=== PATIENT | male | born 1945 | race Caucasian/White ===

== ENCOUNTER 2016-04-23 05:44 | Inpatient (IN) | payer OTHER ==
[2016-04-23] VITALS (25 sets, daily range): BP systolic 104–144; BP diastolic 41–65
[~2016-04-23] VITALS: Ht 180.3 cm; Wt 95.9 kg
--- NOTE | 2016-04-23 06:18 | DIAGNOSTIC IMAGING REPORT ---
PROCEDURE: XR CHEST 1 VIEW INDICATION: Pain. Chronic abdominal distention and ascites. TECHNIQUE: Portable AP view (0605 hours). COMPARISON: Compared to chest x-ray 03/12/2016. FINDINGS: Allowing for suboptimal inspiration, lungs are clear. Status post coronary artery bypass graft. Mild cardiomegaly. Mediastinum is normal. Heart and mediastinum are normal. Thorax is normal. IMPRESSION: 1. Status post coronary artery bypass graft. 2. Mild cardiomegaly. 3. Otherwise negative chest.
--- NOTE | 2016-04-23 06:42 | ED NURSING NOTES ---
Clinical Report - Nurses [facility] [address] [place] [address] 04/23/2016 5:44 Patient: HOLLY NAM TRIAGE Triage time 05:49. Acuity: LEVEL 4. Chief Complaint: CHEST PAIN. Alert. --05:54 Ivon Segura R.N. 05:49 04/23/16. BP: 125/46. HR: 82. RR: 20 (regular and unlabored). O2 saturation: 93% on room air. Temp: 97.9 F (oral). --05:54 Ivon Segura R.N. Weight: 96 kg measured. Height/Length: 69 inches Per Patient. BMI: 31.3. --05:51 Ivon Segura R.N. Medications Aspirin Oral (Tablet 81 mg) 1 tablet, daily. Atorvastatin Calcium Oral 40 mg, at bedtime. Glargine Insulin 12 units, at bedtime. HumaLOG Subcutaneous 4 units, before meals, add 1 unit if BS >150. --05:51 Ivon Segura R.N. Iron Oral 50 mg, daily. L-Thyroxine 112 mcgs, daily. MetFORMIN HCl Oral 850 mg, 2x a day. Midodrine HCl Oral 15 mg, TID (5mg tablets, take 3). Omeprazole Oral 20 mg, daily. Vitamins Oral, daily. Rifaximin Oral (Tablet 550 mg) 1 tablet, daily. Spironolactone Oral 25mg tablets, 3 tablets, 2x a day. Sucralfate-Malate Mouth/Throat 1 gm, daily. Torsemide Oral 20 mg, take 4 tablets, daily. --05:51 Ivon Segura R.N. Allergies No Known Drug Allergy. --05:51 Ivon Segura R.N. History Arrived by private vehicle. Historian: patient. Accompanied by family. Primary physician (Devang). ( pt was seen by PCP 2 days ago). This started today. Onset. (at 0200). 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 (tums last dose today at 0330). SOCIAL HX: Never smoker. No alcohol use. NUTRITIONAL RISK ASSESSMENT: The nutritional risk assessment revealed no deficiencies. FUNCTIONAL ASSESSMENT: Functional assessment: no impairments noted. --05:54 Ivon Segura R.N. PROBLEMS: Dizziness. Renal Failure. Coronary Artery Disease. Ascites. Hypovolemia. Heart Disease. Anemia. Hypoglycemia. Herpes Zoster. Liver disease. Thyroid Disease. Diabetes Mellitus. --05:51 Ivon Segura R.N. ADDITIONAL SURGERIES: Coronary Angioplasty. Coronary Artery Bypass Graft. Paracentesis. --05:51 Ivon Segura R.N. Interventions ID band on patient. To treatment room. --05:54 Ivon Segura R.N. PHYSICAL ASSESSMENT To room via wheelchair. Patient gowned. GENERAL / NEURO / PSYCH: Alert. Oriented X 4. Appears in no acute distress. RESPIRATORY: Respirations not labored. CVS: Capillary refill less than 2 seconds. GI / : Abdominal distention. SKIN: Skin is warm and dry. --05:54 Ivon Segura R.N. NURSING PROGRESS NOTES Head of bed elevated. Two patient identifiers checked. Call light placed in reach. Side rails up x 1. Bed placed in lowest position. Brakes of bed on. --05:54 Ivon Segura R.N. Patient ready for evaluation- chart flagged. --05:54 Ivon Segura R.N. 05:56 04/23/2016 Site #1 started via IV in the right forearm with an 18g angiocath, with aseptic technique and good blood return; one attempt. Blood drawn: rainbow set. Labeled in the presence of the patient and sent to the lab. Saline lock flushed with 10 mL saline (started by YOUSIF Langston). --05:56 Ivon Segura R.N. 06:20 04/23/2016 NITROGLYCERIN PASTE Topical Paste 1 inch. Applied to the right upper back. Allergies verified and confirmed 5 rights. --06:25 Melissa Cline 06:20 04/23/2016 Zofran (Ondansetron HCl) IVP 4 mg given over 1 minute(s) via site #1. Allergies verified and confirmed 5 rights. IV patency established. IV site checked: no pain, redness, or swelling. IV flushed thoroughly pre- and post-medication administration. IVP given by RN. --06:25 Melissa Cline 06:21 04/23/2016 PROTONIX (Pantoprazole Sodium) IVP 40 mg given over 2 minute(s) via site #1. Allergies verified and confirmed 5 rights. IV patency established. IV site checked: no pain, redness, or swelling. IV flushed thoroughly pre- and post-medication administration. IVP given by RN. --06:26 Melissa Cline 06:25 04/23/2016 Aspirin PO Tablets 325 mg given. Allergies verified and confirmed 5 rights. --06:25 Melissa Cline 06:04/23/2016 GI COCKTAIL WHITE (Simethicone) PO Oral Suspension 30 mL given. Allergies verified and confirmed 5 rights. --06:25 Melissa Cline Hgb: 6.1. Hct: 18.8. ED physician notifed of critical value. --06:26 Ivon Segura R.N. 06:28 04/23/16. BP: 125/53. HR: 75. RR: 14. O2 saturation: 100% on nasal cannula at 2 liters/minute. Pain level now: 07/27. --06:29 Melissa Cline ( Patient states he had an iron infusion yesterday and he is wondering about his blood counts). --06:29 Melissa Cline 06:32 04/23/16. BP: 129/98. HR: 69. RR: 13. O2 saturation: 100% on nasal cannula at 2 liters/minute. Pain level now: 07/27. --06:32 Melissa Cline 06:43 04/23/16. BP: 123/47. HR: 74. RR: 15. O2 saturation: 100% on nasal cannula at 2 liters/minute. Pain level now: 06/26. --06:44 Melissa Cline ( Consent for blood transfusion signed by patient, witnessed by writing RN.). --06:47 Melissa Cline The initial plan of care for this patient has been created This plan of care was discussed with the patient and family. --06:47 SonMelissa 06:48 04/23/16. BP: 123/50. HR: 68. RR: 16. O2 saturation: 99% on nasal cannula at 2 liters/minute. Pain level now: 06/26. --06:49 Son Melissa 05:54 04/23/16. monitoring engineer, pulse oximeter and NIBP monitor placed on patient; monitor alarms on. --06:52 Melissa Cline 06:52 04/23/16. BP: 124/55. HR: 67. RR: 20. O2 saturation: 99% on nasal cannula at 2 liters/minute. Pain level now: 06/26. --06:53 Son Melissa ( Patient resting, patient states his pain has subsided some. He has no complaints at this time. at bedside.). --06:55 Melissa Cline Care transferred and report given (Rosanne Duron RN). --07:05 Melissa Cline The plan of care for this patient includes an assessment with efforts to address patient positioning; impairment of the integumentary system; mobility impairments. This plan of care was discussed with the family and grandmother. Oxygen administered by nasal cannula at 2 liters. Monitoring of patient in place. Patient gowned. Head of bed elevated. Reassurance given. Patient identifiers checked. Call light placed in reach. Side rails up x 2. Bed placed in lowest position. Patient waiting for admit bed. ( Assumed care, report from YOUSIF Torres. Pt. resting quietly with at bedside. Awaiting CCU bed. Chaperoned rectal exam by ,. guaiac positive). --07:33 Alyson Ty R.N. 07:30 04/23/16. BP: 123/55. HR: 74. RR: 14. O2 saturation: 100% at 2 liters/minute. Temp: 97.9 F. Pain level now: 05/29. --07:33 Alyson Ty R.N. Cardiac rhythm: normal sinus rhythm. Oxygen administered. Monitoring of patient in place. Head of bed elevated 15 degrees. Reassurance given. Reassessment after oxygen administered. He is resting quietly. Overall patient status is improved- he states feels better. GENERAL / NEURO / PSYCH: Denies anxiety. HEENT: Denies headache. RESPIRATORY: No respiratory distress present. Respiratory distress present. Breath sounds normal. No crackles. CVS: The patient reports central chest pain is still present but improving and currently mild in severity and described as dull. Denies radiation of chest pain or associated symptoms. GI / : Denies nausea. SKIN: Skin is warm and dry. Skin color within normal limits. Two patient identifiers checked. Call light placed in reach. Side rails up x 2. Bed placed in lowest position. Brakes of bed on. Brakes of chair on. ( Report received from YOUSIF Torres). --07:49 Rosanne Duron R.N. Patient hygiene performed. Changed patient gown and linens. Patient ID band checked for patient name, birthdate and medical record number: patient confirmed. Instructions provided to collect clean catch urine and patient verbalized understanding. Clean catch urine collected with return of yellow-colored clear urine; sample sent to lab for urinalysis. Specimen labeled in the presence of the patient. The patient is calm. ( Transfusion ordered, lab still needs to run Deepti MD aware, pt awaiting for bed being cleaned in CCU). --08:35 Rosanne Duron R.N. DISPOSITION / DISCHARGE 08:46 04/23/2016 Site #1 reassessed; patent. Line flushed with saline. Good blood return present. Converted to saline lock. --09:08 Rosanne Duron R.N. Cardiac rhythm: normal sinus rhythm. Condition at departure: improved and stable. The goals identified in the patient's plan of care were met. Fall risk assessment completed. Risk factors identified include postural hypotension and patient medications, age greater than 65 years and impairment of mobility. Report was given to a nurse via a phone call. Report included patient's care, treatment, medications, reviewed medication reconcilliation, and condition (including any recent changes or anticipated changes). All questions were answered. Report was acknowledged and care was transferred. Bed obtained (0830 AM). ( Pt transported via stretcher safely, monitor in place, IV in place, family updated). Patient's personal items include: shirt, pants, skirt, undergarments, coat, socks and shoes; items were placed in belongings bag, given to the patient and transported with the patient. MARTITA COMA SCORE: Martita Coma Scale: 15- eyes open spontaneously (4); best verbal response- oriented x 4 (5); best motor response- obeys commands (6). --09:14 Rosanne Duron R.N. 08:46 04/23/16. BP: 118/53 (regular adult cuff) taken on the left arm, via an automated monitor, while lying. HR: 69. RR: 15. O2 saturation: 100%. Temp: 97.9 F (oral). Pain level now: 05/29. --09:14 Rosanne Duron R.N. Locked/Released at 05/19/2016 9:33 by Chen Brownlee R.N.
--- NOTE | 2016-04-23 06:42 | ED CLINICAL REPORT ---
Clinical Report - Physicians/Mid Levels [facility] [address] [place] [address] 04/23/2016 5:44 Patient: HOLLY NAM Time Seen: 05:51. Arrived- By private vehicle. Historian- patient and family. HISTORY OF PRESENT ILLNESS Chief Complaint: CHEST DISCOMFORT. It is described as dull and "pain" and it is described as located in other area (lower sternal area) and the epigastric area. No radiation. This started today about 0200 - about 4 hours ago and is still present. It was gradual in onset and has been waxing/waning. Onset during light activity. At its maximum, severity described as moderate. When seen in the E.D., it was gone. Modifying factors- worsened by walking. Relieved by rest. No nausea, vomiting, difficulty breathing or diaphoresis. Similar symptoms previously: None. Recent medical care: The patient was seen recently at this facility in the emergency department. REVIEW OF SYSTEMS No fever, chills, cough, pedal edema or calf pain. No fainting episodes, headache, sore throat, black stools or difficulty with urination. No skin rash or bloody stools. He has had abdominal pain (fullness with his ascites). The pain is described as generalized and located in the upper abdomen. This abdominal pain is similar to previous symptoms. All systems otherwise negative, except as recorded above. PAST HISTORY Coronary artery disease. PCP: Dr Siddiqi Dead Mail Checker: at [facility] (strongly being considered for liver transplant) Anemia. 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 DM II on oral meds and insulin. Esophageal varices. Hypothyroid HTN Reflux Sleep apnea Kidney stone Herpes Zoster SURGERIES: EGD Coronary angiogram with angioplasty CABG times 7 grafts Colonoscopy Bone marrow bx. No history of pulmonary embolism. Medications: Iron Oral 50 mg, daily. L-Thyroxine 112 mcgs, daily. MetFORMIN HCl Oral 850 mg, 2x a day. Midodrine HCl Oral 15 mg, TID (5mg tablets, take 3). Omeprazole Oral 20 mg, daily. Vitamins Oral, daily. Rifaximin Oral (Tablet 550 mg) 1 tablet, daily. Spironolactone Oral 25mg tablets, 3 tablets, 2x a day. Sucralfate-Malate Mouth/Throat 1 gm, daily. Torsemide Oral 20 mg, take 4 tablets, daily. Aspirin Oral (Tablet 81 mg) 1 tablet, daily. Atorvastatin Calcium Oral 40 mg, at bedtime. Glargine Insulin 12 units, at bedtime. HumaLOG Subcutaneous 4 units, before meals, add 1 unit if BS >150. Allergies: No Known Drug Allergy. SOCIAL HISTORY Never smoker. No alcohol use or drug use. Is a local resident. ADDITIONAL NOTES The nursing notes have been reviewed. PHYSICAL EXAM Vital Signs: 04/23/2016 05:49 BP: 125/46. HR: 82. RR: 20. O2 saturation: 93%. Temp: 97.9 F. Appearance: Alert. Oriented X3. Patient in mild distress. Eyes: Eyes normal inspection. No scleral icterus or pale conjunctivae. ENT: Pharynx normal. No pharyngeal erythema or tonsillar exudate. The mucous membranes are not dry. Neck: Normal inspection. Neck supple. CVS: Heart sounds normal. Pulses normal. Respiratory: No respiratory distress. Breath sounds normal. Chest nontender. No rales, rhonchi or wheezes. Abdomen: Soft. Distention (with large ascites). Back: Normal external inspection. Rectal: Trace heme-positive stool; blood present in the stool; stools are dark colored; hemoccult construction quality control manager check passed. (POC test reference range: negative). Skin: Skin warm and dry. Extremities: Bilateral moderate edema of the lower extremities. Neuro: Oriented X 3. No motor deficit. LABS, X-RAYS, AND EKG EKG: EKG time: (05:56). Rate: 80. Normal P waves. Normal NARCISO. Nondiagnostic Q waves in lead I and aVL. Poor R wave progression. Non-specific ST segment / T wave abnormalities. Non-specific ST depression in lead V5 and V6 (approx 1 mm). Non-specific T wave inversion in lead aVL and V1. Prolonged QTc. Changes present when compared to prior EKG. (vs [id number] - subtle ST dep V5, V6 today - not on prior; T-wave inversions aVL unchanged). The study has been interpreted contemporaneously by me. The EKG appears to be a good tracing. Rhythm Strip #1: Normal sinus rhythm. Regular rhythm. Narrow QRS complexes. No ectopy. Chest X-ray: (IMPRESSION: 1. Status post coronary artery bypass graft. 2. Mild cardiomegaly. 3. Otherwise negative chest.). Views: AP (portable). Technique: good. The X-rays were interpreted contemporaneously by me. The X-rays were discussed with the radiologist (via PACS report). Laboratory Tests: CBC w Diff: (MAYA: 04/23/2016 05:58) ( [place] [facility] [place] 04/23/[place] 06:27) Final results Test Result Flag Units (Reference) WHITE BLOOD COUNT 1.9 L K/uL (4.5-11.5) RED BLOOD COUNT 1.99 L M/uL (4.50-5.90) HEMOGLOBIN 6.1 *L gm/dL (13.5-17.5) CRITICAL RESULTS CALLEDCalled to [email or web address] 04/23/16 0626Were 2 patient identifiers used? YWas the result read back? Y HEMATOCRIT 18.8 *L % (41.0-53.0) CRITICAL RESULTS CALLEDCalled to [employer] 04/23/16 0626Were 2 patient identifiers used? YWas the result read back? Y MEAN CELL VOLUME 95 fL (80-100) MEAN CORPUSCULAR HGB 31 pg (26-34) MEAN CORPUSCULAR HGB CONC 32 g/dL (31-37) RED CELL DISTRIBUTION WIDTH 21.0 H % (11.6-14.8) PLATELET COUNT 50 L K/uL (150-400) NEUTROPHIL % 78.0 H % (50-75) LYMPH % 11.2 L % (25-40) MONO % 10.3 % (3-14) EOSINOPHIL % 0 % (0-4) BASOPHIL % 0.5 % (0-2) PT with INR: (MAYA: 04/23/2016 05:58) ( [place] [facility] [place] 04/23/2016 06:25) Final results Test Result Flag Units (Reference) INR 1.4 H (0.8-1.2) Low Intensity Therapy: INR 1.5-2.0 PT range 18.5-23.1Mod.Intensity Therapy: INR 2.0-3.0 PT range 23.1-31.5High Intensity Therapy: INR 2.5-3.5 PT range 27.4-35.5High Intensity Therapy 2: INR 3.0-4.0 PT range 31.5-39.3 D-DIMER QUANTITATIVE 1.79 H ug/mLFEU (0.27-0.52) The primary value of this quantitative assay relates toits negative predictive value (i.e. exclusion) of pulmonaryembolism/deep vein thrombosis/DIC.Elevated levels of d-dimer may also occur with:, age, cancer, inflammation, liver disease,post-op, infection, hematoma, coronary disease, peripheralarteriopathy, bleeding disorders and thrombolytic treatment.Results should be correlated with other clinical andradiological data.Testing Methodology: Latex Immunoassay [id number]: (MAYA: 04/23/2016 05:58) ( MsgRcvd 04/23/2016 07:40) Final results Test Result Flag Units (Reference) PROCALCITONIN <0.5 ng/mL (0-0.5) PCT Concentration: Interpretation : Risk/option for action PCT <=0.5 ng/mL : Systemic : Low risk forinfection(sepsis): progression to severeis not likely. : systemic infection.Local bacterial : CAUTION-PCT levelsinfection is : below 0.5 ng/mL do notpossible. : exclude an infection,because localizedinfections (withoutsystemic signs) may beassociated with suchlow levels. If PCT ismeasured very earlyafter a bacterialchallenge (usually <6hours), these valuesmay still be low. Inthis case PCT shouldbe re-assessed 6-24hours later. PCT >0.5 and : Systemic infection: Moderate risk for<= 2 ng/mL : (sepsis) is : progression to severepossible, but : systemic infection.other conditions : The patient should beare known to : closely monitoredelevate PCT. : both clinically andby re-assessing PCTwithin 6-24 hours. PCT > 2 ng/mL : Systemic infection: High risk for(sepsis) is likely: progression to severeunless other : systemic infection.causes are known. : PCT >= 10 ng/mL : Important systemic: High likelihood ofinflammatory : severe sepsis orresponse, almost : septic shock.exclusively due to:severe bacterial :sepsis or septic :shock. : Ammonia Level: (MAYA: 04/23/2016 06:28) ( [facility] 04/23/2016 07:34) Final results Test Result Flag Units (Reference) AMMONIA 114 H umol/L (11-32) BNP: (MAYA: 04/23/2016 05:58) ( [place] [facility] [place] 04/23/2016 06:41) Final results Test Result Flag Units (Reference) B-TYPE NATRIURETIC PEPTIDE 142 H pg/ml (5-100) Lipase: (MAYA: 04/23/2016 05:58) ( [facility] 04/23/2016 07:31) Final results Test Result Flag Units (Reference) AMYLASE 92 U/L (25-115) THYROID STIMULATING HORMONE 5.921 H uIU/mL (0.30-3.74) LIPASE 513 H U/L (73-393) CHEM 13 PANEL: (MAYA: 04/23/2016 05:58) ( MsgRcvd 04/23/2016 07:31) Final results Test Result Flag Units (Reference) GLUCOSE 194 H mg/dL (70-110) BUN 51 H mg/dL (7-18) CREATININE 2.5 H mg/dL (0.6-1.3) Estimated GFR 27.19 mL/min Estimated GFR- 32.96 mL/min Note: Persistent reduction over 3 months in eGFR<60 mL/min/1.73 m2 defines CKD. Patients with eGFR values>=60 mL/min/1.73 m2 may also have CKD if evidence ofpersistent proteinuria. Additional information may be foundat www.kidney.org. SODIUM 141 mmol/L (136-145) POTASSIUM 3.5 mmol/L (3.5-5.1) CHLORIDE 103 mmol/L (98-107) CARBON DIOXIDE 28 mmol/L (21-32) CALCIUM 8.5 mg/dL (8.5-10.1) TOTAL PROTEIN 6.6 g/dL (6.4-8.2) ALBUMIN 3.3 g/dL (3.3-5.0) BILIRUBIN, TOTAL 1.3 H mg/dL (0.0-1.0) ALKALINE PHOSPHATASE 110 U/L (46-116) AST (SGOT) 29 U/L (15-37) ALT (SGPT) 22 U/L (12-78) TROPONIN I 0.29 ng/mL (0.00-1.5) TROPONIN REFERENCE RANGE:<0.1 NEGATIVE0.1-1.5 INDETERMINANT>1.5 POSITIVE MAGNESIUM 1.8 mg/dL (1.8-2.4) CPK 62 U/L (24-260) . Pulse Oximetry: 04/23/2016 05:49 O2 saturation: 93%. (FIO2 - room air). Interpretation: hypoxemia. PROGRESS AND PROCEDURES Course of Care: GI Cocktail 30 mL "white" PO given. Nitroglycerin 1 inch paste given. ASA 325 mg PO given. Zofran 4 mg IVP given. Protonix 40 mg IVP given. Heparins held due to severe anemia and blood in stool 10% HCT drop in past 1 1/2 months 08:53 04/23/16. Still awaiting T&C and 2 units - may not be available for over 1 hour. Will transfer to ICU and begin transfusion as soon as blood arrives 07:38 04/23/16. Dr Siddiqi in ED now. Critical care performed (70 minutes). Time is exclusive of separately billable procedures. Time includes: direct patient care, patient reassessment, coordination of patient care, interpretation of data (laboratory data, chest xrays and prior electrocardiograms), review of patient's medical records, medical consultation, family consultation regarding treatment decisions and documentation of patient care. Procedures excluded from critical care time: electrocardiography. Discussed case with hospitalist, (Jose Alfredo call placed 07:12 call returned 07:20). Refers case to other health care provider. Discussed case with patient's primary care provider, (Devang call placed 07:22 call returned 07:23). Reviewed test results. Agreed upon treatment plan. Health care provider will see patient in ED. Patient/family counseled. Old ED records reviewed. Patient has had multiple ED visits (Records from [facility] also reviewed). Transition orders written. Disposition: Admitted to the Critical Care Unit. Condition: stable, serious and guarded. CLINICAL IMPRESSION Precordial chest pain characterized as "discomfort" .12 lead EKG performed. Abnormal EKG: nonspecific ST-T wave changes, depressed ST segments and inverted T waves. 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 No alcoholic cirrhosis. Moderate chronic renal failure. Severe acute anemia. Ascites, secondary to cirrhosis. Pancytopenia with profound anemia Hypothyroid - likely under replaced Indeterminate troponin I Mild amylase elevation with normal lipase. (Electronically signed by Germain Fairbanks DO 04/23/2016 8:54)
--- NOTE | 2016-04-23 06:42 | ED ORDER SUMMARY ---
..... Patient: HOLLY NAM OrderSheet [facility] VisitID: [id number] [place] [address] 70y, M Registration Date/Time: 04/23/2016 ORDER SHEET Weight: 96 kg (measured) Allergies: No Known Drug Allergy GENERAL ORDERS: Chest 1V Urgent (05:53 04/23/2016 PHprchinson DO) (Ack 5:56 AMcQuoid ER Tech1) (6:13 GUnger) Carpet Installer (Continuous) (05:53 [facility] (Ack 5:56 AMcQuoid ER Tech1) (5:56 AMcQuoid ER Tech1) UA-Culture if indicated Urgent (:04/23/2016 [facility] DO) (Ack 5:56 AMcQuoid ER Tech1) (Cancelled: Unable to Collect9:33 LSchille R.N.) Cardiac Panel Stat (:04/23/2016 [facility] (Ack 5:56 AMcQuoid ER Tech1) (6:30 AMcQuoid ER Tech1) BNP Urgent (:04/23/2016 [facility] (Ack 5:56 AMcQuoid ER Tech1) (6:30 AMcQuoid ER Tech1) D-Dimer Urgent (:04/23/2016 PHprchinson DO) (Ack 5:56 AMcQuoid ER Tech1) (6:30 AMcQuoid ER Tech1) Amylase Urgent (:04/23/2016 PHutchinson DO) (Ack 5:56 AMcQuoid ER Tech1) (6:30 AMcQuoid ER Tech1) TSH Urgent (:04/23/2016 PHprchinson DO) (Ack 5:56 AMcQuoid ER Tech1) (6:30 AMcQuoid ER Tech1) Lipase Urgent (04/23/2016 PHprchinson DO) (Ack 5:56 AMcQuoid ER Tech1) (6:30 AMcQuoid ER Tech1) PT with INR Urgent (:04/23[facility]2016 [facility] (Ack 5:56 AMcQuoid ER Tech1) (6:30 AMcQuoid ER Tech1) Oxygen (2 L/min) (NC) (05:54 [facility]2016 [facility] (Ack 5:56 AMcQuoid ER Tech1) (5:56 AMcQuoid ER Tech1) Pulse oximeter (05:54 04/23/2016 [facility] DO) (Ack 5:56 AMcQuoid ER Tech1) (5:56 AMcQuoid ER Tech1) EKG - ER Stat (05:54 04/23/2016 [facility] DO) (Ack 5:56 AMcQuoid ER Tech1) (5:56 AMcQuoid ER Tech1) Vitals (05:54 [facility]23/2016 [facility] (Ack 5:56 AMcQuoid ER Tech1) (5:56 AMcQuoid ER Tech1) Ammonia Level Urgent (05:59 04/23/2016 [facility] DO) (Ack 6:17 AMcQuoid ER Tech1) (6:34 AMcQuoid ER Tech1) PCT (Procalcitonin) Urgent (05:59 04/23/2016 [facility] DO) (Ack 6:17 AMcQuoid ER Tech1) (6:30 AMcQuoid ER Tech1) Type & Cross (profound) (anemia) Urgent (06:32 04/23/2016 [facility] DO) (6:34 AMcQuoid ER Tech1) Call (Place call to): (Dr Veliz) (07:12 04/23/2016 [facility] DO) (Ack 7:17 Keiko) (8:08 EHassan R.N.) MEDICATION ORDERS: GI Cocktail WHITE PO 30 mL with Lidocaine Viscous Mouth/Throat 15 mL, Maalox Plus Oral 15 mL (06:09 04/23/2016 [facility] DO) (Ack 6:11 RCollier R.N.) (Ack 6:11 HSoule) (6:25 HSoule) Aspirin PO 325 mg (NOW) (06:09 04/23/2016 [facility] DO) (Ack 6:11 RCollier R.N.) (Ack 6:11 HSoule) (6:25 HSoule) NitroGLYCERIN Paste Topical 1 in. (NOW, to ) (06:10 04/23/2016 [facility]) (Ack 6:11 RCollier R.N.) (Ack 6:11 HSoule) (6:25 HSoule) - (Transfuse 2 units PRBC's when available) (08:16 04/23/2016 [facility]) IV FLUIDS: IV Saline Lock (05:54 04/23/2016 [facility]) (Ack 5:56 RCollier R.N.) (6:24 HSoule) Protonix IVP 40mg 40 mg (Mix in NS 10ml over 2min) (06:09 04/23/2016 [facility]) (Ack 6:11 RCollier R.N.) (Ack 6:11 HSoule) (6:26 HSoule) Zofran IV 4 mg (NOW) (06:10 04/23/2016 [facility]) (Ack 6:11 RCollier R.N.) (Ack 6:11 HSoule) (6:25 HSoule) ORDER SHEET NOTES: [Electronically signed by Germain Fairbanks DO (08:54 04/23/2016)] [Electronically signed by Germain Fairbanks DO (15:12 05/08/2016)] [Electronically signed by Chen Brownlee R.N. (09:33 05/19/2016)] [Electronically locked/signed by Chen Brownlee R.N. (09:33 05/19/2016)]
--- NOTE | 2016-04-23 06:42 | ED CLINICAL REPORT ---
Clinical Report - Physicians/Mid Levels [facility] [address] [place] [address] 04/23/2016 5:44 Patient: HOLLY NAM Time Seen: 05:51. Arrived- By private vehicle. Historian- patient and family. HISTORY OF PRESENT ILLNESS Chief Complaint: CHEST DISCOMFORT. It is described as dull and "pain" and it is described as located in other area (lower sternal area) and the epigastric area. No radiation. This started today about 0200 - about 4 hours ago and is still present. It was gradual in onset and has been waxing/waning. Onset during light activity. At its maximum, severity described as moderate. When seen in the E.D., it was gone. Modifying factors- worsened by walking. Relieved by rest. No nausea, vomiting, difficulty breathing or diaphoresis. Similar symptoms previously: None. Recent medical care: The patient was seen recently at this facility in the emergency department. REVIEW OF SYSTEMS No fever, chills, cough, pedal edema or calf pain. No fainting episodes, headache, sore throat, black stools or difficulty with urination. No skin rash or bloody stools. He has had abdominal pain (fullness with his ascites). The pain is described as generalized and located in the upper abdomen. This abdominal pain is similar to previous symptoms. All systems otherwise negative, except as recorded above. PAST HISTORY Coronary artery disease. PCP: Dr Siddiqi Soils Analyst: at [facility] (strongly being considered for liver transplant) Anemia. 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 DM II on oral meds and insulin. Esophageal varices. Hypothyroid HTN Reflux Sleep apnea Kidney stone Herpes Zoster SURGERIES: EGD Coronary angiogram with angioplasty CABG times 7 grafts Colonoscopy Bone marrow bx. No history of pulmonary embolism. Medications: Iron Oral 50 mg, daily. L-Thyroxine 112 mcgs, daily. MetFORMIN HCl Oral 850 mg, 2x a day. Midodrine HCl Oral 15 mg, TID (5mg tablets, take 3). Omeprazole Oral 20 mg, daily. Vitamins Oral, daily. Rifaximin Oral (Tablet 550 mg) 1 tablet, daily. Spironolactone Oral 25mg tablets, 3 tablets, 2x a day. Sucralfate-Malate Mouth/Throat 1 gm, daily. Torsemide Oral 20 mg, take 4 tablets, daily. Aspirin Oral (Tablet 81 mg) 1 tablet, daily. Atorvastatin Calcium Oral 40 mg, at bedtime. Glargine Insulin 12 units, at bedtime. HumaLOG Subcutaneous 4 units, before meals, add 1 unit if BS >150. Allergies: No Known Drug Allergy. SOCIAL HISTORY Never smoker. No alcohol use or drug use. Is a local resident. ADDITIONAL NOTES The nursing notes have been reviewed. PHYSICAL EXAM Vital Signs: 04/23/2016 05:49 BP: 125/46. HR: 82. RR: 20. O2 saturation: 93%. Temp: 97.9 F. Appearance: Alert. Oriented X3. Patient in mild distress. Eyes: Eyes normal inspection. No scleral icterus or pale conjunctivae. ENT: Pharynx normal. No pharyngeal erythema or tonsillar exudate. The mucous membranes are not dry. Neck: Normal inspection. Neck supple. CVS: Heart sounds normal. Pulses normal. Respiratory: No respiratory distress. Breath sounds normal. Chest nontender. No rales, rhonchi or wheezes. Abdomen: Soft. Distention (with large ascites). Back: Normal external inspection. Rectal: Trace heme-positive stool; blood present in the stool; stools are dark colored; hemoccult quality assistant check passed. (POC test reference range: negative). Skin: Skin warm and dry. Extremities: Bilateral moderate edema of the lower extremities. Neuro: Oriented X 3. No motor deficit. LABS, X-RAYS, AND EKG EKG: EKG time: (05:56). Rate: 80. Normal P waves. Normal NARCISO. Nondiagnostic Q waves in lead I and aVL. Poor R wave progression. Non-specific ST segment / T wave abnormalities. Non-specific ST depression in lead V5 and V6 (approx 1 mm). Non-specific T wave inversion in lead aVL and V1. Prolonged QTc. Changes present when compared to prior EKG. (vs [id number] - subtle ST dep V5, V6 today - not on prior; T-wave inversions aVL unchanged). The study has been interpreted contemporaneously by me. The EKG appears to be a good tracing. Rhythm Strip #1: Normal sinus rhythm. Regular rhythm. Narrow QRS complexes. No ectopy. Chest X-ray: (IMPRESSION: 1. Status post coronary artery bypass graft. 2. Mild cardiomegaly. 3. Otherwise negative chest.). Views: AP (portable). Technique: good. The X-rays were interpreted contemporaneously by me. The X-rays were discussed with the radiologist (via PACS report). Laboratory Tests: CBC w Diff: (MAYA: 04/23/2016 05:58) ( [facility] 04/23/2016 06:27) Final results Test Result Flag Units (Reference) WHITE BLOOD COUNT 1.9 L K/uL (4.5-11.5) RED BLOOD COUNT 1.99 L M/uL (4.50-5.90) HEMOGLOBIN 6.1 *L gm/dL (13.5-17.5) CRITICAL RESULTS CALLEDCalled to [email or web address] 04/23/16 0626Were 2 patient identifiers used? YWas the result read back? Y HEMATOCRIT 18.8 *L % (41.0-53.0) CRITICAL RESULTS CALLEDCalled to Mobil[employer] 04/23/16 0626Were 2 patient identifiers used? YWas the result read back? Y MEAN CELL VOLUME 95 fL (80-100) MEAN CORPUSCULAR HGB 31 pg (26-34) MEAN CORPUSCULAR HGB CONC 32 g/dL (31-37) RED CELL DISTRIBUTION WIDTH 21.0 H % (11.6-14.8) PLATELET COUNT 50 L K/uL (150-400) NEUTROPHIL % 78.0 H % (50-75) LYMPH % 11.2 L % (25-40) MONO % 10.3 % (3-14) EOSINOPHIL % 0 % (0-4) BASOPHIL % 0.5 % (0-2) PT with INR: (MAYA: 04/23/2016 05:58) ( [facility] 04/23/2016 06:25) Final results Test Result Flag Units (Reference) INR 1.4 H (0.8-1.2) Low Intensity Therapy: INR 1.5-2.0 PT range 18.5-23.1Mod.Intensity Therapy: INR 2.0-3.0 PT range 23.1-31.5High Intensity Therapy: INR 2.5-3.5 PT range 27.4-35.5High Intensity Therapy 2: INR 3.0-4.0 PT range 31.5-39.3 D-DIMER QUANTITATIVE 1.79 H ug/mLFEU (0.27-0.52) The primary value of this quantitative assay relates toits negative predictive value (i.e. exclusion) of pulmonaryembolism/deep vein thrombosis/DIC.Elevated levels of d-dimer may also occur with:, age, cancer, inflammation, liver disease,post-op, infection, hematoma, coronary disease, peripheralarteriopathy, bleeding disorders and thrombolytic treatment.Results should be correlated with other clinical andradiological data.Testing Methodology: Latex Immunoassay [id number]: (MAYA: 04/23/2016 05:58) ( Msg[facility]cvd 04/23/2016 07:40) Final results Test Result Flag Units (Reference) PROCALCITONIN <0.5 ng/mL (0-0.5) PCT Concentration: Interpretation : Risk/option for action PCT <=0.5 ng/mL : Systemic : Low risk forinfection(sepsis): progression to severeis not likely. : systemic infection.Local bacterial : CAUTION-PCT levelsinfection is : below 0.5 ng/mL do notpossible. : exclude an infection,because localizedinfections (withoutsystemic signs) may beassociated with suchlow levels. If PCT ismeasured very earlyafter a bacterialchallenge (usually <6hours), these valuesmay still be low. Inthis case PCT shouldbe re-assessed 6-24hours later. PCT >0.5 and : Systemic infection: Moderate risk for<= 2 ng/mL : (sepsis) is : progression to severepossible, but : systemic infection.other conditions : The patient should beare known to : closely monitoredelevate PCT. : both clinically andby re-assessing PCTwithin 6-24 hours. PCT > 2 ng/mL : Systemic infection: High risk for(sepsis) is likely: progression to severeunless other : systemic infection.causes are known. : PCT >= 10 ng/mL : Important systemic: High likelihood ofinflammatory : severe sepsis orresponse, almost : septic shock.exclusively due to:severe bacterial :sepsis or septic :shock. : Ammonia Level: (MAYA: 04/23/2016 06:28) ( [facility] 04/23/2016 07:34) Final results Test Result Flag Units (Reference) AMMONIA 114 H umol/L (11-32) BNP: (MAYA: 04/23/2016 05:58) ( [facility] 04/23/2016 06:41) Final results Test Result Flag Units (Reference) B-TYPE NATRIURETIC PEPTIDE 142 H pg/ml (5-100) Lipase: (MAYA: 04/23/2016 05:58) ( [facility] [place] [place] 04/23/[place] 07:31) Final results Test Result Flag Units (Reference) AMYLASE 92 U/L (25-115) THYROID STIMULATING HORMONE 5.921 H uIU/mL (0.30-3.74) LIPASE 513 H U/L (73-393) CHEM 13 PANEL: (MAYA: 04/23/2016 05:58) ( MsgRcvd 04/23/2016 07:31) Final results Test Result Flag Units (Reference) GLUCOSE 194 H mg/dL (70-110) BUN 51 H mg/dL (7-18) CREATININE 2.5 H mg/dL (0.6-1.3) Estimated GFR 27.19 mL/min Estimated GFR- 32.96 mL/min Note: Persistent reduction over 3 months in eGFR<60 mL/min/1.73 m2 defines CKD. Patients with eGFR values>=60 mL/min/1.73 m2 may also have CKD if evidence ofpersistent proteinuria. Additional information may be foundat www.kidney.org. SODIUM 141 mmol/L (136-145) POTASSIUM 3.5 mmol/L (3.5-5.1) CHLORIDE 103 mmol/L (98-107) CARBON DIOXIDE 28 mmol/L (21-32) CALCIUM 8.5 mg/dL (8.5-10.1) TOTAL PROTEIN 6.6 g/dL (6.4-8.2) ALBUMIN 3.3 g/dL (3.3-5.0) BILIRUBIN, TOTAL 1.3 H mg/dL (0.0-1.0) ALKALINE PHOSPHATASE 110 U/L (46-116) AST (SGOT) 29 U/L (15-37) ALT (SGPT) 22 U/L (12-78) TROPONIN I 0.29 ng/mL (0.00-1.5) TROPONIN REFERENCE RANGE:<0.1 NEGATIVE0.1-1.5 INDETERMINANT>1.5 POSITIVE MAGNESIUM 1.8 mg/dL (1.8-2.4) CPK 62 U/L (24-260) . Pulse Oximetry: 04/23/2016 05:49 O2 saturation: 93%. (FIO2 - room air). Interpretation: hypoxemia. PROGRESS AND PROCEDURES Course of Care: GI Cocktail 30 mL "white" PO given. Nitroglycerin 1 inch paste given. ASA 325 mg PO given. Zofran 4 mg IVP given. Protonix 40 mg IVP given. Heparins held due to severe anemia and blood in stool 10% HCT drop in past 1 1/2 months 08:53 04/23/16. Still awaiting T&C and 2 units - may not be available for over 1 hour. Will transfer to ICU and begin transfusion as soon as blood arrives 07:38 04/23/16. Dr Siddiqi in ED now. Critical care performed (70 minutes). Time is exclusive of separately billable procedures. Time includes: direct patient care, patient reassessment, coordination of patient care, interpretation of data (laboratory data, chest xrays and prior electrocardiograms), review of patient's medical records, medical consultation, family consultation regarding treatment decisions and documentation of patient care. Procedures excluded from critical care time: electrocardiography. Discussed case with hospitalist, (Jose Alfredo call placed 07:12 call returned 07:20). Refers case to other health care provider. Discussed case with patient's primary care provider, (Devang call placed 07:22 call returned 07:23). Reviewed test results. Agreed upon treatment plan. Health care provider will see patient in ED. Patient/family counseled. Old ED records reviewed. Patient has had multiple ED visits (Records from [facility] also reviewed). Transition orders written. Disposition: Admitted to the Critical Care Unit. Condition: stable, serious and guarded. CLINICAL IMPRESSION Precordial chest pain characterized as "discomfort" .12 lead EKG performed. Abnormal EKG: nonspecific ST-T wave changes, depressed ST segments and inverted T waves. 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 No alcoholic cirrhosis. Moderate chronic renal failure. Severe acute anemia. Ascites, secondary to cirrhosis. Pancytopenia with profound anemia Hypothyroid - likely under replaced Indeterminate troponin I Mild amylase elevation with normal lipase. (Electronically signed by Germain Fairbanks DO 04/23/2016 8:54)
--- NOTE | 2016-04-23 06:42 | ED ORDER SUMMARY ---
..... Patient: HOLLY NAM OrderSheet [facility] VisitID: [id number] [place] [address] 70y, M Registration Date/Time: 04/23/2016 ORDER SHEET Weight: 96 kg (measured) Allergies: No Known Drug Allergy GENERAL ORDERS: Chest 1V Urgent (05:53 04/23/2016 PHncchinson DO) (Ack 5:56 AMcQuoid ER Tech1) (6:13 GUnger) Arts Therapist (Continuous) (05:53 [facility]2016 [facility] (Ack 5:56 AMcQuoid ER Tech1) (5:56 AMcQuoid ER Tech1) UA-Culture if indicated Urgent (:04/23/2016 [facility] DO) (Ack 5:56 AMcQuoid ER Tech1) (Cancelled: Unable to Collect9:33 LSchille R.N.) Cardiac Panel Stat (:04/23/2016 [facility] (Ack 5:56 AMcQuoid ER Tech1) (6:30 AMcQuoid ER Tech1) BNP Urgent (:04/23/2016 [facility] (Ack 5:56 AMcQuoid ER Tech1) (6:30 AMcQuoid ER Tech1) D-Dimer Urgent (:04/23/2016 PHncchinson DO) (Ack 5:56 AMcQuoid ER Tech1) (6:30 AMcQuoid ER Tech1) Amylase Urgent (:04/23/2016 PHutchinson DO) (Ack 5:56 AMcQuoid ER Tech1) (6:30 AMcQuoid ER Tech1) TSH Urgent (:04/23/2016 PHncchinson DO) (Ack 5:56 AMcQuoid ER Tech1) (6:30 AMcQuoid ER Tech1) Lipase Urgent (04/23/2016 PHncchinson DO) (Ack 5:56 AMcQuoid ER Tech1) (6:30 AMcQuoid ER Tech1) PT with INR Urgent (:04/23/2016 [facility] (Ack 5:56 AMcQuoid ER Tech1) (6:30 AMcQuoid ER Tech1) Oxygen (2 L/min) (NC) (05:54 [facility]/23/2016 [facility] (Ack 5:56 AMcQuoid ER Tech1) (5:56 AMcQuoid ER Tech1) Pulse oximeter (05:54 04/23/2016 [facility] DO) (Ack 5:56 AMcQuoid ER Tech1) (5:56 AMcQuoid ER Tech1) EKG - ER Stat (05:54 04/23/2016 [facility] DO) (Ack 5:56 AMcQuoid ER Tech1) (5:56 AMcQuoid ER Tech1) Vitals (05:54 04/23/2016 [facility] (Ack 5:56 AMcQuoid ER Tech1) (5:56 AMcQuoid ER Tech1) Ammonia Level Urgent (05:59 04/23/2016 [facility] DO) (Ack 6:17 AMcQuoid ER Tech1) (6:34 AMcQuoid ER Tech1) PCT (Procalcitonin) Urgent (05:59 04/23/2016 [facility] DO) (Ack 6:17 AMcQuoid ER Tech1) (6:30 AMcQuoid ER Tech1) Type & Cross (profound) (anemia) Urgent (06:32 04/23/2016 [facility] DO) (6:34 AMcQuoid ER Tech1) Call (Place call to): (Dr Veliz) (07:12 04/23/2016 [facility] DO) (Ack 7:17 Keiko) (8:08 EHassan R.N.) MEDICATION ORDERS: GI Cocktail WHITE PO 30 mL with Lidocaine Viscous Mouth/Throat 15 mL, Maalox Plus Oral 15 mL (06:09 04/23/2016 [facility] DO) (Ack 6:11 RCollier R.N.) (Ack 6:11 HSoule) (6:25 HSoule) Aspirin PO 325 mg (NOW) (06:09 04/23/2016 [facility] DO) (Ack 6:11 RCollier R.N.) (Ack 6:11 HSoule) (6:25 HSoule) NitroGLYCERIN Paste Topical 1 in. (NOW, to ) (06:10 04/23/2016 [facility]) (Ack 6:11 RCollier R.N.) (Ack 6:11 HSoule) (6:25 HSoule) - (Transfuse 2 units PRBC's when available) (08:16 04/23/2016 [facility]) IV FLUIDS: IV Saline Lock (05:54 04/23/2016 [facility]) (Ack 5:56 RCollier R.N.) (6:24 HSoule) Protonix IVP 40mg 40 mg (Mix in NS 10ml over 2min) (06:09 04/23/2016 [facility]) (Ack 6:11 RCollier R.N.) (Ack 6:11 HSoule) (6:26 HSoule) Zofran IV 4 mg (NOW) (06:10 04/23/2016 [facility]) (Ack 6:11 RCollier R.N.) (Ack 6:11 HSoule) (6:25 HSoule) ORDER SHEET NOTES: [Electronically signed by Germain Fairbanks DO (08:54 04/23/2016)] [Electronically signed by Germain Fairbanks DO (15:12 05/08/2016)] [Electronically signed by Chen Brownlee R.N. (09:33 05/19/2016)] [Electronically locked/signed by Chen Brownlee R.N. (09:33 05/19/2016)]
--- NOTE | 2016-04-23 09:03 | HISTORY AND PHYSICAL ---
ADMITTED: 04/23/2016 CHIEF COMPLAINT: 1. Chest pain HISTORY OF PRESENT ILLNESS: A 70-year-old male who presents to [facility] with chest pain times several hours prior to admission. He describes it as being in the lower end of his sternum. it is a pressure-like pain, described as holding a fist to his chest. He denies radiation. Denies associated shortness of breath, nausea, vomiting, dizziness, palpitations, or sweats. He does note, however, he is chronically short of breath due to ascites, distention of his abdomen. He has had prior heart disease with bypass surgery in the past. MEDICAL/SURGICAL HISTORY: Past medical history is remarkable for chronic liver failure with non-alcoholic steatohepatitis, chronic renal failure fairly stable with creatinine in the mid 2 range. History of coronary artery disease. History of ascites with weekly paracentesis performed for 4 liters each week, anemia of chronic recurrent with history of varices and gastrointestinal bleed. Diabetes mellitus, herpes zoster, hypothyroidism. Surgeries: CABG, coronary angioplasty, recurrent paracentesis. MEDICATIONS: 1. Aspirin 81 mg p.o. daily. 2. Atorvastatin 40 mg p.o. at bedtime. 3. Glargine insulin 12 units at bedtime. 4. Humalog insulin sliding scale with 4 units before meals plus additional 1 unit for each 50 -points of the sugar greater than 150. 5. Iron 50 mg daily. 6. Levothyroxine 112 mcg daily. 7. Metformin 850 mg b.i.d. 8. Midodrine 15 mg t.i.d. 9. Omeprazole 20 mg daily. 10. vitamins daily. 11. Rifaximin 550 mg daily. 12. Spironolactone 25 mg 3 tablets b.i.d. 13. Sucralfate 1 gram daily. 14. Torsemide 20 mg 4 tablets daily. ALLERGIES: 1. NONE KNOWN. SOCIAL HISTORY: , male, retired. Smoking: None. Alcohol: None. Drug use: None. FAMILY HISTORY: The patient denies liver failure. There was some history of heart disease in grandparents. REVIEW OF SYSTEMS: The patient denies neurologic symptoms of dizziness or seizures or headaches. HEENT: Denies visual deficit, hearing problems, sore throat, or runny nose. Respiratory: Denies cough, hemoptysis, but admits to shortness of breath. Cardiovascular: As noted above. Gastrointestinal: Denies nausea, vomiting, diarrhea, constipation, or melena. Neurologic: The patient complains of numbness in the feet, but denies numbness elsewhere. He has generalized weakness. Denies coordination or balance problems. Dermatologic: Denies rash, skin lesions or diaphoresis. Genitourinary: Denies hematuria or frequency. He does admit to slow stream. PHYSICAL EXAMINATION: GENERAL: Well-developed, well-nourished male with descended distended abdomen. VITAL SIGNS: Blood pressure 125/46, heart rate 82, respirations 20, SaO2 93% on room air. HEENT: Clear. NECK: Supple without adenopathy or thyromegaly. CHEST: Clear to auscultation and percussion. ABDOMEN: Distended with positive fluid wave, consistent with ascites. No masses palpable. No tenderness. No rebound or guarding. BACK: Straight without CVA tenderness. EXTREMITY: Reveals 2+ edema below the mid calf bilaterally. NEUROLOGIC: Moving all extremities. Alert and oriented x3. Cranial nerves II through XII are grossly intact and symmetric. Motor and sensory grossly normal. SKIN: Unremarkable. GENITAL: Normal male external genitalia. Rectal exam performed in the emergency revealing trace guaiac-positive stool. LAB/IMAGING: Glucose 194, BUN 51, creatinine 2.5, sodium 141, potassium 3.5, chloride 103, bicarbonate 28, magnesium 1.8, calcium 8.5, total protein 6.6, albumin 3.3, total bilirubin 1.3, alkaline phosphatase 110, AST 29, ALT 22. CPK 62. Troponin 0.29 (indeterminate). Amylase 92. TSH 5.921 (slightly elevated), lipase 513. Ammonia 114. Chest x-ray reveals no infiltrate, moderate cardiomegaly is noted. Poor inspiration is noted due to full abdomen. EKG reveals no acute changes, except for possible slight lateral ST depression. IMPRESSION: 1. Chest pain, rule out myocardial infarction versus angina versus other, (the patient does have some sternal tenderness which does mimic the pain). 2. Anemia, severe, probably secondary to chronic renal failure plus guaiac- positive stool in a patient with liver failure and history of varices. 3. Chronic renal failure. 4. Diabetes mellitus type 2. 5. Ascites, severe. PLAN: Admit for IV transfusion of blood, 3 units packed red cells, serial cardiac enzymes and EKGs to be obtained for rule out myocardial infarction protocol. The patient will be admitted to intensive care unit due to the severity of his problems and multiplicity of potentially life-threatening problems.
[2016-04-23] MEDS ORDERED: IRON325 MG PO (09:39)
[2016-04-23] MEDS ORDERED: L-THYROXINE SODIUM PO (09:40)
[2016-04-23] MEDS ORDERED: METFORMIN HCL850 MG PO (09:41)
[2016-04-23] MEDS ORDERED: MIDODRINE HCL10 MG PO (09:42)
[2016-04-23] MEDS ORDERED: OMEPRAZOLE20 MG PO (09:43)
[2016-04-23] MEDS ORDERED: PRENATAL1 TAB PO (09:44)
[2016-04-23] MEDS ORDERED: XIFAXAN550 MG PO (09:45)
[2016-04-23] MEDS ORDERED: SPIRONOLACTONE25 MG PO (09:47)
[2016-04-23] MEDS ORDERED: CARAFATE EQUIVAL1 GM PO (09:48)
[2016-04-23] MEDS ORDERED: DEMADEX10 MG PO (09:50)
[2016-04-23] MEDS ORDERED: ASPIRIN81 M1 PO (09:50)
[2016-04-23] MEDS ORDERED: ATORVASTATIN CA40 MG PO (09:51)
[2016-04-23] MEDS ORDERED: HUMALOG100 MG/ML SC (09:54)
[2016-04-23] MEDS ORDERED: LANTUS SOL100 UNITS/ SC (10:01)
[2016-04-24] VITALS (15 sets, daily range): BP systolic 122–154; BP diastolic 52–96
--- NOTE | 2016-04-24 13:58 | Provider's Discharge Care Plan ---
Problem, Goal, Plan Problem List 1. Anemia Goals: Improve disease control Instructions: Take meds as directed, Iron infusions as planned 2. GI bleeding Goals: Improved health/wellness Instructions: See Dr. Fox about bleeding. 3. Liver failure Goals: Improve disease control Instructions: Take meds as directed, Continue weekly paracentesis 4. Chronic renal failure Goals: Improved health/wellness Instructions: Take meds as directed 5. Chest pain Goals: Improved health/wellness Instructions: Resolved angina with control of anemia.
--- NOTE | 2016-04-24 16:20 | Progress Note ---
Subjective General 70-year-old male presented with chest pain in sternum without radiation or associated shortness of breath, nausea, vomiting, dizziness, palpitations, or sweats. Hx DM, ISAAC, liver failure and chronic renal failure. Hx transfusion dependent anemia, ongoing iron infusions and preiodic paracentesis for recurrent ascites. Under consideration for liver transplant. Chest pain resolved in hospital. Serial enzymes, tele and EKGs negative for SC. Feeling better post transfusion but generally weak and tired. Physical Exam Vital Signs / I&Os Vital Signs Date Time Temp Pulse Resp B/P Pulse O2 O2 Flow FiO2 Ox Delivery Rate 04/24 1405 97.7 77 13 138/61 98 Room Air 04/24 1333 62 10 145/64 100 Room Air 04/24 1211 71 17 154/62 99 Room Air 04/24 1054 98.4 71 10 138/57 100 Room Air 04/24 0924 63 11 138/64 99 Nasal 3.0 Cannula 04/24 0923 3.0 04/24 0844 67 11 151/62 99 Nasal 3.0 Cannula 04/24 0745 Nasal 3.0 Cannula 04/24 0733 98.4 04/24 0732 69 11 136/72 98 Nasal 3.0 Cannula 04/24 0600 71 11 152/74 100 Nasal 3.0 Cannula 04/24 0515 64 11 129/55 96 Nasal 3.0 Cannula 04/24 0400 77 14 149/66 98 /06 0300 98.4 56 10 137/57 99 Nasal 3.0 Cannula 04/24 0200 56 146/60 / 0114 84 16 128/64 98 Nasal 3.0 Cannula 04/24 0048 80 17 123/52 99 Nasal 3.0 Cannula 04/23 2357 Nasal 3.0 Cannula 04/23 2317 71 14 134/52 95 /05 2210 98.4 81 14 113/41 98 Nasal 3.0 Cannula 04/23 2110 98.4 87 20 141/54 99 Nasal 3.0 Cannula 04/23 2008 98.4 79 14 137/53 99 Nasal 3.0 Cannula 04/23 1908 80 15 132/56 99 / 1844 98.4 72 13 137/57 98 / 1823 98.6 71 14 144/54 100 Nasal 3.0 Cannula 04/23 1812 69 13 144/54 99 04/23 1641 98.4 70 13 130/58 100 I&O 04/23 0800 04/23 1600 04/24 0000 Intake Total 550 620 Output Total 0 825 Balance 550 -205 General Appearance Alert, Oriented X3, Cooperative, No acute distress Lungs Clear to auscultation Cardiovascular Regular rate and rhythm Abdomen Normal bowel sounds, distended with positive fluid waves. No mass palpable. Extremities No edema LAB Results Laboratory Tests 04/23 04/24 04/24 04/24 2155 0425 0425 0555 Chemistry Plasma Sodium (136 - 145 mmol/L) 143 Plasma Potassium (3.5 - 5.1 mmol/L) 3.7 Plasma Chloride (98 - 107 mmol/L) 106 CO2 (Enzymatic) (21 - 32 mmol/L) 26 BUN (7 - 18 mg/dL) 59 Creatinine (0.6 - 1.3 mg/dL) 2.4 Est GFR ( Amer) (mL/min) 34.55 Est GFR (Non-Af Amer) (mL/min) 28.51 Glucose (70 - 110 mg/dL) 168 Plasma Calcium (8.5 - 10.1 mg/dL) 8.3 Plasma Magnesium (1.8 - 2.4 mg/dL) 1.7 Total Bilirubin (0.0 - 1.0 mg/dL) 4.4 AST (15 - 37 U/L) 27 ALT (12 - 78 U/L) 23 Alkaline Phosphatase (46 - 116 U/L) 95 Creatine Kinase (24 - 260 U/L) 56 51 B-Natriuretic Peptide (5 - 100 pg/ml) 130 Total Protein (6.4 - 8.2 g/dL) 6.0 Albumin (3.3 - 5.0 g/dL) 3.1 Amylase (25 - 115 U/L) 71 Lipase (73 - 393 U/L) 318 Coagulation INR (0.8 - 1.2) 1.4 Hematology WBC (4.5 - 11.5 K/uL) 2.7 RBC (4.50 - 5.90 M/uL) 2.77 Hgb (13.5 - 17.5 gm/dL) 8.5 Hct (41.0 - 53.0 %) 25.4 MCV (80 - 100 fL) 92 MCH (26 - 34 pg) 31 RDW (11.6 - 14.8 %) 18.9 Neut % (Auto) (50 - 75 %) 74.4 Lymph % (Auto) (25 - 40 %) 11.3 [place] % (Auto) (3 - 14 %) 13.9 Eos % (Auto) (0 - 4 %) 0 Baso % (Auto) (0 - 2 %) 0.4 Plt Count, EDTA (150 - 400 K/uL) 52 PUBS MCHC (31 - 37 g/dL) 34 Assessment and Plan Problem List 1. Chest pain Plan SC ruled out. Suspect pain was due to angina associated with anemia and exertion. Now better post transfusion. Anticipate discharge if stable with ambulation.
--- NOTE | 2016-05-19 09:34 | ED MAR SUMMARY ---
..... Medication Administration Record [facility] [address] [place] [address] Patient: HOLLY NAM Visit ID: [id number] 70y, M Weight: 96.0 kg Height/Length: 69 in BMI: 31.3 ALLERGIES: No Known Drug Allergy Given 06:04/23/2016 Melissa Cline, Medication Administered: ZOFRAN [IVP] (ONDANSETRON HCL), Dose: 4 mg IVP over 1 minute(s), Site: #1 right forearm. Medication Ordered: Zofran IV 4 mg (NOW). Given 06:04/23/2016 Melissa Cline, Medication Administered: NITROGLYCERIN PASTE [TOPICAL], Dose: 1 in. Paste Topical. Medication Ordered: NitroGLYCERIN Paste Topical 1 in. (NOW, to CW). Given 06:04/23/2016 Melissa Cline, Medication Administered: PROTONIX [IVP] (PANTOPRAZOLE SODIUM), Dose: 40 mg IVP over 2 minute(s), Site: #1 right forearm. Medication Ordered: Protonix IVP 40mg 40 mg (Mix in NS 10ml over 2min). Given 06:04/23/2016 Melissa Cline, Medication Administered: GI COCKTAIL WHITE [PO] (SIMETHICONE), Dose: 30 mL Oral Suspension PO. Medication Ordered: GI Cocktail WHITE PO 30 mL with Lidocaine Viscous Mouth/Throat 15 mL, Maalox Plus Oral 15 mL. Given 06:04/23/2016 Melissa Cline, Medication Administered: ASPIRIN [PO], Dose: 325 mg Tablets PO. Medication Ordered: Aspirin PO 325 mg (NOW).
--- NOTE | 2016-05-19 09:34 | ED MED RECONCILIATION SUMMARY ---
Patient: HOLLY NAM Medication Reconciliation Report [facility] VisitID: [id number] [address] [place] [address] 70y, M Registration Date/Time: 04/23/2016 Weight: 96 kg Height/Length: 69 in. BMI: 31.3 ALLERGIES: No Known Drug Allergy The patient's Home Medications are listed below: THE FOLLOWING MEDICATIONS NEED TO BE RECONCILED: Aspirin Oral (81 mg) 1 tablet, daily Atorvastatin Calcium Oral 40 mg, at bedtime Glargine Insulin 12 units, at bedtime HumaLOG Subcutaneous 4 units, before meals, add 1 unit if BS >150 Iron Oral 50 mg, daily L-Thyroxine 112 mcgs, daily MetFORMIN HCl Oral 850 mg, 2x a day Midodrine HCl Oral 15 mg, TID, 5mg tablets, take 3 Omeprazole Oral 20 mg, daily Vitamins Oral, daily Rifaximin Oral (550 mg) 1 tablet, daily Spironolactone Oral 25mg tablets, 3 tablets, 2x a day Sucralfate-Malate Mouth/Throat 1 gm, daily Torsemide Oral 20 mg, take 4 tablets, daily The source(s) of the original Home Medication information: Not obtained. The following Medications were given to the patient in the Emergency Department: NITROGLYCERIN PASTE [TOPICAL] Topical 1 in., administered: 04/23/2016 6:20:00 AM Zofran [IVP] IVP 4 mg, administered: 04/23/2016 6:20:00 AM Aspirin [PO] PO 325 mg, administered: 04/23/2016 6:25:00 AM GI COCKTAIL WHITE [PO] PO 30 mL, administered: 04/23/2016 6:25:00 AM PROTONIX [IVP] IVP 40 mg, administered: 04/23/2016 6:21:00 AM The following Medications were prescribed to the patient: None.
--- NOTE | 2016-05-19 09:34 | ED MED RECONCILIATION SUMMARY ---
Patient: HOLLY NAM Medication Reconciliation Report [facility] VisitID: [id number] [address] [place] [address] 70y, M Registration Date/Time: 04/23/2016 Weight: 96 kg Height/Length: 69 in. BMI: 31.3 ALLERGIES: No Known Drug Allergy The patient's Home Medications are listed below: THE FOLLOWING MEDICATIONS NEED TO BE RECONCILED: Aspirin Oral (81 mg) 1 tablet, daily Atorvastatin Calcium Oral 40 mg, at bedtime Glargine Insulin 12 units, at bedtime HumaLOG Subcutaneous 4 units, before meals, add 1 unit if BS >150 Iron Oral 50 mg, daily L-Thyroxine 112 mcgs, daily MetFORMIN HCl Oral 850 mg, 2x a day Midodrine HCl Oral 15 mg, TID, 5mg tablets, take 3 Omeprazole Oral 20 mg, daily Vitamins Oral, daily Rifaximin Oral (550 mg) 1 tablet, daily Spironolactone Oral 25mg tablets, 3 tablets, 2x a day Sucralfate-Malate Mouth/Throat 1 gm, daily Torsemide Oral 20 mg, take 4 tablets, daily The source(s) of the original Home Medication information: Not obtained. The following Medications were given to the patient in the Emergency Department: NITROGLYCERIN PASTE [TOPICAL] Topical 1 in., administered: 04/23/2016 6:20:00 AM Zofran [IVP] IVP 4 mg, administered: 04/23/2016 6:20:00 AM Aspirin [PO] PO 325 mg, administered: 04/23/2016 6:25:00 AM GI COCKTAIL WHITE [PO] PO 30 mL, administered: 04/23/2016 6:25:00 AM PROTONIX [IVP] IVP 40 mg, administered: 04/23/2016 6:21:00 AM The following Medications were prescribed to the patient: None.
--- NOTE | 2016-05-19 09:34 | ED DISCHARGE INSTRUCTIONS ---
Patient: HOLLY NAM General Instructions [facility] VisitID: [id number] [address] [place] [address] 70y, M Registration Date/Time: 04/23/2016 Precordial chest pain characterized as "discomfort" .12 lead EKG performed. Abnormal EKG: nonspecific ST-T wave changes, depressed ST segments and inverted T waves. 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 No alcoholic cirrhosis. Moderate chronic renal failure. Severe acute anemia. Ascites, secondary to cirrhosis. Pancytopenia with profound anemia Hypothyroid - likely under replaced Indeterminate troponin I Mild amylase elevation with normal lipase. (Electronically signed by Germain Fairbanks DO 04/23/2016 8:54)
--- NOTE | 2016-05-19 09:34 | ED DISCHARGE INSTRUCTIONS ---
Patient: HOLLY NAM General Instructions [facility] VisitID: [id number] [address] [place] [address] 70y, M Registration Date/Time: 04/23/2016 Precordial chest pain characterized as "discomfort" .12 lead EKG performed. Abnormal EKG: nonspecific ST-T wave changes, depressed ST segments and inverted T waves. 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 No alcoholic cirrhosis. Moderate chronic renal failure. Severe acute anemia. Ascites, secondary to cirrhosis. Pancytopenia with profound anemia Hypothyroid - likely under replaced Indeterminate troponin I Mild amylase elevation with normal lipase. (Electronically signed by Germain Fairbanks DO 04/23/2016 8:54)
--- NOTE | 2016-05-19 09:34 | ED MAR SUMMARY ---
..... Medication Administration Record [facility] [address] [place] [address] Patient: HOLLY NAM Visit ID: [id number] 70y, M Weight: 96.0 kg Height/Length: 69 in BMI: 31.3 ALLERGIES: No Known Drug Allergy Given 06:04/23/2016 Melissa Cline, Medication Administered: ZOFRAN [IVP] (ONDANSETRON HCL), Dose: 4 mg IVP over 1 minute(s), Site: #1 right forearm. Medication Ordered: Zofran IV 4 mg (NOW). Given 06:04/23/2016 Melissa Cline, Medication Administered: NITROGLYCERIN PASTE [TOPICAL], Dose: 1 in. Paste Topical. Medication Ordered: NitroGLYCERIN Paste Topical 1 in. (NOW, to CW). Given 06:04/23/2016 Melissa Cline, Medication Administered: PROTONIX [IVP] (PANTOPRAZOLE SODIUM), Dose: 40 mg IVP over 2 minute(s), Site: #1 right forearm. Medication Ordered: Protonix IVP 40mg 40 mg (Mix in NS 10ml over 2min). Given 06:04/23/2016 Melissa Cline, Medication Administered: GI COCKTAIL WHITE [PO] (SIMETHICONE), Dose: 30 mL Oral Suspension PO. Medication Ordered: GI Cocktail WHITE PO 30 mL with Lidocaine Viscous Mouth/Throat 15 mL, Maalox Plus Oral 15 mL. Given 06:04/23/2016 Melissa Cline, Medication Administered: ASPIRIN [PO], Dose: 325 mg Tablets PO. Medication Ordered: Aspirin PO 325 mg (NOW).
== END 2016-04-24 17:35 | disposition home or self-care (01) | DRG 699 ==
LOC: ED SRH 05:44 → TRANS SRH 06:44 → CC SRH 08:48
PROVIDERS: ADMIT Internal Medicine
PROC: 30233N1 Transfusion of Nonautologous Red Blood Cells into Peripheral Vein, Percutaneous Approach (ICD-10-PCS; principal; 2016-04-23)
DX: E11.22 Type 2 diabetes mellitus with diabetic chronic kidney disease (principal); N18.9 Chronic kidney disease, unspecified; D63.1 Anemia in chronic kidney disease; I25.118 Atherosclerotic heart disease of native coronary artery with other forms of angina pectoris; K74.69 Other cirrhosis of liver; R18.8 Other ascites; D61.818 Other pancytopenia; K75.81 Nonalcoholic steatohepatitis (NASH)

== ENCOUNTER 2016-04-29 04:22 | Inpatient (IN) | payer OTHER ==
[~2016-04-29] VITALS: Ht 180.3 cm; Wt 90.5 kg
[~2016-04-29 04:22] MED LIST: ASPIRIN81 M1 PO; ATORVASTATIN CA40 MG PO; CARAFATE EQUIVAL1 GM PO; DEMADEX10 MG PO; HUMALOG100 MG/ML SC; IRON325 MG PO; L-THYROXINE SODIUM PO; LANTUS SOL100 UNITS/ SC; METFORMIN HCL850 MG PO; MIDODRINE HCL10 MG PO; OMEPRAZOLE20 MG PO; PRENATAL1 TAB PO; SPIRONOLACTONE25 MG PO; XIFAXAN550 MG PO
--- NOTE | 2016-04-29 07:35 | DIAGNOSTIC IMAGING REPORT ---
PROCEDURE: XR CHEST 1 VIEW INDICATION: WEAKNESS, initial encounter TECHNIQUE: Portable AP view 04:49 a.m. COMPARISON: Chest x-ray 04/23/2016 FINDINGS: Lungs are clear. Status post median sternotomy and CABG. Stable mild cardiomegaly. Mediastinum and pulmonary vessels are normal. Thorax is unremarkable. No significant interval change . IMPRESSION: 1. Stable chest 2. CABG and mild cardiomegaly
--- NOTE | 2016-04-29 09:28 | ED CLINICAL REPORT ---
Clinical Report - Physicians/Mid Levels [facility] [address] [place] [address] 04/29/2016 4:23 Patient: HOLLY NAM Time Seen: 04:42. Arrived- By ambulance. Historian- patient and EMS personnel. HISTORY OF PRESENT ILLNESS Chief Complaint: WEAKNESS. The patient has had generalized weakness. No numbness. This started several days ago and is still present. It was gradual in onset and has been constant. Recent medical care: The patient was seen recently at this facility. ( he saw his litigation coordinator yesterday and he underwent paracentesis as an outpatient 3 days ago. He was admitted here recently before that and had a blood transfusion.). REVIEW OF SYSTEMS No chills, fever, sweats, calf pain or chest pain. No cough, pedal edema, palpitations, abdominal pain or black stools. No bloody stools, constipation or urinary problems. He has had mild difficulty breathing (chronically). It has been similar to previous symptoms. He has had diarrhea (he attributes this to his lactulose). He has had generalized weakness. All systems otherwise negative, except as recorded above. PAST HISTORY ( PCP - Devang). Problems: Cirrhosis. Chest Pain. Near Syncope. Dizziness. Renal Failure. Coronary Artery Disease. Ascites. Hypovolemia. Heart Disease. Anemia. Hypoglycemia. Herpes Zoster. Liver disease. Thyroid Disease. Diabetes Mellitus. Additional Surgeries: Coronary Angioplasty. Coronary Artery Bypass Graft. Paracentesis. Medications: Lactulose Oral. Spironolactone Oral 25mg tablets, 3 tablets, 2x a day. Sucralfate-Malate Mouth/Throat 1 gm, daily. Torsemide Oral 20 mg, take 4 tablets, daily. Aspirin Oral (Tablet 81 mg) 1 tablet, daily. Atorvastatin Calcium Oral 40 mg, at bedtime. Glargine Insulin 12 units, at bedtime. HumaLOG Subcutaneous 4 units, before meals, add 1 unit if BS >150. Iron Oral 50 mg, daily. L-Thyroxine 112 mcgs, daily. MetFORMIN HCl Oral 850 mg, 2x a day. Midodrine HCl Oral 15 mg, TID (5mg tablets, take 3). Omeprazole Oral 20 mg, daily. Vitamins Oral, daily. Rifaximin Oral (Tablet 550 mg) 1 tablet, daily. Allergies: No Known Drug Allergy. SOCIAL HISTORY Never smoker. No alcohol use or drug use. Is a local resident. He lives with spouse. FAMILY HISTORY Diabetes in first-degree relative (mother). ADDITIONAL NOTES The nursing notes have been reviewed. PHYSICAL EXAM Vital Signs: 04/29/2016 04:30 BP: 143/55. HR: 85. RR: 20. O2 saturation: 97%. Temp: 98 F. Pain level now: 0/10. Have been reviewed. Appearance: Alert. He is somnolent. Head: Head atraumatic. Eyes: Pupils equal, round and reactive to light. ENT: Pharynx normal. Neck: Normal inspection. Neck supple. CVS: 2/6 systolic murmur. Respiratory: No respiratory distress. Breath sounds normal. Abdomen: Soft and nontender. No organomegaly. Distention (with a positive fluid wave). Back: Normal inspection. Rectal: Strongly heme-positive stool. (POC test reference range: negative). Skin: Skin warm and dry. Pallor. Extremities: Extremities exhibit normal ROM. No calf tenderness. No lower extremity edema. Neuro: Alert. Reflex exam: (bilateral hands - asterixis). LABS, X-RAYS, AND EKG EKG: Rate: 76. Non-specific ST segment / T wave abnormalities. Prolonged QT (450 ms). EKG unchanged when compared with prior EKG. (23 Apr 2016). Chest X-ray: Cardiomegaly. (status post coronary artery bypass graft). The X-rays were independently viewed by me. Laboratory Tests: UA-Culture if indicated: (MAYA: 04/29/2016 05:44) ( MsgRcvd 04/29/2016 05:59) Final results Test Result Flag Units (Reference) URINE COLOR YELLOW URINE APPEARANCE CLEAR URINE GLUCOSE NEGATIVE (NEGATIVE) URINE BILIRUBIN NEGATIVE (NEGATIVE) URINE KETONE NEGATIVE (NEGATIVE) URINE SPECIFIC GRAVITY 1.015 (1.010-1.030) URINE PH 5.5 (5.0-8.0) URINE PROTEIN NEGATIVE (NEGATIVE) URINE UROBILINOGEN 0.2 EU/dL (0.2-1.0) URINE NITRITE NEGATIVE (NEGATIVE) URINE BLOOD NEGATIVE (NEGATIVE) URINE LEUK ESTERASE POSITIVE (NEGATIVE) URINE RBC 0-1 rbc/hpf (0-1) URINE WBC 5-10 wbc/hpf (0-1) URINE EPITHELIAL CELLS 0-1 EPI/hpf (0-5) URINE BACTERIA FEW (1+) (NONE SEEN) URINE COMMENT CULTURE INDICATED URINE CULTURES ARE SET-UP BASED ON THE FOLLOWING CRITERIA:POSITIVE NITRITEPOSITIVE LEUKOCYTE ESTERASEGREATER THAN 10 WHITE BLOOD CELLSMODERATE (2+) OR GREATER BACTERIA CBC w Diff: (MAYA: 04/29/2016 04:30) ( MsgRcvd 04/29/2016 04:55) Final results Test Result Flag Units (Reference) WHITE BLOOD COUNT 2.0 L K/uL (4.5-11.5) RED BLOOD COUNT 2.76 L M/uL (4.50-5.90) HEMOGLOBIN 8.5 L gm/dL (13.5-17.5) HEMATOCRIT 25.7 L % (41.0-53.0) MEAN CELL VOLUME 93 fL (80-100) MEAN CORPUSCULAR HGB 31 pg (26-34) MEAN CORPUSCULAR HGB CONC 33 g/dL (31-37) RED CELL DISTRIBUTION WIDTH 19.0 H % (11.6-14.8) PLATELET COUNT 54 L K/uL (150-400) NEUTROPHIL % 69.8 % (50-75) LYMPH % 18.2 L % (25-40) MONO % 11.0 % (3-14) EOSINOPHIL % 0.7 % (0-4) BASOPHIL % 0.3 % (0-2) PT with INR: (MAYA: 04/29/2016 04:30) ( MsgRcvd 04/29/2016 05:12) Final results Test Result Flag Units (Reference) INR 1.3 H (0.8-1.2) Low Intensity Therapy: INR 1.5-2.0 PT range 18.5-23.1Mod.Intensity Therapy: INR 2.0-3.0 PT range 23.1-31.5High Intensity Therapy: INR 2.5-3.5 PT range 27.4-35.5High Intensity Therapy 2: INR 3.0-4.0 PT range 31.5-39.3 APTT 28 SECONDS (24-34) TSH: (MAYA: 04/29/2016 04:30) ( [facility] 04/29/2016 05:48) Final results Test Result Flag Units (Reference) THYROID STIMULATING HORMONE 6.623 H uIU/mL (0.30-3.74) Ammonia Level: (MAYA: 04/29/2016 05:35) ( [facility] [place] 04/29/2016 05:57) Final results Test Result Flag Units (Reference) AMMONIA 149 H umol/L (11-32) BNP: (MAYA: 04/29/2016 04:30) ( [facility] 04/29/2016 05:12) Final results Test Result Flag Units (Reference) B-TYPE NATRIURETIC PEPTIDE 68.2 pg/ml (5-100) CMP: (MAYA: 04/29/2016 04:30) ( [facility] 04/29/2016 05:12) Final results Test Result Flag Units (Reference) GLUCOSE 151 H mg/dL (70-110) BUN 51 H mg/dL (7-18) CREATININE 2.4 H mg/dL (0.6-1.3) Estimated GFR 28.51 mL/min Estimated GFR- 34.55 mL/min Note: Persistent reduction over 3 months in eGFR<60 mL/min/1.73 m2 defines CKD. Patients with eGFR values>=60 mL/min/1.73 m2 may also have CKD if evidence ofpersistent proteinuria. Additional information may be foundat www.kidney.org. SODIUM 143 mmol/L (136-145) POTASSIUM 3.7 mmol/L (3.5-5.1) CHLORIDE 104 mmol/L (98-107) CARBON DIOXIDE 29 mmol/L (21-32) CALCIUM 8.6 mg/dL (8.5-10.1) TOTAL PROTEIN 6.9 g/dL (6.4-8.2) ALBUMIN 3.6 g/dL (3.3-5.0) BILIRUBIN, TOTAL 1.8 H mg/dL (0.0-1.0) ALKALINE PHOSPHATASE 104 U/L (46-116) AST (SGOT) 28 U/L (15-37) ALT (SGPT) 26 U/L (12-78) LIPASE 462 H U/L (73-393) AMYLASE 93 U/L (25-115) CPK 72 U/L (24-260) TROPONIN I 0.28 ng/mL (0.00-1.5) TROPONIN REFERENCE RANGE:<0.1 NEGATIVE0.1-1.5 INDETERMINANT>1.5 POSITIVE . PROGRESS AND PROCEDURES Course of Care: Patient is stable. Discussed case with on-call health care provider, (Adria). Reviewed test results and need for additional work-up. Agreed upon treatment plan, need for patient follow-up and decision to admit. Health care provider will see patient in hospital. Patient and spouse counseled in person regarding the patient's serious condition, test results, diagnosis and need for admission and DNR (Do Not Resuscitate) considerations for the patient. I had an extended discussion with the patient and his about CODE STATUS. He very clearly expresses that he does not want to be intubated and does not want CPR or cardiac resuscitation. Old medical records reviewed. Disposition: Admitted. CLINICAL IMPRESSION Occult GI bleed. Renal insufficiency. Abnormal tests: (indeterminate troponin). Anemia. asymptomatic bacteriuria. (Electronically signed by Jonh Kolb MD 04/29/2016 10:19)
--- NOTE | 2016-04-29 09:28 | ED ORDER SUMMARY ---
..... Patient: HOLLY NAM OrderSheet [facility] VisitID: [id number] [place] [address] 70y, M Registration Date/Time: 04/29/2016 ORDER SHEET Weight: 87.0 kg (stated) Allergies: No Known Drug Allergy GENERAL ORDERS: Chest 1V Urgent (04:39 04/29/2016 Pb MOMIN) (Ack 4:42 CHagollie ER Environment Coordinator) (4:56 Juan) Provider Contracting Consultant (Continuous) (04:04/29/2016 Pb MOMIN) (4:45 JQuivey R.N.) CBC w Diff Urgent (04:04/29/2016 Pb MOMIN) (Ack 4:42 Neville ER Environment Coordinator) (4:45 JQuivey R.N.) CMP Urgent (04:04/29/2016 Pb MOMIN) (Ack 4:42 Neville ER Environment Coordinator) (4:45 JQuivey R.N.) UA-Culture if indicated Urgent (04:04/29/2016 Pb MOMIN) (Ack 4:42 Neville ER Environment Coordinator) (6:03 Fran) PT with INR Urgent (04:04/29/2016 Pb MOMIN) (Ack 4:42 Neville ER Environment Coordinator) (4:45 JQuivey R.N.) PTT Urgent (04:04/29/2016 Pb MOMIN) (Ack 4:42 Neville ER Environment Coordinator) (4:45 JQuivey R.N.) Amylase Urgent (04:04/29/2016 Pb MOMIN) (Ack 4:42 Neville ER Environment Coordinator) (4:45 JQuivey R.N.) Lipase Urgent (04:04/29/2016 Pb MOMIN) (Ack 4:42 CHagollie ER Environment Coordinator) (4:45 JQuivey R.N.) CPK Urgent (04:04/29/2016 Pb MOMIN) (Ack 4:42 CHagollie ER Environment Coordinator) (4:45 JQuivey R.N.) Troponin-I Urgent (04:04/29/2016 Pb MOMIN) (Ack 4:42 CHagerty ER Environment Coordinator) (4:45 JQuivey R.N.) BNP Urgent (04:39 04/29/2016 Pb MOMIN) (Ack 4:42 CHagerty ER Environment Coordinator) (4:45 JQuivey R.N.) EKG - ER Stat (04:39 04/29/2016 Pb MOMIN) (4:45 JQuivey R.N.) Pulse oximeter (04:39 04/29/2016 Pb MOMIN) (4:45 JQuivey R.N.) Ammonia Level Urgent (04:41 04/29/2016 Pb MOMIN) (Ack 4:42 CHagerty ER Environment Coordinator) (4:45 JQuivey R.N.) TSH Urgent (05:25 04/29/2016 Pb MOMIN) (5:29 CHagerty ER Environment Coordinator) MEDICATION ORDERS: IV FLUIDS: IV Saline Lock (04:39 04/29/2016 Pb MOMIN) (4:46 JQuivey R.N.) ORDER SHEET NOTES: [Electronically signed by Jonh Kolb MD (10:19 04/29/2016)] [Electronically signed by Ary Cantu (14:12 04/29/2016)] [Electronically locked/signed by Ary Cantu (14:12 04/29/2016)]
--- NOTE | 2016-04-29 09:28 | ED ORDER SUMMARY ---
..... Patient: HOLLY NAM OrderSheet [facility] VisitID: [id number] [place] [address] 70y, M Registration Date/Time: 04/29/2016 ORDER SHEET Weight: 87.0 kg (stated) Allergies: No Known Drug Allergy GENERAL ORDERS: Chest 1V Urgent (04:39 04/29/2016 Pb MOMIN) (Ack 4:42 CHagollie ER Head Buyer Tobacco) (4:56 Juan) Washhouse Worker (Continuous) (04:04/29/2016 Pb MOMIN) (4:45 JQuivey R.N.) CBC w Diff Urgent (04:04/29/2016 Pb MOMIN) (Ack 4:42 Neville ER Head Buyer Tobacco) (4:45 JQuivey R.N.) CMP Urgent (04:04/29/2016 Pb MOMIN) (Ack 4:42 Neville ER Head Buyer Tobacco) (4:45 JQuivey R.N.) UA-Culture if indicated Urgent (04:04/29/2016 Pb MOMIN) (Ack 4:42 Neville ER Head Buyer Tobacco) (6:03 Fran) PT with INR Urgent (04:04/29/2016 Pb MOMIN) (Ack 4:42 Neville ER Head Buyer Tobacco) (4:45 JQuivey R.N.) PTT Urgent (04:04/29/2016 Pb MOMIN) (Ack 4:42 Neville ER Head Buyer Tobacco) (4:45 JQuivey R.N.) Amylase Urgent (04:04/29/2016 Pb MOMIN) (Ack 4:42 Neville ER Head Buyer Tobacco) (4:45 JQuivey R.N.) Lipase Urgent (04:04/29/2016 Pb MOMIN) (Ack 4:42 CHagollie ER Head Buyer Tobacco) (4:45 JQuivey R.N.) CPK Urgent (04:04/29/2016 Pb MOMIN) (Ack 4:42 CHagollie ER Head Buyer Tobacco) (4:45 JQuivey R.N.) Troponin-I Urgent (04:04/29/2016 Pb MOMIN) (Ack 4:42 CHagerty ER Head Buyer Tobacco) (4:45 JQuivey R.N.) BNP Urgent (04:39 04/29/2016 Pb MOMIN) (Ack 4:42 CHagerty ER Head Buyer Tobacco) (4:45 JQuivey R.N.) EKG - ER Stat (04:39 04/29/2016 Pb MOMIN) (4:45 JQuivey R.N.) Pulse oximeter (04:39 04/29/2016 Pb MOMIN) (4:45 JQuivey R.N.) Ammonia Level Urgent (04:41 04/29/2016 Pb MOMIN) (Ack 4:42 CHagerty ER Head Buyer Tobacco) (4:45 JQuivey R.N.) TSH Urgent (05:25 04/29/2016 Pb MOMIN) (5:29 CHagerty ER Head Buyer Tobacco) MEDICATION ORDERS: IV FLUIDS: IV Saline Lock (04:39 04/29/2016 Pb MOMIN) (4:46 JQuivey R.N.) ORDER SHEET NOTES: [Electronically signed by Jonh Kolb MD (10:19 04/29/2016)] [Electronically signed by Ary Cantu (14:12 04/29/2016)] [Electronically locked/signed by Ary Cantu (14:12 04/29/2016)]
--- NOTE | 2016-04-29 09:28 | ED CLINICAL REPORT ---
Clinical Report - Physicians/Mid Levels [facility] [address] [place] [address] 04/29/2016 4:23 Patient: HOLLY NAM Time Seen: 04:42. Arrived- By ambulance. Historian- patient and EMS personnel. HISTORY OF PRESENT ILLNESS Chief Complaint: WEAKNESS. The patient has had generalized weakness. No numbness. This started several days ago and is still present. It was gradual in onset and has been constant. Recent medical care: The patient was seen recently at this facility. ( he saw his machine welt butter yesterday and he underwent paracentesis as an outpatient 3 days ago. He was admitted here recently before that and had a blood transfusion.). REVIEW OF SYSTEMS No chills, fever, sweats, calf pain or chest pain. No cough, pedal edema, palpitations, abdominal pain or black stools. No bloody stools, constipation or urinary problems. He has had mild difficulty breathing (chronically). It has been similar to previous symptoms. He has had diarrhea (he attributes this to his lactulose). He has had generalized weakness. All systems otherwise negative, except as recorded above. PAST HISTORY ( PCP - Devang). Problems: Cirrhosis. Chest Pain. Near Syncope. Dizziness. Renal Failure. Coronary Artery Disease. Ascites. Hypovolemia. Heart Disease. Anemia. Hypoglycemia. Herpes Zoster. Liver disease. Thyroid Disease. Diabetes Mellitus. Additional Surgeries: Coronary Angioplasty. Coronary Artery Bypass Graft. Paracentesis. Medications: Lactulose Oral. Spironolactone Oral 25mg tablets, 3 tablets, 2x a day. Sucralfate-Malate Mouth/Throat 1 gm, daily. Torsemide Oral 20 mg, take 4 tablets, daily. Aspirin Oral (Tablet 81 mg) 1 tablet, daily. Atorvastatin Calcium Oral 40 mg, at bedtime. Glargine Insulin 12 units, at bedtime. HumaLOG Subcutaneous 4 units, before meals, add 1 unit if BS >150. Iron Oral 50 mg, daily. L-Thyroxine 112 mcgs, daily. MetFORMIN HCl Oral 850 mg, 2x a day. Midodrine HCl Oral 15 mg, TID (5mg tablets, take 3). Omeprazole Oral 20 mg, daily. Vitamins Oral, daily. Rifaximin Oral (Tablet 550 mg) 1 tablet, daily. Allergies: No Known Drug Allergy. SOCIAL HISTORY Never smoker. No alcohol use or drug use. Is a local resident. He lives with spouse. FAMILY HISTORY Diabetes in first-degree relative (mother). ADDITIONAL NOTES The nursing notes have been reviewed. PHYSICAL EXAM Vital Signs: 04/29/2016 04:30 BP: 143/55. HR: 85. RR: 20. O2 saturation: 97%. Temp: 98 F. Pain level now: 0/10. Have been reviewed. Appearance: Alert. He is somnolent. Head: Head atraumatic. Eyes: Pupils equal, round and reactive to light. ENT: Pharynx normal. Neck: Normal inspection. Neck supple. CVS: 2/6 systolic murmur. Respiratory: No respiratory distress. Breath sounds normal. Abdomen: Soft and nontender. No organomegaly. Distention (with a positive fluid wave). Back: Normal inspection. Rectal: Strongly heme-positive stool. (POC test reference range: negative). Skin: Skin warm and dry. Pallor. Extremities: Extremities exhibit normal ROM. No calf tenderness. No lower extremity edema. Neuro: Alert. Reflex exam: (bilateral hands - asterixis). LABS, X-RAYS, AND EKG EKG: Rate: 76. Non-specific ST segment / T wave abnormalities. Prolonged QT (450 ms). EKG unchanged when compared with prior EKG. (23 Apr 2016). Chest X-ray: Cardiomegaly. (status post coronary artery bypass graft). The X-rays were independently viewed by me. Laboratory Tests: UA-Culture if indicated: (MAYA: 04/29/2016 05:44) ( MsgRcvd 04/29/2016 05:59) Final results Test Result Flag Units (Reference) URINE COLOR YELLOW URINE APPEARANCE CLEAR URINE GLUCOSE NEGATIVE (NEGATIVE) URINE BILIRUBIN NEGATIVE (NEGATIVE) URINE KETONE NEGATIVE (NEGATIVE) URINE SPECIFIC GRAVITY 1.015 (1.010-1.030) URINE PH 5.5 (5.0-8.0) URINE PROTEIN NEGATIVE (NEGATIVE) URINE UROBILINOGEN 0.2 EU/dL (0.2-1.0) URINE NITRITE NEGATIVE (NEGATIVE) URINE BLOOD NEGATIVE (NEGATIVE) URINE LEUK ESTERASE POSITIVE (NEGATIVE) URINE RBC 0-1 rbc/hpf (0-1) URINE WBC 5-10 wbc/hpf (0-1) URINE EPITHELIAL CELLS 0-1 EPI/hpf (0-5) URINE BACTERIA FEW (1+) (NONE SEEN) URINE COMMENT CULTURE INDICATED URINE CULTURES ARE SET-UP BASED ON THE FOLLOWING CRITERIA:POSITIVE NITRITEPOSITIVE LEUKOCYTE ESTERASEGREATER THAN 10 WHITE BLOOD CELLSMODERATE (2+) OR GREATER BACTERIA CBC w Diff: (MAYA: 04/29/2016 04:30) ( MsgRcvd 04/29/2016 04:55) Final results Test Result Flag Units (Reference) WHITE BLOOD COUNT 2.0 L K/uL (4.5-11.5) RED BLOOD COUNT 2.76 L M/uL (4.50-5.90) HEMOGLOBIN 8.5 L gm/dL (13.5-17.5) HEMATOCRIT 25.7 L % (41.0-53.0) MEAN CELL VOLUME 93 fL (80-100) MEAN CORPUSCULAR HGB 31 pg (26-34) MEAN CORPUSCULAR HGB CONC 33 g/dL (31-37) RED CELL DISTRIBUTION WIDTH 19.0 H % (11.6-14.8) PLATELET COUNT 54 L K/uL (150-400) NEUTROPHIL % 69.8 % (50-75) LYMPH % 18.2 L % (25-40) MONO % 11.0 % (3-14) EOSINOPHIL % 0.7 % (0-4) BASOPHIL % 0.3 % (0-2) PT with INR: (MAYA: 04/29/2016 04:30) ( MsgRcvd 04/29/2016 05:12) Final results Test Result Flag Units (Reference) INR 1.3 H (0.8-1.2) Low Intensity Therapy: INR 1.5-2.0 PT range 18.5-23.1Mod.Intensity Therapy: INR 2.0-3.0 PT range 23.1-31.5High Intensity Therapy: INR 2.5-3.5 PT range 27.4-35.5High Intensity Therapy 2: INR 3.0-4.0 PT range 31.5-39.3 APTT 28 SECONDS (24-34) TSH: (MAYA: 04/29/2016 04:30) ( [facility] 04/29/2016 05:48) Final results Test Result Flag Units (Reference) THYROID STIMULATING HORMONE 6.623 H uIU/mL (0.30-3.74) Ammonia Level: (MAYA: 04/29/2016 05:35) ( [facility] [place] 04/29/2016 05:57) Final results Test Result Flag Units (Reference) AMMONIA 149 H umol/L (11-32) BNP: (MAYA: 04/29/2016 04:30) ( [facility] 04/29/2016 05:12) Final results Test Result Flag Units (Reference) B-TYPE NATRIURETIC PEPTIDE 68.2 pg/ml (5-100) CMP: (MAYA: 04/29/2016 04:30) ( [facility] 04/29/2016 05:12) Final results Test Result Flag Units (Reference) GLUCOSE 151 H mg/dL (70-110) BUN 51 H mg/dL (7-18) CREATININE 2.4 H mg/dL (0.6-1.3) Estimated GFR 28.51 mL/min Estimated GFR- 34.55 mL/min Note: Persistent reduction over 3 months in eGFR<60 mL/min/1.73 m2 defines CKD. Patients with eGFR values>=60 mL/min/1.73 m2 may also have CKD if evidence ofpersistent proteinuria. Additional information may be foundat www.kidney.org. SODIUM 143 mmol/L (136-145) POTASSIUM 3.7 mmol/L (3.5-5.1) CHLORIDE 104 mmol/L (98-107) CARBON DIOXIDE 29 mmol/L (21-32) CALCIUM 8.6 mg/dL (8.5-10.1) TOTAL PROTEIN 6.9 g/dL (6.4-8.2) ALBUMIN 3.6 g/dL (3.3-5.0) BILIRUBIN, TOTAL 1.8 H mg/dL (0.0-1.0) ALKALINE PHOSPHATASE 104 U/L (46-116) AST (SGOT) 28 U/L (15-37) ALT (SGPT) 26 U/L (12-78) LIPASE 462 H U/L (73-393) AMYLASE 93 U/L (25-115) CPK 72 U/L (24-260) TROPONIN I 0.28 ng/mL (0.00-1.5) TROPONIN REFERENCE RANGE:<0.1 NEGATIVE0.1-1.5 INDETERMINANT>1.5 POSITIVE . PROGRESS AND PROCEDURES Course of Care: Patient is stable. Discussed case with on-call health care provider, (Adria). Reviewed test results and need for additional work-up. Agreed upon treatment plan, need for patient follow-up and decision to admit. Health care provider will see patient in hospital. Patient and spouse counseled in person regarding the patient's serious condition, test results, diagnosis and need for admission and DNR (Do Not Resuscitate) considerations for the patient. I had an extended discussion with the patient and his about CODE STATUS. He very clearly expresses that he does not want to be intubated and does not want CPR or cardiac resuscitation. Old medical records reviewed. Disposition: Admitted. CLINICAL IMPRESSION Occult GI bleed. Renal insufficiency. Abnormal tests: (indeterminate troponin). Anemia. asymptomatic bacteriuria. (Electronically signed by Jonh Kolb MD 04/29/2016 10:19)
--- NOTE | 2016-04-29 09:28 | ED NURSING NOTES ---
Clinical Report - Nurses [facility] [address] [place] [address] 04/29/2016 4:23 [id number] TRI[facility] Triage time 0430. Acuity: LEVEL 3. Chief Complaint: (generalized weakness). HARITHA COMA SCORE: Troy Coma Scale: 15- eyes open spontaneously (4); best verbal response- oriented x 4 (5); best motor response- obeys commands (6). --04:36 Latasha Calderón R.N. 04:30 04/29/16. BP: 143/55. HR: 85. RR: 20 (unlabored). O2 saturation: 97% on room air. Temp: 98 F (oral). Pain level now: 0/10. --04:36 Latasha Calderón R.N. Weight: 87 kg stated. Height/Length: 70 inches Per Patient. BMI: 27.5. --04:30 Latasha Calderón R.N. Medications Aspirin Oral (Tablet 81 mg) 1 tablet, daily. Atorvastatin Calcium Oral 40 mg, at bedtime. Glargine Insulin 12 units, at bedtime. HumaLOG Subcutaneous 4 units, before meals, add 1 unit if BS >150. Iron Oral 50 mg, daily. L-Thyroxine 112 mcgs, daily. MetFORMIN HCl Oral 850 mg, 2x a day. Midodrine HCl Oral 15 mg, TID (5mg tablets, take 3). Omeprazole Oral 20 mg, daily. Vitamins Oral, daily. Rifaximin Oral (Tablet 550 mg) 1 tablet, daily. --04:35 Latasha Calderón R.N. Spironolactone Oral 25mg tablets, 3 tablets, 2x a day. Sucralfate-Malate Mouth/Throat 1 gm, daily. Torsemide Oral 20 mg, take 4 tablets, daily. --04:35 Latasha Calderón R.N. Allergies No Known Drug Allergy. --04:35 Latasha Calderón R.N. Medication/allergy information source: the patient and patient's family. --04:36 Latasha Calderón R.N. History Arrived by private vehicle. Historian: family. Accompanied by family. Primary physician (Devang). ( pt c/o weakness x 3 days and just not feeling good this morning. Pt had a paracentesis yesterday here at the hospital. Per pt he had 5 liters drained. Pt being treated for liver failure and kidney problems.). Onset. (3 days ago). Treatment IMPRESS ASSOCIATE: None. SOCIAL HX: Never smoker. No alcohol use or drug use. ABUSE ASSESSMENT: No report of abuse. NUTRITIONAL RISK ASSESSMENT: The nutritional risk assessment revealed no deficiencies. FUNCTIONAL ASSESSMENT: Functional assessment: no impairments noted. LEARNING NEEDS ASSESSMENT: The learning needs assessment revealed no barriers. FALL RISK ASSESSMENT: Fall risk assessment completed. Fall interventions initiated. Patient placed on stretcher. Side rails up x2. Brakes on Bed in low position. Patient visible from nurses' station; c/o weakness. SKIN INTEGRITY ASSESSMENT: Skin integrity risk assessment completed. No skin integrity risk identified. --04:36 Latasha Calderón R.N. PROBLEMS: Cirrhosis. Renal Failure. Coronary Artery Disease. Ascites. Hypovolemia. Heart Disease. Anemia. Hypoglycemia. Herpes Zoster. Liver disease. Thyroid Disease. Diabetes Mellitus. --04:35 Latasha Calderón R.N. ADDITIONAL SURGERIES: Coronary Angioplasty. Coronary Artery Bypass Graft. Paracentesis. --04:35 Latasha Calderón R.N. Interventions ID band on patient. To treatment room. --04:36 Latasha Calderón R.N. PHYSICAL ASSESSMENT 04:40 pt's abdomen firm and distended, per pt's family normal with pt's liver failure. To room via wheelchair. GENERAL / NEURO / PSYCH: Alert. Oriented X 4. Appears in no acute distress. He has had generalized weakness. RESPIRATORY: Respirations not labored. SKIN: Skin intact. Skin is warm and dry. --06:01 Latasha Calderón R.N. NURSING PROGRESS NOTES technical specialist, pulse oximeter and NIBP monitor placed on patient. Patient gowned. Head of bed elevated. Two patient identifiers checked. Call light placed in reach. Side rails up x 2. Bed placed in lowest position. Brakes of bed on. Patient ready for evaluation. --04:37 Latasha Calderón R.N. 04:35 04/29/2016 Site #1 started via IV in the right antecubital space with an 20g angiocath, with aseptic technique and good blood return; one attempt. Blood drawn: rainbow set. Labeled in the presence of the patient and sent to the lab. Saline lock flushed with 10 mL saline (by Clifford Neal RN). --04:38 Latasha Calderón R.N. Cardiac rhythm: normal sinus rhythm; (occasional PVC). EKG time: (0438). EKG was performed by a tech and shown to the ED physician. --04:39 Latasha Calderón R.N. Finger stick glucose: 150; performed by nurse. --04:39 Latasha Calderón R.N. 04:51. Portable chest x-ray performed. --04:55 Clifford Arrieta R.N. assisted pt with urinal, removed jeans. urine specimen collected, labeled and sent to lab. --05:47 Latasha Calderón R.N. 05:46 04/29/16. BP: 122/61. HR: 82. RR: 20 (unlabored). O2 saturation: 98% on room air. --05:47 Latasha Calderón R.N. 06:25 assisted pt to use urinal, pt unable to urinate. --06:30 Latasha Calderón R.N. pt waiting for lab results, family at bedside. --06:41 Latasha Calderón R.N. 06:30 04/29/16. BP: 129/58. HR: 85. RR: 14. O2 saturation: 98% on room air. Pain level now: 0/10. --06:41 Latasha Calderón R.N. ( H/p forms on chart.). --09:43 Georgie Kingsley ER Tech1 The patient is resting quietly. --10:05 Ary Cantu 10:03 04/29/16. BP: 130/58. HR: 100. RR: 18. O2 saturation: 100%. --10:05 Ary Cantu ( Pt's progress notes have failed to capture, Pt was given meal trays and ate 75% of meals, pt was up independently to the bathroom for BM and urine, put self back to bed, has been at bedside off and on throughout ER stay, pt has had no complaints or issues, pt marva been waiting patiently in ER for ICU bed to open.). --13:55 Ary Cantu 13:49 04/29/16. BP: 128/62. HR: 70. RR: 16. O2 saturation: 97%. Pain level now 0/10. --13:55 Ary Cantu 11:00 04/29/16. BP: 130/58. HR: 72. RR: 16. O2 saturation: 97%. Pain level now: 0/10. --13:56 Ary Cantu. DISPOSITION / DISCHARGE Departure time: 1400. Report was given to a nurse via a phone call. Report included patient's care, treatment, medications, reviewed medication reconcilliation, and condition (including any recent changes or anticipated changes). All questions were answered. Report was acknowledged and care was transferred. --13:52 Ary Cantu. Locked/Released at 04/29/2016 14:12 by Ary Cantu,
--- NOTE | 2016-04-29 13:52 | Progress Note ---
Subjective General Full note dictated 70 y.o. male with liver dz and chronic anemia, hx of GIB and multiple transufsions who presents to the ER with chief complaint of not feeling well. Has low hct, very elevated ammonia level and will admit patient for treatment of ammonia, gib and monitoring.
--- NOTE | 2016-04-29 14:13 | ED MAR SUMMARY ---
..... Medication Administration Record [facility] [address] [place], [place] [id number] Patient: HOLLY NAM Visit ID: [id number] 70y, M Weight: 87.0 kg Height/Length: 70 in BMI: 27.5 ALLERGIES: No Known Drug Allergy
--- NOTE | 2016-04-29 14:13 | ED MAR SUMMARY ---
..... Medication Administration Record [facility] [address] [place], [place] [id number] Patient: HOLLY NAM Visit ID: [id number] 70y, M Weight: 87.0 kg Height/Length: 70 in BMI: 27.5 ALLERGIES: No Known Drug Allergy
--- NOTE | 2016-04-29 14:13 | ED DISCHARGE INSTRUCTIONS ---
Patient: HOLLY NAM General Instructions [facility] VisitID: [id number] [address] [place] [address] 70y, M Registration Date/Time: 04/29/2016 Occult GI bleed. Renal insufficiency. Abnormal tests: (indeterminate troponin). Anemia. asymptomatic bacteriuria. (Electronically signed by Jonh Kolb MD 04/29/2016 10:19)
--- NOTE | 2016-04-29 14:13 | ED MED RECONCILIATION SUMMARY ---
Patient: HOLLY NAM Medication Reconciliation Report [facility] VisitID: [id number] [address] [place] [address] 70y, M Registration Date/Time: 04/29/2016 Weight: 87.0 kg Height/Length: 70 in. BMI: 27.5 ALLERGIES: No Known Drug Allergy The patient's Home Medications are listed below: THE FOLLOWING MEDICATIONS NEED TO BE RECONCILED: Aspirin Oral (81 mg) 1 tablet, daily Atorvastatin Calcium Oral 40 mg, at bedtime Glargine Insulin 12 units, at bedtime HumaLOG Subcutaneous 4 units, before meals, add 1 unit if BS >150 Iron Oral 50 mg, daily L-Thyroxine 112 mcgs, daily Lactulose Oral MetFORMIN HCl Oral 850 mg, 2x a day Midodrine HCl Oral 15 mg, TID, 5mg tablets, take 3 Omeprazole Oral 20 mg, daily Vitamins Oral, daily Rifaximin Oral (550 mg) 1 tablet, daily Spironolactone Oral 25mg tablets, 3 tablets, 2x a day Sucralfate-Malate Mouth/Throat 1 gm, daily Torsemide Oral 20 mg, take 4 tablets, daily The source(s) of the original Home Medication information: patient's family member patient The following Medications were given to the patient in the Emergency Department: None. The following Medications were prescribed to the patient: None.
--- NOTE | 2016-04-29 14:13 | ED DISCHARGE INSTRUCTIONS ---
Patient: HOLLY NAM General Instructions [facility] VisitID: [id number] [address] [place] [address] 70y, M Registration Date/Time: 04/29/2016 Occult GI bleed. Renal insufficiency. Abnormal tests: (indeterminate troponin). Anemia. asymptomatic bacteriuria. (Electronically signed by Jonh Kolb MD 04/29/2016 10:19)
--- NOTE | 2016-04-29 14:13 | ED MED RECONCILIATION SUMMARY ---
Patient: HOLLY NAM Medication Reconciliation Report [facility] VisitID: [id number] [address] [place] [address] 70y, M Registration Date/Time: 04/29/2016 Weight: 87.0 kg Height/Length: 70 in. BMI: 27.5 ALLERGIES: No Known Drug Allergy The patient's Home Medications are listed below: THE FOLLOWING MEDICATIONS NEED TO BE RECONCILED: Aspirin Oral (81 mg) 1 tablet, daily Atorvastatin Calcium Oral 40 mg, at bedtime Glargine Insulin 12 units, at bedtime HumaLOG Subcutaneous 4 units, before meals, add 1 unit if BS >150 Iron Oral 50 mg, daily L-Thyroxine 112 mcgs, daily Lactulose Oral MetFORMIN HCl Oral 850 mg, 2x a day Midodrine HCl Oral 15 mg, TID, 5mg tablets, take 3 Omeprazole Oral 20 mg, daily Vitamins Oral, daily Rifaximin Oral (550 mg) 1 tablet, daily Spironolactone Oral 25mg tablets, 3 tablets, 2x a day Sucralfate-Malate Mouth/Throat 1 gm, daily Torsemide Oral 20 mg, take 4 tablets, daily The source(s) of the original Home Medication information: patient's family member patient The following Medications were given to the patient in the Emergency Department: None. The following Medications were prescribed to the patient: None.
[2016-04-29 14:20] VITALS: BP 123/50
--- NOTE | 2016-04-29 16:03 | HISTORY AND PHYSICAL ---
ADMITTED: 04/29/2016 CHIEF COMPLAINT: 1. "I do not feel well" HISTORY OF PRESENT ILLNESS: The patient states that he recently was admitted to the hospital last week with chest pain, rule out RI. He has a long history of liver failure, nonalcoholic hepatic steatosis, and gets weekly aspirations or paracentesis. He came in today with feeling weak and not right in his head and is here for further evaluation in the emergency department. MEDICAL/SURGICAL HISTORY: Medical history: He has a chronic liver failure with nonalcoholic hepatic steatosis, chronic renal failure, stable creatinine in the mid 2 range, heart disease, ascites with weekly paracentesis of 4 liters each week, per [facility]. Anemia of chronic disease with also gastrointestinal bleeding, diabetes, herpes zoster, hypothyroidism. Surgeries: CABG, coronary angioplasty and recurrent paracenteses. MEDICATIONS: 1. Aspirin 81 mg p.o. daily. 2. Atorvastatin 40 mg p.o. at bedtime. 3. Insulin 15 units at bedtime. 4. Humalog sliding scale 4 units before meals plus 1 additional unit per 50 points of sugar greater than 150. 5. Iron 50 mg p.o. daily. 6. Levothyroxine 112 mcg daily. 7. Midodrine 15 mg t.i.d. 8. Omeprazole 20 mg p.o. daily. 9. vitamins 1 p.o. daily. 10. Rifaximin 550 mg daily. 11. Spironolactone 25 mg p.o. 3 tablets b.i.d. 12. Lactulose 30 mg p.o. t.i.d. 13. Sucralfate 1 gram daily. 14. Torsemide 20 mg 4 tablets daily. ALLERGIES: 1. NONE KNOWN. SOCIAL HISTORY: , retired. Does not smoke, drink, or use any drugs. FAMILY HISTORY: No significant liver failure. There is heart disease in his grandparents. REVIEW OF SYSTEMS: Weakness, confusion, swelling on his abdomen, bruising. Has blood in stool. No fevers. No abdominal pain. No chest pain currently. He has diabetes, and blood sugars have been okay. PHYSICAL EXAMINATION: GENERAL: He is an alert male. He is oriented to himself and also Marcelina, though easy mental calculations, he stated his next paracentesis in a week was going to be due in June. HEENT: Extraocular movements intact. Pupils equal, round, and reactive to light. There is mild icterus. His oropharynx is with moist mucous membranes. NECK: Supple, without lymphadenopathy. LUNGS: Clear to auscultation bilaterally. HEART: Regular rate and rhythm. ABDOMEN: Distended markedly, nontender. GENITOURINARY/RECTAL: Rectal, per ED doctor, was positive guaiac. NEUROLOGIC: Cranial nerves II through XII intact. He is alert and oriented x2. He is minimally confused at this point and seems to have nonfocal strength and sensation. LAB/IMAGING: White count of 2.0, hematocrit 25.7, platelets of 54. INR 1.3. Comprehensive metabolic panel: Glucose 151, BUN of 51, creatinine 2.4. Sodium 143, potassium 3.7, HCO3 of 29, chloride of 104, calcium 8.6, total protein 6.9, albumin 3.6, total bilirubin 1.8, alkaline phosphatase 104, AST of 28, ALT of 26, lipase 462, which is chronically elevated, amylase 93, CPK 72, troponin I at 0.28, which also has been chronically, minimally elevated. BNP is 68. TSH is 6.623. Ammonia level of 149. A chest x-ray shows a stable chest with CABG and mild cardiomegaly. A urinalysis shows a normal UA. EKG shows sinus rhythm with occasional PVC and nonspecific ST-T wave changes and some poor R-wave prolongation, as well as prolonged QT. IMPRESSION: 1. This is a 70-year-old male who presented to the emergency department mostly just not feeling right. He has multiple medical problems related to his chronic liver disease, likely also chronic medical problems including pancytopenia, and he has elevated ammonia that is likely contributing to his mental status changes. PLAN: Admit him to the hospital. We will continue with his home medications, increase on his lactulose, and have physical therapy and discharge planning involved as well. He will likely continue to have issues of weakness, and may need more blood transfusions. CODE STATUS: HIS CODE STATUS WAS LISTED DNR, DNI.
[2016-04-29 18:54] VITALS: BP 120/44
[2016-04-29 22:29] VITALS: BP 148/71
[2016-04-30 04:12] VITALS: BP 137/64
[2016-04-30 05:54] VITALS: BP 123/63
--- NOTE | 2016-04-30 07:45 | Progress Note ---
Subjective General Patient states that he is feeling much better. Is now able to get up walk well. More clear. Has stooled 5x yesterday. Has no dizziness light headdedness or other acute issues. Physical Exam Vital Signs / I&Os Vital Signs Date Time Temp Pulse Resp B/P Pulse O2 O2 Flow FiO2 Ox Delivery Rate 04/30 0554 98.1 82 18 123/63 100 Room Air 04/30 0412 98.1 84 18 137/64 100 Room Air 04/29 2229 97.9 84 16 148/71 100 Room Air 0.0 04/29 1945 Room Air 04/29 1854 98.2 79 16 120/44 100 Room Air 0.0 04/29 1500 Room Air 04/29 1420 98.4 63 16 123/50 99 I&O 04/30 0000 04/29 1600 04/29 0800 Intake Total 600 Output Total 250 Balance 350 General Appearance Alert, Cooperative HEENT Normal exam Lungs Clear to auscultation, Normal air movement Cardiovascular Regular rate and rhythm Abdomen hugely distended, non tender Extremities tr edema LAB Results Laboratory Tests 04/30 04/30 0415 0415 Chemistry Plasma Sodium (136 - 145 mmol/L) 142 Plasma Potassium (3.5 - 5.1 mmol/L) 3.2 Plasma Chloride (98 - 107 mmol/L) 106 CO2 (Enzymatic) (21 - 32 mmol/L) 29 BUN (7 - 18 mg/dL) 54 Creatinine (0.6 - 1.3 mg/dL) 2.3 Est GFR ( Amer) (mL/min) 36.29 Est GFR (Non-Af Amer) (mL/min) 29.94 Glucose (70 - 110 mg/dL) 151 Plasma Calcium (8.5 - 10.1 mg/dL) 8.5 Plasma Magnesium (1.8 - 2.4 mg/dL) 2.0 Total Bilirubin (0.0 - 1.0 mg/dL) 2.0 AST (15 - 37 U/L) 26 ALT (12 - 78 U/L) 30 Alkaline Phosphatase (46 - 116 U/L) 95 Ammonia (11 - 32 umol/L) 42 Total Protein (6.4 - 8.2 g/dL) 6.4 Albumin (3.3 - 5.0 g/dL) 3.3 Hematology WBC (4.5 - 11.5 K/uL) 2.3 RBC (4.50 - 5.90 M/uL) 2.44 Hgb (13.5 - 17.5 gm/dL) 7.7 Hct (41.0 - 53.0 %) 23.1 MCV (80 - 100 fL) 94 MCH (26 - 34 pg) 31 RDW (11.6 - 14.8 %) 19.0 Neut % (Auto) (50 - 75 %) 77.0 Lymph % (Auto) (25 - 40 %) 8.4 Haskell % (Auto) (3 - 14 %) 13.9 Eos % (Auto) (0 - 4 %) 0.1 Baso % (Auto) (0 - 2 %) 0.6 Plt Count, EDTA (150 - 400 K/uL) 58 PUBS MCHC (31 - 37 g/dL) 33 Assessment and Plan Problem List 1. Anemia Plan hold on asa and consider further eval as indicated ? colonoscopy with Dr. Fox. No symptoms but likely will drop to ponit of transfusion soon. 2. GI bleeding Plan f/u per Ruddy 3. Chronic renal failure Plan Stable at this time. 4. Liver failure Plan Has liver faillure and multiple organs effected. Improved today and I suspect that this is related to the ammonia being better now.
--- NOTE | 2016-04-30 07:58 | Provider's Discharge Care Plan ---
Problem, Goal, Plan Problem List 1. Anemia Instructions: Take meds as directed, f/u with GI, watch of s/sx needed for transfusion 2. GI bleeding Instructions: Follow up as directed, Take meds as directed 3. Liver failure Instructions: Take meds as directed, has paracentesis next week 4. Chronic renal failure Instructions: Take meds as directed, labs in follow up
== END 2016-04-30 10:10 | disposition home or self-care (01) | DRG 442 ==
LOC: ED SRH 04:22 → TRANS SRH 09:52 → CC SRH 14:15
PROVIDERS: ADMIT Family Medicine
DX: K72.10 Chronic hepatic failure without coma (principal); D61.818 Other pancytopenia; K75.81 Nonalcoholic steatohepatitis (NASH); E11.22 Type 2 diabetes mellitus with diabetic chronic kidney disease; N18.9 Chronic kidney disease, unspecified; D63.1 Anemia in chronic kidney disease; R74.8 Abnormal levels of other serum enzymes; Z79.4 Long term (current) use of insulin
CPT/HCPCS: 90004; 90074; 90098; 90100; 90469; 90616; 91320; 91588; 92235; 92530; 92610; 92720; 93140; 94001; 94060; 95059

== ENCOUNTER 2016-05-06 09:13 | Inpatient (IN) | payer OTHER ==
[~2016-05-06] VITALS: Ht 180.3 cm; Wt 88.4 kg
[2016-05-06] VITALS (10 sets, daily range): BP systolic 121–138; BP diastolic 54–64
--- NOTE | 2016-05-06 10:24 | DIAGNOSTIC IMAGING REPORT ---
PROCEDURE: XR CHEST 1 VIEW INDICATION: PALPITATIONS TECHNIQUE: Portable AP view 09:28 a.m. COMPARISON: Chest 04/29/2016 FINDINGS: Lungs are clear. Status post median sternotomy and CABG. Stable mild cardiomegaly. Mediastinum and pulmonary vessels are normal. Thorax is unremarkable. No significant interval change . IMPRESSION: 1. Stable chest 2. CABG and mild cardiomegaly
--- NOTE | 2016-05-06 11:51 | ED NURSING NOTES ---
Clinical Report - Nurses [facility] [address] [place] [address] 05/06/2016 9:15 Patient: HOLLY NAM TRIAGE Triage time 09:21. Acuity: LEVEL 3. Chief Complaint: (racing heart x 2.5 hours, now resolved). --09:28 Alyson Ty R.N. 09:21 05/06/16. BP: 118/51. HR: 79. RR: 16. O2 saturation: 99%. Temp: 98.4 F. Pain level now: 0. --09:28 Alyson Ty R.N. Weight: 90.7 kg stated. Height/Length: 71 inches Per Patient. BMI: 27.9. --09:27 Alyson Ty R.N. Medications Atorvastatin 40 mg daily . --09:25 Alyson Ty R.N. Isulin humalog 4 units ac. --09:25 Alyson Ty R.N. insulin lantus 14 units h.s.. --09:25 Alyson Ty R.N. Lactulose 45 grams tid. --09:25 Alyson Ty R.N. Levothyroxine 112 mcg q.a.m.. --09:25 Alyson Ty R.N. Midodrine 5 mg tid. --09:26 Alyson Ty R.N. Nitrostat 0.4 mg prn. --09:26 Alyson Ty R.N. Omeprazole 20 mg q.h.s.. --09:26 Alyson Ty R.N. Penatal vitamin daily. --09:26 Alyson Ty R.N. Sucralfate 1 gm daily. --09:26 Alyson Ty R.N. Torsemide 40 mg bid. --09:26 Alyson Ty R.N. Xfaxan 550 mg bid. --09:26 Alyson Ty R.N. Allergies No Known Drug Allergy. --09:24 Alyson Ty R.N. History Arrived by EMS, and (A47). Historian: patient and family. Accompanied by family. Primary physician (dianna). Onset. (2 1/2 hours ago, now resolved). 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 SOCIAL HX: Smoker- current status unknown (quit in 1990). No alcohol use. No infectious disease exposure. FALL RISK ASSESSMENT: Fall risk assessment completed. No fall risk identified. NUTRITIONAL RISK ASSESSMENT: The nutritional risk assessment revealed no deficiencies. FUNCTIONAL ASSESSMENT: Functional assessment: no impairments noted. LEARNING NEEDS ASSESSMENT: The learning needs assessment revealed no barriers. SKIN INTEGRITY ASSESSMENT: Skin integrity risk assessment completed. No skin integrity risk identified. --09:28 Alyson Ty R.N. PROBLEMS: Abnormal Test. GI Bleeding. Renal Insufficiency. Cirrhosis. Abnormal EKG. Dizziness. Coronary Artery Disease. Ascites. Thyroid Disease. Diabetes Mellitus. --09:29 Alyson Ty R.N. Interventions ID band on patient. To treatment room. --09:28 Alyson Ty R.N. PHYSICAL ASSESSMENT To room via stretcher. GENERAL / NEURO / PSYCH: Alert. Oriented X 4. Appears in no acute distress. HEENT: No facial asymmetry noted. RESPIRATORY: Respirations not labored. Chest nontender. Breath sounds within normal limits. CVS: ( pt. reports "bounding heart beat" resolved before arrival.). Pulses within normal limits. GI / : Abdominal distention. Normal bowel sounds. SKIN: Skin intact. Skin is warm and dry. --09:31 Alyson Ty R.N. NURSING PROGRESS NOTES Patient identifiers checked. Call light placed in reach. Side rails up x 2. Bed placed in lowest position. Brakes of bed on. Patient ready for evaluation- chart flagged. Patient waiting for evaluation. --09:32 Alyson Ty R.N. 09:50 05/06/2016 Site #1 started via IV in the right forearm with an 20g angiocath; one attempt. Blood drawn: rainbow set. Labeled in the presence of the patient and sent to the lab. Saline lock flushed with 10 mL saline. --09:50 Alyson Ty R.N. 09:55 05/06/16. BP: 119/53. HR: 74. RR: 10. O2 saturation: 95%. --10:44 Alyson Ty R.N. 10:30 05/06/16. BP: 113/51. HR: 79. RR: 13. O2 saturation: 98%. --10:44 Alyson Ty R.N. ( lab drawing zheng, at bedside. no needs at this time. call light within reach.). --10:44 Alyson Ty R.N. Critical value relayed to ED by lab. Critical value received by YOUSIF Shields. Hgb: 6.4. Hct: 18.8. Critical value read back. Provider notifed of critical value (deborah). ( hgb 6.4, HCT 18.8). --10:51 Alyson Ty R.N. 11:32 05/06/16. ( pt. blood banded, given sandwich and juice, ok'd per Dr. Kolb). --11:33 Alyson Ty R.N. 11:32 05/06/16. BP: 119/56. HR: 82. RR: 15. O2 saturation: 97%. --11:33 Alyson Ty R.N. ( chaperoned as performs rectal exam.). --11:56 Georgie Kingsley, [facility] ( blood administration onset). --13:01 Alyson Ty R.N. 12:45 05/06/16. BP: 121/54. HR: 75. RR: 16. O2 saturation: 99%. Temp: 98.4 F. --13:01 Alyson Ty R.N. ( Pt. reports no blood administration reaction complaints.). --13:02 Alyson Ty R.N. 13:00 05/06/16. BP: 115/51. HR: 73. RR: 14. O2 saturation: 99%. Temp: 98.3 F. --13:02 Alyson Ty R.N. ( hand off to YOUSIF Winkler). --13:05 Alyson Ty R.N. 13:30. The patient is resting quietly. Overall patient status is the same. RESPIRATORY: No respiratory distress. SKIN: Skin is warm and dry. --13:50 Cathi Read R.N. Reassessment after fluids administered. He is calm and resting quietly. Overall patient status is the same- he states feels the same (first unit of blood infused). RESPIRATORY: No respiratory distress. SKIN: Skin is warm and dry. --15:22 Cathi Read R.N. DISPOSITION / DISCHARGE Departure time: 1440. Admitted to the Critical Care Unit. Transported via stretcher by nurse with monitor and IV. Report was given to a nurse. ( transferred to floor with IV intact and infusing NS). Patient's personal items; items were transported with the patient. --15:24 Cathi Read R.N. 14:40 05/06/16. BP: 113/52. HR: 68. RR: 13. O2 saturation: 98% on room air. Temp: 98.3 F (oral). Pain level now: 0/10. --15:24 Cathi Read R.N. Locked/Released at 05/06/2016 17:44 by Cathi Read R.N.
--- NOTE | 2016-05-06 11:51 | ED ORDER SUMMARY ---
..... Patient: HOLLY NAM OrderSheet [facility] VisitID: [id number] [place] [address] 70y, M Registration Date/Time: 05/06/2016 ORDER SHEET Weight: 90.7 kg (stated) Allergies: No Known Drug Allergy GENERAL ORDERS: Chest 1V Urgent (09:05/06/2016 Pb MOMIN) (Ack 9:24 LNations ER Tech1) (11:14 NHouse ER Tech1) Sales Research Analyst (Continuous) (:05/06/2016 Pb MOMIN) (Ack 9:25 LNations ER Tech1) (9:50 SStone R.N.) CBC w Diff Urgent (:05/06/2016 Pb MOMIN) (Ack 9:25 LNations ER Tech1) (10:28 NHouse ER Tech1) CMP Urgent (09:05/06/2016 Pb MOMIN) (Ack 9:25 LNations ER Tech1) (10:28 NHouse ER Tech1) PT with INR Urgent (09:05/06/2016 Pb MOMIN) (Ack 9:25 LNations ER Tech1) (10:28 NHouse ER Tech1) PTT Urgent (:05/06/2016 Pb MOMIN) (Ack 9:25 LNations ER Tech1) (10:28 NHouse ER Tech1) Amylase Urgent (09:05/06/2016 Pb MOMIN) (Ack 9:25 LNations ER Tech1) (10:28 NHouse ER Tech1) Lipase Urgent (09:05/06/2016 Pb MOMIN) (Ack 9:25 LNations ER Tech1) (10:28 NHouse ER Tech1) CPK Urgent (09:05/06/2016 Pb MOMIN) (Ack 9:23 LNations ER Tech1) (10:28 NHouse ER Tech1) Troponin-I Urgent (:05/06/2016 Pb MOMIN) (Ack 9:24 LNations ER Tech1) (10:28 NHouse ER Tech1) BNP Urgent (:05/06/2016 Pb MOMIN) (Ack 9:24 LNations ER Tech1) (10:28 NHouse ER Tech1) TSH Urgent (09:21 05/06/2016 Pb MOMIN) (Ack 9:24 LNations ER Tech1) (10:28 NHouse ER Tech1) Oxygen (2 L/min) (NC) (09:05/06/2016 Pb MOMIN) (Ack 9:25 LNations ER Tech1) (9:50 SStone R.N.) Pulse oximeter (:05/06/2016 Pb MOMIN) (Ack 9:25 LNations ER Tech1) (9:50 SStone R.N.) EKG - ER Stat (09:05/06/2016 Pb MOMIN) (Ack 9:25 LNations ER Tech1) (9:26 LNations ER Tech1) Ammonia Level Urgent (09:05/06/2016 Pb MOMIN) (Ack 9:26 LNations ER Tech1) (11:14 NHouse ER Tech1) Old Records (Old EKG) (10:07 05/06/2016 IAouse ER Tech1 verbal order read back to Pb MOMIN) (10:08 IAouse ER Tech1) Type & Cross (anemia) (anemia) Urgent (11:15 05/06/2016 Pb MOMIN) (11:16 NHouse ER Tech1) MEDICATION ORDERS: IV FLUIDS: IV Saline Lock (:05/06/2016 Pb MOMIN) (Ack 9:34 SStone R.N.) (9:50 SStone R.N.) ORDER SHEET NOTES: [Electronically signed by Jonh Kolb MD (16:40 05/06/2016)] [Electronically signed by Cathi Read R.N. (17:44 05/06/2016)] [Electronically locked/signed by Cathi Read R.N. (17:44 05/06/2016)]
--- NOTE | 2016-05-06 11:51 | ED CLINICAL REPORT ---
Clinical Report - Physicians/Mid Levels [facility] [address] [address] 05/06/2016 9:15 Patient: HOLLY NAM Time Seen: 09:20. Arrived- By ambulance. Historian- patient and EMS personnel. HISTORY OF PRESENT ILLNESS Chief Complaint: PALPITATIONS. This started today at about 6 AM and is now gone. Onset during sleep. No history of decongestants use prior to onset, cocaine use prior to onset or amphetamine use prior to onset. It was abrupt in onset and has been intermittent. It is described as a pounding heart beat. He did not lose consciousness. He did not feel like might "pass out". Not described as dizziness or weakness. No chest pain or discomfort, sweating episodes, fainting episodes or dizziness. He has had mild difficulty breathing (chronically). Similar symptoms previously: None. REVIEW OF SYSTEMS No chills, fever, sweats, calf pain or cough. No difficulty breathing, abdominal pain, black stools, bloody stools or constipation. No nausea, vomiting or urinary problems. He has had moderate pedal edema involving the right and left leg (chronically). He has had palpitations. He has had diarrhea (he attributes this to his lactulose). All systems otherwise negative, except as recorded above. PAST HISTORY PCP - Devang. Problems: Abnormal Test. GI Bleeding. Renal Insufficiency. Cirrhosis. Abnormal EKG. Chest Pain. Near Syncope. Dizziness. Renal Failure. Coronary Artery Disease. Ascites. Hypovolemia. Heart Disease. Anemia. Hypoglycemia. Herpes Zoster. Liver disease. Thyroid Disease. Diabetes Mellitus. Additional Surgeries: Coronary Angioplasty. Coronary Artery Bypass Graft. Paracentesis. Medications: Xfaxan 550 mg bid. Torsemide 40 mg bid. Sucralfate 1 gm daily. Penatal vitamin daily. Omeprazole 20 mg q.h.s.. Nitrostat 0.4 mg prn. Midodrine 5 mg tid. Levothyroxine 112 mcg q.a.m.. Lactulose 45 grams tid. insulin lantus 14 units h.s.. Isulin humalog 4 units ac. Atorvastatin 40 mg daily . Allergies: No Known Drug Allergy. SOCIAL HISTORY Smoker- current status unknown. Is a local resident. He lives with spouse. Has good social support. FAMILY HISTORY Diabetes in first-degree relative (mother). ADDITIONAL NOTES The nursing notes have been reviewed. PHYSICAL EXAM Vital Signs: 05/06/2016 09:21 BP: 118/51. HR: 79. RR: 16. O2 saturation: 99%. Temp: 98.4 F. Pain level now: 0/10. Have been reviewed. Appearance: Alert. Eyes: Pupils equal, round and reactive to light. ENT: Pharynx normal. Neck: Normal inspection. Neck supple. CVS: Normal heart rate and rhythm. 3/6 systolic murmur. Respiratory: No respiratory distress. Abdomen: Soft. No organomegaly. No mass. Distention (with a positive fluid wave). Back: Normal external inspection. Rectal: Strongly heme-positive stool. (POC test reference range: negative). Skin: Skin warm and dry. Normal skin color. No rash. Normal skin turgor. Extremities: Bilateral mild 1+ pitting edema of the lower extremities involving both feet, both ankles and both lower legs. Extremities exhibit normal ROM. LABS, X-RAYS, AND EKG EKG: Rate: 72. Non-specific ST segment / T wave abnormalities. EKG unchanged when compared with prior EKG. (29 Apr 2016). Chest X-ray: Cardiomegaly. Sternotomy wires present. The X-rays were independently viewed by me. A comparison with prior films reveals that the findings are unchanged (04/29/16). Laboratory Tests: CBC w Diff: (MAYA: 05/06/2016 09:45) ( MsgRcvd 05/06/2016 11:30) Final results Test Result Flag Units (Reference) WHITE BLOOD COUNT 1.9 L K/uL (4.5-11.5) RED BLOOD COUNT 2.01 L M/uL (4.50-5.90) HEMOGLOBIN 6.4 *L gm/dL (13.5-17.5) CRITICAL RESULTS CALLEDCalled to SIOBHAN GHOSH RN 05/06/16 1050Were 2 patient identifiers used? YESWas the result read back? YES HEMATOCRIT 18.8 *L % (41.0-53.0) CRITICAL RESULTS CALLEDCalled to SIOBHAN GHOSH RN 05/06/16 1051Were 2 patient identifiers used? YES MEAN CELL VOLUME 94 fL (80-100) MEAN CORPUSCULAR HGB 32 pg (26-34) MEAN CORPUSCULAR HGB CONC 34 g/dL (31-37) RED CELL DISTRIBUTION WIDTH 19.3 H % (11.6-14.8) PLATELET COUNT 44 L K/uL (150-400) POLY % 80 H % (50-75) BAND % 5 % (0-8) LYMPH 10 L % (25-40) MONO 5 % (3-14) EOSINOPHIL % 0 % (0-4) BASOPHIL % 0 % (0-2) METAMYELOCYTE % 0 % (0-1) MYELOCYTE 0 % (0-1) OTHER CELL TYPE 0 RBC MORPHOLOGY 1+ OVALOCYTES POLYCHROMASIA 1+ PT with INR: (MAYA: 05/06/2016 09:45) ( [facility] 05/06/2016 10:22) Final results Test Result Flag Units (Reference) INR 1.3 H (0.8-1.2) Low Intensity Therapy: INR 1.5-2.0 PT range 18.5-23.1Mod.Intensity Therapy: INR 2.0-3.0 PT range 23.1-31.5High Intensity Therapy: INR 2.5-3.5 PT range 27.4-35.5High Intensity Therapy 2: INR 3.0-4.0 PT range 31.5-39.3 APTT 29 SECONDS (24-34) Ammonia Level: (MAYA: 05/06/2016 10:40) ( [facility] 05/06/2016 11:13) Final results Test Result Flag Units (Reference) AMMONIA 61 H umol/L (11-32) BNP: (MAYA: 05/06/2016 09:45) ( [facility] 05/06/2016 10:40) Final results Test Result Flag Units (Reference) B-TYPE NATRIURETIC PEPTIDE 68.5 pg/ml (5-100) CMP: (MAYA: 05/06/2016 09:45) ( MsgRcvd 05/06/2016 10:36) Final results Test Result Flag Units (Reference) GLUCOSE 182 H mg/dL (70-110) BUN 46 H mg/dL (7-18) CREATININE 2.2 H mg/dL (0.6-1.3) Estimated GFR 31.52 mL/min Estimated GFR- 38.20 mL/min Note: Persistent reduction over 3 months in eGFR<60 mL/min/1.73 m2 defines CKD. Patients with eGFR values>=60 mL/min/1.73 m2 may also have CKD if evidence ofpersistent proteinuria. Additional information may be foundat www.kidney.org. SODIUM 138 mmol/L (136-145) POTASSIUM 3.6 mmol/L (3.5-5.1) CHLORIDE 104 mmol/L (98-107) CARBON DIOXIDE 27 mmol/L (21-32) CALCIUM 8.2 L mg/dL (8.5-10.1) TOTAL PROTEIN 6.3 L g/dL (6.4-8.2) ALBUMIN 3.3 g/dL (3.3-5.0) BILIRUBIN, TOTAL 1.1 H mg/dL (0.0-1.0) ALKALINE PHOSPHATASE 110 U/L (46-116) AST (SGOT) 27 U/L (15-37) ALT (SGPT) 29 U/L (12-78) LIPASE 430 H U/L (73-393) AMYLASE 102 U/L (25-115) CPK 69 U/L (24-260) TROPONIN I 0.29 ng/mL (0.00-1.5) TROPONIN REFERENCE RANGE:<0.1 NEGATIVE0.1-1.5 INDETERMINANT>1.5 POSITIVE THYROID STIMULATING HORMONE 5.888 H uIU/mL (0.30-3.74) . PROGRESS AND PROCEDURES Course of Care: Patient is stable. Discussed case with on-call health care provider, (Devang). Reviewed test results and need for additional work-up. Agreed upon treatment plan, need for patient follow-up and decision to place in observation. Health care provider will see patient in hospital. Consult obtained from surgery. Sebastian. Case discussed. Phone consult only. Will see patient in the hospital. Patient/family counseled. Old medical records reviewed. Disposition orders written (in [facility]). Disposition: Admitted. CLINICAL IMPRESSION GI bleed. Anemia. pancytopenia. (Electronically signed by Jonh Kolb MD 05/06/2016 16:40)
--- NOTE | 2016-05-06 11:51 | ED ORDER SUMMARY ---
..... Patient: HOLLY NAM OrderSheet [facility] VisitID: [id number] [place] [address] 70y, M Registration Date/Time: 05/06/2016 ORDER SHEET Weight: 90.7 kg (stated) Allergies: No Known Drug Allergy GENERAL ORDERS: Chest 1V Urgent (09:05/06/2016 Pb MOMIN) (Ack 9:24 LNations ER Tech1) (11:14 NHouse ER Tech1) Child Nutrition Director (Continuous) (:05/06/2016 Pb MOMIN) (Ack 9:25 LNations ER Tech1) (9:50 SStone R.N.) CBC w Diff Urgent (:05/06/2016 Pb MOMIN) (Ack 9:25 LNations ER Tech1) (10:28 NHouse ER Tech1) CMP Urgent (09:05/06/2016 Pb MOMIN) (Ack 9:25 LNations ER Tech1) (10:28 NHouse ER Tech1) PT with INR Urgent (09:05/06/2016 Pb MOMIN) (Ack 9:25 LNations ER Tech1) (10:28 NHouse ER Tech1) PTT Urgent (:05/06/2016 Pb MOMIN) (Ack 9:25 LNations ER Tech1) (10:28 NHouse ER Tech1) Amylase Urgent (09:05/06/2016 Pb MOMIN) (Ack 9:25 LNations ER Tech1) (10:28 NHouse ER Tech1) Lipase Urgent (09:05/06/2016 Pb MOMIN) (Ack 9:25 LNations ER Tech1) (10:28 NHouse ER Tech1) CPK Urgent (09:05/06/2016 Pb MOMIN) (Ack 9:23 LNations ER Tech1) (10:28 NHouse ER Tech1) Troponin-I Urgent (:05/06/2016 Pb MOMIN) (Ack 9:24 LNations ER Tech1) (10:28 NHouse ER Tech1) BNP Urgent (:05/06/2016 Pb MOMIN) (Ack 9:24 LNations ER Tech1) (10:28 NHouse ER Tech1) TSH Urgent (09:21 05/06/2016 Pb MOMIN) (Ack 9:24 LNations ER Tech1) (10:28 NHouse ER Tech1) Oxygen (2 L/min) (NC) (09:05/06/2016 Pb MOMIN) (Ack 9:25 LNations ER Tech1) (9:50 SStone R.N.) Pulse oximeter (:05/06/2016 bP MOMIN) (Ack 9:25 LNations ER Tech1) (9:50 SStone R.N.) EKG - ER Stat (09:05/06/2016 Pb MOMIN) (Ack 9:25 LNations ER Tech1) (9:26 LNations ER Tech1) Ammonia Level Urgent (09:05/06/2016 Pb MOMIN) (Ack 9:26 LNations ER Tech1) (11:14 NHouse ER Tech1) Old Records (Old EKG) (10:07 05/06/2016 OHouse ER Tech1 verbal order read back to Pb MOMIN) (10:08 OHouse ER Tech1) Type & Cross (anemia) (anemia) Urgent (11:15 05/06/2016 Pb MOMIN) (11:16 NHouse ER Tech1) MEDICATION ORDERS: IV FLUIDS: IV Saline Lock (:05/06/2016 Pb MOMIN) (Ack 9:34 SStone R.N.) (9:50 SStone R.N.) ORDER SHEET NOTES: [Electronically signed by Jonh Kolb MD (16:40 05/06/2016)] [Electronically signed by Cathi Read R.N. (17:44 05/06/2016)] [Electronically locked/signed by Cathi Read R.N. (17:44 05/06/2016)]
--- NOTE | 2016-05-06 15:30 | HISTORY AND PHYSICAL ---
ADMITTED: 05/06/2016 CHIEF COMPLAINT: 1. Palpitations HISTORY OF PRESENT ILLNESS: A 70-year-old male with a history of liver failure, nonalcoholic steatohepatitis, and renal failure presents to [facility] with palpitations starting 6 a.m. on the day of admission. They lasted until approximately the time of arrival in the emergency department by ambulance, when they resolved. He states he felt like the heart was racing and pounding. He did not feel dizzy or syncopal, and there was no loss of consciousness. There were no falls. He states he felt a bit short of breath. He denies chest pain, sweating or nausea associated with it. MEDICAL/SURGICAL HISTORY: Chronic recurrent anemia, transfusion dependent in spite of iron infusions. Renal insufficiency. Hepatic failure. Nonalcoholic steatohepatitis. History of gastrointestinal bleed. History of cirrhosis. History of chest pain. History of coronary artery disease. Diabetes mellitus. Herpes zoster. Thyroid disease. Surgeries: Coronary artery bypass graft, coronary angioplasty, recurrent paracentesis. MEDICATIONS: 1. Rifaximin 550 mg p.o. b.i.d. 2. Torsemide 40 mg p.o. b.i.d. 3. Sucralfate 1 gram daily. 4. vitamins 1 p.o. daily. 5. Omeprazole 20 mg p.o. at bedtime. 6. Nitrostat 0.4 mg sublingual p.r.n. chest pain (used this morning without relief). 7. Midodrine 5 mg p.o. t.i.d. 8. Levothyroxine 112 mcg daily. 9. Lactulose 45 grams t.i.d. 10. Lantus insulin 14 units at bedtime. 11. Humalog 4 units before meals. 12. Atorvastatin 40 mg p.o. daily. ALLERGIES: 1. NONE. SOCIAL HISTORY: male, retired. Smoking: None. Alcohol: None. Drug use: None. FAMILY HISTORY: Multiple relatives have diabetes. Negative for heart disease or cancer. REVIEW OF SYSTEMS: General: The patient denies fevers, chills, sweats, or weight change. Neurological: Denies dizziness, seizures, headaches. HEENT: Denies hearing loss, vision change, sore throat, or congestion. Respiratory: Denies current shortness of breath, cough, or wheezing. Cardiac: Positive for palpitations as noted above. Denies chest pain or paroxysmal nocturnal dyspnea. Gastrointestinal: Denies nausea, vomiting, diarrhea, constipation. Genitourinary: Denies dysuria or hematuria or frequency. PHYSICAL EXAMINATION: VITAL SIGNS: Blood pressure 118/51, heart rate 79, respirations 16, SaO2 of 99%, temperature 98.4. GENERAL: Well-developed, well-nourished male with a protuberant abdomen, in no acute distress at the time of my evaluation. HEENT: Clear. NECK: Supple, without adenopathy or thyromegaly. CHEST: Clear to auscultation and percussion. HEART: Regular rate and rhythm with 3/6 systolic murmur. ABDOMEN: Protuberant and tense with fluid. Positive fluid wave noted. Unable to palpate masses. No tenderness. BACK: Straight, without CVA tenderness. EXTREMITIES: Without cyanosis, clubbing. Trace edema noted. GENITAL: Exam deferred. RECTAL: Exam performed in the ED showing guaiac-positive stool. LAB/IMAGING: EKG shows nonspecific ST-T wave changes. No change from last hospitalization in April of this year. Chest x-ray shows cardiomegaly and sternotomy wires. Labs: WBC 1.9, hemoglobin 6.4, hematocrit 18.8, platelets 44. INR 1.3. BNP 68.5, glucose 182, BUN 46, creatinine 2.2, sodium 138, potassium 3.6, chloride 104, bicarbonate 27, total bilirubin 1.1, alkaline phosphatase 110, AST 27, ALT 29, lipase 430, amylase 102. CPK 69, troponin 0.29. IMPRESSION: 1. Palpitations, probably secondary to anemia 2. Anemia with guaiac-positive stool, recurrent and transfusion-dependent. We will recommend evaluation by Surgery with endoscopy 3. Hepatic failure with nonalcoholic steatohepatitis/cirrhosis 4. Pancytopenia 5. Chronic renal failure 6. Diabetes mellitus PLAN: Admit to [facility]. Surgical consultation to evaluate gastrointestinal bleed, transfusion x2 units initiated, packed red blood cells. We will consider further transfusion depending on results. We will discuss management with patient's coil machine supervisor and capacitor pack press operator as well, because of recurrent symptomatology. Serial cardiac enzymes and EKGs were obtained to rule out [place] in light of borderline troponin.
[2016-05-06] MEDS ORDERED: LACTULOSE PO (16:50)
--- NOTE | 2016-05-06 17:44 | ED DISCHARGE INSTRUCTIONS ---
Patient: HOLLY NAM General Instructions [facility] VisitID: [id number] [address] [place] [address] 70y, M Registration Date/Time: 05/06/2016 GI bleed. Anemia. pancytopenia. (Electronically signed by Jonh Kolb MD 05/06/2016 16:40)
--- NOTE | 2016-05-06 17:44 | ED MED RECONCILIATION SUMMARY ---
Patient: HOLLY NAM Medication Reconciliation Report [facility] VisitID: [id number] [address] [place] [address] 70y, M Registration Date/Time: 05/06/2016 Weight: 90.7 kg Height/Length: 71 in. BMI: 27.9 ALLERGIES: No Known Drug Allergy The patient's Home Medications are listed below: THE FOLLOWING MEDICATIONS NEED TO BE RECONCILED: Atorvastatin 40 mg daily insulin lantus 14 units h.s. Isulin humalog 4 units ac Lactulose 45 grams tid Levothyroxine 112 mcg q.a.m. Midodrine 5 mg tid Nitrostat 0.4 mg prn Omeprazole 20 mg q.h.s. Penatal vitamin daily Sucralfate 1 gm daily Torsemide 40 mg bid Xfaxan 550 mg bid The source(s) of the original Home Medication information: Not obtained. The following Medications were given to the patient in the Emergency Department: None. The following Medications were prescribed to the patient: None.
--- NOTE | 2016-05-06 17:44 | ED DISCHARGE INSTRUCTIONS ---
Patient: HOLLY NAM General Instructions [facility] VisitID: [id number] [address] [place] [address] 70y, M Registration Date/Time: 05/06/2016 GI bleed. Anemia. pancytopenia. (Electronically signed by Jonh Kolb MD 05/06/2016 16:40)
--- NOTE | 2016-05-06 17:44 | ED MAR SUMMARY ---
..... Medication Administration Record [facility] [address] [place], [place] [id number] Patient: HOLLY NAM Visit ID: [id number] 70y, M Weight: 90.7 kg Height/Length: 71 in BMI: 27.9 ALLERGIES: No Known Drug Allergy
--- NOTE | 2016-05-06 17:44 | ED MED RECONCILIATION SUMMARY ---
Patient: HOLLY NAM Medication Reconciliation Report [facility] VisitID: [id number] [address] [place] [address] 70y, M Registration Date/Time: 05/06/2016 Weight: 90.7 kg Height/Length: 71 in. BMI: 27.9 ALLERGIES: No Known Drug Allergy The patient's Home Medications are listed below: THE FOLLOWING MEDICATIONS NEED TO BE RECONCILED: Atorvastatin 40 mg daily insulin lantus 14 units h.s. Isulin humalog 4 units ac Lactulose 45 grams tid Levothyroxine 112 mcg q.a.m. Midodrine 5 mg tid Nitrostat 0.4 mg prn Omeprazole 20 mg q.h.s. Penatal vitamin daily Sucralfate 1 gm daily Torsemide 40 mg bid Xfaxan 550 mg bid The source(s) of the original Home Medication information: Not obtained. The following Medications were given to the patient in the Emergency Department: None. The following Medications were prescribed to the patient: None.
--- NOTE | 2016-05-06 17:44 | ED MAR SUMMARY ---
..... Medication Administration Record [facility] [address] [place], [place] [id number] Patient: HOLLY NAM Visit ID: [id number] 70y, M Weight: 90.7 kg Height/Length: 71 in BMI: 27.9 ALLERGIES: No Known Drug Allergy
--- NOTE | 2016-05-06 18:58 | CONSULTATION REPORT ---
DATE OF CONSULTATION: 05/06/2016 REFERRING PHYSICIAN: Dr. Siddiqi CONSULTING PHYSICIAN: Dr. Cortes CHIEF COMPLAINT: 1. GI blood loss HISTORY OF PRESENT ILLNESS: The patient is a 70-year-old man who was admitted after being seen for palpitations. This is a known patient who has a long history of liver failure from nonalcoholic steatohepatitis associated with chronic renal failure. He has undergone numerous endoscopic procedures in the past, dating back at least 10 or more years, which have included both scleral and banding of esophageal varices as well as colonoscopies with polypectomies. On one occasion, he had peptic ulcer disease noted as the GI blood loss source. He has thrombocytopenia and leukopenia and was admitted today due to markedly decreased and symptomatic blood count. He did not recall bright red blood per rectum, but stools were heme-positive. MEDICAL/SURGICAL HISTORY: Medical history: Chronic anemia, chronic GI blood loss. Renal insufficiency, hepatic failure, ISAAC and cirrhosis, coronary artery disease, diabetes mellitus, herpes zoster, thyroid disease. Past surgery: CABG, PTCA, multiple therapeutic endoscopies. MEDICATIONS: 1. Rifaximin 550 b.i.d. 2. Torsemide 40 mg b.i.d. 3. Sucralfate 1 gram p.o. daily. 4. Omeprazole 20 mg at bedtime. 5. Nitrostat 0.4 mg p.r.n. chest pain. 6. Midodrine 5 mg t.i.d. with 7. Synthroid 0.112 mg every day. 8. Lactulose 45 mg t.i.d. for encephalopathy. 9. Lantus insulin 40 units at bedtime. 10. Humalog 40 units before meals. 11. Atorvastatin 40 mg every day. 12. Vitamin supplements. ALLERGIES: 1. NONE TO MEDICATIONS. SOCIAL HISTORY: The patient is retired. He is . He does not drink alcohol or smoke cigarettes. 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 He retired after a career in the [employer]. He quit smoking in 1990. FAMILY HISTORY: His mother had diabetes. REVIEW OF SYSTEMS: A multipoint review of systems was obtained on 05/06/[address] Siddiqi and is reviewed at this time. PHYSICAL EXAMINATION: GENERAL: The patient is alert and cooperative and conversant. He recognized me, and I recognized him previous medical encounters. HEENT: His ears and nose demonstrated no gross external lesions. Eyes are equal. He is anicteric. NECK: Without palpable masses or thyromegaly. CHEST: Clear, without wheeze or rales. HEART: Regular, with a systolic murmur. ABDOMEN: Protuberant with fluid and with a bulging umbilical hernia which is easily reducible. There are prominent veins but no obvious caput medusae. I was unable to palpate his liver. EXTREMITIES: Symmetric. He appears to move without restriction. LAB/IMAGING: Lab tests were reviewed. His hematocrit was 18.8 with a hemoglobin of 6.4, white count 1.9. INR slightly elevated at 1.3. Platelet count of 44,000. Bilirubin 1.1. IMPRESSION: 1. Gastrointestinal blood loss. 2. History of esophageal varices. 3. History of peptic ulcer disease. 4. History of colon polyps PLAN: I recommended the patient undergo an upper GI endoscopy to determine the source of bleeding and thought to possibly provide therapy if varices appear to be at this time a likely source. The patient also requested a colonoscopy, since he was told to have one about now, and he would like to get both at the same time if possible. I have agreed to perform both procedures by his request and will do both an upper and lower GI endoscopy and give him a bowel prep tonight in preparation for this. The patient is familiar with both procedures and is aware of risks, including perforation and bleeding. Additionally, this patient reported that is still being considered for liver transplant, but needs additional clearance from the renal standpoint. He also has known coronary disease, and there are some issues about the use of contrast if he needs additional angiography.
[2016-05-07] VITALS (16 sets, daily range): BP systolic 105–137; BP diastolic 37–64
--- NOTE | 2016-05-07 07:51 | Progress Note ---
Subjective General 70-year-old male with a history of liver failure, nonalcoholic steatohepatitis, and renal failure presented with palpitations which resolved in the ER. Now feeling well. Guaiac positive stool in ER. Transfused x 2 units PRBC but also noted to have low platet count and WBC. Pt has been pancytopenic for years, worked up by oncology in the past. Now denies cp/palp/sob/dizziness and wants to proceed with upper and lower endoscopy to evaluate bleeding and recurrent transfusion dependent anemia. Physical Exam Vital Signs / I&Os Vital Signs Date Time Temp Pulse Resp B/P Pulse O2 O2 Flow FiO2 Ox Delivery Rate 05/07 0644 98.1 63 19 129/61 98 Room Air 05/07 0500 82 14 108/44 98 Room Air 05/07 0400 115/52 05/07 0300 63 14 115/54 92 05/07 0200 98.2 73 16 105/37 96 Room Air 05/07 0100 121/60 05/07 0000 119/55 05/06 2300 65 14 127/54 96 Room Air 05/06 2208 59 16 121/54 98 05/06 2104 59 16 131/61 97 05/06 2005 69 16 132/58 100 05/06 1953 Room Air 05/06 1911 70 16 132/58 99 05/06 1806 98.1 71 16 128/58 100 05/06 1710 71 16 138/57 100 05/06 1610 98.1 67 12 122/58 100 05/06 1553 98.2 67 12 121/57 99 05/06 1455 98.2 79 14 132/64 100 I&O 05/06 0800 05/06 1600 05/07 0000 Intake Total 310 2240 Output Total 200 225 Balance 110 2015 General Appearance Alert, Oriented X3, Cooperative, No acute distress Lungs Clear to auscultation Cardiovascular Regular rate and rhythm, 3/6 systolic murmur. Abdomen Normal bowel sounds, No tenderness, Distended with ascites. Extremities No edema Skin No Rashes LAB Results Laboratory Tests 05/06 05/06 05/06 05/06 0945 0945 1040 1812 Chemistry Plasma Sodium (136 - 145 mmol/L) 138 Plasma Potassium (3.5 - 5.1 mmol/L) 3.6 Plasma Chloride (98 - 107 mmol/L) 104 CO2 (Enzymatic) (21 - 32 mmol/L) 27 BUN (7 - 18 mg/dL) 46 Creatinine (0.6 - 1.3 mg/dL) 2.2 Est GFR ( Amer) (mL/min) 38.20 Est GFR (Non-Af Amer) (mL/min) 31.52 Glucose (70 - 110 mg/dL) 182 Plasma Calcium (8.5 - 10.1 mg/dL) 8.2 Total Bilirubin (0.0 - 1.0 mg/dL) 1.1 AST (15 - 37 U/L) 27 ALT (12 - 78 U/L) 29 Alkaline Phosphatase (46 - 116 U/L) 110 Ammonia (11 - 32 umol/L) 61 Creatine Kinase (24 - 260 U/L) 69 66 Troponin (0.00 - 1.5 ng/mL) 0.29 0.29 B-Natriuretic Peptide (5 - 100 pg/ml) 68.5 Total Protein (6.4 - 8.2 g/dL) 6.3 Albumin (3.3 - 5.0 g/dL) 3.3 Amylase (25 - 115 U/L) 102 Lipase (73 - 393 U/L) 430 TSH 3rd Generation (0.30 - 3.74 uIU/mL) 5.888 Coagulation INR (0.8 - 1.2) 1.3 APTT (24 - 34 SECONDS) 29 Hematology WBC (4.5 - 11.5 K/uL) 1.9 RBC (4.50 - 5.90 M/uL) 2.01 Hgb (13.5 - 17.5 gm/dL) 6.4 Hct (41.0 - 53.0 %) 18.8 MCV (80 - 100 fL) 94 MCH (26 - 34 pg) 32 RDW (11.6 - 14.8 %) 19.3 Neut % (Auto) (50 - 75 %) 80 Lymph % (Auto) (25 - 40 %) 10 [place] % (Auto) (3 - 14 %) 5 Eos % (Auto) (0 - 4 %) 0 Baso % (Auto) (0 - 2 %) 0 Band Neutrophils % (0 - 8 %) 5 Metamyelocytes % (0 - 1 %) 0 Myelocytes (0 - 1 %) 0 Other Cell Type 0 Plt Count, EDTA (150 - 400 K/uL) 44 RBC Morphology 1+ OVALOCYTES Polychromasia 1+ PUBS MCHC (31 - 37 g/dL) 34 05/06 05/07 05/07 2228 0205 0420 Chemistry Plasma Sodium (136 - 145 mmol/L) 143 Plasma Potassium (3.5 - 5.1 mmol/L) 3.1 Plasma Chloride (98 - 107 mmol/L) 106 CO2 (Enzymatic) (21 - 32 mmol/L) 28 BUN (7 - 18 mg/dL) 41 Creatinine (0.6 - 1.3 mg/dL) 1.9 Est GFR ( Amer) (mL/min) 45.24 Est GFR (Non-Af Amer) (mL/min) 37.33 Glucose (70 - 110 mg/dL) 159 Plasma Calcium (8.5 - 10.1 mg/dL) 8.0 Plasma Magnesium (1.8 - 2.4 mg/dL) 1.8 Total Bilirubin (0.0 - 1.0 mg/dL) 1.3 AST (15 - 37 U/L) 26 ALT (12 - 78 U/L) 27 Alkaline Phosphatase (46 - 116 U/L) 97 Creatine Kinase (24 - 260 U/L) Cancelled 54 Troponin (0.00 - 1.5 ng/mL) Cancelled 0.27 Total Protein (6.4 - 8.2 g/dL) 5.8 Albumin (3.3 - 5.0 g/dL) 3.1 Amylase (25 - 115 U/L) 97 Lipase (73 - 393 U/L) 609 Hematology WBC (4.5 - 11.5 K/uL) 1.5 RBC (4.50 - 5.90 M/uL) 2.52 Hgb (13.5 - 17.5 gm/dL) 7.9 Hct (41.0 - 53.0 %) 23.5 MCV (80 - 100 fL) 93 MCH (26 - 34 pg) 31 RDW (11.6 - 14.8 %) 19.6 Neut % (Auto) (50 - 75 %) 59 Lymph % (Auto) (25 - 40 %) 28 [place] % (Auto) (3 - 14 %) 10 Eos % (Auto) (0 - 4 %) 3 Baso % (Auto) (0 - 2 %) 0 Band Neutrophils % (0 - 8 %) 0 Metamyelocytes % (0 - 1 %) 0 Myelocytes (0 - 1 %) 0 Other Cell Type 0 Plt Count, EDTA (150 - 400 K/uL) 52 PUBS MCHC (31 - 37 g/dL) 34 Imaging EKG unchanged. Assessment and Plan Problem List 1. Anemia Plan Improved with PRBC x 2 but still with low hgb. Will transfuse x 1 more unit. 2. GI bleeding Plan Upper and lower endoscopy per Dr. Cortes. Pt is aware of risk with low platelet count and WBC but wants to proceed to try to stop recurrent transfusions. 3. Liver failure Plan Persistent ascites with weekly paracentesis x 4 liters as ordered by Dr. Fox. 4. Palpitations Plan Resolved with transfusion. SC ruled out.
--- NOTE | 2016-05-07 15:44 | OPERATIVE REPORT ---
DATE OF SURGERY: 05/07/2016 SURGEON: Germain Cortes MD PREOPERATIVE DIAGNOSIS: 1. Gastrointestinal blood loss POSTOPERATIVE DIAGNOSES: 1. Gastritis and duodenitis. 2. Portal hypertension 3. Enlarged hemorrhoids PROCEDURE PERFORMED: 1. colonoscopy 2. egd INDICATIONS: The patient is a 70-year-old man with longstanding portal hypertension, thrombocytopenia and leukopenia, who was admitted due to syncope and severe anemia. He has since received 3 units of blood transfusion. He has had previous gastric ulcers as well as multiple ablative procedures for esophageal varices and has ongoing tense ascites. He has also had colon polyps in the past. SURGICAL TECHNIQUE: The patient was taken to the endoscopy suite, where total IV general was administered and the patient was placed in the left lateral decubitus position. A well-lubricated colonoscope was then advanced the length of the colon under direct vision. There were very prominent internal hemorrhoids consistent with the patient's history of portal hypertension. There was no active ongoing bleeding. The cecum was reached and on withdrawal, the whole colon was inspected. There were no active bleeding sources and no polyps or tumors seen. The upper gastrointestinal endoscope was introduced down the esophagus. There was evidence of scar tissue in the lower esophagus consistent with previous ablative procedures. The lower stomach demonstrated erythema and friability consistent with gastritis and there was also stippled erythema in the duodenum consistent with duodenitis. There were; however, at this time, no active bleeding sources at this location. A retroflexed view demonstrated a normal upper stomach with no evidence of intragastric varices. On withdrawal, the gastroesophageal junction was visualized and the lower esophagus visualized. There were no thin walled or dark blue varices. There were no clots. There was no sign of acute variceal bleeding. No interventional procedures were carried out. The rest of the esophagus was normal. The patient left in good condition. No intraoperative complications were encountered.
[2016-05-08] MEDS ORDERED: SYNTHROID75 MCG PO (07:20)
[2016-05-08] MEDS ORDERED: PRILOSEC40 MG PO (07:22)
[2016-05-08] MEDS ORDERED: CARAFATE EQUIVAL1 GM PO (07:24)
--- NOTE | 2016-05-08 07:27 | Provider's Discharge Care Plan ---
Problem, Goal, Plan Problem List 1. Gastritis and duodenitis Goals: Improve disease control Instructions: Take meds as directed 2. Hypothyroid Goals: Improve disease control Instructions: Take meds as directed 3. Palpitations Goals: Improved health/wellness Instructions: Take meds as directed 4. Cirrhosis Goals: Improve disease control Instructions: Take meds as directed 5. GI bleeding Goals: Improve disease control Instructions: Take meds as directed 6. Pancytopenia Goals: Improved health/wellness Instructions: Take meds as directed 7. INDETERMINATE TROPONIN Goals: Improved health/wellness Instructions: Follow up as needed 8. Renal insufficiency Goals: Improved health/wellness Instructions: Follow up as directed
[2016-05-08 08:07] VITALS: BP 129/71
--- NOTE | 2016-05-08 08:17 | DISCHARGE SUMMARY ---
ADMIT DATE: 05/06/2016 DISCHARGE DATE: 05/08/2016 ADMITTING DIAGNOSES: 1. Palpitations secondary to anemia. 2. Anemia with guaiac-positive stool, recurrent and transfusion dependent. 3. Hepatic failure with nonalcoholic steatohepatitis/sclerosis. 4. Pancytopenia. 5. Chronic renal failure. 6. Diabetes mellitus. DISCHARGE DIAGNOSES: 1. Palpitations secondary to anemia. 2. Gastrointestinal bleed secondary to gastritis and duodenitis with a history of transfusion-dependent bleed. 3. Hepatic failure with nonalcoholic steatohepatitis/cirrhosis. 4. Pancytopenia. 5. Chronic renal failure, improved. 6. Diabetes mellitus. 7. Hypokalemia, partially treated in hospital with the patient declining further inpatient treatment and plans for dietary treatment. BRIEF HISTORY: The patient presented with palpitations urgently to the emergency department, was transported by ambulance, and admitted. Palpitations resolved in the emergency department. The patient was admitted for rule out myocardial infarction protocol and treatment of severe anemia. HOSPITAL COURSE: The patient was admitted and treated with transfusion x2 units packed red blood cells with serial cardiac enzymes and EKGs showed no sign of acute myocardial infarction. Stool was guaiac-positive in the emergency department. At third unit of packed red blood cells was given, surgical consultation obtained and the patient prepped for upper and lower GI endoscopy. The patient tolerated this well. Gastritis and duodenitis were identified, but no active bleeding. The patient was also hypokalemic during the hospitalization. This was treated with 40 mEq IV potassium, which improved, but did not resolve the hypokalemia. The patient chose to decline further IV potassium and stated that he has been on low potassium diet at home and will liberalize that for the week prior to seeing his Gastroenterology consultation. The patient had no further palpitations, chest pain, or cardiac symptomatology during his hospital stay and felt he had returned to normal baseline by the time of discharge. PHYSICAL EXAMINATION: VITAL SIGNS: Discharge examination showed stable vital signs. CHEST: Clear. HEART: Regular rate and rhythm with a 3/6 murmur. ABDOMEN: Distended with positive fluid wave, as per baseline ascites. BACK: Straight without CVA tenderness. EXTREMITIES: Without cyanosis, clubbing, or edema. DISPOSITION: Home. DISCHARGE MEDICATIONS/INSTRUCTIONS: New medications were recommended including levothyroxine 125 mcg p.o. daily (decreased from 150 mcg), omeprazole 40 mg p.o. daily (increased from 20 mg p.o. daily, sucralfate 1 gram p.o. a.c. and at bedtime ( increased from 1 p.o. daily). The patient was also instructed to continue his other home medications including midodrine 5 mg p.o. t.i.d., vitamins 1 p.o. daily , rifaximin 550 mg p.o. b.i.d., torsemide 10 mg 4 tablets p.o. daily, atorvastatin 40 mg p.o. daily. Lispro, Humalog insulin 4 units before meals. Lantus insulin 14 units at bedtime, lactulose 45 grams p.o. t.i.d. Special instructions: Normal activity at home. Continue diet prior to admission, but with the addition of potassium in the form of bananas. Follow up with Dr. Fox in 1-2 weeks as previously scheduled. Followup in my office in 2 weeks.
== END 2016-05-08 09:20 | disposition home or self-care (01) | DRG 811 ==
LOC: ED SRH 09:13 → TRANS SRH 11:59 → CC SRH 14:45 → TRANS SRH 14:45 → CC SRH 14:45 → ACUTE3 SRH 05-08 03:29
PROVIDERS: Surgery; ADMIT Emergency Medicine
PROC: 0DJ08ZZ Inspection of Upper Intestinal Tract, Via Natural or Artificial Opening Endoscopic (ICD-10-PCS; principal; 2016-05-07 15:30)
PROC: 0DJD8ZZ Inspection of Lower Intestinal Tract, Via Natural or Artificial Opening Endoscopic (ICD-10-PCS; principal; 2016-05-07 15:30)
PROC: 30233N1 Transfusion of Nonautologous Red Blood Cells into Peripheral Vein, Percutaneous Approach (ICD-10-PCS; 2016-05-07 15:30)
DX: D50.0 Iron deficiency anemia secondary to blood loss (chronic) (principal); K29.71 Gastritis, unspecified, with bleeding; K29.81 Duodenitis with bleeding; D61.818 Other pancytopenia; K76.6 Portal hypertension; E11.22 Type 2 diabetes mellitus with diabetic chronic kidney disease; N18.9 Chronic kidney disease, unspecified; K75.81 Nonalcoholic steatohepatitis (NASH); K72.10 Chronic hepatic failure without coma; E87.6 Hypokalemia; Z79.4 Long term (current) use of insulin
CPT/HCPCS: 50004; 60001; 83526; 90001; 90074; 90098; 90100; 90155; 90616; 91004; 91320; 91544; 91588; 91643; 91672; 92132; 92235; 92530; 92610; 92720; 93140; 94001; 94060; 95059

== ENCOUNTER 2016-05-18 08:36 | Emergency (ER) | payer OTHER ==
[~2016-05-18 08:36] MED LIST changes: +LACTULOSE PO; +PRILOSEC40 MG PO; +SYNTHROID75 MCG PO
--- NOTE | 2016-05-18 10:07 | DIAGNOSTIC IMAGING REPORT ---
PROCEDURE: XR CHEST 1 VIEW INDICATION: SHORTNESS OF BREATH TECHNIQUE: Portable AP view 09:36 a.m. COMPARISON: None. FINDINGS: Lungs are clear. Status post median sternotomy and CABG. Stable cardiomegaly. Mediastinum and pulmonary vessels are normal. Thorax is unremarkable. No significant interval change . IMPRESSION: 1. Stable chest 2. CABG and cardiomegaly
--- NOTE | 2016-05-18 14:29 | DIAGNOSTIC IMAGING REPORT ---
PROCEDURE: NM PULMONARY PERFUSION W/VENT INDICATION: SOB AND ELEVATED D-DIMER TECHNIQUE: 45 mCi of technetium-99m DTPA was aerosolized and inhaled. 6 mCi technetium-99m MAA was injected intravenously. Ventilation and perfusion images were obtained in the AP, PA, right lateral, left lateral, ALBERTO, [place], RPO and LPO positions. COMPARISON: Chest x-ray 05/18/2016 FINDINGS: There are a few ventilation defects. There are no perfusion defects. IMPRESSION: 1. Negative VQ scan. No evidence of pulmonary embolus 2. Results discussed with Dr. Perez
--- NOTE | 2016-05-18 14:29 | DIAGNOSTIC IMAGING REPORT ---
PROCEDURE: NM PULMONARY PERFUSION W/VENT INDICATION: SOB AND ELEVATED D-DIMER TECHNIQUE: 45 mCi of technetium-99m DTPA was aerosolized and inhaled. 6 mCi technetium-99m MAA was injected intravenously. Ventilation and perfusion images were obtained in the AP, PA, right lateral, left lateral, ALBERTO, [place], RPO and LPO positions. COMPARISON: Chest x-ray 05/18/2016 FINDINGS: There are a few ventilation defects. There are no perfusion defects. IMPRESSION: 1. Negative VQ scan. No evidence of pulmonary embolus 2. Results discussed with Dr. Perez
--- NOTE | 2016-05-18 16:05 | ED ORDER SUMMARY ---
..... Patient: HOLLY NAM OrderSheet [facility] VisitID: [id number] [place] [address] 70y, M Registration Date/Time: 05/18/2016 ORDER SHEET Weight: 92.9 kg (stated) Allergies: No Known Drug Allergy GENERAL ORDERS: EKG - ER Stat (09:05/18/2016 Niraj Sparks) (Ack 9:18 LMuller) (9:29 MWinterer R.N.) Chest 1V Urgent (:05/18/2016 Niraj Sparks) (Ack 9:18 LMuller) (12:26 KWilliams R.N.) Computer Lab Para Professional (Continuous) (sob) (:05/18/2016 Niraj Sparks) (9:29 MWinterer R.N.) CBC w Diff Urgent (:05/18/2016 Niraj Sparks) (Ack 9:18 LMuller) (9:30 KWilliams R.N.) CMP Urgent (:05/18/2016 Niraj Sparks) (Ack 9:18 LMuller) (9:30 KWilliams R.N.) PT with INR Urgent (:05/18/2016 Niraj Sparks) (Ack 9:18 LMuller) (9:30 KWilliams R.N.) Troponin-I Urgent (:05/18/2016 Niraj Sparks) (Ack 9:18 LMuller) (9:30 KWilliams R.N.) D-Dimer Urgent (:05/18/2016 Niraj Sparks) (Ack 9:18 LMuller) (9:30 KWilliams R.N.) Pulse oximeter (:05/18/2016 Niraj Sparks) (9:29 MWinterer R.N.) Oxygen (2 L/min) (NC) (:05/18/2016 Niraj Sparks) (9:29 MWinterer R.N.) CTA Thorax w Cont (No) (N/A) Urgent (09:56 05/18/2016 Niraj Sparks) (Cancelled: Duplicate Order10:04 Niraj Sparks) VQ Scan Urgent (10:04 05/18/2016 Niraj Sparks) (Ack 10:22 LMuller) (14:33 ASchmuck) Troponin-I Urgent (14:48 05/18/2016 Niraj Sparks) (14:59 LTapper) MEDICATION ORDERS: IV FLUIDS: IV Saline Lock (09:13 05/18/2016 Niraj Sparks) (9:30 [facility] R.N.) ORDER SHEET NOTES: [Electronically signed by Joellen Frye (16:44 05/18/2016)] [Electronically signed by Kranthi Perez Dr. (11:35 05/20/2016)] [Electronically locked/signed by Joellen Frye (16:44 05/18/2016)]
--- NOTE | 2016-05-18 16:05 | ED NURSING NOTES ---
Clinical Report - Nurses [facility] [address] [place] [address] 05/18/2016 8:35 Patient: HOLLY NAM TRIAGE Acuity: LEVEL 3. Chief Complaint: SHORTNESS OF BREATH. Alert. No acute distress. SEPSIS SCREEN: Sepsis Screen. Negative (no infection suspected/documented). --09: Patricia Car R.N. 08:56 05/18/16. BP: 126/63. HR: 88. RR: 18. O2 saturation: 100% on room air. Temp: 98 F (oral). Pain level now: 0/10. --09: Patricia Car R.N. Weight: 92.9 kg stated. Height/Length: 71 inches Per Patient. BMI: 28.6. --09:00 Patricia Car R.N. Medications Atorvastatin 40 mg daily . insulin lantus 14 units h.s.. Isulin humalog 4 units ac. Lactulose 45 grams tid. Levothyroxine 112 mcg q.a.m.. --08:57 Patricia Car R.N. Nitrostat 0.4 mg prn. Omeprazole 20 mg q.h.s.. Penatal vitamin daily. Sucralfate 1 gm daily. Torsemide 40 mg bid. Xfaxan 550 mg bid. --08:57 Patricia Car R.N. Medication/allergy information source: the patient. --09:01 Patricia Car R.N. Allergies No Known Drug Allergy. --08:57 Patricia Car R.N. History Arrived by private vehicle, and accompanied by spouse. This started just prior to arrival. No fever, cough or wheezing. 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 FALL RISK ASSESSMENT: Fall risk assessment completed. No fall risk identified. NUTRITIONAL RISK ASSESSMENT: The nutritional risk assessment revealed no deficiencies. FUNCTIONAL ASSESSMENT: Functional assessment: no impairments noted. LEARNING NEEDS ASSESSMENT: The learning needs assessment revealed no barriers. SKIN INTEGRITY ASSESSMENT: Skin integrity risk assessment completed. No skin integrity risk identified. --09: Patricia Car R.N. PROBLEMS: Dizziness. Renal Failure. Ascites. Hypovolemia. Heart Disease. Anemia. Hypoglycemia. Herpes Zoster. Diabetes Mellitus. Thyroid Disease. Liver disease. Abnormal Test. GI Bleeding. Renal Insufficiency. Cirrhosis. Abnormal EKG. Chest Pain. Near Syncope. --08:57 Patricia Car R.N. ADDITIONAL SURGERIES: Coronary Angioplasty. Coronary Artery Bypass Graft. Paracentesis. Paracentesis. --08:57 Patricia Car R.N. Assessment GENERAL / NEURO / PSYCH: Alert. Oriented X 4. Appears in no acute distress. Patient appears calm and cooperative. RESPIRATORY: Respirations not labored. CVS: Capillary refill less than 2 seconds. GI / : Abdominal distention. SKIN: Mucous membranes are pink. Skin is warm and dry. --09: Patricia Car R.N. Interventions ID band on patient. To treatment room. --09: Patricia Car R.N. PHYSICAL ASSESSMENT 09:05/18/16. To room via wheelchair. GENERAL / NEURO / PSYCH: Alert. Oriented X 4. Appears in no acute distress. HEENT: Mucous membranes are pink. RESPIRATORY: No respiratory distress. Respirations not labored. CVS: Capillary refill less than 2 seconds. GI / : Abdominal distention noted as firm. SKIN: Skin is warm and dry. Normal skin turgor. --09: Patricia Car R.N. NURSING PROGRESS NOTES 09:02 05/18/16. Patient gowned. Two patient identifiers checked. Call light placed in reach. Side rails up x 1. Bed placed in lowest position. Brakes of bed on. Patient ready for evaluation- chart flagged and ED physician notified. --09:02 Patricia Car R.N. 09:25 05/18/2016 Site #1 started via IV in the left antecubital space with an 20g angiocath, with aseptic technique and good blood return; one attempt. Blood drawn: rainbow set. Labeled in the presence of the patient and sent to the lab. Saline lock flushed with 10 mL saline. --09:30 Seferino Sifuentes R.N. 09:25 05/18/16. BP: 115/63. HR: 83. RR: 12. O2 saturation: 100%. Pain level now 0/10. --09:34 Seferino Sifuentes R.NPerri 09:25 05/18/16. Cardiac rhythm: sinus rhythm; bundle branch block; frequent PVCs. Oxygen increased to 2 liters by nasal cannula. --09:34 Seferino Sifuentes R.N. 12:26 05/18/16. BP: 108/67. HR: 85. RR: 17. O2 saturation: 100%. Pain level now 0/10. --12:26 Seferino iSfuentes R.N. 13:13 05/18/16. BP: 127/61. HR: 76. RR: 12. O2 saturation: 100% on room air. Pain level now: 0/10. --13:14 Joellen Frye Care transferred and report received. --13:14 Joellen Frye Patient transported to radiology by stretcher with tech. (13:20 May 18 2016). --13:30 Joellen Frye Patient returned from radiology by stretcher with tech. (14:May 18 2016). --14:19 Joellen Frye 15:31 05/18/16. BP: 124/60. HR: 69. RR: 16. O2 saturation: 100%. --15:31 Joellen Frye 15:39 05/18/16. Finger stick glucose: Done per patient request- 222 mg/dL. --15:39 Joellen Frye 16:19 05/18/2016 Site #1 removed upon discharge. Catheter intact. Pressure dressing applied. --16:44 Joellen Frye 16:19 05/18/2016 IV Saline Lock Drip IV Discontinued: bag #1 upon discharge. Total amount infused: 0 mL. --16:44 Joellen Frye. DISPOSITION / DISCHARGE 16:05/18/16. Departure time: 16:May 18 2016. Condition at departure: improved. The goals identified in the patient's plan of care were met. No learning barriers present. Discharge instructions provided and reviewed with the patient. Reviewed warnings (Patient verbalized importance of keeping follow up appointments. Patient verbalized understanding of warning s/sx listed in dc paperwork.). Treatments reviewed. Reviewed referral to a primary care physician for followup. Patient verbalized understanding. Written instructions provided in Green[place]ic. The patient was discharged by the physician. He was discharged home and accompanied by spouse. He left the Emergency Department ambulatory and via private vehicle. Spouse driving. FALL RISK ASSESSMENT: Fall risk assessment completed. No fall risk identified. --16:19 Joellen Frye 16:16 05/18/16. BP: 113/44. HR: 65. RR: 18. O2 saturation: 100% on room air. Pain level now: 08/26. --16:19 Joellen Frye. Locked/Released at 05/18/2016 16:44 by Joellen Frye,
--- NOTE | 2016-05-18 16:05 | ED CLINICAL REPORT ---
Clinical Report - Physicians/Mid Levels [facility] [address] [place] [address] 05/18/2016 8:35 Patient: HOLLY NAM Arrived- By private vehicle. Historian- patient. HISTORY OF PRESENT ILLNESS Chief Complaint: DYSPNEA. This started yesterday and is still present (staying the same). It was gradual in onset and has been constant but is not gone now. The dyspnea is described as moderate and is worsened by walking and exertion, is improved by rest and is improved with sitting upright. No cough, sputum production, fever, sweating episodes or wheezing. No chills, chest pain or discomfort, calf pain or anxiety. He has had foot swelling (has baseline edema). (reports no fever, cough, congestion, or rash. reports no pain anywhere on exam.). Similar symptoms previously: Once (when he was diagnosed with anemia). ( no bleeding or blood loss. reports no vomiting blood, melena, or hematemesis.). Recent medical care: The patient was seen recently by a health care provider. REVIEW OF SYSTEMS All systems otherwise negative, except as recorded above. PAST HISTORY See nurses notes. Denies the following risk factors for DVT/PE - history of DVT and pulmonary embolism, recent surgery, recent [place] and congestive heart failure. Denies the following risk factors for DVT/PE - cancer, clotting disorder, estrogens, obesity and immobility. Denies the following risk factors for DVT/PE - advanced in age and vena cava filter. SOCIAL HISTORY Never smoker. No alcohol use or drug use. Is a local resident. FAMILY HISTORY Negative. ADDITIONAL NOTES The nursing notes have been reviewed. PHYSICAL EXAM Vital Signs: 05/18/2016 08:56 BP: 126/63. HR: 88. RR: 18. O2 saturation: 100%. Temp: 98 F. Pain level now: 0/10. Blood pressure normal. Oxygen saturation normal. Appearance: Alert. No acute distress. Eyes: Pupils equal, round and reactive to light. Eyes normal inspection. No pale conjunctivae or scleral icterus. ENT: Ears normal. Nose normal. Pharynx normal. Uvula midline. Neck: Normal inspection. No jugular venous distention. Neck supple. CVS: Normal heart rate and rhythm. Heart sounds normal. Pulses normal. Respiratory: No respiratory distress. Breath sounds normal. No wheezes, stridor, rales or rhonchi. Abdomen: Soft and nontender. (abdomen is distended. not tympanitic. non-tender. no overlying skin changes. no masses. appears to be consistent with ascites.). Skin: Skin warm and dry. Normal skin color. No rash. Normal skin turgor. Extremities: Bilateral moderate 2+ pitting edema of the lower extremities involving both feet, both ankles and both lower legs. symmetrical. Extremities exhibit normal ROM. No lower extremity edema. LABS, X-RAYS, AND EKG EKG: Rate: 87. Normal P waves. Normal NARCISO. Normal QRS complex. Normal axis. Normal ST and T waves and QT. Prolonged QTc (517). No ST elevation or depression. Partial RBBB pattern possible however does not read on machine. Occasional PVCs. The study has been interpreted contemporaneously by me. The study has been independently viewed by me. The EKG appears to be a good tracing. Chest X-ray: (PROCEDURE: XR CHEST 1 VIEW INDICATION: SHORTNESS OF BREATH TECHNIQUE: Portable AP view 09:36 a.m. COMPARISON: None. FINDINGS: Lungs are clear. Status post median sternotomy and CABG. Stable cardiomegaly. Mediastinum and pulmonary vessels are normal. Thorax is unremarkable. No significant interval change . IMPRESSION: 1. Stable chest 2. CABG and cardiomegaly). The X-rays were independently viewed by me and interpreted by the radiologist. The X-rays were discussed with the radiologist (via pacs). V/Q Scan: (PROCEDURE: NM PULMONARY PERFUSION W/VENT INDICATION: SOB AND ELEVATED D-DIMER TECHNIQUE: 45 mCi of technetium-99m DTPA was aerosolized and inhaled. 6 mCi technetium-99m MAA was injected intravenously. Ventilation and perfusion images were obtained in the AP, PA, right lateral, left lateral, ALBERTO, FAROESE, RPO and LPO positions. COMPARISON: Chest x-ray 05/18/2016 FINDINGS: There are a few ventilation defects. There are no perfusion defects. IMPRESSION: 1. Negative VQ scan. No evidence of pulmonary embolus). The study was interpreted by the radiologist and discussed with the radiologist. Laboratory Tests: CBC w Diff: (MAYA: 05/18/2016 09:25) ( MsgRcvd 05/18/2016 09:36) Final results Test Result Flag Units (Reference) WHITE BLOOD COUNT 2.2 L K/uL (4.5-11.5) RED BLOOD COUNT 2.66 L M/uL (4.50-5.90) HEMOGLOBIN 8.3 L gm/dL (13.5-17.5) HEMATOCRIT 24.3 L % (41.0-53.0) MEAN CELL VOLUME 91 fL (80-100) MEAN CORPUSCULAR HGB 31 pg (26-34) MEAN CORPUSCULAR HGB CONC 34 g/dL (31-37) RED CELL DISTRIBUTION WIDTH 17.6 H % (11.6-14.8) PLATELET COUNT 57 L K/uL (150-400) NEUTROPHIL % 77.7 H % (50-75) LYMPH % 10.5 L % (25-40) MONO % 11.1 % (3-14) EOSINOPHIL % 0 % (0-4) BASOPHIL % 0.7 % (0-2) PT with INR: (MAYA: 05/18/2016 09:25) ( MsgRcvd 05/18/2016 09:43) Final results Test Result Flag Units (Reference) INR 1.3 H (0.8-1.2) Low Intensity Therapy: INR 1.5-2.0 PT range 18.5-23.1Mod.Intensity Therapy: INR 2.0-3.0 PT range 23.1-31.5High Intensity Therapy: INR 2.5-3.5 PT range 27.4-35.5High Intensity Therapy 2: INR 3.0-4.0 PT range 31.5-39.3 D-DIMER QUANTITATIVE 1.54 H ug/mLFEU (0.27-0.52) The primary value of this quantitative assay relates toits negative predictive value (i.e. exclusion) of pulmonaryembolism/deep vein thrombosis/DIC.Elevated levels of d-dimer may also occur with:, age, cancer, inflammation, liver disease,post-op, infection, hematoma, coronary disease, peripheralarteriopathy, bleeding disorders and thrombolytic treatment.Results should be correlated with other clinical andradiological data.Testing Methodology: Latex Immunoassay Troponin-I: (MAYA: 05/18/2016 14:58) ( [facility] 05/18/2016 15:27) Final results Test Result Flag Units (Reference) TROPONIN I 0.20 ng/mL (0.00-1.5) TROPONIN REFERENCE RANGE:<0.1 NEGATIVE0.1-1.5 INDETERMINANT>1.5 POSITIVE CMP: (MAYA: 05/18/2016 09:25) ( MngRcvd 05/18/2016 09:57) Final results Test Result Flag Units (Reference) GLUCOSE 194 H mg/dL (70-110) BUN 49 H mg/dL (7-18) CREATININE 2.3 H mg/dL (0.6-1.3) Estimated GFR 29.94 mL/min Estimated GFR- 36.29 mL/min Note: Persistent reduction over 3 months in eGFR<60 mL/min/1.73 m2 defines CKD. Patients with eGFR values>=60 mL/min/1.73 m2 may also have CKD if evidence ofpersistent proteinuria. Additional information may be foundat www.[email or web address].org. SODIUM 142 mmol/L (136-145) POTASSIUM 3.6 mmol/L (3.5-5.1) CHLORIDE 107 mmol/L (98-107) CARBON DIOXIDE 27 mmol/L (21-32) CALCIUM 8.4 L mg/dL (8.5-10.1) TOTAL PROTEIN 6.3 L g/dL (6.4-8.2) ALBUMIN 3.0 L g/dL (3.3-5.0) BILIRUBIN, TOTAL 1.4 H mg/dL (0.0-1.0) ALKALINE PHOSPHATASE 127 H U/L (46-116) AST (SGOT) 28 U/L (15-37) ALT (SGPT) 32 U/L (12-78) TROPONIN I 0.26 ng/mL (0.00-1.5) TROPONIN REFERENCE RANGE:<0.1 NEGATIVE0.1-1.5 INDETERMINANT>1.5 POSITIVE . PROGRESS AND PROCEDURES Course of Care: the patient is a pleasant 70-year-old male who is well-known to our facilityand has a history ofidiopathic cirrhosis and ascites. The patient is reporting chest pain. At this time differential diagnosis includesacute myocardial infarction and pulmonary embolism as well as pneumonia. Patient could also have symptom medical ascites. Patient is scheduled for paracentesis tomorrow. No evidence of abdominal pain on examination. Patient is also not reporting abdominal pain. Do not feel that there is need for workup for his spontaneous bacterial peritonitis. Patient is agreeable to the treatment and plan. Workup has been ordered including d-dimer, laboratory studies, EKG, chest x-ray. Initial laboratory studies does not show any acute abnormalities. Laboratory studies appear to be at patient's baseline. She is resting in bed in no acute distress. Patient was noted to be snoring very loudly and awokeappropriately. patient continues to be nontoxic. Patient's d-dimer is elevated. Currently waiting patient's creatinine. CT scan has been ordered in The meantime unfortunately unable to perform CT scan secondary to patient's elevated levels of creatinine. A VQ scan was ordered for the patient's shortness of breath As well as elevated d-dimer. Patient will be here in the emergency department to the scan is been performed. Unfortunately we will need the medication from [place] and will need to be transported up here. This will take several hours to perform. Patient is agreeable to the treatment and plan. Patient was updated about the course of histreatment and reason for needing to stay longer here in the emergency department. Patient is resting in bed and in no acute distress. Rest of the patient's workup was otherwise unremarkable. No signs of pulmonary embolism. Do not feel patient needs to be admitted to the hospital require further emergency department evaluation/workup. Repeat tropoNIN noted to be normal. DO NOT FEEL PATIENT HAS ACUTE MYOCARDIAL INFARCTION. Patient will be encouraged to follow up with his paracentesis appointment tomorrow. Disposition: Discharged. Condition: good. CLINICAL IMPRESSION Acute dyspnea chronic kidney disease chronic ascites cirrhosis of the liver, chronic. INSTRUCTIONS Warnings: GENERAL WARNINGS: Return or contact your physician immediately if your condition worsens or changes unexpectedly, if not improving as expected, or if other problems arise. SPECIFICALLY, return if you develop chest pain, neck pain, jaw pain, shoulder pain, arm pain, fever, productive cough, difficulty breathing, excessive fatigue, a fluttering sensation in the chest, fainting or leg swelling. Your Current Medications: CONTINUE TAKING THE FOLLOWING MEDICATIONS: Atorvastatin 40 mg daily *. insulin lantus 14 units h.s.*. Isulin humalog 4 units ac*. Lactulose 45 grams tid*. Levothyroxine 112 mcg q.a.m.*. Nitrostat 0.4 mg prn*. Omeprazole 20 mg q.h.s.*. Penatal vitamin daily*. Sucralfate 1 gm daily*. Torsemide 40 mg bid*. Xfaxan 550 mg bid*. Follow-up: Return to the emergency department as needed. Follow up with your doctor as scheduled. Reason for referral: recheck today's concerns. Summary of care provided to patient via paper. Screening today revealed the patient's blood pressure to be in the normal range. The patient should follow up with a primary care provider for blood pressure management. Understanding of the discharge instructions verbalized by patient. (Electronically signed by Kranthi Perez Dr. 05/20/2016 11:35)
--- NOTE | 2016-05-18 16:05 | ED NURSING NOTES ---
Clinical Report - Nurses [facility] [address] [place] [address] 05/18/2016 8:35 Patient: HOLLY NAM TRIAGE Acuity: LEVEL 3. Chief Complaint: SHORTNESS OF BREATH. Alert. No acute distress. SEPSIS SCREEN: Sepsis Screen. Negative (no infection suspected/documented). --09: Patricia Car R.N. 08:56 05/18/16. BP: 126/63. HR: 88. RR: 18. O2 saturation: 100% on room air. Temp: 98 F (oral). Pain level now: 0/10. --09: Patricia Car R.N. Weight: 92.9 kg stated. Height/Length: 71 inches Per Patient. BMI: 28.6. --09:00 Patricia Car R.N. Medications Atorvastatin 40 mg daily . insulin lantus 14 units h.s.. Isulin humalog 4 units ac. Lactulose 45 grams tid. Levothyroxine 112 mcg q.a.m.. --08:57 Patricia Car R.N. Nitrostat 0.4 mg prn. Omeprazole 20 mg q.h.s.. Penatal vitamin daily. Sucralfate 1 gm daily. Torsemide 40 mg bid. Xfaxan 550 mg bid. --08:57 Patricia Car R.N. Medication/allergy information source: the patient. --09:01 Patricia Car R.N. Allergies No Known Drug Allergy. --08:57 Patricia Car R.N. History Arrived by private vehicle, and accompanied by spouse. This started just prior to arrival. No fever, cough or wheezing. 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 FALL RISK ASSESSMENT: Fall risk assessment completed. No fall risk identified. NUTRITIONAL RISK ASSESSMENT: The nutritional risk assessment revealed no deficiencies. FUNCTIONAL ASSESSMENT: Functional assessment: no impairments noted. LEARNING NEEDS ASSESSMENT: The learning needs assessment revealed no barriers. SKIN INTEGRITY ASSESSMENT: Skin integrity risk assessment completed. No skin integrity risk identified. --09: Patricia Car R.N. PROBLEMS: Dizziness. Renal Failure. Ascites. Hypovolemia. Heart Disease. Anemia. Hypoglycemia. Herpes Zoster. Diabetes Mellitus. Thyroid Disease. Liver disease. Abnormal Test. GI Bleeding. Renal Insufficiency. Cirrhosis. Abnormal EKG. Chest Pain. Near Syncope. --08:57 Patricia Car R.N. ADDITIONAL SURGERIES: Coronary Angioplasty. Coronary Artery Bypass Graft. Paracentesis. Paracentesis. --08:57 Patricia Car R.N. Assessment GENERAL / NEURO / PSYCH: Alert. Oriented X 4. Appears in no acute distress. Patient appears calm and cooperative. RESPIRATORY: Respirations not labored. CVS: Capillary refill less than 2 seconds. GI / : Abdominal distention. SKIN: Mucous membranes are pink. Skin is warm and dry. --09: Patricia Car R.N. Interventions ID band on patient. To treatment room. --09: Patricia Car R.N. PHYSICAL ASSESSMENT 09:05/18/16. To room via wheelchair. GENERAL / NEURO / PSYCH: Alert. Oriented X 4. Appears in no acute distress. HEENT: Mucous membranes are pink. RESPIRATORY: No respiratory distress. Respirations not labored. CVS: Capillary refill less than 2 seconds. GI / : Abdominal distention noted as firm. SKIN: Skin is warm and dry. Normal skin turgor. --09: Patricia Car R.N. NURSING PROGRESS NOTES 09:02 05/18/16. Patient gowned. Two patient identifiers checked. Call light placed in reach. Side rails up x 1. Bed placed in lowest position. Brakes of bed on. Patient ready for evaluation- chart flagged and ED physician notified. --09:02 Patricia Car R.N. 09:25 05/18/2016 Site #1 started via IV in the left antecubital space with an 20g angiocath, with aseptic technique and good blood return; one attempt. Blood drawn: rainbow set. Labeled in the presence of the patient and sent to the lab. Saline lock flushed with 10 mL saline. --09:30 Seferino Sifuentes R.N. 09:25 05/18/16. BP: 115/63. HR: 83. RR: 12. O2 saturation: 100%. Pain level now 0/10. --09:34 Seferino Sifuentes R.NPerri 09:25 05/18/16. Cardiac rhythm: sinus rhythm; bundle branch block; frequent PVCs. Oxygen increased to 2 liters by nasal cannula. --09:34 Seferino Sifuentes R.N. 12:26 05/18/16. BP: 108/67. HR: 85. RR: 17. O2 saturation: 100%. Pain level now 0/10. --12:26 Seferino Sifuentes R.N. 13:13 05/18/16. BP: 127/61. HR: 76. RR: 12. O2 saturation: 100% on room air. Pain level now: 0/10. --13:14 Joellen Frye Care transferred and report received. --13:14 Joellen Frye Patient transported to radiology by stretcher with tech. (13:20 May 18 2016). --13:30 Joellen Frye Patient returned from radiology by stretcher with tech. (14:May 18 2016). --14:19 Joellen Frye 15:31 05/18/16. BP: 124/60. HR: 69. RR: 16. O2 saturation: 100%. --15:31 Joellen Frye 15:39 05/18/16. Finger stick glucose: Done per patient request- 222 mg/dL. --15:39 Joellen Frye 16:19 05/18/2016 Site #1 removed upon discharge. Catheter intact. Pressure dressing applied. --16:44 Joellen Frye 16:19 05/18/2016 IV Saline Lock Drip IV Discontinued: bag #1 upon discharge. Total amount infused: 0 mL. --16:44 Joellen Frye. DISPOSITION / DISCHARGE 16:05/18/16. Departure time: 16:May 18 2016. Condition at departure: improved. The goals identified in the patient's plan of care were met. No learning barriers present. Discharge instructions provided and reviewed with the patient. Reviewed warnings (Patient verbalized importance of keeping follow up appointments. Patient verbalized understanding of warning s/sx listed in dc paperwork.). Treatments reviewed. Reviewed referral to a primary care physician for followup. Patient verbalized understanding. Written instructions provided in Gibralt[place]. The patient was discharged by the physician. He was discharged home and accompanied by spouse. He left the Emergency Department ambulatory and via private vehicle. Spouse driving. FALL RISK ASSESSMENT: Fall risk assessment completed. No fall risk identified. --16:19 Joellen Frye 16:16 05/18/16. BP: 113/44. HR: 65. RR: 18. O2 saturation: 100% on room air. Pain level now: 08/26. --16:19 Joellen Frye. Locked/Released at 05/18/2016 16:44 by Joellen Frye,
--- NOTE | 2016-05-18 16:05 | ED ORDER SUMMARY ---
..... Patient: HOLLY NAM OrderSheet [facility] VisitID: [id number] [place] [address] 70y, M Registration Date/Time: 05/18/2016 ORDER SHEET Weight: 92.9 kg (stated) Allergies: No Known Drug Allergy GENERAL ORDERS: EKG - ER Stat (09:05/18/2016 Niraj Sparks) (Ack 9:18 LMuller) (9:29 MWinterer R.N.) Chest 1V Urgent (:05/18/2016 Niraj Sparks) (Ack 9:18 LMuller) (12:26 KWilliams R.N.) Dispute Resolution Specialist (Continuous) (sob) (:05/18/2016 Niraj Sparks) (9:29 MWinterer R.N.) CBC w Diff Urgent (:05/18/2016 Niraj Sparks) (Ack 9:18 LMuller) (9:30 KWilliams R.N.) CMP Urgent (:05/18/2016 Niraj Sparks) (Ack 9:18 LMuller) (9:30 KWilliams R.N.) PT with INR Urgent (:05/18/2016 Niraj Sparks) (Ack 9:18 LMuller) (9:30 KWilliams R.N.) Troponin-I Urgent (:05/18/2016 Niraj Sparks) (Ack 9:18 LMuller) (9:30 KWilliams R.N.) D-Dimer Urgent (:05/18/2016 Niraj Sparks) (Ack 9:18 LMuller) (9:30 KWilliams R.N.) Pulse oximeter (:05/18/2016 Niraj Sparks) (9:29 MWinterer R.N.) Oxygen (2 L/min) (NC) (:05/18/2016 Nriaj Sparks) (9:29 MWinterer R.N.) CTA Thorax w Cont (No) (N/A) Urgent (09:56 05/18/2016 Niraj Sparks) (Cancelled: Duplicate Order10:04 Niraj Sparks) VQ Scan Urgent (10:04 05/18/2016 Niraj Sparks) (Ack 10:22 LMuller) (14:33 ASchmuck) Troponin-I Urgent (14:48 05/18/2016 Niraj Sparks) (14:59 LTapper) MEDICATION ORDERS: IV FLUIDS: IV Saline Lock (09:13 05/18/2016 Niraj Sparks) (9:30 [facility] R.N.) ORDER SHEET NOTES: [Electronically signed by Joellen Frye (16:44 05/18/2016)] [Electronically signed by Kranthi Perez Dr. (11:35 05/20/2016)] [Electronically locked/signed by Joellen Frye (16:44 05/18/2016)]
--- NOTE | 2016-05-20 11:35 | ED MAR SUMMARY ---
..... Medication Administration Record [facility] [address] [place], [place] [id number] Patient: HOLLY NAM Visit ID: [id number] 70y, M Weight: 92.9 kg Height/Length: 71 in BMI: 28.6 ALLERGIES: No Known Drug Allergy
--- NOTE | 2016-05-20 11:35 | ED MED RECONCILIATION SUMMARY ---
Patient: HOLLY NAM Medication Reconciliation Report [facility] VisitID: [id number] [address] [place] [address] 70y, M Registration Date/Time: 05/18/2016 Weight: 92.9 kg Height/Length: 71 in. BMI: 28.6 ALLERGIES: No Known Drug Allergy The patient's Home Medications are listed below: CONTINUE TAKING THE FOLLOWING MEDICATIONS: Atorvastatin 40 mg daily insulin lantus 14 units h.s. Isulin humalog 4 units ac Lactulose 45 grams tid Levothyroxine 112 mcg q.a.m. Nitrostat 0.4 mg prn Omeprazole 20 mg q.h.s. Penatal vitamin daily Sucralfate 1 gm daily Torsemide 40 mg bid Xfaxan 550 mg bid The source(s) of the original Home Medication information: patient The following Medications were given to the patient in the Emergency Department: None. The following Medications were prescribed to the patient: None.
--- NOTE | 2016-05-20 11:35 | ED MED RECONCILIATION SUMMARY ---
Patient: HOLLY NAM Medication Reconciliation Report [facility] VisitID: [id number] [address] [place] [address] 70y, M Registration Date/Time: 05/18/2016 Weight: 92.9 kg Height/Length: 71 in. BMI: 28.6 ALLERGIES: No Known Drug Allergy The patient's Home Medications are listed below: CONTINUE TAKING THE FOLLOWING MEDICATIONS: Atorvastatin 40 mg daily insulin lantus 14 units h.s. Isulin humalog 4 units ac Lactulose 45 grams tid Levothyroxine 112 mcg q.a.m. Nitrostat 0.4 mg prn Omeprazole 20 mg q.h.s. Penatal vitamin daily Sucralfate 1 gm daily Torsemide 40 mg bid Xfaxan 550 mg bid The source(s) of the original Home Medication information: patient The following Medications were given to the patient in the Emergency Department: None. The following Medications were prescribed to the patient: None.
--- NOTE | 2016-05-20 11:35 | ED DISCHARGE INSTRUCTIONS ---
Patient: HOLLY NAM General Instructions [facility] VisitID: [id number] [place] [address] 70y, M Registration Date/Time: 05/18/2016 Acute dyspnea chronic kidney disease chronic ascites cirrhosis of the liver, chronic. INSTRUCTIONS Warnings: GENERAL WARNINGS: Return or contact your physician immediately if your condition worsens or changes unexpectedly, if not improving as expected, or if other problems arise. SPECIFICALLY, return if you develop chest pain, neck pain, jaw pain, shoulder pain, arm pain, fever, productive cough, difficulty breathing, excessive fatigue, a fluttering sensation in the chest, fainting or leg swelling. Your Current Medications: CONTINUE TAKING THE FOLLOWING MEDICATIONS: Atorvastatin 40 mg daily *. insulin lantus 14 units h.s.*. Isulin humalog 4 units ac*. Lactulose 45 grams tid*. Levothyroxine 112 mcg q.a.m.*. Nitrostat 0.4 mg prn*. Omeprazole 20 mg q.h.s.*. Penatal vitamin daily*. Sucralfate 1 gm daily*. Torsemide 40 mg bid*. Xfaxan 550 mg bid*. Follow-up: Return to the emergency department as needed. Follow up with your doctor as scheduled. Reason for referral: recheck today's concerns. Summary of care provided to patient via paper. Screening today revealed the patient's blood pressure to be in the normal range. The patient should follow up with a primary care provider for blood pressure management. Understanding of the discharge instructions verbalized by patient. ADDITIONAL INFORMATION Dyspnea (Shortness Of Breath) Shortness of Breath (also known as "Dyspnea") is the sense that you can't catch your breath or can't get enough air. Dyspnea can be caused by many different conditions such as: Acute asthma attack Worsening of emphysema (also called "COPD") -- a lung diseasethat is caused by smoking A mucus plug blocks a large air passage in the lung -- this can occur with emphysema or chronic bronchitis Congestive Heart Failure ("CHF") -- when a weak heart muscle allows excess fluid to collect inthe lungs Panic attacks, anxiety -- fear can cause rapid breathing ("hyperventilation") Pneumonia -- infection in the lung tissue Exposure to toxic fumes or smoke Pulmonary embolus (blood clot to the lung) Based on your visit today, the exact cause of your shortness of breath is not certain. Your tests do not show any of the serious causes of dyspnea. Sometimes, further testing is needed to find out if a serious problem exists. Therefore, it is important for you to watch for any new symptoms or worsening of your condition and follow up with your doctor as directed. Home Care: When your symptoms are better, resume your usual activities. If you smoke, you need to stop. Join a stop-smoking program or ask your doctor for help. Follow Up with your doctor or as advised by our staff. Get Prompt Medical Attention if any of the following occur: Increasing shortness of breath or wheezing Redness, pain or swelling in one leg Swelling in both legs or ankles Unexpected weight gain Chest, arm, shoulder, neck or upper back pain Dizziness, weakness or fainting Palpitations (the sense that your heart is fluttering, beating fast or hard) Fever of 100.4F (38C) or higher, or as directed by your healthcare provider Cough with dark colored or bloody sputum (mucus) You have been given the following additional information: Dyspnea (Electronically signed by Kranthi Perez Dr. 05/20/2016 11:35)
--- NOTE | 2016-05-20 11:35 | ED MAR SUMMARY ---
..... Medication Administration Record [facility] [address] [place], [place] [id number] Patient: HOLLY NAM Visit ID: [id number] 70y, M Weight: 92.9 kg Height/Length: 71 in BMI: 28.6 ALLERGIES: No Known Drug Allergy
== END 2016-05-18 16:19 | disposition home or self-care (01) ==
LOC: ED SRH 08:36
DX: R06.00 Dyspnea, unspecified (principal); N18.9 Chronic kidney disease, unspecified; R18.8 Other ascites; K74.60 Unspecified cirrhosis of liver; E11.9 Type 2 diabetes mellitus without complications; Z79.4 Long term (current) use of insulin; Z79.899 Other long term (current) drug therapy
CPT/HCPCS: 90074; 90100; 90616; 91556; 94060; 95059

== ENCOUNTER 2016-06-03 10:22 | Outpatient (CLI) | payer OTHER ==
--- NOTE | 2016-06-03 16:44 | DIAGNOSTIC IMAGING REPORT ---
PROCEDURE: 2-D M-mode echo Doppler CLINICAL INDICATION: CHF TECHNIQUE: Standard technique technically difficult COMPARISON: None available FINDINGS: The aortic valve exhibits sclerosis without stenosis no aortic insufficiency is detected. The mitral valve is normal configuration exhibits one to 2+ MR no stenosis seen. The tricuspid valve exhibits 1+ TR. Pulmonic valve is normal. Biatrial enlargement is present left and should Care enlargement is present measuring 5.7 cm ejection fraction is 40 5% with paradoxical septal motion right ventricular enlargement is present with with preserved function. The aortic root is increased in size of 3.7 cm of pleural effusion is present as well as ascites. IMPRESSION: Aortic sclerosis no stenosis One to 2+ MR 1+ TR Ejection fraction 45% with paradoxical septal motion Biatrial enlargement RVE LVED measuring 5.7 cm Aortic root mildly increased in size of 3.7 cm Incidental ascites present Pleural effusion present
== END 2016-06-03 23:00 ==
LOC: US SRH 10:22
DX: Z01.818 Encounter for other preprocedural examination (principal); R18.8 Other ascites; K74.69 Other cirrhosis of liver; E78.5 Hyperlipidemia, unspecified; R06.02 Shortness of breath; I25.10 Atherosclerotic heart disease of native coronary artery without angina pectoris; J90 Pleural effusion, not elsewhere classified; I70.0 Atherosclerosis of aorta

== ENCOUNTER 2016-06-15 11:03 | Outpatient (CLI) | payer OTHER ==
--- NOTE | 2016-06-16 17:04 | DIAGNOSTIC IMAGING REPORT ---
PROCEDURE: US ABDOMEN ULTRASOUND-COMPLETE INDICATION: Follow-up cirrhosis (etiology uncertain). TECHNIQUE: [place]banks scale and color Doppler sonographic images of the abdomen were obtained. COMPARISON: Comparison is made abdominal ultrasound 05/09/2015. FINDINGS: Large amount of ascites (chronic). Status post cholecystectomy. Common duct is somewhat difficult to visualize, but there is no evidence of ductal dilation. There is heterogeneous appearance of the liver with nodular surface changes consistent with cirrhosis. No evidence of focal abnormality. Normal hepatopetal flow of the portal vein. Hepatic veins and IVC were difficult to visualize (appear patent and normal on follow-up ultrasound 06/16/2016). Moderate splenomegaly (18 cm). Pancreas is obscured by bowel gas. Kidneys (right 11.4 cm, left 11.7 cm) appear normal. Aorta is normal. Inferior vena cava is not well visualized. IMPRESSION: 1. Large ascites (chronic). 2. Cirrhosis of the liver. 3. Status post cholecystectomy. 4. Chronic splenomegaly (18 cm).
== END 2016-06-15 23:00 ==
LOC: US SRH 11:03
DX: R18.8 Other ascites (principal); K74.60 Unspecified cirrhosis of liver; R16.1 Splenomegaly, not elsewhere classified; Z90.49 Acquired absence of other specified parts of digestive tract
CPT/HCPCS: 82445

== ENCOUNTER 2016-06-18 05:18 | Inpatient (IN) | payer OTHER ==
[~2016-06-18] VITALS: Ht 175.3 cm; Wt 92.6 kg
[2016-06-18] VITALS (24 sets, daily range): BP systolic 107–133; BP diastolic 49–73
--- NOTE | 2016-06-18 06:54 | ED ORDER SUMMARY ---
..... Patient: HOLLY NAM OrderSheet Located Within [facility] VisitID: [id number] [place] [address] 70y, M Registration Date/Time: 06/18/2016 ORDER SHEET Weight: 92.5 kg (stated) Allergies: No Known Drug Allergy GENERAL ORDERS: CBC w Diff Urgent (05:33 06/18/2016 AMcQuoid ER Tech1 verbal order read back to Pb MOMIN) (Ack 5:34 AMcQuoid ER Tech1) CMP Urgent (05:06/18/2016 AMcQuoid ER Tech1 verbal order read back to Pb MOMIN) (Ack 5:34 AMcQuoid ER Tech1) UA-Culture if indicated Urgent (05:06/18/2016 AMcQuoid ER Tech1 verbal order read back to Pb MOMIN) (Ack 5:34 AMcQuoid ER Tech1) Ammonia Level Urgent (05:06/18/2016 AMcQuoid ER Tech1 verbal order read back to Pb MOMIN) (Ack 5:34 AMcQuoid ER Tech1) Amylase Urgent (05:06/18/2016 AMcQuoid ER Tech1 verbal order read back to Pb MOMIN) (Ack 5:34 AMcQuoid ER Tech1) Lipase Urgent (05:06/18/2016 AMcQuoid ER Tech1 verbal order read back to Pb MOMIN) (Ack 5:34 AMcQuoid ER Tech1) PT with INR Urgent (05:33 06/18/2016 AMcQuoid ER Tech1 verbal order read back to Pb MOMIN) (Ack 5:34 AMcQuoid ER Tech1) PTT Urgent (05:06/18/2016 AMcQuoid ER Tech1 verbal order read back to Pb MOMIN) (Ack 5:34 AMcQuoid ER Tech1) EKG - ER Stat (05:46 06/18/2016 AMcQuoid ER Tech1 verbal order read back to Pb MOMIN) (5:46 AMcQuoid ER Tech1) CPK Urgent (06:06 06/18/2016 Pb MOMIN) (Ack 6:10 IJurca ER Tech1) Troponin-I Urgent (06:06 06/18/2016 Pb MOMIN) (Ack 6:10 IJurca ER Tech1) Type & Cross (anemia) (anemia) Urgent (06:13 06/18/2016 Pb MOMIN) (Ack 6:15 IJurca ER Tech1) Chest 1V Urgent (06:16 06/18/2016 Pb MOMIN) (Ack 6:22 IJurca ER Tech1) (6:32 GUnger) Transfuse PRBCs (2 units, over 3 hours per unit) (08:46 06/18/2016 Melany Reyna verbal order read back to Pb MOMIN) (8:53 Gabbie R.NPerri) MEDICATION ORDERS: IV FLUIDS: IV Saline Lock (06:11 06/18/2016 Pb MOMIN) (6:13 HSoule) ORDER SHEET NOTES: [Electronically signed by Jonh Kolb MD (09:27 06/18/2016)] [Electronically signed by Isauro Hutchinson R.N. (09:37 06/18/2016)] [Electronically locked/signed by Isauro Hutchinson R.N. (09:37 06/18/2016)]
--- NOTE | 2016-06-18 06:54 | ED CLINICAL REPORT ---
Clinical Report - Physicians/Mid Levels [facility] [address] [place] [address] 06/18/2016 5:17 Patient: HOLLY NAM Time Seen: 05:38. Arrived- By ambulance. Historian- patient, EMS personnel and spouse. HISTORY OF PRESENT ILLNESS Chief Complaint: CHANGED MENTAL STATUS. The patient is described as having decreased responsiveness. This started today and is still present. It was gradual in onset and has been constant. The patient has had weakness. He has had difficulty walking. Usually is alert and oriented X3 and usually has normal mobility. Similar symptoms previously: Several times. Recent medical care: The patient was seen recently at another facility. ( He was seen at Dr. Siddiqi's office recently for dark tarry stools. He was sent home with guaiac test kits but these have not been completed yet.). REVIEW OF SYSTEMS No chills, fever, sweats, calf pain or chest pain. No cough, difficulty breathing, pedal edema, palpitations or constipation. No diarrhea, nausea, vomiting or urinary problems. He has had black stools (recently). They have occurred several times and have been severe. All systems otherwise negative, except as recorded above. PAST HISTORY ( PCP - Devang). Problems: Dyspnea. Dizziness. Renal Failure. Coronary Artery Disease. Ascites. Hypovolemia. Heart Disease. Anemia. Hypoglycemia. Herpes Zoster. Diabetes Mellitus. Thyroid Disease. Liver disease. GI Bleeding. Renal Insufficiency. Cirrhosis. Abnormal EKG. Chest Pain. Near Syncope. Liver disease. Additional Surgeries: Coronary Angioplasty. Coronary Artery Bypass Graft. Paracentesis. Paracentesis. Medications: Isulin humalog 4 units ac. Lactulose 45 grams tid. Levothyroxine 112 mcg q.a.m.. Nitrostat 0.4 mg prn. Omeprazole 20 mg q.h.s.. Penatal vitamin daily. Sucralfate 1 gm daily. Torsemide 40 mg bid. Xfaxan 550 mg bid. Atorvastatin 40 mg daily . insulin lantus 14 units h.s.. Allergies: No Known Drug Allergy. SOCIAL HISTORY Former smoker, end date 1991. No alcohol use. He lives with spouse. Has good social support. FAMILY HISTORY Diabetes in first-degree relative (mother); heart disease in first-degree relative (mother). ADDITIONAL NOTES The nursing notes have been reviewed. PHYSICAL EXAM Vital Signs: 06/18/2016 05:30 BP: 127/50. HR: 69. RR: 23. O2 saturation: 100%. Pain level now: 0/10. Have been reviewed. Appearance: Alert. Eyes: Pupils equal, round and reactive to light. ENT: Airway intact. Pharynx normal. Neck: Neck supple. CVS: Normal heart rate and rhythm. Heart sounds normal. Respiratory: No respiratory distress. Breath sounds normal. Abdomen: Distention (With a prominent fluid wave). Back: Normal inspection. Skin: Skin warm and dry. Pallor. Extremities: Lower extremity edema. Extremities exhibit normal ROM. No calf tenderness. Neuro: Alertness is decreased(opens eyes to voice and drowsy). Speech normal. No cerebellar findings. No motor deficit. No sensory deficit. LABS, X-RAYS, AND EKG EKG: Rate: 96. Q waves in lead V1 and V2. Prolonged QT (QT = 408 ms). Changes present when compared to prior EKG. (18 May 2016) No new ischemic changes present. The study has been independently viewed by me. Laboratory Tests: CBC w Diff: (MAYA: 06/18/2016 05:40) ( MsgRcvd 06/18/2016 06:48) Final results Test Result Flag Units (Reference) WHITE BLOOD COUNT 3.0 L K/uL (4.5-11.5) RED BLOOD COUNT 2.04 L M/uL (4.50-5.90) HEMOGLOBIN 6.2 *L gm/dL (13.5-17.5) CRITICAL RESULTS CALLEDCalled to [facility] 06/18/16 0610Were 2 patient identifiers used? YWas the result read back? Y HEMATOCRIT 18.3 *L % (41.0-53.0) CRITICAL RESULTS CALLEDCalled to [facility] 06/18/16 0610Were 2 patient identifiers used? YWas the result read back? Y MEAN CELL VOLUME 90 fL (80-100) MEAN CORPUSCULAR HGB 30 pg (26-34) MEAN CORPUSCULAR HGB CONC 34 g/dL (31-37) RED CELL DISTRIBUTION WIDTH 20.9 H % (11.6-14.8) PLATELET COUNT 66 L K/uL (150-400) NEUTROPHIL % 82.3 H % (50-75) LYMPH % 6.6 L % (25-40) MONO % 10.9 % (3-14) EOSINOPHIL % 0.1 % (0-4) BASOPHIL % 0.1 % (0-2) RBC MORPHOLOGY 2+ HYPOCHROMIA~~1+ ANISOCYTOSIS PT with INR: (MAYA: 06/18/2016 05:40) ( [facility] 06/18/2016 06:14) Final results Test Result Flag Units (Reference) INR 1.3 H (0.8-1.2) Low Intensity Therapy: INR 1.5-2.0 PT range 18.5-23.1Mod.Intensity Therapy: INR 2.0-3.0 PT range 23.1-31.5High Intensity Therapy: INR 2.5-3.5 PT range 27.4-35.5High Intensity Therapy 2: INR 3.0-4.0 PT range 31.5-39.3 APTT 31 SECONDS (24-34) CPK: (MAYA: 06/18/2016 05:40) ( [facility] 06/18/2016 06:36) Final results Test Result Flag Units (Reference) CPK 62 U/L (24-260) TROPONIN I 0.15 ng/mL (0.00-1.5) TROPONIN REFERENCE RANGE:<0.1 NEGATIVE0.1-1.5 INDETERMINANT>1.5 POSITIVE Ammonia Level: (MAYA: 06/18/2016 06:00) ( [facility] 06/18/2016 06:36) Final results Test Result Flag Units (Reference) AMMONIA 112 H umol/L (11-32) CMP: (MAYA: 06/18/2016 05:40) ( [facility] 06/18/2016 06:37) Final results Test Result Flag Units (Reference) GLUCOSE 188 H mg/dL (70-110) BUN 76 *H mg/dL (7-18) CRITICAL RESULTS CALLEDCalled to [facility] 06/18/16 0636Were 2 patient identifiers used? YWas the result read back? Y CREATININE 2.5 H mg/dL (0.6-1.3) Estimated GFR 27.19 mL/min Estimated GFR- 32.96 mL/min Note: Persistent reduction over 3 months in eGFR<60 mL/min/1.73 m2 defines CKD. Patients with eGFR values>=60 mL/min/1.73 m2 may also have CKD if evidence ofpersistent proteinuria. Additional information may be foundat www.kidney.org. SODIUM 134 L mmol/L (136-145) POTASSIUM 3.8 mmol/L (3.5-5.1) CHLORIDE 100 mmol/L (98-107) CARBON DIOXIDE 22 mmol/L (21-32) CALCIUM 8.2 L mg/dL (8.5-10.1) TOTAL PROTEIN 6.1 L g/dL (6.4-8.2) ALBUMIN 3.0 L g/dL (3.3-5.0) BILIRUBIN, TOTAL 1.3 H mg/dL (0.0-1.0) ALKALINE PHOSPHATASE 107 U/L (46-116) AST (SGOT) 23 U/L (15-37) ALT (SGPT) 28 U/L (12-78) LIPASE 507 H U/L (73-393) AMYLASE 103 U/L (25-115) Type & Cross: (MAYA: 06/18/2016 05:40) ( MsgRcvd 06/18/2016 07:24) IP Test Result Flag Units (Reference) LEUKOREDUCED PACKED CELLS [id number] [facility] XM COMPATIBLE [id number] [facility] ISSUED 06/18/16 0721 PATIENT BLOOD TYPE A Positive Above is a corrected result. Previously reported on ( MsgRcvd 06/18/2016 06:52) as: PATIENT BLOOD TYPE A Positive . PROGRESS AND PROCEDURES Discussed case with patient's primary care provider, (Devang). Reviewed test results and need for additional work-up. Agreed upon treatment plan, need for patient follow-up and decision to admit. Health care provider will see patient in hospital. Consult obtained from surgery. Sebastian. Case discussed. Phone consult only. Will see patient in the hospital. Patient/family counseled. Old medical records reviewed. Disposition orders written (in [facility]). Disposition: Admitted to the Critical Care Unit. CLINICAL IMPRESSION Ascites. GI bleed. Renal insufficiency. Hepatic encephalopathy. Abnormal tests: (indeterminate troponin). Anemia. (Electronically signed by Jonh Kolb MD 06/18/2016 9:27)
--- NOTE | 2016-06-18 06:54 | ED NURSING NOTES ---
Clinical Report - Nurses [facility] [address] [place] [address] 06/18/2016 5:17 [id number] Triage time 05:Jun 18 2016. Chief Complaint: WEAKNESS and (altered mental status). --05:27 AliM SEPSIS SCREEN: Sepsis Screen: negative. Negative (no infection suspected/documented). HARITHA COMA SCORE: [place] Coma Scale: 14- eyes open spontaneously (4); best verbal response- disoriented (4); best motor response- obeys commands (6). --05:36 AliM 05:30 06/18/16. BP: 127/50. HR: 69. RR: 23 (regular and unlabored). O2 saturation: 100% on room air. Pain level now: 0/10. --05:36 AliM. Weight: 92.5 kg stated. Height/Length: 71 inches Per Patient. BMI: 28.5. --05:33 AliM. Medications Atorvastatin 40 mg daily . insulin lantus 14 units h.s.. --05:26 AliM Isulin humalog 4 units ac. Lactulose 45 grams tid. Levothyroxine 112 mcg q.a.m.. Nitrostat 0.4 mg prn. Omeprazole 20 mg q.h.s.. Penatal vitamin daily. Sucralfate 1 gm daily. Torsemide 40 mg bid. Xfaxan 550 mg bid. --05:26 AliM. Allergies No Known Drug Allergy. --05:26 AliM. History Arrived by EMS. Historian: patient. Unaccompanied. This started ems reports symptoms started several days ago. ( EMS reports called ambulance because pt has become confused and is unable to ambulate.). He has had difficulty with speech and trouble walking. PAST MEDICAL HX: Immunizations: status is unknown. SOCIAL HX: Unknown if ever smoked. --05:27 AliM The patient has had altered mental status reported by family: confused and disoriented to place. Responds to simple questions and commands. No headache or dizziness. SOCIAL HX: Smoker- current status unknown (quit 25 years ago). No alcohol use or drug use. No infectious disease exposure. SKIN INTEGRITY ASSESSMENT: Skin integrity risk assessment was performed. Risk factors identified include restricted mobility. ABUSE ASSESSMENT: No report of abuse. NUTRITIONAL RISK ASSESSMENT: The nutritional risk assessment revealed no deficiencies. FUNCTIONAL ASSESSMENT: Functional assessment: no impairments noted. FALL RISK ASSESSMENT: Fall risk assessment completed. Risk factors identified include patient age greater than 65 years and impairment of cognition. Fall interventions initiated. Side rails up x2. Brakes on Bed in low position. Patient visible from nurses' station. Chief School Finance Officer at bedside. Instructed not to get up without assistance. LEARNING NEEDS ASSESSMENT: A learning needs assessment was performed. Factors affecting the patient's ability to learn include cognitive limitations. The learning needs assessment was not completed due to the patient's condition. --05:36 AliM. PROBLEMS: Dyspnea. Dizziness. Renal Failure. Coronary Artery Disease. Ascites. Hypovolemia. Heart Disease. Anemia. Hypoglycemia. Herpes Zoster. Diabetes Mellitus. Thyroid Disease. Liver disease. Abnormal Test. GI Bleeding. Renal Insufficiency. Cirrhosis. Abnormal EKG. Chest Pain. Near Syncope. Liver disease. --05:26 AliM. ADDITIONAL SURGERIES: Coronary Angioplasty. Coronary Artery Bypass Graft. Paracentesis. --05:26 AliM. Interventions ID band on patient. To treatment room. --05:36 AliM. PHYSICAL ASSESSMENT ( Moderate to severe ascites noted.). GENERAL / NEURO / PSYCH: Awake. He is awake and in no distress, shows no apparent trauma, is disoriented and has poor eye contact. He exhibits normal consolability. He has no indications of abuse. The patient is disoriented to place, time and situation. Altered mental status: confused. Inaccurate responses to questions. Slurred speech (Pt mumbling incoherant responses to some questions.). He has had generalized weakness. HEENT: Mild scleral icterus. RESPIRATORY: Respirations not labored. CVS: Normal sinus rhythm noted. EXTREMITIES: Bilateral 3+ pitting edema of the lower extremities involving both feet, both ankles and both lower legs. SKIN: Skin is warm and dry. Petechiae located on the right arm and left arm. --05:54 AliM. NURSING PROGRESS NOTES 05:34 06/18/2016 Site #1 started via IV in the right forearm with an 20g angiocath; one attempt. Blood drawn: rainbow set. Labeled in the presence of the patient and sent to the lab. Saline lock flushed with 10 mL saline. --05:39 AliM The plan of care for this patient has been created. awake overnight monitor, pulse oximeter and NIBP monitor placed on patient. Patient ID band checked for patient name and birthdate: family confirmed. Blood samples drawn from the right forearm peripheral IV site with syringe by nurse per protocol ; labeled in presence of the patient and sent to lab: rainbow set: blood culture (1st set). Line flushed with 10 mL normal saline post blood draw. Head of bed elevated. Reassurance given. Side rails up x 2. Bed placed in lowest position. Brakes of bed on. Patient ready for evaluation- ED physician notified. --05:40 AliM ( Finger stick BG 193.). --05:42 AliM The initial plan of care for this patient has been created This plan of care was discussed with the spouse. EKG time: (543). EKG was performed by a tech and shown to the ED physician. ( Pt and son at bedside.). --05:56 AliM Care transferred and report given (Melissa Cline). --05:57 AliM Telemetry strip posted to chart. --06:05 Natali Jones, ER Tech1 Critical value relayed to ED by Tonya. Critical value received by Melissa. Hgb: 6.2. Hct: 18.3. Critical value read back. Verified lab result and patient ID. ED physician notifed of critical value. --06:12 Melissa Cline ( Patient blood banded. Radiology at bedside). --06:27 Melissa Cline 06:26 06/18/16. BP: 127/40. HR: 95. RR: 20. O2 saturation: 99% on room air. Pain level now: 0/10. --06:27 Melissa Cline Critical value relayed to ED by Tonya. Critical value received by Raudel. BUN: 76. Critical value read back. ED physician notifed of critical value. --06:37 Raudel Duque, ER Tech1 06:47 06/18/16. BP: 122/62. HR: 97. RR: 20. O2 saturation: 100% on room air. --06:48 Melissa Cline ( Patient adjusted up into bed and pillows positioned. Patient family updated on plan of care.). --06:48 Melissa Cline Care transferred and report given (Isauro). --07:11 Melissa Cline 07:36 06/18/16. BLOOD PRODUCT STARTED: consent signed, ID band checked and blood product verified to patient's blood band by 2 staff members and an automatic identifier. #1 whole blood via IV pump (125 mL/hr). See transfusion record. --08:05 Isauro Hutchinson R.N. 07:45 06/18/16. BP: 115/62. HR: 89. RR: 11. O2 saturation: 98% on room air. Temp: 98.2 F (axillary). 07:36 06/18/16. BP: 124/59. HR: 87. RR: 16. O2 saturation: 98% on room air. Temp: 97.8 F (oral). --08:05 Isauro Hutchinson R.N. 08:47 06/18/16. BP: 127/59. HR: 88. RR: 11. O2 saturation: 98% on room air. Temp: 98.2 F. 08:30 06/18/16. BP: 110/49. HR: 92. RR: 18. O2 saturation: 98%. Temp: 98.2 F. 08:15 06/18/16. BP: 117/44. HR: 94. RR: 16. O2 saturation: 98% on room air. Temp: 98.2 F. 08:00 06/18/16. BP: 125/76. HR: 90. RR: 16. O2 saturation: 98% on room air. Temp: 98.2 F. --08:48 Isauro Hutchinson R.N. 08:55 06/18/16. ( Report given to Betty DODD patient transported to ACU.). --09:35 Isauro Hutchinson R.N. 09:00 06/18/2016 IV Saline Lock Drip IV Continued: at the rate of 200 mL/hr. 350 mL remaining. IV patency established. IV site checked: no pain, redness, or swelling. IV flushed thoroughly. --09:37 Isauro Hutchinson R.N. DISPOSITION / DISCHARGE Departure time: 09:00 Jun 18 2016. Admitted to Acute Care (211). --09:36 Isauro Hutchinson R.N. 08:47 06/18/16. BP: 127/59. HR: 88. RR: 11. O2 saturation: 98% on room air. Temp: 98.2 F. --09:36 Isauro Hutchinson R.N. Locked/Released at 06/18/2016 9:37 by Isauro Hutchinson R.N.
--- NOTE | 2016-06-18 06:54 | ED CLINICAL REPORT ---
Clinical Report - Physicians/Mid Levels [facility] [address] [place] [address] 06/18/2016 5:17 Patient: HOLLY NAM Time Seen: 05:38. Arrived- By ambulance. Historian- patient, EMS personnel and spouse. HISTORY OF PRESENT ILLNESS Chief Complaint: CHANGED MENTAL STATUS. The patient is described as having decreased responsiveness. This started today and is still present. It was gradual in onset and has been constant. The patient has had weakness. He has had difficulty walking. Usually is alert and oriented X3 and usually has normal mobility. Similar symptoms previously: Several times. Recent medical care: The patient was seen recently at another facility. ( He was seen at Dr. Siddiqi's office recently for dark tarry stools. He was sent home with guaiac test kits but these have not been completed yet.). REVIEW OF SYSTEMS No chills, fever, sweats, calf pain or chest pain. No cough, difficulty breathing, pedal edema, palpitations or constipation. No diarrhea, nausea, vomiting or urinary problems. He has had black stools (recently). They have occurred several times and have been severe. All systems otherwise negative, except as recorded above. PAST HISTORY ( PCP - Devang). Problems: Dyspnea. Dizziness. Renal Failure. Coronary Artery Disease. Ascites. Hypovolemia. Heart Disease. Anemia. Hypoglycemia. Herpes Zoster. Diabetes Mellitus. Thyroid Disease. Liver disease. GI Bleeding. Renal Insufficiency. Cirrhosis. Abnormal EKG. Chest Pain. Near Syncope. Liver disease. Additional Surgeries: Coronary Angioplasty. Coronary Artery Bypass Graft. Paracentesis. Paracentesis. Medications: Isulin humalog 4 units ac. Lactulose 45 grams tid. Levothyroxine 112 mcg q.a.m.. Nitrostat 0.4 mg prn. Omeprazole 20 mg q.h.s.. Penatal vitamin daily. Sucralfate 1 gm daily. Torsemide 40 mg bid. Xfaxan 550 mg bid. Atorvastatin 40 mg daily . insulin lantus 14 units h.s.. Allergies: No Known Drug Allergy. SOCIAL HISTORY Former smoker, end date 1991. No alcohol use. He lives with spouse. Has good social support. FAMILY HISTORY Diabetes in first-degree relative (mother); heart disease in first-degree relative (mother). ADDITIONAL NOTES The nursing notes have been reviewed. PHYSICAL EXAM Vital Signs: 06/18/2016 05:30 BP: 127/50. HR: 69. RR: 23. O2 saturation: 100%. Pain level now: 0/10. Have been reviewed. Appearance: Alert. Eyes: Pupils equal, round and reactive to light. ENT: Airway intact. Pharynx normal. Neck: Neck supple. CVS: Normal heart rate and rhythm. Heart sounds normal. Respiratory: No respiratory distress. Breath sounds normal. Abdomen: Distention (With a prominent fluid wave). Back: Normal inspection. Skin: Skin warm and dry. Pallor. Extremities: Lower extremity edema. Extremities exhibit normal ROM. No calf tenderness. Neuro: Alertness is decreased(opens eyes to voice and drowsy). Speech normal. No cerebellar findings. No motor deficit. No sensory deficit. LABS, X-RAYS, AND EKG EKG: Rate: 96. Q waves in lead V1 and V2. Prolonged QT (QT = 408 ms). Changes present when compared to prior EKG. (18 May 2016) No new ischemic changes present. The study has been independently viewed by me. Laboratory Tests: CBC w Diff: (MAYA: 06/18/2016 05:40) ( MsgRcvd 06/18/2016 06:48) Final results Test Result Flag Units (Reference) WHITE BLOOD COUNT 3.0 L K/uL (4.5-11.5) RED BLOOD COUNT 2.04 L M/uL (4.50-5.90) HEMOGLOBIN 6.2 *L gm/dL (13.5-17.5) CRITICAL RESULTS CALLEDCalled to [facility] 06/18/16 0610Were 2 patient identifiers used? YWas the result read back? Y HEMATOCRIT 18.3 *L % (41.0-53.0) CRITICAL RESULTS CALLEDCalled to [facility] 06/18/16 0610Were 2 patient identifiers used? YWas the result read back? Y MEAN CELL VOLUME 90 fL (80-100) MEAN CORPUSCULAR HGB 30 pg (26-34) MEAN CORPUSCULAR HGB CONC 34 g/dL (31-37) RED CELL DISTRIBUTION WIDTH 20.9 H % (11.6-14.8) PLATELET COUNT 66 L K/uL (150-400) NEUTROPHIL % 82.3 H % (50-75) LYMPH % 6.6 L % (25-40) MONO % 10.9 % (3-14) EOSINOPHIL % 0.1 % (0-4) BASOPHIL % 0.1 % (0-2) RBC MORPHOLOGY 2+ HYPOCHROMIA~~1+ ANISOCYTOSIS PT with INR: (MAYA: 06/18/2016 05:40) ( [facility] 06/18/2016 06:14) Final results Test Result Flag Units (Reference) INR 1.3 H (0.8-1.2) Low Intensity Therapy: INR 1.5-2.0 PT range 18.5-23.1Mod.Intensity Therapy: INR 2.0-3.0 PT range 23.1-31.5High Intensity Therapy: INR 2.5-3.5 PT range 27.4-35.5High Intensity Therapy 2: INR 3.0-4.0 PT range 31.5-39.3 APTT 31 SECONDS (24-34) CPK: (MAYA: 06/18/2016 05:40) ( [facility] 06/18/2016 06:36) Final results Test Result Flag Units (Reference) CPK 62 U/L (24-260) TROPONIN I 0.15 ng/mL (0.00-1.5) TROPONIN REFERENCE RANGE:<0.1 NEGATIVE0.1-1.5 INDETERMINANT>1.5 POSITIVE Ammonia Level: (MAYA: 06/18/2016 06:00) ( [facility] 06/18/2016 06:36) Final results Test Result Flag Units (Reference) AMMONIA 112 H umol/L (11-32) CMP: (MAYA: 06/18/2016 05:40) ( [facility] 06/18/2016 06:37) Final results Test Result Flag Units (Reference) GLUCOSE 188 H mg/dL (70-110) BUN 76 *H mg/dL (7-18) CRITICAL RESULTS CALLEDCalled to [facility] 06/18/16 0636Were 2 patient identifiers used? YWas the result read back? Y CREATININE 2.5 H mg/dL (0.6-1.3) Estimated GFR 27.19 mL/min Estimated GFR- 32.96 mL/min Note: Persistent reduction over 3 months in eGFR<60 mL/min/1.73 m2 defines CKD. Patients with eGFR values>=60 mL/min/1.73 m2 may also have CKD if evidence ofpersistent proteinuria. Additional information may be foundat www.kidney.org. SODIUM 134 L mmol/L (136-145) POTASSIUM 3.8 mmol/L (3.5-5.1) CHLORIDE 100 mmol/L (98-107) CARBON DIOXIDE 22 mmol/L (21-32) CALCIUM 8.2 L mg/dL (8.5-10.1) TOTAL PROTEIN 6.1 L g/dL (6.4-8.2) ALBUMIN 3.0 L g/dL (3.3-5.0) BILIRUBIN, TOTAL 1.3 H mg/dL (0.0-1.0) ALKALINE PHOSPHATASE 107 U/L (46-116) AST (SGOT) 23 U/L (15-37) ALT (SGPT) 28 U/L (12-78) LIPASE 507 H U/L (73-393) AMYLASE 103 U/L (25-115) Type & Cross: (MAYA: 06/18/2016 05:40) ( MsgRcvd 06/18/2016 07:24) IP Test Result Flag Units (Reference) LEUKOREDUCED PACKED CELLS [id number] [facility] XM COMPATIBLE [id number] [facility] ISSUED 06/18/16 0721 PATIENT BLOOD TYPE A Positive Above is a corrected result. Previously reported on ( MsgRcvd 06/18/2016 06:52) as: PATIENT BLOOD TYPE A Positive . PROGRESS AND PROCEDURES Discussed case with patient's primary care provider, (Devang). Reviewed test results and need for additional work-up. Agreed upon treatment plan, need for patient follow-up and decision to admit. Health care provider will see patient in hospital. Consult obtained from surgery. Sebastian. Case discussed. Phone consult only. Will see patient in the hospital. Patient/family counseled. Old medical records reviewed. Disposition orders written (in [facility]). Disposition: Admitted to the Critical Care Unit. CLINICAL IMPRESSION Ascites. GI bleed. Renal insufficiency. Hepatic encephalopathy. Abnormal tests: (indeterminate troponin). Anemia. (Electronically signed by Jonh Kolb MD 06/18/2016 9:27)
--- NOTE | 2016-06-18 06:54 | ED ORDER SUMMARY ---
..... Patient: HOLLY NAM OrderSheet [facility] VisitID: [id number] [place] [address] 70y, M Registration Date/Time: 06/18/2016 ORDER SHEET Weight: 92.5 kg (stated) Allergies: No Known Drug Allergy GENERAL ORDERS: CBC w Diff Urgent (05:33 06/18/2016 AMcQuoid ER Tech1 verbal order read back to Pb MOMIN) (Ack 5:34 AMcQuoid ER Tech1) CMP Urgent (05:06/18/2016 AMcQuoid ER Tech1 verbal order read back to Pb MOMIN) (Ack 5:34 AMcQuoid ER Tech1) UA-Culture if indicated Urgent (05:06/18/2016 AMcQuoid ER Tech1 verbal order read back to Pb MOMIN) (Ack 5:34 AMcQuoid ER Tech1) Ammonia Level Urgent (05:06/18/2016 AMcQuoid ER Tech1 verbal order read back to Pb MOMIN) (Ack 5:34 AMcQuoid ER Tech1) Amylase Urgent (05:06/18/2016 AMcQuoid ER Tech1 verbal order read back to Pb MOMIN) (Ack 5:34 AMcQuoid ER Tech1) Lipase Urgent (05:06/18/2016 AMcQuoid ER Tech1 verbal order read back to Pb MOMIN) (Ack 5:34 AMcQuoid ER Tech1) PT with INR Urgent (05:33 06/18/2016 AMcQuoid ER Tech1 verbal order read back to Pb MOMIN) (Ack 5:34 AMcQuoid ER Tech1) PTT Urgent (05:06/18/2016 AMcQuoid ER Tech1 verbal order read back to Pb MOMIN) (Ack 5:34 AMcQuoid ER Tech1) EKG - ER Stat (05:46 06/18/2016 AMcQuoid ER Tech1 verbal order read back to Pb MOMIN) (5:46 AMcQuoid ER Tech1) CPK Urgent (06:06 06/18/2016 Pb MOMIN) (Ack 6:10 IJurca ER Tech1) Troponin-I Urgent (06:06 06/18/2016 Pb MOMIN) (Ack 6:10 IJurca ER Tech1) Type & Cross (anemia) (anemia) Urgent (06:13 06/18/2016 Pb MOMIN) (Ack 6:15 IJurca ER Tech1) Chest 1V Urgent (06:16 06/18/2016 Pb MOMIN) (Ack 6:22 IJurca ER Tech1) (6:32 GUnger) Transfuse PRBCs (2 units, over 3 hours per unit) (08:46 06/18/2016 Melany Reyna verbal order read back to Pb MOMIN) (8:53 Gabbie R.NPerri) MEDICATION ORDERS: IV FLUIDS: IV Saline Lock (06:11 06/18/2016 Pb MOMIN) (6:13 HSoule) ORDER SHEET NOTES: [Electronically signed by Jonh Kolb MD (09:27 06/18/2016)] [Electronically signed by Isauro Hutchinson R.N. (09:37 06/18/2016)] [Electronically locked/signed by Isauro Hutchinson R.N. (09:37 06/18/2016)]
--- NOTE | 2016-06-18 07:31 | DIAGNOSTIC IMAGING REPORT ---
PROCEDURE: XR CHEST 1 VIEW INDICATION: COUGH TECHNIQUE: Portable AP view 06:23 a.m. COMPARISON: Chest x-ray 05/18/2016 FINDINGS: Poor inspiration but lungs are clear. Median sternotomy and CABG. Borderline cardiomegaly. Mediastinum and pulmonary vessels are normal. Thorax is normal. No significant change. IMPRESSION: 1. No acute changes 2. CABG with borderline cardiomegaly
--- NOTE | 2016-06-18 09:11 | HISTORY AND PHYSICAL ---
ADMITTED: 06/18/2016 CHIEF COMPLAINT: 1. Weakness 2. Black stool HISTORY OF PRESENT ILLNESS: A 70-year-old male admitted to [facility] with black stools off and on for about 6 days. Additionally, he has been increasingly weak. He woke up this morning confused and too weak to get out of bed. His therefore called an ambulance for transfer to the emergency room for evaluation. The patient was seen in the office on the day prior to admission with weakness and intermittent black stools. Stool testing was ordered. However, the patient worsened in the meantime. 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 He is presently under evaluation to see if he qualifies for a transplant list. He has also had difficulty with intermittent transfusion-dependent anemia and guaiac-positive stools in the past and had a colonoscopy in the last few weeks which showed no active bleeding. That procedure was on 05/07/2016 and included a colonoscopy and EGD, which showed gastritis and duodenitis, portal hypertension and enlarged hemorrhoids. MEDICAL/SURGICAL HISTORY: Remarkable for nonalcoholic steatohepatitis, coronary artery disease, history of renal failure, ascites, anemia, transfusion dependent, gastrointestinal bleeding, cryptogenic cirrhosis, non-rheumatic tricuspid valve regurgitation. Non-rheumatic mitral valve regurgitation, elevated ammonia level, history of decubitus ulcer, hypertension, history of kidney stone, history of sciatica, history of hypothyroidism and history of colon polyps, splenomegaly, GERD, portal hypertension, diabetes mellitus type 2, and hyperlipidemia. Surgical history: Coronary angioplasty, coronary artery bypass graft surgery, paracentesis, repeated variceal banding with EGD. MEDICATIONS: 1. Atorvastatin 40 mg p.o. daily. 2. Lantus insulin 14 units at bedtime. 3. Humalog insulin 4 units before meals. 4. Lactulose 45 grams t.i.d. 5. Levothyroxine 112 mcg q.a.m. 6. Nitrostat 0.4 mg p.r.n. chest pain (not recently taken). 7. Omeprazole 20 mg p.o. at bedtime. 8. vitamin 1 p.o. daily. 9. Sucralfate 1 gram daily (recently increased to 1 gram a.c. and at bedtime). 10. Torsemide 40 mg p.o. b.i.d. 11. Xifaxan 550 mg p.o. b.i.d. ALLERGIES: 1. NONE KNOWN. SOCIAL HISTORY: male with 4 children. Smoking: None. Alcohol: None. Drug use: None. The patient is retired from working at the [employer]. Enjoys golfing and walking, though he has not been able to do these recently. FAMILY HISTORY: Mother had heart disease, bypass and stroke. Father had heart disease and at the age of 93. REVIEW OF SYSTEMS: The patient denies URI symptoms, specifically denies headaches, sore throat, or rhinitis. Respiratory: He does have some shortness of breath with exertion, but is not feeling shortness of breath at present, but has some occasional cough. Denies wheezing. Cardiac: Denies chest pain, palpitations, or paroxysmal nocturnal dyspnea. Gastrointestinal: Denies nausea, vomiting, diarrhea or constipation. He has had ascites and melenic stools, as noted above. Genitourinary: Denies dysuria, hematuria, or frequency. Dermatologic: Denies rash, skin lesions or itching. PHYSICAL EXAMINATION: VITAL SIGNS: Blood pressure 127/50, heart rate 69, respirations 23, SaO2 100% on room air. HEENT: Clear. NECK: Supple, without adenopathy or thyromegaly. CHEST: Clear to auscultation and percussion, with elevated diaphragms on percussion. HEART: Regular rate and rhythm with a 2/6 systolic murmur. ABDOMEN: Positive bowel sounds, obese and distended, with positive fluid wave due to apparent ascites, consistent with history. EXTREMITIES: Trace edema. No cyanosis or clubbing. NEUROLOGIC: Grossly intact and symmetric, though the patient is tired. He is oriented to being in the hospital and oriented to who I am and oriented to his condition. RECTAL EXAM: Performed in the emergency room was guaiac-positive. GENITAL EXAM: Normal male external genitalia. LAB/IMAGING: WBC 3.0, hemoglobin 6.2, hematocrit 18.3, platelets 66. Sodium 134, potassium 3.8, chloride 100, bicarbonate 22, BUN 76, creatinine 2.5, glucose 188 , calcium 8.2, total bilirubin 1.3, alkaline phosphatase 107, ammonia 112, total protein 6.1, albumin 3.0, lipase 507. INR 1.3. CK 62. Troponin 0.15 (borderline). EKG is obtained, showing normal sinus rhythm with poor R-wave progression anteriorly and prolonged QT. IMPRESSION: 1. Gastrointestinal bleed with anemia, requiring transfusion, recurrent 2. Nonalcoholic steatohepatitis with ascites and hepatic insufficiency 3. Acute on chronic renal failure 4. Diabetes mellitus type 2 5. Elevated troponin, rule out myocardial infarction in patient with prior coronary artery disease PLAN: Admit to [facility] for transfusion. We will initially give 2 units packed red blood cells. Surgical consultation obtained. The patient will be ruled out for OK prior to endoscopy to clarify the source of bleeding and try to control bleeding. The patient and are aware of plan for treatment. THEY ELECT FULL CODE STATUS. SCDs will be used for DVT prevention.
--- NOTE | 2016-06-18 09:38 | ED MAR SUMMARY ---
..... Medication Administration Record [facility] [address] [place], [place] [id number] Patient: HOLLY NAM Visit ID: [id number] 70y, M Weight: 92.5 kg Height/Length: 71 in BMI: 28.5 ALLERGIES: No Known Drug Allergy
--- NOTE | 2016-06-18 09:38 | ED MED RECONCILIATION SUMMARY ---
Patient: HOLLY NAM Medication Reconciliation Report [facility] VisitID: [id number] [address] [place] [address] 70y, M Registration Date/Time: 06/18/2016 Weight: 92.5 kg Height/Length: 71 in. BMI: 28.5 ALLERGIES: No Known Drug Allergy The patient's Home Medications are listed below: THE FOLLOWING MEDICATIONS NEED TO BE RECONCILED: Atorvastatin 40 mg daily insulin lantus 14 units h.s. Isulin humalog 4 units ac Lactulose 45 grams tid Levothyroxine 112 mcg q.a.m. Nitrostat 0.4 mg prn Omeprazole 20 mg q.h.s. Penatal vitamin daily Sucralfate 1 gm daily Torsemide 40 mg bid Xfaxan 550 mg bid The source(s) of the original Home Medication information: Not obtained. The following Medications were given to the patient in the Emergency Department: None. The following Medications were prescribed to the patient: None.
--- NOTE | 2016-06-18 09:38 | ED DISCHARGE INSTRUCTIONS ---
Patient: HOLLY NAM General Instructions [facility] VisitID: [id number] [address] [place] [address] 70y, M Registration Date/Time: 06/18/2016 Ascites. GI bleed. Renal insufficiency. Hepatic encephalopathy. Abnormal tests: (indeterminate troponin). Anemia. (Electronically signed by Jonh Kolb MD 06/18/2016 9:27)
--- NOTE | 2016-06-18 09:38 | ED MAR SUMMARY ---
..... Medication Administration Record [facility] [address] [place], [place] [id number] Patient: HOLLY NAM Visit ID: [id number] 70y, M Weight: 92.5 kg Height/Length: 71 in BMI: 28.5 ALLERGIES: No Known Drug Allergy
--- NOTE | 2016-06-18 09:38 | ED DISCHARGE INSTRUCTIONS ---
Patient: HOLLY NAM General Instructions [facility] VisitID: [id number] [address] [place] [address] 70y, M Registration Date/Time: 06/18/2016 Ascites. GI bleed. Renal insufficiency. Hepatic encephalopathy. Abnormal tests: (indeterminate troponin). Anemia. (Electronically signed by Jonh Kolb MD 06/18/2016 9:27)
--- NOTE | 2016-06-18 09:38 | ED MED RECONCILIATION SUMMARY ---
Patient: HOLLY NAM Medication Reconciliation Report [facility] VisitID: [id number] [address] [place] [address] 70y, M Registration Date/Time: 06/18/2016 Weight: 92.5 kg Height/Length: 71 in. BMI: 28.5 ALLERGIES: No Known Drug Allergy The patient's Home Medications are listed below: THE FOLLOWING MEDICATIONS NEED TO BE RECONCILED: Atorvastatin 40 mg daily insulin lantus 14 units h.s. Isulin humalog 4 units ac Lactulose 45 grams tid Levothyroxine 112 mcg q.a.m. Nitrostat 0.4 mg prn Omeprazole 20 mg q.h.s. Penatal vitamin daily Sucralfate 1 gm daily Torsemide 40 mg bid Xfaxan 550 mg bid The source(s) of the original Home Medication information: Not obtained. The following Medications were given to the patient in the Emergency Department: None. The following Medications were prescribed to the patient: None.
[2016-06-18] MEDS ORDERED: NITROSTAT0.4 MG SL (11:19)
--- NOTE | 2016-06-18 14:43 | CONSULTATION REPORT ---
DATE OF CONSULTATION: 06/18/2016 CHIEF COMPLAINT: Gastrointestinal bleeding HISTORY OF PRESENT ILLNESS: The patient is a 70-year-old man who I was asked to consult on by Dr. Siddiqi. He presented to the hospital for weakness and black stools intermittently for about 6 days. He became increasingly weak and came to the hospital with a very low hematocrit has since been undergoing transfusion. This patient is known to me from a previous history of gastrointestinal blood loss. He has known portal hypertension from nonalcoholic steatohepatitis and has had multiple procedures in the past for ablation of varicosities of the esophagus. On his last endoscopy, he had some residual thick-walled varices, but no sign of variceal bleeding. He has also had a colonoscopy within the year, showing some large hemorrhoids. He does not report bright red blood per rectum. Gastritis and duodenitis were noted on last visit. MEDICAL/SURGICAL HISTORY: Past medical history of ISAAC, coronary artery disease, chronic renal failure, recurrent GI bleeding, tricuspid valve disease, hepatic encephalopathy, pressure ulcers, hypertension, kidney stones, hypothyroidism, colon polyps, secondary splenomegaly, type 2 diabetes mellitus, and hyperlipidemia. Past surgery: PTCA as well as CABG, paracentesis, variceal banding. MEDICATIONS: 1. Atorvastatin. 2. Insulin. 3. Lactulose. 4. Synthroid. 5. Nitrostat. 6. Omeprazole. 7. Carafate. 8. Torsemide. 9. Xifaxan. 10. Vitamins. ALLERGIES: 1. NONE TO MEDICATIONS. SOCIAL HISTORY: The patient is . He does not smoke cigarettes. He does not drink. He retired after working for the [employer]. FAMILY HISTORY: Father of heart disease at age 93, mother had heart disease. REVIEW OF SYSTEMS: A multipoint review of systems was obtained by Dr. Siddiqi on 06/18/2016 and is reviewed. PHYSICAL EXAMINATION: GENERAL: The patient was alert and cooperative. His mental status is normal. He was alert. He was able to respond appropriately. HEENT: Her ears and nose demonstrated no gross external lesions. Eyes are equal. There is no obvious icterus. NECK: Without palpable mass or thyromegaly. CHEST: Clear. There is a systolic murmur present. ABDOMEN: Grossly distended with ascites and fluid. EXTREMITIES: Symmetric. He appeared to move symmetrically. LAB/IMAGING: Initial lab tests showed a hemoglobin and hematocrit of 6.2 and 18.3, with a platelet count of 66,000. He also had a BUN 76, creatinine 2.5, bilirubin 1.3. Ammonia level 112. IMPRESSION: 1. Gastrointestinal bleed. 2. Cirrhosis and portal hypertension. 3. Chronic renal failure. 4. Diabetes. 5. Coronary artery disease. PLAN: I recommended the patient undergo an upper gastrointestinal endoscopy since this patient clearly has had ongoing blood loss and has heme-positive stool. I explained to him that should we find any sign of acute variceal bleeding, we may choose to perform therapy on this. He is aware of the nature of these procedures and would like to proceed as described.
--- NOTE | 2016-06-18 14:45 | OPERATIVE REPORT ---
DATE OF SURGERY: 06/18/2016 SURGEON: Germain Cortes MD PREOPERATIVE DIAGNOSES: 1. Anemia 2. Gastrointestinal bleed 3. Cirrhosis POSTOPERATIVE DIAGNOSIS: 1. Portal hypertensive gastropathy 2. Varices 3. Duodenitis PROCEDURE PERFORMED: 1. Esophagogastroduodenoscopy ANESTHESIA: Total IV general. INDICATIONS: The patient is a 70-year-old man with portal hypertension who presents with ongoing melena and anemia requiring transfusion. SURGICAL TECHNIQUE: The patient was taken to the endoscopy suite, where total IV general was administered and the patient was placed in the left lateral decubitus position. A well-lubricated endoscope was inserted down the esophagus. The esophagus was carefully inspected and there were several large thick-walled varices noted, but all of these were white and opaque and did not show any signs recent or eminent bleeding. The gastroesophageal junction looked normal. The stomach was entered and there was no active bleeding or coffee-ground material. In the distal antrum, there were multiple erythematous areas arranged in the direction of the rugae. While these resembled gastric antral vascular ectasia (GAVE) in this scenario these lesions are better classified as portal hypertensive gastropathy (PHG). The duodenum was entered and there was some erythema consistent without duodenitis, but no ulcer or recently bleeding site. On withdrawal, the same sites were noted. In summary, this patient has PHG and should follow the treatment algorithm as deemed appropriate by his managing service. Initially beta blockers are effective. Additionally, I talked to his family and this patient is being considered for transjugular intrahepatic portosystemic shunt or a transplant. This also will be therapeutic. If he does not undergo tips or transplant and continues to lose blood, then I can perform a laser ablation of these focal lesions.
[2016-06-19] VITALS (7 sets, daily range): BP systolic 115–132; BP diastolic 67–74
--- NOTE | 2016-06-19 09:08 | Progress Note ---
Subjective General 70 yo male with ISAAC and recurrent transfusion dependent anemia and hx CAD admitted with marked anemia and 6 day history of melena. Endoscopy done by Dr. Cortes showing varices but no active bleeding yesterday. Patient reports persistent melena with stool today. Feeling better post transfusion with 4 units PRBC but hemoglobin has not increased as much as expected. He denies pain , nausea, vomiting. He is under evaluation as a transplant candidate but has been unable to have heart cath due to anemia. Discussed with Dr. Flowers (glass production machine operator for Dr. Flaherty his GI) who recommends propranolol to try to reduce bleeding. Physical Exam Vital Signs / I&Os Vital Signs Date Time Temp Pulse Resp B/P Pulse O2 O2 Flow FiO2 Ox Delivery Rate 03/ 0740 97.7 80 20 115/74 100 Room Air 03/03 0258 98.4 71 18 120/68 100 Room Air 03/03 0055 98.2 78 18 128/71 100 Room Air 03/02 2355 98.4 79 18 125/73 100 Room Air 03/02 2255 98.2 84 18 122/65 100 Room Air 03/02 2225 97.9 86 18 133/63 100 Room Air 03/02 2212 98.2 91 18 127/63 100 03/02 2130 Room Air 03/02 2130 98.4 78 16 124/71 100 03/02 2025 98.4 74 16 121/66 100 03/02 1956 97.9 78 16 119/49 100 03/02 1922 97.9 78 16 133/70 100 03/02 1909 97.9 75 16 129/61 100 03/02 1851 98.1 72 16 123/66 100 03/02 1825 97.2 78 18 131/71 100 Room Air 03/02 1715 98.1 80 18 125/71 100 Room Air 03/02 1615 97.9 75 18 125/67 100 Room Air 03/02 1545 98.1 78 16 114/64 100 Room Air 03/02 1517 97.5 76 16 118/61 100 Room Air 03/02 1500 97.3 80 16 120/61 100 Room Air 03/02 1446 97.7 75 16 123/61 100 Room Air 03/02 1424 97.3 77 15 132/58 100 Room Air 03/02 1403 98.2 71 13 114/60 100 03/02 1356 71 14 123/61 100 03/02 1350 74 20 110/57 100 03 1346 73 14 108/57 100 06/18 1341 98.1 73 15 112/59 100 03 1257 98.2 80 16 126/66 100 03/02 1204 97.9 85 18 126/68 100 /02 1121 97.9 85 18 123/67 100 Room Air 06/18 1104 97.0 77 18 107/61 100 06/18 1059 Room Air 03 1033 98.1 88 18 132/65 100 03/02 0939 97.5 88 17 123/64 100 Room Air I&O 06/18 0800 / 1600 06/19 0000 Intake Total 1516 950 Output Total 350 760 Balance 1166 190 General Appearance Alert, Oriented X3, Cooperative, No acute distress Lungs Normal air movement Cardiovascular Regular rate and rhythm Abdomen Normal bowel sounds, Markedly distended with positive fluid wave. Extremities No edema Skin No Rashes LAB Results Laboratory Tests 06/18 06/18 06/18 1230 1355 1425 Chemistry Creatine Kinase (24 - 260 U/L) 65 Cancelled Troponin (0.00 - 1.5 ng/mL) 0.12 Cancelled Urines Urine Color YELLOW Urine Appearance CLEAR Urine pH (5.0 - 8.0) 5.5 Ur Specific [place] (1.010 - 1.030) <= 1.005 Urine Protein (NEGATIVE) NEGATIVE Urine Ketones (NEGATIVE) NEGATIVE Urine Blood (NEGATIVE) NEGATIVE Urine Nitrite (NEGATIVE) NEGATIVE Urine Bilirubin (NEGATIVE) NEGATIVE Urine Urobilinogen (0.2 - 1.0 EU/dL) 0.2 Ur Leukocyte Esterase (NEGATIVE) TRACE Urine RBC (0 - 1 rbc/hpf) NONE SEEN Urine WBC (0 - 1 wbc/hpf) 1-3 Ur Epithelial Cells (0 - 5 EPI/hpf) NONE SEEN Urine Bacteria (NONE SEEN) NONE SEEN Urine Glucose (NEGATIVE) NEGATIVE Urine Comment CULT NOT INDICATED 06/18 06/18 06/19 06/19 1550 2355 0550 0550 Chemistry Plasma Sodium (136 - 145 mmol/L) 135 Plasma Potassium (3.5 - 5.1 mmol/L) 3.1 Plasma Chloride (98 - 107 mmol/L) 102 CO2 (Enzymatic) (21 - 32 mmol/L) 23 BUN (7 - 18 mg/dL) 73 Creatinine (0.6 - 1.3 mg/dL) 2.1 Est GFR ( Amer) (mL/min) 40.30 Est GFR (Non-Af Amer) (mL/min) 33.25 Glucose (70 - 110 mg/dL) 138 Plasma Calcium (8.5 - 10.1 mg/dL) 7.8 Plasma Magnesium (1.8 - 2.4 mg/dL) 1.8 Total Bilirubin (0.0 - 1.0 mg/dL) 3.3 AST (15 - 37 U/L) 27 ALT (12 - 78 U/L) 23 Alkaline Phosphatase (46 - 116 U/L) 98 Creatine Kinase (24 - 260 U/L) 66 Cancelled 63 Troponin (0.00 - 1.5 ng/mL) 0.15 Cancelled 0.18 Total Protein (6.4 - 8.2 g/dL) 5.7 Albumin (3.3 - 5.0 g/dL) 2.7 Lipase (73 - 393 U/L) 378 Hematology WBC (4.5 - 11.5 K/uL) 2.1 RBC (4.50 - 5.90 M/uL) 2.92 Hgb (13.5 - 17.5 gm/dL) 7.6 8.7 Hct (41.0 - 53.0 %) 21.7 25.5 MCV (80 - 100 fL) 87 MCH (26 - 34 pg) 30 RDW (11.6 - 14.8 %) 19.1 Neut % (Auto) (50 - 75 %) 76.3 Lymph % (Auto) (25 - 40 %) 8.8 [place] % (Auto) (3 - 14 %) 14.7 Eos % (Auto) (0 - 4 %) 0 Baso % (Auto) (0 - 2 %) 0.2 Plt Count, EDTA (150 - 400 K/uL) 49 PUBS MCHC (31 - 37 g/dL) 34 Microbiology Date/Time Procedure - Status Source Growth 06/18 1425 Urine Culture - RECD URINE CC Assessment and Plan Problem List 1. Anemia Plan Improved post transfusion x 4U PRBC 2. Cardiac enzymes elevated Plan Improved on serial testing. 3. GI bleeding Plan No active bleeding on EGC. Varices seen. Propranolol ordered after discussion with Dr. Flowers. 4. Chronic renal failure Plan stable.
[2016-06-19] MEDS ORDERED: PROPRANOLOL HCL20 MG PO (18:07)
[2016-06-20 02:42] VITALS: BP 110/67
[2016-06-20 07:02] VITALS: BP 108/69
--- NOTE | 2016-06-20 08:11 | Provider's Discharge Care Plan ---
Problem, Goal, Plan Problem List 1. Cardiac enzymes elevated Goals: Improved health/wellness Instructions: Take meds as directed, NO HEART DAMAGE 2. Ascites Goals: Improved health/wellness Instructions: Continue regular paracentesis 3. GI bleeding Goals: Improved health/wellness Instructions: Take meds as directed 4. Anemia Goals: Improve disease control Instructions: Take meds as directed 5. Liver failure Goals: Improved health/wellness Instructions: Take meds as directed, f/u with GI as planned. Anticipate decreased bleeding on propranolol.
== END 2016-06-20 10:35 | disposition home or self-care (01) | DRG 442 ==
LOC: ED SRH 05:18 → TRANS SRH 06:59 → ACUTE2 SRH 09:00
PROVIDERS: Surgery; ADMIT Family Medicine
PROC: 30233N1 Transfusion of Nonautologous Red Blood Cells into Peripheral Vein, Percutaneous Approach (ICD-10-PCS; 2016-06-18)
PROC: 30233N1 Transfusion of Nonautologous Red Blood Cells into Peripheral Vein, Percutaneous Approach (ICD-10-PCS; 2016-06-18)
PROC: 30233N1 Transfusion of Nonautologous Red Blood Cells into Peripheral Vein, Percutaneous Approach (ICD-10-PCS; 2016-06-18)
PROC: 0DJ08ZZ Inspection of Upper Intestinal Tract, Via Natural or Artificial Opening Endoscopic (ICD-10-PCS; principal; 2016-06-18 13:00)
DX: K76.6 Portal hypertension (principal); K31.89 Other diseases of stomach and duodenum; K92.1 Melena; D50.0 Iron deficiency anemia secondary to blood loss (chronic); K74.69 Other cirrhosis of liver; R18.8 Other ascites; I85.10 Secondary esophageal varices without bleeding; N17.9 Acute kidney failure, unspecified; E11.22 Type 2 diabetes mellitus with diabetic chronic kidney disease; I12.9 Hypertensive chronic kidney disease with stage 1 through stage 4 chronic kidney disease, or unspecified chronic kidney disease; N18.9 Chronic kidney disease, unspecified; K75.81 Nonalcoholic steatohepatitis (NASH); I25.10 Atherosclerotic heart disease of native coronary artery without angina pectoris; Z95.1 Presence of aortocoronary bypass graft; Z95.5 Presence of coronary angioplasty implant and graft; Z79.4 Long term (current) use of insulin; K72.90 Hepatic failure, unspecified without coma; K29.80 Duodenitis without bleeding
CPT/HCPCS: 50004; 60001; 82445; 83526; 83741; 83766; 90001; 90004; 90074; 90098; 90100; 90155; 90469; 90616; 91004; 91162; 91163; 91544; 91588; 92235; 92530; 92610; 92720; 94001; 94060; 95059

== ENCOUNTER 2016-06-25 21:41 | Inpatient (IN) | payer OTHER ==
[~2016-06-25] VITALS: Ht 175.3 cm; Wt 86.7 kg
[~2016-06-25 21:41] MED LIST changes: +NITROSTAT0.4 MG SL; +PROPRANOLOL HCL20 MG PO
[2016-06-26] VITALS (22 sets, daily range): BP systolic 97–133; BP diastolic 38–60
--- NOTE | 2016-06-26 00:06 | ED CLINICAL REPORT ---
Clinical Report - Physicians/Mid Levels [facility] [address] [place] [address] 06/25/2016 21:41 Patient: HOLLY NAM Time Seen: 21:48. Arrived- By ambulance. Historian- patient, EMS personnel and son. History limited by altered mental status and vague historian. Physical Exam limited by altered mental status. HISTORY OF PRESENT ILLNESS Chief Complaint: CHANGED MENTAL STATUS. The patient has been disoriented and confused and is described as having decreased responsiveness. This started today and is still present. It was abrupt in onset and has been constant. The patient has had weakness. Similar symptoms previously: Several times. REVIEW OF SYSTEMS No chills, fever, sweats, calf pain or chest pain. No cough, difficulty breathing, pedal edema, palpitations or abdominal pain. No constipation, diarrhea, nausea, vomiting or urinary problems. All systems otherwise negative, except as recorded above. PAST HISTORY Problems: Hepatic Encephalopathy. Dyspnea. Dizziness. Renal Failure. Coronary Artery Disease. Ascites. Hypovolemia. Heart Disease. Anemia. Hypoglycemia. Herpes Zoster. Diabetes Mellitus. Thyroid Disease. Liver disease. Abnormal Test. GI Bleeding. Renal Insufficiency. Cirrhosis. Abnormal EKG. Chest Pain. Near Syncope. Liver disease. Additional Surgeries: Colonoscopy. Coronary Angioplasty. Coronary Artery Bypass Graft. Endoscopy. Paracentesis. Medications: Isulin humalog 4 units ac. Lactulose 45 grams tid. Levothyroxine 112 mcg q.a.m.. Nitrostat 0.4 mg prn. Omeprazole 20 mg q.h.s.. Penatal vitamin daily. Sucralfate 1 gm daily. Torsemide 40 mg bid. Xfaxan 550 mg bid. Atorvastatin 40 mg daily . insulin lantus 14 units h.s.. Allergies: No Known Drug Allergy. SOCIAL HISTORY Never smoker. No alcohol use. Is a local resident. He lives with spouse. Has good social support. FAMILY HISTORY Denies family medical history. ADDITIONAL NOTES The nursing notes have been reviewed. PHYSICAL EXAM Vital Signs: 06/25/2016 21:46 BP: 122/49. HR: 53. RR: 16. O2 saturation: 100%. Temp: 98.5 F. Have been reviewed. Appearance: Alert. He appears ill and is confused. Head: Head atraumatic. Eyes: Pupils equal, round and reactive to light. ENT: Airway intact. Pharynx normal. Neck: Normal inspection. Neck supple. CVS: Normal heart rate and rhythm. Heart sounds normal. Respiratory: No respiratory distress. Breath sounds normal. Abdomen: Distention (with a positive fluid wave). Back: Normal inspection. Rectal: Heme-positive stool. (POC test reference range: negative). Skin: Skin warm and dry. Extremities: Bilateral moderate pitting edema of the lower extremities. Extremities exhibit normal ROM. Neuro: The patient is disoriented. Alertness is decreased. LABS, X-RAYS, AND EKG Laboratory Tests: UA-Culture if indicated: (MAYA: 06/25/2016 23:24) ( [facility] [place] 06/26/[place] 00:38) Final results Test Result Flag Units (Reference) URINE COLOR YELLOW URINE APPEARANCE CLEAR URINE GLUCOSE NEGATIVE (NEGATIVE) URINE BILIRUBIN NEGATIVE (NEGATIVE) URINE KETONE NEGATIVE (NEGATIVE) URINE SPECIFIC GRAVITY 1.010 (1.010-1.030) URINE PH 5.5 (5.0-8.0) URINE PROTEIN NEGATIVE (NEGATIVE) URINE UROBILINOGEN 0.2 EU/dL (0.2-1.0) URINE NITRITE NEGATIVE (NEGATIVE) URINE BLOOD NEGATIVE (NEGATIVE) URINE LEUK ESTERASE NEGATIVE (NEGATIVE) URINE RBC 0-1 rbc/hpf (0-1) URINE WBC 0-1 wbc/hpf (0-1) URINE EPITHELIAL CELLS 0-1 EPI/hpf (0-5) URINE BACTERIA NONE SEEN (NONE SEEN) URINE COMMENT CULT NOT INDICATED URINE CULTURES ARE SET-UP BASED ON THE FOLLOWING CRITERIA:POSITIVE NITRITEPOSITIVE LEUKOCYTE ESTERASEGREATER THAN 10 WHITE BLOOD CELLSMODERATE (2+) OR GREATER BACTERIA CBC w Diff: (MAYA: 06/25/2016 22:00) ( [facility] [place] 06/25/[place] 22:18) Final results Test Result Flag Units (Reference) WHITE BLOOD COUNT 2.5 L K/uL (4.5-11.5) RED BLOOD COUNT 2.68 L M/uL (4.50-5.90) HEMOGLOBIN 8.1 L gm/dL (13.5-17.5) HEMATOCRIT 23.9 L % (41.0-53.0) MEAN CELL VOLUME 89 fL (80-100) MEAN CORPUSCULAR HGB 30 pg (26-34) MEAN CORPUSCULAR HGB CONC 34 g/dL (31-37) RED CELL DISTRIBUTION WIDTH 19.6 H % (11.6-14.8) PLATELET COUNT 68 L K/uL (150-400) NEUTROPHIL % 74.8 % (50-75) LYMPH % 11.6 L % (25-40) MONO % 13.1 % (3-14) EOSINOPHIL % 0.2 % (0-4) BASOPHIL % 0.3 % (0-2) PT with INR: (MAYA: 06/25/2016 22:00) ( [facility] 06/25/2016 22:29) Final results Test Result Flag Units (Reference) INR 1.3 H (0.8-1.2) Low Intensity Therapy: INR 1.5-2.0 PT range 18.5-23.1Mod.Intensity Therapy: INR 2.0-3.0 PT range 23.1-31.5High Intensity Therapy: INR 2.5-3.5 PT range 27.4-35.5High Intensity Therapy 2: INR 3.0-4.0 PT range 31.5-39.3 APTT 31 SECONDS (24-34) BNP: (MAYA: 06/25/2016 22:00) ( [facility] 06/25/2016 22:37) Final results Test Result Flag Units (Reference) B-TYPE NATRIURETIC PEPTIDE 60.4 pg/ml (5-100) CPK: (MAYA: 06/25/2016 22:00) ( [facility] 06/25/2016 22:42) Final results Test Result Flag Units (Reference) CPK 57 U/L (24-260) TROPONIN I 0.18 ng/mL (0.00-1.5) TROPONIN REFERENCE RANGE:<0.1 NEGATIVE0.1-1.5 INDETERMINANT>1.5 POSITIVE Ammonia Level: (MAYA: 06/25/2016 22:30) ( [facility] 06/25/2016 23:41) Final results Test Result Flag Units (Reference) AMMONIA 150 H umol/L (11-32) CALLED TO [facility] ON 309 AT 23:30 PM BY [facility]. CMP: (MAYA: 06/25/2016 22:00) ( [facility] 06/25/2016 22:31) Final results Test Result Flag Units (Reference) GLUCOSE 254 H mg/dL (70-110) BUN 62 H mg/dL (7-18) CREATININE 2.3 H mg/dL (0.6-1.3) Estimated GFR 29.94 mL/min Estimated GFR- 36.29 mL/min Note: Persistent reduction over 3 months in eGFR<60 mL/min/1.73 m2 defines CKD. Patients with eGFR values>=60 mL/min/1.73 m2 may also have CKD if evidence ofpersistent proteinuria. Additional information may be foundat www.kidney.org. SODIUM 138 mmol/L (136-145) POTASSIUM 3.4 L mmol/L (3.5-5.1) CHLORIDE 104 mmol/L (98-107) CARBON DIOXIDE 23 mmol/L (21-32) CALCIUM 8.2 L mg/dL (8.5-10.1) TOTAL PROTEIN 6.1 L g/dL (6.4-8.2) ALBUMIN 3.0 L g/dL (3.3-5.0) BILIRUBIN, TOTAL 1.2 H mg/dL (0.0-1.0) ALKALINE PHOSPHATASE 105 U/L (46-116) AST (SGOT) 19 U/L (15-37) ALT (SGPT) 28 U/L (12-78) LIPASE 449 H U/L (73-393) AMYLASE 97 U/L (25-115) Type & Cross: (MAYA: 06/26/2016 00:01) ( [facility] [place] 06/26/2016 00:38) IP Test Result Flag Units (Reference) PATIENT BLOOD TYPE A Positive Above is a corrected result. Previously reported on ( MsgRcvd 06/26/2016 00:28) as: PATIENT BLOOD TYPE A Positive ANTIBODY SCREEN NEGATIVE LEUKOREDUCED PACKED CELLS [id number] AP PC XM COMPATIBLE [id number] AP PC XM COMPATIBLE . PROGRESS AND PROCEDURES Paracentesis: Time-out completed immediately before the procedure. Explained procedure's risks, benefits, and alternatives to the patient. Possible complications discussed including infection, bleeding, perforation and allergic reaction. Prep done with Betadine. Local anesthesia provided using 2% lidocaine. No epinephrine used. Sterile technique used. Landmarks identified; left lower quadrant approach taken. Ultrasound guidance utilized. Peritoneal fluid aspirated using 18g needle. Medium amount of yellow fluid obtained. Fluid sent for culture and sensitivity, cell count, gram stain, albumin. Applied bandage and compression. Complications: bleeding. Course of Care: Patient is stable. Discussed case with hospitalist, (Jose Alfredo). Reviewed test results and need for additional work-up. Agreed upon treatment plan and decision to admit. Health care provider will see patient in hospital. Patient/family counseled in person and via phone. I discussed CODE STATUS with the patient's . She says that both the patient and her then uncertain about what to do in this regard. For the moment she would like for him to be full code. Old medical records reviewed. Disposition orders written (in [facility]). Disposition: Admitted to the Critical Care Unit. CLINICAL IMPRESSION GI bleed. Renal insufficiency. Hepatic encephalopathy. Abnormal tests: (indeterminate troponin and pancytopenia). Anemia. (Electronically signed by Jonh Kolb MD 06/26/2016 3:42)
--- NOTE | 2016-06-26 00:06 | ED CLINICAL REPORT ---
Clinical Report - Physicians/Mid Levels [facility] [address] [place] [address] 06/25/2016 21:41 Patient: HOLLY NAM Time Seen: 21:48. Arrived- By ambulance. Historian- patient, EMS personnel and son. History limited by altered mental status and vague historian. Physical Exam limited by altered mental status. HISTORY OF PRESENT ILLNESS Chief Complaint: CHANGED MENTAL STATUS. The patient has been disoriented and confused and is described as having decreased responsiveness. This started today and is still present. It was abrupt in onset and has been constant. The patient has had weakness. Similar symptoms previously: Several times. REVIEW OF SYSTEMS No chills, fever, sweats, calf pain or chest pain. No cough, difficulty breathing, pedal edema, palpitations or abdominal pain. No constipation, diarrhea, nausea, vomiting or urinary problems. All systems otherwise negative, except as recorded above. PAST HISTORY Problems: Hepatic Encephalopathy. Dyspnea. Dizziness. Renal Failure. Coronary Artery Disease. Ascites. Hypovolemia. Heart Disease. Anemia. Hypoglycemia. Herpes Zoster. Diabetes Mellitus. Thyroid Disease. Liver disease. Abnormal Test. GI Bleeding. Renal Insufficiency. Cirrhosis. Abnormal EKG. Chest Pain. Near Syncope. Liver disease. Additional Surgeries: Colonoscopy. Coronary Angioplasty. Coronary Artery Bypass Graft. Endoscopy. Paracentesis. Medications: Isulin humalog 4 units ac. Lactulose 45 grams tid. Levothyroxine 112 mcg q.a.m.. Nitrostat 0.4 mg prn. Omeprazole 20 mg q.h.s.. Penatal vitamin daily. Sucralfate 1 gm daily. Torsemide 40 mg bid. Xfaxan 550 mg bid. Atorvastatin 40 mg daily . insulin lantus 14 units h.s.. Allergies: No Known Drug Allergy. SOCIAL HISTORY Never smoker. No alcohol use. Is a local resident. He lives with spouse. Has good social support. FAMILY HISTORY Denies family medical history. ADDITIONAL NOTES The nursing notes have been reviewed. PHYSICAL EXAM Vital Signs: 06/25/2016 21:46 BP: 122/49. HR: 53. RR: 16. O2 saturation: 100%. Temp: 98.5 F. Have been reviewed. Appearance: Alert. He appears ill and is confused. Head: Head atraumatic. Eyes: Pupils equal, round and reactive to light. ENT: Airway intact. Pharynx normal. Neck: Normal inspection. Neck supple. CVS: Normal heart rate and rhythm. Heart sounds normal. Respiratory: No respiratory distress. Breath sounds normal. Abdomen: Distention (with a positive fluid wave). Back: Normal inspection. Rectal: Heme-positive stool. (POC test reference range: negative). Skin: Skin warm and dry. Extremities: Bilateral moderate pitting edema of the lower extremities. Extremities exhibit normal ROM. Neuro: The patient is disoriented. Alertness is decreased. LABS, X-RAYS, AND EKG Laboratory Tests: UA-Culture if indicated: (MAYA: 06/25/2016 23:24) ( [facility] 06/26/2016 00:38) Final results Test Result Flag Units (Reference) URINE COLOR YELLOW URINE APPEARANCE CLEAR URINE GLUCOSE NEGATIVE (NEGATIVE) URINE BILIRUBIN NEGATIVE (NEGATIVE) URINE KETONE NEGATIVE (NEGATIVE) URINE SPECIFIC GRAVITY 1.010 (1.010-1.030) URINE PH 5.5 (5.0-8.0) URINE PROTEIN NEGATIVE (NEGATIVE) URINE UROBILINOGEN 0.2 EU/dL (0.2-1.0) URINE NITRITE NEGATIVE (NEGATIVE) URINE BLOOD NEGATIVE (NEGATIVE) URINE LEUK ESTERASE NEGATIVE (NEGATIVE) URINE RBC 0-1 rbc/hpf (0-1) URINE WBC 0-1 wbc/hpf (0-1) URINE EPITHELIAL CELLS 0-1 EPI/hpf (0-5) URINE BACTERIA NONE SEEN (NONE SEEN) URINE COMMENT CULT NOT INDICATED URINE CULTURES ARE SET-UP BASED ON THE FOLLOWING CRITERIA:POSITIVE NITRITEPOSITIVE LEUKOCYTE ESTERASEGREATER THAN 10 WHITE BLOOD CELLSMODERATE (2+) OR GREATER BACTERIA CBC w Diff: (MAYA: 06/25/2016 22:00) ( [facility] [place] 06/25/2016 22:18) Final results Test Result Flag Units (Reference) WHITE BLOOD COUNT 2.5 L K/uL (4.5-11.5) RED BLOOD COUNT 2.68 L M/uL (4.50-5.90) HEMOGLOBIN 8.1 L gm/dL (13.5-17.5) HEMATOCRIT 23.9 L % (41.0-53.0) MEAN CELL VOLUME 89 fL (80-100) MEAN CORPUSCULAR HGB 30 pg (26-34) MEAN CORPUSCULAR HGB CONC 34 g/dL (31-37) RED CELL DISTRIBUTION WIDTH 19.6 H % (11.6-14.8) PLATELET COUNT 68 L K/uL (150-400) NEUTROPHIL % 74.8 % (50-75) LYMPH % 11.6 L % (25-40) MONO % 13.1 % (3-14) EOSINOPHIL % 0.2 % (0-4) BASOPHIL % 0.3 % (0-2) PT with INR: (MAYA: 06/25/2016 22:00) ( [facility] 06/25/2016 22:29) Final results Test Result Flag Units (Reference) INR 1.3 H (0.8-1.2) Low Intensity Therapy: INR 1.5-2.0 PT range 18.5-23.1Mod.Intensity Therapy: INR 2.0-3.0 PT range 23.1-31.5High Intensity Therapy: INR 2.5-3.5 PT range 27.4-35.5High Intensity Therapy 2: INR 3.0-4.0 PT range 31.5-39.3 APTT 31 SECONDS (24-34) BNP: (MAYA: 06/25/2016 22:00) ( [facility] 06/25/2016 22:37) Final results Test Result Flag Units (Reference) B-TYPE NATRIURETIC PEPTIDE 60.4 pg/ml (5-100) CPK: (MAYA: 06/25/2016 22:00) ( [facility] 06/25/2016 22:42) Final results Test Result Flag Units (Reference) CPK 57 U/L (24-260) TROPONIN I 0.18 ng/mL (0.00-1.5) TROPONIN REFERENCE RANGE:<0.1 NEGATIVE0.1-1.5 INDETERMINANT>1.5 POSITIVE Ammonia Level: (MAYA: 06/25/2016 22:30) ( [facility] 06/25/2016 23:41) Final results Test Result Flag Units (Reference) AMMONIA 150 H umol/L (11-32) CALLED TO [facility] ON 309 AT 23:30 PM BY [facility]. CMP: (MAYA: 06/25/2016 22:00) ( MsgRcvd 06/25/2016 22:31) Final results Test Result Flag Units (Reference) GLUCOSE 254 H mg/dL (70-110) BUN 62 H mg/dL (7-18) CREATININE 2.3 H mg/dL (0.6-1.3) Estimated GFR 29.94 mL/min Estimated GFR- 36.29 mL/min Note: Persistent reduction over 3 months in eGFR<60 mL/min/1.73 m2 defines CKD. Patients with eGFR values>=60 mL/min/1.73 m2 may also have CKD if evidence ofpersistent proteinuria. Additional information may be foundat www.[email or web address].org. SODIUM 138 mmol/L (136-145) POTASSIUM 3.4 L mmol/L (3.5-5.1) CHLORIDE 104 mmol/L (98-107) CARBON DIOXIDE 23 mmol/L (21-32) CALCIUM 8.2 L mg/dL (8.5-10.1) TOTAL PROTEIN 6.1 L g/dL (6.4-8.2) ALBUMIN 3.0 L g/dL (3.3-5.0) BILIRUBIN, TOTAL 1.2 H mg/dL (0.0-1.0) ALKALINE PHOSPHATASE 105 U/L (46-116) AST (SGOT) 19 U/L (15-37) ALT (SGPT) 28 U/L (12-78) LIPASE 449 H U/L (73-393) AMYLASE 97 U/L (25-115) Type & Cross: (MAYA: 06/26/2016 00:01) ( [facility] [place] 06/26/2016 00:38) IP Test Result Flag Units (Reference) PATIENT BLOOD TYPE A Positive Above is a corrected result. Previously reported on ( MsgRcvd 06/26/2016 00:28) as: PATIENT BLOOD TYPE A Positive ANTIBODY SCREEN NEGATIVE LEUKOREDUCED PACKED CELLS [id number] AP PC XM COMPATIBLE [id number] AP PC XM COMPATIBLE . PROGRESS AND PROCEDURES Paracentesis: Time-out completed immediately before the procedure. Explained procedure's risks, benefits, and alternatives to the patient. Possible complications discussed including infection, bleeding, perforation and allergic reaction. Prep done with Betadine. Local anesthesia provided using 2% lidocaine. No epinephrine used. Sterile technique used. Landmarks identified; left lower quadrant approach taken. Ultrasound guidance utilized. Peritoneal fluid aspirated using 18g needle. Medium amount of yellow fluid obtained. Fluid sent for culture and sensitivity, cell count, gram stain, albumin. Applied bandage and compression. Complications: bleeding. Course of Care: Patient is stable. Discussed case with hospitalist, (Jose Alfredo). Reviewed test results and need for additional work-up. Agreed upon treatment plan and decision to admit. Health care provider will see patient in hospital. Patient/family counseled in person and via phone. I discussed CODE STATUS with the patient's . She says that both the patient and her then uncertain about what to do in this regard. For the moment she would like for him to be full code. Old medical records reviewed. Disposition orders written (in tagUin). Disposition: Admitted to the Critical Care Unit. CLINICAL IMPRESSION GI bleed. Renal insufficiency. Hepatic encephalopathy. Abnormal tests: (indeterminate troponin and pancytopenia). Anemia. (Electronically signed by Jonh Kolb MD 06/26/2016 3:42)
--- NOTE | 2016-06-26 00:06 | ED NURSING NOTES ---
Clinical Report - Nurses [facility] [address] [place] [address] 06/25/2016 21:41 [id number] Triage time 21:45 Jun 25 2016. Acuity: LEVEL 3. Chief Complaint: WEAKNESS. --21:49 Jose Roberson R.N. 21:46 06/25/16. BP: 122/49. HR: 53. RR: 16. O2 saturation: 100%. Temp: 98.5 F. Pain level now 0/10. --21:49 Jose Roberson R.N. NIH STROKE SCALE: NIH Stroke Scale: score (00). --21:51 Jose Roberson R.N. Weight: 91.2 kg estimated. Height/Length: 69 inches Estimated. BMI: 29.7. --21:47 Jose Roberson R.N. Medications Atorvastatin 40 mg daily . insulin lantus 14 units h.s.. --21:46 Jose Roberson R.N. Isulin humalog 4 units ac. Lactulose 45 grams tid. Levothyroxine 112 mcg q.a.m.. Nitrostat 0.4 mg prn. Omeprazole 20 mg q.h.s.. Penatal vitamin daily. Sucralfate 1 gm daily. Torsemide 40 mg bid. Xfaxan 550 mg bid. --21:46 Jose Roberson R.N. Allergies No Known Drug Allergy. --21:46 Jsoe Roberson R.N. History Arrived by EMS. ( Pt arrives via ems reports of increased confusion. Pt is oriented only to name). This started just prior to arrival. SOCIAL HX: Unknown if ever smoked. --21:49 Jose Roberson R.N. PROBLEMS: Hepatic Encephalopathy. Dyspnea. Dizziness. Renal Failure. Coronary Artery Disease. Ascites. Hypovolemia. Heart Disease. Anemia. Hypoglycemia. Herpes Zoster. Diabetes Mellitus. Thyroid Disease. Liver disease. Abnormal Test. GI Bleeding. Renal Insufficiency. Cirrhosis. Abnormal EKG. Chest Pain. Near Syncope. Liver disease. --21:47 Jose Roberson R.N. ADDITIONAL SURGERIES: Coronary Angioplasty. Coronary Artery Bypass Graft. Paracentesis. Paracentesis. --21:47 Jose Roberson R.N. Interventions ID band on patient. To treatment room. --21:49 Jose Roberson R.N. PHYSICAL ASSESSMENT GENERAL / NEURO / PSYCH: Decreased awareness. The patient is disoriented to place, time and situation. Abnormal verbal response. He has had weakness of the right leg and left leg. HEENT: Pupils equal, round and reactive to light. RESPIRATORY: Respirations not labored. SKIN: Skin is warm and dry. --21:52 Jose Roberson R.N. NURSING PROGRESS NOTES Patient gowned. Call light placed in reach. Side rails up x 1. Bed placed in lowest position. --21:53 Jose Roberson R.N. 21:33 06/25/2016 Site #1 started prior to arrival by EMS via IV in the right antecubital space with an 18g angiocath. --21:58 Jose Roberson R.N. 21:58 06/25/2016 Site #2 started via IV in the left antecubital space with an 20g angiocath; one attempt. Blood drawn: rainbow set. Labeled in the presence of the patient and sent to the lab. Saline lock flushed (started by YOUSIF Del Valle). --21:58 Jose Roberson R.N. Patient ID band checked for patient name and birthdate. Blood samples drawn from the left antecubital space peripheral IV site (prior to IV fluid start) with Vacutainer by nurse per protocol ; labeled in presence of the patient and sent to lab: rainbow set and green and denton top. Line flushed with 10 mL normal saline post blood draw. --22:06 Ivon Segura R.N. 22:15. ( EKG Performed by tech and shown to ER Phys). --22:22 Mali [place] 22:47 06/25/16. BP: 129/67. HR: 54. RR: 16. O2 saturation: 100%. --22:48 Jose Roberson R.N. ( pt guiac +, pt covered in feces cleaned by 3 RNs). --23:58 Jose Roberson R.N. 23:58 06/25/16. BP: 113/49. HR: 55. RR: 16. O2 saturation: 100%. --23:58 Jose Roberson R.N. ( Pt failed swallow screen MD notified). --00:02 Jose Roberson R.N. 00:33 06/26/16. BP: 122/37. HR: 67. O2 saturation: 100%. --00:34 Jose Roberson R.N. 01:41 06/26/16. BP: 131/50. HR: 68. O2 saturation: 100%. --01:41 Jose Roberson R.N. 01:59 06/26/16. BP: 106/69 (regular adult cuff) taken on the left arm, via an automated monitor, while lying. HR: 63. RR: 17. O2 saturation: 100% on room air. Temp: 97.5 F. Batres-Roberson pain scale: 0/10. Additional comments: pre vs. --02:06 Sagar Elder R.N. BLOOD PRODUCT STARTED: consent signed, ID band checked and blood product verified to order and patient's blood band by 2 staff members. #1 unit PRBC via IV pump (75 mL/hr). See transfusion record. ( Blood was started by Jose RN and verified by Sagar RN. Blood was started at 75ml/hr via pump with pre vs taken.). --02:06 Sagar Elder R.N. 02:12 06/26/2016 Site #1 removed. Catheter intact. Pressure dressing and bandaid applied (Cather was intact but bent and out of the skin.). --02:12 Sagar Elder R.N. ( after 15 minutes of continuous monitoring no sign of transfusion reaction). --02:26 Jose Roberson R.N. 02:25 06/26/16. BP: 99/65. HR: 64. RR: 16. O2 saturation: 100%. Temp: 97.7 F. Pain level now 0/10. --02:26 Jose Roberson R.N. DISPOSITION / DISCHARGE Departure time: 02:41 Jun 26 2016. --02:41 Jose Roberson R.N. 02:39 06/26/16. BP: 127/61. HR: 66. RR: 18. O2 saturation: 100%. Temp: 97.7 F. Pain level now 0/10. --02:41 Jose Roberson R.N. Report was given to a nurse. Report included patient's care, treatment, medications, reviewed medication reconcilliation, and condition (including any recent changes or anticipated changes). All questions were answered. --03:56 Jose Roberson R.N. Locked/Released at 06/26/2016 3:57 by Jose Roberson R.N.
--- NOTE | 2016-06-26 00:07 | ED ORDER SUMMARY ---
..... Patient: HOLLY NAM OrderSheet [facility] VisitID: [id number] [place] [address] 70y, M Registration Date/Time: 06/25/2016 ORDER SHEET Weight: 91.2 kg (estimated) Allergies: No Known Drug Allergy GENERAL ORDERS: CBC w Diff Urgent (21:48 06/25/2016 Pb MOMIN) (Ack 21:52 [facility] Dermatology Procedural Physician) (22:13 [facility] Dermatology Procedural Physician) CMP Urgent (21:48 06/25/2016 Pb MOMIN) (Ack 21:52 [facility] Dermatology Procedural Physician) (22:13 [facility] Dermatology Procedural Physician) UA-Culture if indicated Urgent (21:48 06/25/2016 Pb MOMIN) (Ack 21:52 [facility] Dermatology Procedural Physician) (2:02 [facility] Dermatology Procedural Physician) Amylase Urgent (21:48 06/25/2016 Pb MOMIN) (Ack 21:52 [facility] Dermatology Procedural Physician) (22:13 [facility] Dermatology Procedural Physician) Lipase Urgent (21:48 06/25/2016 Pb MOMIN) (Ack 21:52 [facility] Dermatology Procedural Physician) (22:13 [facility] Dermatology Procedural Physician) Ammonia Level Urgent (21:48 06/25/2016 Pb MOMIN) (Ack 21:52 [facility] Dermatology Procedural Physician) (22:13 [facility] Dermatology Procedural Physician) PT with INR Urgent (21:49 06/25/2016 Pb MOMIN) (Ack 21:52 [facility] Dermatology Procedural Physician) (22:13 [facility] Dermatology Procedural Physician) PTT Urgent (21:49 06/25/2016 Pb MOMIN) (Ack 21:52 [facility] Dermatology Procedural Physician) (22:13 [facility] Dermatology Procedural Physician) BNP Urgent (22:00 06/25/2016 Pb MOMIN) (22:13 [facility] Dermatology Procedural Physician) CPK Urgent (22:00 06/25/2016 Pb MOMIN) (22:13 [facility] Dermatology Procedural Physician) Troponin-I Urgent (22:00 06/25/2016 Pb MOMIN) (22:13 [facility] Dermatology Procedural Physician) EKG - ER Stat (22:00 06/25/2016 Pb MOMIN) (22:17 [facility] Dermatology Procedural Physician) Type & Screen Urgent (00:00 06/26/2016 Pb MOMIN) (Ack 0:03 [facility] Dermatology Procedural Physician) (1:58 TLewis R.N.) Type & Cross (GIB) (anemia) Urgent (00:30 06/26/2016 Pb MOMIN) (Ack 0:32 [facility] Dermatology Procedural Physician) (1:58 TLewis R.N.) Transfuse PRBCs (00:30 06/26/2016 Pb MOMIN) (1:58 TLewis R.N.) - (ascitic fluid for culture, gram stain, albumin, total protein, glucose, amylase, LDH, bilirubin, cell count) (01:58 06/26/2016 Pb MOMIN) (2:01 [facility] Dermatology Procedural Physician) MEDICATION ORDERS: - (Lactulose 25 ml po now) (23:34 06/25/2016 Pb MOMIN) (Cancelled: Patient Altered Condition/ failed swallow screen0:08 DBeyer R.N.) IV FLUIDS: IV Saline Lock (21:48 06/25/2016 Pb MOMIN) (21:58 Yaima R.NPerri) ORDER SHEET NOTES: [Electronically signed by Jonh Kolb MD (03:42 06/26/2016)] [Electronically signed by Jose Roberson R.N. (03:57 06/26/2016)] [Electronically locked/signed by Jose Roberson R.N. (03:57 06/26/2016)]
--- NOTE | 2016-06-26 00:07 | ED ORDER SUMMARY ---
..... Patient: HOLLY NAM OrderSheet [facility] VisitID: [id number] [place] [address] 70y, M Registration Date/Time: 06/25/2016 ORDER SHEET Weight: 91.2 kg (estimated) Allergies: No Known Drug Allergy GENERAL ORDERS: CBC w Diff Urgent (21:48 06/25/2016 Pb MOMIN) (Ack 21:52 [facility] ER Maintenance Apprentice) (22:13 CH[facility]ty ER Maintenance Apprentice) CMP Urgent (21:48 06/25/2016 Pb MOMIN) (Ack 21:52 [facility]ager[facility] ER Maintenance Apprentice) (22:13 CHagerty ER Maintenance Apprentice) UA-Culture if indicated Urgent (21:48 06/25/2016 Pb MOMIN) (Ack 21:52 [facility] ER Maintenance Apprentice) (2:02 CHagerty ER Maintenance Apprentice) Amylase Urgent (21:48 06/25/2016 Pb MOMIN) (Ack 21:52 CHagerty ER Maintenance Apprentice) (22:13 CHagerty ER Maintenance Apprentice) Lipase Urgent (21:48 06/25/2016 Pb MOMIN) (Ack 21:52 CHagerty ER Maintenance Apprentice) (22:13 CHagerty ER Maintenance Apprentice) Ammonia Level Urgent (21:48 06/25/2016 Pb MOMIN) (Ack 21:52 CHagerty ER Maintenance Apprentice) (22:13 CHagerty ER Maintenance Apprentice) PT with INR Urgent (21:49 06/25/2016 Pb MOMIN) (Ack 21:52 CHagerty ER Maintenance Apprentice) (22:13 CHagerty ER Maintenance Apprentice) PTT Urgent (21:49 06/25/2016 Pb MOMIN) (Ack 21:52 CHagerty ER Maintenance Apprentice) (22:13 CHagerty ER Maintenance Apprentice) BNP Urgent (22:00 06/25/2016 Pb MOMIN) (22:13 CHagerty ER Maintenance Apprentice) CPK Urgent (22:00 06/25/2016 Pb MOMIN) (22:13 CHagerty ER Maintenance Apprentice) Troponin-I Urgent (22:00 06/25/2016 Pb MOMIN) (22:13 CHagerty ER Maintenance Apprentice) EKG - ER Stat (22:00 06/25/2016 Pb MOMIN) (22:17 CHagerty ER Maintenance Apprentice) Type & Screen Urgent (00:00 06/26/2016 Pb MOMIN) (Ack 0:03 CHagerty ER Maintenance Apprentice) (1:58 TLewis R.N.) Type & Cross (GIB) (anemia) Urgent (00:30 06/26/2016 Pb MOMIN) (Ack 0:32 CH[facility] ER Maintenance Apprentice) (1:58 TLewis R.N.) Transfuse PRBCs (00:30 06/26/2016 Pb MOMIN) (1:58 TLewis R.N.) - (ascitic fluid for culture, gram stain, albumin, total protein, glucose, amylase, LDH, bilirubin, cell count) (01:58 06/26/2016 Pb MOMIN) (2:01 CHagerty ER Maintenance Apprentice) MEDICATION ORDERS: - (Lactulose 25 ml po now) (23:34 06/25/2016 Pb MOMIN) (Cancelled: Patient Altered Condition/ failed swallow screen0:08 DBeyer R.N.) IV FLUIDS: IV Saline Lock (21:48 06/25/2016 Pb MOMIN) (21:58 Yaima R.NPerri) ORDER SHEET NOTES: [Electronically signed by Jonh Kolb MD (03:42 06/26/2016)] [Electronically signed by Jose Roberson R.N. (03:57 06/26/2016)] [Electronically locked/signed by Jose Roberson R.N. (03:57 06/26/2016)]
--- NOTE | 2016-06-26 02:15 | Progress Note ---
Subjective General Admission History and Physical Examination Patient Name: Francisco J Martínez Admission Date: June 26, 2016 Primary Care Provider: Castillo Siddiqi M.D. Attending Physician: Rossana Cordova M.D. Admitting Physician: Toñito Veliz M.D. Code Status: FULL CODE Room: 305 SUBJECTIVE Historian: Prior medical records Reliability: Poor Chief Complaint: Altered mental status History of Present Illness: The patient is a 70-year-old white male with a history of hepatic insufficiency, recurrent hepatic encephalopathy, coronary artery disease, chronic kidney disease, diabetes mellitus type 2, recurrent gastrointestinal bleeding, CK D stage III, who presented to [facility] emergency department secondary to complaints of altered mental status. [facility] ER evaluation was consistent with hepatic encephalopathy, pancytopenia, hypokalemia, poorly controlled diabetes mellitus, coagulopathy, secondary to the above the patient was admitted for further evaluation and treatment by Toñito Veliz M.D. The history of present illness began on the evening prior to admission when the patient apparently was noted changes in his mental status. No history of trauma/falls. No focal deficits identified. Due to the patient's history of hepatic cephalopathy and altered mental status the patient presented to [facility] emergency department for further evaluation treatment. [facility] ER evaluation was felt to be consistent with hepatic encephalopathy with underlying chronic hepatic insufficiency, pancytopenia, heme positive stools, chronic recurrent ascites. Secondary to the above the patient was admitted for further evaluation to the medical intensive care unit. No other history of present illness is available at this time. No family members present. PAST MEDICAL HISTORY Illnesses: 1. Hepatic insufficiency 2. Recurrent hepatic encephalopathy 3. Type 2 diabetes mellitus 4. Coronary disease 5. Hypothyroidism 6. Pancytopenia 7. Recurrent GI bleed with associated anemia 8. Chronic kidney disease Allergies: 1. No known drug allergies Medications: 1. Atorvastatin 40 mg daily . 2. Lantus insulin 14 units subcutaneous daily at bedtime 3. Humalog insulin 4 units subcutaneous every before meals 4. Lactulose 45 grams by mouth 3 times a day 5. Levothyroxine 112 mcg by mouth every morning 6. Nitrostat 0.4 mg sublingual when necessary for chest pain 7. Omeprazole 20 mg by mouth daily at bedtime 8. vitamin 1 by mouth daily 9. Sucralfate 1 gm by mouth daily 10. Torsemide 40 mg by mouth twice a day 11. Rifaximin 550 mg by mouth twice a day Surgery: 1. Coronary angioplasty 2. CABG 3. Recurrent paracentesis 4. Esophageal variceal banding Injuries: 1. No significant Hospitalizations: 1. For above surgery and medical problems FAMILY HISTORY Parents: 1. Father, , 93, heart disease, 2. Mother, , age unknown, coronary disease, CVA Other significant family history: None SOCIAL HISTORY 1. Marital Status: 2. Oriental Orthodox: Baptist-Zoroastrianism 3. Education: Unknown 4. Employment History: Retired 5. Occupational health exposures: Unknown HABITS 1. Tobacco: None 2. Drugs: None 3. Alcohol: None 4. Caffeine: Unknown HEALTH SUPERVISION Item/Test 1. Not reviewed IMMUNIZATIONS: 1. Pneumococcal: Unknown 2. Influenza: Unknown 3. Tetanus: Unknown ADVANCED DIRECTIVES: 1. Living well: Unknown 2. POLST: Unknown 3. CODE STATUS: FULL CODE 4. Durable Power [employer] Health care: Unknown 5. Donor card: Unknown REVIEW OF SYSTEMS Remarkable for those things stated in the history of present illness and past medical history. Seventeen point review of system completed with the following notable findings: Unobtainable secondary to the patient's mental status. Physical Exam General Appearance No acute distress, Lethargic, mininally responsive HEENT Atraumatic, PERRLA, Moist mucous membranes Lungs Clear to auscultation Neck Supple Cardiovascular Regular rate and rhythm, Normal S1 and S2, No murmurs, gallops, rubs Abdomen Distended, umbilical hernia, large amount of ascites. No discernible masses. No discernible tenderness. Extremities No cyanosis, No clubbing, 3+ bilateral lower leg edema Skin scattered ecchymosis, Small pressure sore/eschar (R) buttock. See photodocumentation Neurological No lateralizing signs, Minimally responsive, no discernible focal neurological deficits response to noxious stimuli Psych/Mental Status Confused, minimally responsive, LAB Results Laboratory Tests 06/26 06/26 06/25 0158 [id number] Other Body Source Fluid Type Pending Fluid Color Pending Fluid Appearance Pending Fluid WBC Pending Fluid RBC Pending Fluid Seg Neutrophil % Pending Fluid Mononuclear Cell Pending Fluid Glucose Pending Fluid Total Protein Pending Fluid Albumin Pending Fluid LDH Pending Fluid Amylase Pending Urines Urine Color YELLOW Urine Appearance CLEAR Urine pH (5.0 - 8.0) 5.5 Ur Specific [place] (1.010 - 1.030) 1.010 Urine Protein (NEGATIVE) NEGATIVE Urine Ketones (NEGATIVE) NEGATIVE Urine Blood (NEGATIVE) NEGATIVE Urine Nitrite (NEGATIVE) NEGATIVE Urine Bilirubin (NEGATIVE) NEGATIVE Urine Urobilinogen (0.2 - 1.0 EU/dL) 0.2 Ur Leukocyte Esterase (NEGATIVE) NEGATIVE Urine RBC (0 - 1 rbc/hpf) 0-1 Urine WBC (0 - 1 wbc/hpf) 0-1 Ur Epithelial Cells (0 - 5 EPI/hpf) 0-1 Urine Bacteria (NONE SEEN) NONE SEEN Urine Glucose (NEGATIVE) NEGATIVE Urine Comment CULT NOT INDICATED 06/25 06/25 06/25 06/25 2230 2200 2200 2200 Chemistry Plasma Sodium (136 - 145 mmol/L) 138 Plasma Potassium (3.5 - 5.1 mmol/L) 3.4 Plasma Chloride (98 - 107 mmol/L) 104 CO2 (Enzymatic) (21 - 32 mmol/L) 23 BUN (7 - 18 mg/dL) 62 Creatinine (0.6 - 1.3 mg/dL) 2.3 Est GFR ( Amer) (mL/min) 36.29 Est GFR (Non-Af Amer) (mL/min) 29.94 Glucose (70 - 110 mg/dL) 254 Plasma Calcium (8.5 - 10.1 mg/dL) 8.2 Total Bilirubin (0.0 - 1.0 mg/dL) 1.2 AST (15 - 37 U/L) 19 ALT (12 - 78 U/L) 28 Alkaline Phosphatase (46 - 116 U/L) 105 Ammonia (11 - 32 umol/L) 150 Creatine Kinase (24 - 260 U/L) 57 Troponin (0.00 - 1.5 ng/mL) 0.18 B-Natriuretic Peptide (5 - 100 pg/ml) 60.4 Total Protein (6.4 - 8.2 g/dL) 6.1 Albumin (3.3 - 5.0 g/dL) 3.0 Amylase (25 - 115 U/L) 97 Lipase (73 - 393 U/L) 449 Coagulation INR (0.8 - 1.2) 1.3 APTT (24 - 34 SECONDS) 31 Hematology WBC (4.5 - 11.5 K/uL) 2.5 RBC (4.50 - 5.90 M/uL) 2.68 Hgb (13.5 - 17.5 gm/dL) 8.1 Hct (41.0 - 53.0 %) 23.9 MCV (80 - 100 fL) 89 MCH (26 - 34 pg) 30 RDW (11.6 - 14.8 %) 19.6 Neut % (Auto) (50 - 75 %) 74.8 Lymph % (Auto) (25 - 40 %) 11.6 [place] % (Auto) (3 - 14 %) 13.1 Eos % (Auto) (0 - 4 %) 0.2 Baso % (Auto) (0 - 2 %) 0.3 Plt Count, EDTA (150 - 400 K/uL) 68 PUBS MCHC (31 - 37 g/dL) 34 Microbiology Date/Time Procedure - Status Source Growth 06/26 157 Anaerobic Culture - RECD ABDOMEN 06/26 157 Body Fluid Culture - RECD ABDOMEN 06/26 157 Gram Stain - RECD ABDOMEN Assessment and Plan Problem List 1. Hepatic encephalopathy Plan -Patient presents with findings of hepatic encephalopathy -We'll place NG tube secondary to altered mental status and inability to take adequately orally -Continue lactulose, rifaximin. GoLYTELY via NG tube -Check CT scan [id number] -Monitor -Paracentesis is inconsistent with spontaneous bacterial peritonitis 2. Cardiac enzymes elevated Plan -Indeterminate elevation of troponin -No history of chest pain -Serial troponin -Monitor 3. Pancytopenia Plan -Patient with findings of chronic pancytopenia -Transfusional therapy as noted above -Monitor 4. GI bleed Plan -Patient with heme positive stools -Progressive anemia since last hospitalization -PPI Protonix 40 mg IV twice a day -Consider upper endoscopy if persistent GI bleeding/anemia -Transfuse 2 units packed RBCs -Monitor 5. Renal insufficiency Plan -Patient with history of chronic renal insufficiency -CKD stage stage III -Monitor -Review previous workup 6. Hypothyroidism Status Chronic Onset Date Unknown Plan -Continue outpatient medications -Recheck TSH if not done recently. 7. Ascites Plan -Patient with findings of ascites in the setting of hepatic insufficiency -Paracentesis performed, results inconsistent with spontaneous bacterial peritonitis -Continue outpatient medical therapy -We'll place on Rocephin 1 g IV daily in setting of cirrhosis with esophageal varices and suspected ongoing bleeding Current status: Fair, unstable Anticipated discharge date: Anticipated discharge 3-4 days Anticipated discharge placement: custodial facility Patient care time: Time spent in chart review, patient interview, physical exam, CPOE, and care documentation: 70 minutes Visit to patient today: 1 Complexity of care: High Patient discussed with Rossana Cordova MD with transfer care of patient to family practice service as of 0700 today.
--- NOTE | 2016-06-26 02:15 | Progress Note ---
Subjective General Admission History and Physical Examination Patient Name: Francisco J Martínez Admission Date: June 26, 2016 Primary Care Provider: Castillo Siddiqi M.D. Attending Physician: Rossana Cordova M.D. Admitting Physician: Toñito Veliz M.D. Code Status: FULL CODE Room: 305 SUBJECTIVE Historian: Prior medical records Reliability: Poor Chief Complaint: Altered mental status History of Present Illness: The patient is a 70-year-old white male with a history of hepatic insufficiency, recurrent hepatic encephalopathy, coronary artery disease, chronic kidney disease, diabetes mellitus type 2, recurrent gastrointestinal bleeding, CK D stage III, who presented to [facility] emergency department secondary to complaints of altered mental status. [facility] ER evaluation was consistent with hepatic encephalopathy, pancytopenia, hypokalemia, poorly controlled diabetes mellitus, coagulopathy, secondary to the above the patient was admitted for further evaluation and treatment by Toñito Veliz M.D. The history of present illness began on the evening prior to admission when the patient apparently was noted changes in his mental status. No history of trauma/falls. No focal deficits identified. Due to the patient's history of hepatic cephalopathy and altered mental status the patient presented to [facility] emergency department for further evaluation treatment. [facility] ER evaluation was felt to be consistent with hepatic encephalopathy with underlying chronic hepatic insufficiency, pancytopenia, heme positive stools, chronic recurrent ascites. Secondary to the above the patient was admitted for further evaluation to the medical intensive care unit. No other history of present illness is available at this time. No family members present. PAST MEDICAL HISTORY Illnesses: 1. Hepatic insufficiency 2. Recurrent hepatic encephalopathy 3. Type 2 diabetes mellitus 4. Coronary disease 5. Hypothyroidism 6. Pancytopenia 7. Recurrent GI bleed with associated anemia 8. Chronic kidney disease Allergies: 1. No known drug allergies Medications: 1. Atorvastatin 40 mg daily . 2. Lantus insulin 14 units subcutaneous daily at bedtime 3. Humalog insulin 4 units subcutaneous every before meals 4. Lactulose 45 grams by mouth 3 times a day 5. Levothyroxine 112 mcg by mouth every morning 6. Nitrostat 0.4 mg sublingual when necessary for chest pain 7. Omeprazole 20 mg by mouth daily at bedtime 8. vitamin 1 by mouth daily 9. Sucralfate 1 gm by mouth daily 10. Torsemide 40 mg by mouth twice a day 11. Rifaximin 550 mg by mouth twice a day Surgery: 1. Coronary angioplasty 2. CABG 3. Recurrent paracentesis 4. Esophageal variceal banding Injuries: 1. No significant Hospitalizations: 1. For above surgery and medical problems FAMILY HISTORY Parents: 1. Father, , 93, heart disease, 2. Mother, , age unknown, coronary disease, CVA Other significant family history: None SOCIAL HISTORY 1. Marital Status: 2. Rastafari: Cheondoism-Mormon 3. Education: Unknown 4. Employment History: Retired 5. Occupational health exposures: Unknown HABITS 1. Tobacco: None 2. Drugs: None 3. Alcohol: None 4. Caffeine: Unknown HEALTH SUPERVISION Item/Test 1. Not reviewed IMMUNIZATIONS: 1. Pneumococcal: Unknown 2. Influenza: Unknown 3. Tetanus: Unknown ADVANCED DIRECTIVES: 1. Living well: Unknown 2. POLST: Unknown 3. CODE STATUS: FULL CODE 4. Durable Power [employer]cher [employer] Health care: Unknown 5. Donor card: Unknown REVIEW OF SYSTEMS Remarkable for those things stated in the history of present illness and past medical history. Seventeen point review of system completed with the following notable findings: Unobtainable secondary to the patient's mental status. Physical Exam General Appearance No acute distress, Lethargic, mininally responsive HEENT Atraumatic, PERRLA, Moist mucous membranes Lungs Clear to auscultation Neck Supple Cardiovascular Regular rate and rhythm, Normal S1 and S2, No murmurs, gallops, rubs Abdomen Distended, umbilical hernia, large amount of ascites. No discernible masses. No discernible tenderness. Extremities No cyanosis, No clubbing, 3+ bilateral lower leg edema Skin scattered ecchymosis, Small pressure sore/eschar (R) buttock. See photodocumentation Neurological No lateralizing signs, Minimally responsive, no discernible focal neurological deficits response to noxious stimuli Psych/Mental Status Confused, minimally responsive, LAB Results Laboratory Tests 06/26 06/26 06/25 0158 [id number] Other Body Source Fluid Type Pending Fluid Color Pending Fluid Appearance Pending Fluid WBC Pending Fluid RBC Pending Fluid Seg Neutrophil % Pending Fluid Mononuclear Cell Pending Fluid Glucose Pending Fluid Total Protein Pending Fluid Albumin Pending Fluid LDH Pending Fluid Amylase Pending Urines Urine Color YELLOW Urine Appearance CLEAR Urine pH (5.0 - 8.0) 5.5 Ur Specific [place] (1.010 - 1.030) 1.010 Urine Protein (NEGATIVE) NEGATIVE Urine Ketones (NEGATIVE) NEGATIVE Urine Blood (NEGATIVE) NEGATIVE Urine Nitrite (NEGATIVE) NEGATIVE Urine Bilirubin (NEGATIVE) NEGATIVE Urine Urobilinogen (0.2 - 1.0 EU/dL) 0.2 Ur Leukocyte Esterase (NEGATIVE) NEGATIVE Urine RBC (0 - 1 rbc/hpf) 0-1 Urine WBC (0 - 1 wbc/hpf) 0-1 Ur Epithelial Cells (0 - 5 EPI/hpf) 0-1 Urine Bacteria (NONE SEEN) NONE SEEN Urine Glucose (NEGATIVE) NEGATIVE Urine Comment CULT NOT INDICATED 06/25 06/25 06/25 06/25 2230 2200 2200 2200 Chemistry Plasma Sodium (136 - 145 mmol/L) 138 Plasma Potassium (3.5 - 5.1 mmol/L) 3.4 Plasma Chloride (98 - 107 mmol/L) 104 CO2 (Enzymatic) (21 - 32 mmol/L) 23 BUN (7 - 18 mg/dL) 62 Creatinine (0.6 - 1.3 mg/dL) 2.3 Est GFR ( Amer) (mL/min) 36.29 Est GFR (Non-Af Amer) (mL/min) 29.94 Glucose (70 - 110 mg/dL) 254 Plasma Calcium (8.5 - 10.1 mg/dL) 8.2 Total Bilirubin (0.0 - 1.0 mg/dL) 1.2 AST (15 - 37 U/L) 19 ALT (12 - 78 U/L) 28 Alkaline Phosphatase (46 - 116 U/L) 105 Ammonia (11 - 32 umol/L) 150 Creatine Kinase (24 - 260 U/L) 57 Troponin (0.00 - 1.5 ng/mL) 0.18 B-Natriuretic Peptide (5 - 100 pg/ml) 60.4 Total Protein (6.4 - 8.2 g/dL) 6.1 Albumin (3.3 - 5.0 g/dL) 3.0 Amylase (25 - 115 U/L) 97 Lipase (73 - 393 U/L) 449 Coagulation INR (0.8 - 1.2) 1.3 APTT (24 - 34 SECONDS) 31 Hematology WBC (4.5 - 11.5 K/uL) 2.5 RBC (4.50 - 5.90 M/uL) 2.68 Hgb (13.5 - 17.5 gm/dL) 8.1 Hct (41.0 - 53.0 %) 23.9 MCV (80 - 100 fL) 89 MCH (26 - 34 pg) 30 RDW (11.6 - 14.8 %) 19.6 Neut % (Auto) (50 - 75 %) 74.8 Lymph % (Auto) (25 - 40 %) 11.6 [place] % (Auto) (3 - 14 %) 13.1 Eos % (Auto) (0 - 4 %) 0.2 Baso % (Auto) (0 - 2 %) 0.3 Plt Count, EDTA (150 - 400 K/uL) 68 PUBS MCHC (31 - 37 g/dL) 34 Microbiology Date/Time Procedure - Status Source Growth 06/26 157 Anaerobic Culture - RECD ABDOMEN 06/26 157 Body Fluid Culture - RECD ABDOMEN 06/26 157 Gram Stain - RECD ABDOMEN Assessment and Plan Problem List 1. Hepatic encephalopathy Plan -Patient presents with findings of hepatic encephalopathy -We'll place NG tube secondary to altered mental status and inability to take adequately orally -Continue lactulose, rifaximin. GoLYTELY via NG tube -Check CT scan [id number] -Monitor -Paracentesis is inconsistent with spontaneous bacterial peritonitis 2. Cardiac enzymes elevated Plan -Indeterminate elevation of troponin -No history of chest pain -Serial troponin -Monitor 3. Pancytopenia Plan -Patient with findings of chronic pancytopenia -Transfusional therapy as noted above -Monitor 4. GI bleed Plan -Patient with heme positive stools -Progressive anemia since last hospitalization -PPI Protonix 40 mg IV twice a day -Consider upper endoscopy if persistent GI bleeding/anemia -Transfuse 2 units packed RBCs -Monitor 5. Renal insufficiency Plan -Patient with history of chronic renal insufficiency -CKD stage stage III -Monitor -Review previous workup 6. Hypothyroidism Status Chronic Onset Date Unknown Plan -Continue outpatient medications -Recheck TSH if not done recently. 7. Ascites Plan -Patient with findings of ascites in the setting of hepatic insufficiency -Paracentesis performed, results inconsistent with spontaneous bacterial peritonitis -Continue outpatient medical therapy -We'll place on Rocephin 1 g IV daily in setting of cirrhosis with esophageal varices and suspected ongoing bleeding Current status: Fair, unstable Anticipated discharge date: Anticipated discharge 3-4 days Anticipated [facility] placement[facility] prison facility Patient care time: Time spent in chart review, patient interview, physical exam, CPOE, and care documentation: 70 minutes Visit to patient today: 1 Complexity of care: High Patient discussed with Rossana Cordova MD with transfer care of patient to family practice service as of 0700 today.
--- NOTE | 2016-06-26 03:57 | ED MAR SUMMARY ---
..... Medication Administration Record [facility] [address] [place], [place] [id number] Patient: HOLLY NAM Visit ID: [id number] 70y, M Weight: 91.2 kg Height/Length: 69 in BMI: 29.7 ALLERGIES: No Known Drug Allergy
--- NOTE | 2016-06-26 03:57 | ED MED RECONCILIATION SUMMARY ---
Patient: HOLLY NAM Medication Reconciliation Report [facility] VisitID: [id number] [address] [place] [address] 70y, M Registration Date/Time: 06/25/2016 Weight: 91.2 kg Height/Length: 69 in. BMI: 29.7 ALLERGIES: No Known Drug Allergy The patient's Home Medications are listed below: THE FOLLOWING MEDICATIONS NEED TO BE RECONCILED: Atorvastatin 40 mg daily insulin lantus 14 units h.s. Isulin humalog 4 units ac Lactulose 45 grams tid Levothyroxine 112 mcg q.a.m. Nitrostat 0.4 mg prn Omeprazole 20 mg q.h.s. Penatal vitamin daily Sucralfate 1 gm daily Torsemide 40 mg bid Xfaxan 550 mg bid The source(s) of the original Home Medication information: Not obtained. The following Medications were given to the patient in the Emergency Department: None. The following Medications were prescribed to the patient: None.
--- NOTE | 2016-06-26 03:57 | ED DISCHARGE INSTRUCTIONS ---
Patient: HOLLY NAM General Instructions [facility] VisitID: [id number] [address] [place] [address] 70y, M Registration Date/Time: 06/25/2016 GI bleed. Renal insufficiency. Hepatic encephalopathy. Abnormal tests: (indeterminate troponin and pancytopenia). Anemia. (Electronically signed by Jonh Kolb MD 06/26/2016 3:42)
--- NOTE | 2016-06-26 03:57 | ED MAR SUMMARY ---
..... Medication Administration Record [facility] [address] [place], [place] [id number] Patient: HOLLY NAM Visit ID: [id number] 70y, M Weight: 91.2 kg Height/Length: 69 in BMI: 29.7 ALLERGIES: No Known Drug Allergy
--- NOTE | 2016-06-26 03:57 | ED MED RECONCILIATION SUMMARY ---
Patient: HOLLY NAM Medication Reconciliation Report [facility] VisitID: [id number] [address] [place] [address] 70y, M Registration Date/Time: 06/25/2016 Weight: 91.2 kg Height/Length: 69 in. BMI: 29.7 ALLERGIES: No Known Drug Allergy The patient's Home Medications are listed below: THE FOLLOWING MEDICATIONS NEED TO BE RECONCILED: Atorvastatin 40 mg daily insulin lantus 14 units h.s. Isulin humalog 4 units ac Lactulose 45 grams tid Levothyroxine 112 mcg q.a.m. Nitrostat 0.4 mg prn Omeprazole 20 mg q.h.s. Penatal vitamin daily Sucralfate 1 gm daily Torsemide 40 mg bid Xfaxan 550 mg bid The source(s) of the original Home Medication information: Not obtained. The following Medications were given to the patient in the Emergency Department: None. The following Medications were prescribed to the patient: None.
--- NOTE | 2016-06-26 03:57 | ED DISCHARGE INSTRUCTIONS ---
Patient: HOLLY NAM General Instructions [facility] VisitID: [id number] [address] [place] [address] 70y, M Registration Date/Time: 06/25/2016 GI bleed. Renal insufficiency. Hepatic encephalopathy. Abnormal tests: (indeterminate troponin and pancytopenia). Anemia. (Electronically signed by Jonh Kolb MD 06/26/2016 3:42)
--- NOTE | 2016-06-26 07:14 | DIAGNOSTIC IMAGING REPORT ---
PROCEDURE: XR CHEST 1 VIEW INDICATION: VERIFY NG PLACEMENT TECHNIQUE: Portable AP view 06:23 a.m. COMPARISON: Chest x-ray 06/18/2016 FINDINGS: Interval placement of NG tube with the tip in the stomach. Mediastinotomy and CABG. Borderline cardiomegaly. Mediastinum and prior vessels are normal. Poor inspiration but lungs are clear. Thorax is normal. IMPRESSION: 1. NG tube tip in the stomach 2. CABG with borderline cardiomegaly 3. Results called to the floor
--- NOTE | 2016-06-26 13:36 | DIAGNOSTIC IMAGING REPORT ---
PROCEDURE: CT HEAD WITHOUT CONTRAST INDICATION: Mental status changes TECHNIQUE: Axial CT images were acquired through the head. Coronal and sagittal reformations were created. COMPARISON: None. FINDINGS: No intracranial hemorrhage or extraaxial fluid collections. Ventricles are normal in size, shape and position. There is no mass, mass effect or midline shift. The denton-white matter differentiation is normal. There is no edema. The calvarium is intact. The paranasal sinuses and mastoid air cells are normally aerated. The extracranial soft tissues and orbits are normal. IMPRESSION: 1. No CT evidence of acute intracranial process. . All CT scans at this facility use dose modulation, iterative reconstruction, and/or weight-based dosing when appropriate to reduce radiation dose to as low as reasonably achievable.
[2016-06-27] VITALS (10 sets, daily range): BP systolic 94–141; BP diastolic 46–75
[2016-06-27] MEDS ORDERED: LACTULOSE PO (15:02)
--- NOTE | 2016-06-27 15:12 | Provider's Discharge Care Plan ---
Problem, Goal, Plan Problem List 1. Hepatic encephalopathy Goals: Improved health/wellness, Therapeutic intervention Instructions: Follow up as directed, Take meds as directed 2. Ascites Goals: Therapeutic intervention Instructions: Follow up as directed, Take meds as directed 3. Cirrhosis Goals: Diagnostic testing, Improved health/wellness Instructions: Follow up as directed, Take meds as directed 4. Chronic renal failure Goals: Improve disease control, Improved health/wellness Instructions: Follow up as directed, Take meds as directed 5. Hypothyroidism Goals: Improved health/wellness, Therapeutic intervention Instructions: Follow up as directed, Take meds as directed 6. Pancytopenia Goals: Improved health/wellness Instructions: Follow up as directed
--- NOTE | 2016-06-28 00:38 | DISCHARGE SUMMARY ---
ADMIT DATE: 06/26/2016 DISCHARGE DATE: 06/27/2016 ADMITTING DIAGNOSES: 1. Hepatic encephalopathy 2. Pancytopenia 3. Cardiac enzyme elevation 4. Gastrointestinal bleed 5. Renal insufficiency 6. Hypothyroidism 7. Ascites DISCHARGE DIAGNOSES: 1. Hepatic encephalopathy, resolved 2. Cardiac enzyme elevation, normalized 3. Pancytopenia, stable 4. Gastrointestinal bleed, hemoglobin and hematocrit actually increasing 5. Chronic renal insufficiency, stable 6. Hypothyroidism, stable 7. Ascites, stable. The patient already receiving paracentesis weekly. BRIEF HISTORY: This is a 70-year-old male with hepatic insufficiency, recurrent hepatic encephalopathy, coronary artery disease, chronic kidney disease, type 2 diabetes , recurrent gastrointestinal bleeding, presented to the emergency department with complaints of altered mental status. The patient states that approximately 2 days prior to admission, he did miss a dose of his lactulose by accident. A couple hours prior to admission, the patient started having somnolence and tiredness. By the time the patient came to the hospital, he was basically nonresponsive. HOSPITAL COURSE: An NG tube was placed and the patient started receiving all medications via the nasogastric tube. He slowly started waking up and then self removed his NG tube. At this time, it was determined that he was safe to swallow all of his own medications and this tube was not replaced. The patient had pretty soft frequent bowel movements during his hospitalization. PHYSICAL EXAMINATION: VITAL SIGNS: At the time of discharge vital signs are stable. GENERAL: This is an elderly patient, sitting in a chair, in no apparent distress. HEENT: Head is atraumatic, normocephalic. Trachea is midline. LUNGS: Clear to auscultation bilaterally. HEART: S1, S2, regular rate and rhythm. No S3, S4, gallops, or rubs. There is a 2/6 systolic murmur increased at the base. ABDOMEN: Soft, nontender, with moderate to severe ascites. EXTREMITIES: There is 1+ bilateral lower extremity edema. DISCHARGE INSTRUCTIONS/MEDICATIONS: The patient was discharged home with increased home health care services including the addition of physical therapy and social work. I am concerned that this patient needs some help with coordination of care, getting appointments scheduled in order to continue to move forward with the steps needed to pursue a liver transplant, including a cardiac catheterization. Additionally, the patient has forgotten his medications a couple of times, resulting in recurrent hepatic encephalopathy and hospitalization. I advised the patient to talk to their RN and/or marriage and family social worker about getting an alarm medication system to help him remember to take his medications. Activity: Up ad isaiah. Diet: Low sodium, consistent carb/cardiac diet. Medications: vitamins 1 tab p.o. daily. Rifaximin 550 mg p.o. b.i.d. Atorvastatin 40 mg p.o. daily. Humalog insulin sliding scale. Lantus 14 units subcutaneous at bedtime. Levothyroxine 125 mg p.o. daily. Omeprazole 40 mg p.o. daily. Sucralfate 1 g p.o. q.i.d. Nitroglycerin 0.4 mg sublingual every 5 minutes x3 p.r.n. chest pain. Propranolol 10 mg p.o. t.i.d. Lactulose 30 grams p.o. t.i.d.
== END 2016-06-27 16:10 | disposition home health service (06) | DRG 442 ==
LOC: ED SRH 21:41 → TRANS SRH 06-26 01:00 → CC SRH 06-26 02:43
PROVIDERS: ADMIT Internal Medicine
PROC: 0W9G3ZX Drainage of Peritoneal Cavity, Percutaneous Approach, Diagnostic (ICD-10-PCS; principal; 2016-06-26)
PROC: 30233N1 Transfusion of Nonautologous Red Blood Cells into Peripheral Vein, Percutaneous Approach (ICD-10-PCS; 2016-06-26)
PROC: 0D9670Z Drainage of Stomach with Drainage Device, Via Natural or Artificial Opening (ICD-10-PCS; 2016-06-26)
DX: K72.90 Hepatic failure, unspecified without coma (principal); T47.3X6A Underdosing of saline and osmotic laxatives, initial encounter; Z91.138 Patient's unintentional underdosing of medication regimen for other reason; K74.60 Unspecified cirrhosis of liver; R18.8 Other ascites; K92.2 Gastrointestinal hemorrhage, unspecified; D50.0 Iron deficiency anemia secondary to blood loss (chronic); D61.818 Other pancytopenia; D68.4 Acquired coagulation factor deficiency; E11.65 Type 2 diabetes mellitus with hyperglycemia; R74.8 Abnormal levels of other serum enzymes; E87.6 Hypokalemia; E11.22 Type 2 diabetes mellitus with diabetic chronic kidney disease; N18.3 Chronic kidney disease, stage 3 (moderate); Z79.4 Long term (current) use of insulin; L89.319 Pressure ulcer of right buttock, unspecified stage; I25.10 Atherosclerotic heart disease of native coronary artery without angina pectoris
CPT/HCPCS: 80277; 81240; 81523; 83504; 85241; 90001; 90004; 90074; 90098; 90100; 90133; 90155; 90309; 90316; 90470; 90616; 90648; 90931; 91004; 91023; 91218; 91295; 91320; 91544; 91588; 92060; 92070; 92132; 92235; 92530; 92610; 92653; 92720; 92750; 93140; 94001; 94060; 95029; 95030; 95059; 95061

== ENCOUNTER 2016-08-03 13:18 | Outpatient (CLI) | payer OTHER | END 2016-08-03 23:00 | LOC: LAB SRH 13:18 | DX: K74.60 Unspecified cirrhosis of liver (principal); K92.2 Gastrointestinal hemorrhage, unspecified | CPT/HCPCS: 90074; 90100; 95059 ==

== ENCOUNTER 2016-08-22 15:23 | Observation (INO) | payer OTHER ==
[~2016-08-22] VITALS: Ht 180.3 cm; Wt 87.2 kg
[2016-08-22] VITALS (12 sets, daily range): BP systolic 105–1230; BP diastolic 46–59
--- NOTE | 2016-08-22 18:54 | HISTORY AND PHYSICAL ---
ADMITTED: 08/22/2016 CHIEF COMPLAINT: 1. Weakness HISTORY OF PRESENT ILLNESS: A 70-year-old male patient with known hepatic insufficiency and chronic renal failure, on dialysis. He was called by his dialysis physician, Dr. Ravi, and advised to go to the emergency department because of a low hemoglobin of 5.4. This was apparently drawn some days earlier at dialysis. The patient states he has been feeling weak for approximately 1-2 weeks. He has had problems with anemia, transfusion dependent for over a year. He was recently hospitalized at [facility] for workup of the possibility of his being a liver transplant candidate. He was felt to not be a transplant candidate partially because of his renal failure and overall frail condition. More recently, he was hospitalized at [facility] in [place] from 2016 through 08/13/2016. He had an EGD which found esophageal ulcers, grade 2 varices, and bleeding angiodysplasia. EGD on 08/15/2016 found a bleeding AVM, treated with argon plasma coagulation and bleeding resolved. The patient had chronic and acute renal failure, which progressed, requiring dialysis. He was started on dialysis on by Dr. Ravi. He was also treated with paracentesis x2 during that hospitalization due to recurrent large-volume ascites. The patient was assessed to see if he was a candidate for TIPS procedure, but was found to be too high risk for that. The patient also had 2 packs of platelets and 2 units of packed red blood cells given during that hospitalization. Hematocrit was stable at 22. The patient was discharged on PPI twice daily and maintained on p.o. ciprofloxacin as an outpatient for SBP prophylaxis. Additionally, the patient was maintained on midodrine 10 mg t.i.d. for hypotension, and refractory ascites and cirrhosis followed by [facility] GI with patient on lactulose. He was also maintained on torsemide and spironolactone at the time of discharge from the hospital and noted to have pancytopenia. The patient now reports feeling weak and tired, but otherwise well. He notes that with walking up any stairs, he gets very short of breath and feels a heaviness in the chest. MEDICAL/SURGICAL HISTORY: Past medical history is positive for nonalcoholic steatohepatitis; coronary artery disease; history of severe renal failure; ascites; recurrent anemia, transfusion dependent; GI bleeding with AVM, treated; cryptogenic cirrhosis; nonrheumatic tricuspid valve regurgitation; nonrheumatic mitral valve regurgitation; history of decubitus ulcers; hypertension; history of kidney stone; history of sciatica; history of hypothyroidism; history of colon polyps; GERD; splenomegaly; portal hypertension; diabetes mellitus type 2; hyperlipidemia. Surgeries: Coronary angioplasty, coronary artery bypass graft surgery, paracentesis, multiple variceal bandings, multiple EGDs, and recent AVM treatment with argon laser. MEDICATIONS: 1. Midodrine 5 mg p.o. t.i.d. 2. Lactulose 20 grams per 30 mL, 30 mL q.8 hours. 3. Humalog 4-10 units with each meal per sliding scale. 4. Lantus 10 units subcutaneous daily. 5. Xifaxan 550 mg p.o. b.i.d. 6. vitamin 1 p.o. daily. 7. Sucralfate 1 gram before meals and at bedtime. 8. Levothyroxine 112 mcg p.o. daily. 9. Lipitor 40 mg p.o. daily. ALLERGIES: 1. NONE KNOWN. SOCIAL HISTORY: male with 4 children. Retired from working at the [employer]. He has enjoyed golf and walking in the past, not recently able to do these. Habits: Alcohol: None. Drug use: None. Smoking: None. REVIEW OF SYSTEMS: HEENT: Denies vision or hearing change. Denies nasal congestion or sore throat. Respiratory: Short of breath with exertion, but not short of breath at rest. Denies cough, denies wheezing. Cardiovascular: Chest pain with exertion, but denies chest pain at rest. Chest pain resolves immediately on stopping exertion. Denies palpitations. Gastrointestinal: Denies nausea, vomiting, diarrhea. The patient notes he has black stools, but has had these for several months. They did not stop even after argon laser treatment of his ulcer and bleeding AVM. He thinks he may have had 1 brown stool in the last month. Ascites is recurrent and he notes that it is becoming more tense again. Genitourinary: Denies dysuria, hematuria, or frequency. Dermatological: Denies rash or itching or dryness Neurological: Admits to generalized weakness. Denies any focal changes or paresthesias. PHYSICAL EXAMINATION: VITAL SIGNS: Temperature 97.7, pulse 65, respirations 18, blood pressure 111/47, SaO2 100%. HEENT: Clear. NECK: Supple without adenopathy or thyromegaly. CHEST: Clear to auscultation and percussion, but high diaphragms noted bilaterally. HEART: Regular rate and rhythm without murmur. ABDOMEN: Positive bowel sounds, obese, with marked distention and positive fluid wave consistent with ascites. Masses are not palpable due to ascites. EXTREMITIES: Edema 1 to 2+ bilaterally. No cyanosis or clubbing. NEUROLOGIC: Intact and symmetric. Motor and sensory grossly normal. Cranial nerves II-XII grossly normal on confrontation testing. GENITAL: Deferred. RECTAL: Deferred. LAB/IMAGING: WBC 2.9, hemoglobin 5.2, hematocrit 14.7, platelet count 42. Sodium 137, potassium 5.2, chloride 101, bicarbonate 24, BUN 51, creatinine 5.1, glucose 240 , calcium 7.6. Total bilirubin 0.8, AST 33, ALT 33, alkaline phosphatase 132, total protein 5.7, albumin 2.5. IMPRESSION: 1. Pancytopenia with severe anemia secondary to renal failure and gastrointestinal bleeding. 2. Chronic severe renal failure, dialysis dependent. 3. Diabetes mellitus type 2, stable. 4. History of coronary artery disease with angina, now aggravated by anemia. 5. Hyperlipidemia. 6. Severe hepatic insufficiency. PLAN: Admit to [facility] for transfusion x3 units packed red blood cells. We will also give platelet transfusion due to low count and melena. Followup will be with Gastroenterology. We will discuss the situation with Gastroenterology prior to discharge.
[2016-08-23] VITALS (24 sets, daily range): BP systolic 82–123; BP diastolic 33–71
--- NOTE | 2016-08-23 07:55 | Progress Note ---
Subjective General 70 YO WITH esrd ON DIALYSIS AND WITH cHRONIC SEVERE HEPATIC INSUFFICIENCY and ascites admitted with pancytopenia and HGB 5.4. Hx melena and stomach ulcers/ AVM recently sclerosed with laser. Transfused x 3 units PRBC and a 6 pack of platelets. Hgb now 7.0. Pt reports dysuria and difficulty starting a stream. Pt produced only about 30cc urine during night. Bladder scan showed 240cc. UA and mendez ordered and ceftriaxone ordered. Physical Exam Vital Signs / I&Os Vital Signs Date Time Temp Pulse Resp B/P Pulse O2 O2 Flow FiO2 Ox Delivery Rate 05/ 0416 98.8 68 18 104/52 98 Room Air 05/07 0355 98.4 60 18 99/54 98 05/07 0322 98.6 63 18 100/56 99 Room Air 05/07 0304 98.8 68 18 107/63 99 Room Air 05/07 0209 98.4 68 18 107/58 99 Room Air 05/07 0124 98.4 62 18 109/53 99 Room Air 05/07 0100 98.4 68 18 109/49 99 Room Air 05/07 0045 98.4 67 18 100/39 99 Room Air 05/07 0040 98.4 69 18 100/39 99 Room Air 05/07 0031 Room Air 05/07 0021 98.4 65 18 82/33 99 Room Air 05/06 2330 98.4 61 18 114/59 99 Room Air 05/06 2300 67 18 110/52 99 Room Air 05/06 2230 64 18 105/49 99 Room Air 05/06 2210 98.4 62 18 113/55 100 Room Air 05/06 2155 98.4 69 18 119/56 100 Room Air 05/06 2127 98.6 61 18 111/54 99 Room Air 05/06 1930 66 18 120/59 Room Air 05/06 1900 98.2 64 18 120/53 99 05/06 1845 63 18 108/46 99 Room Air 05/06 1830 98.1 69 18 112/47 100 Room Air 05/06 1815 64 18 114/47 100 05/06 1640 97.7 65 18 111/47 100 Room Air I&O 05/06 0800 05/06 1600 05/07 0000 Intake Total 240 Output Total Balance 240 General Appearance Alert, Oriented X3, Cooperative, No acute distress Lungs Normal exam Cardiovascular Normal exam, 2/6 systolic murmur. Abdomen Normal bowel sounds, Soft, Ascites with positive fluid wave. Extremities 2+ EDEMA. Skin No Rashes LAB Results Laboratory Tests 08/22 05/ 1605 0536 Chemistry Plasma Sodium (136 - 145 mmol/L) 137 137 Plasma Potassium (3.5 - 5.1 mmol/L) 5.2 4.8 Plasma Chloride (98 - 107 mmol/L) 101 102 CO2 (Enzymatic) (21 - 32 mmol/L) 24 25 BUN (7 - 18 mg/dL) 51 51 Creatinine (0.6 - 1.3 mg/dL) 5.1 5.4 Est GFR ( Amer) (mL/min) 14.48 13.55 Est GFR (Non-Af Amer) (mL/min) 11.94 11.18 Glucose (70 - 110 mg/dL) 240 164 Plasma Calcium (8.5 - 10.1 mg/dL) 7.6 7.6 Plasma Magnesium (1.8 - 2.4 mg/dL) 1.9 Total Bilirubin (0.0 - 1.0 mg/dL) 0.8 1.5 AST (15 - 37 U/L) 33 34 ALT (12 - 78 U/L) 33 33 Alkaline Phosphatase (46 - 116 U/L) 132 129 Total Protein (6.4 - 8.2 g/dL) 5.7 5.7 Albumin (3.3 - 5.0 g/dL) 2.5 2.6 Hematology WBC (4.5 - 11.5 K/uL) 2.9 2.3 RBC (4.50 - 5.90 M/uL) 1.56 2.21 Hgb (13.5 - 17.5 gm/dL) 5.2 7.0 Hct (41.0 - 53.0 %) 14.7 20.7 MCV (80 - 100 fL) 94 93 MCH (26 - 34 pg) 33 31 RDW (11.6 - 14.8 %) 23.7 20.7 Neut % (Auto) (50 - 75 %) 76.3 67.3 Lymph % (Auto) (25 - 40 %) 7.5 10.5 [place] % (Auto) (3 - 14 %) 15.6 20.6 Eos % (Auto) (0 - 4 %) 0.1 0.7 Baso % (Auto) (0 - 2 %) 0.5 0.9 Plt Count, EDTA (150 - 400 K/uL) 42 53 RBC Morphology (87543 A) 2+ ANISOCYTOSIS 2+ ANISOCYTOSIS PUBS MCHC (31 - 37 g/dL) 35 34 Assessment and Plan Problem List 1. Anemia Plan Transfuse x 2 more units PRBC 2. GI bleeding Plan Continue pantoprazole. Repeat EGD by GI planned. 3. Liver failure Plan Continue current care. Paracentesis soon. 4. Chronic renal failure Plan Continue dialysis as planned. 5. Urinary tract infection Plan UA and IV antibiotics. Mendez until urine flow improves. Tamsulosin for flow.
[2016-08-23] MEDS ORDERED: CEPHALEXIN500 MG PO (20:47)
[2016-08-23] MEDS ORDERED: PRILOSEC OTC20 MG PO (20:51)
--- NOTE | 2016-08-23 20:57 | Provider's Discharge Care Plan ---
Problem, Goal, Plan Problem List 1. Urinary tract infection Goals: Improve disease control Instructions: Take meds as directed 2. GI bleed Goals: Improve disease control Instructions: Take meds as directed 3. Anemia Goals: Improve disease control Instructions: Transfusion done. F/U with GI as planned. 4. Pancytopenia Goals: Improved health/wellness Instructions: Transfusion done. 5 units shoaib cells and 1 six pack of platelets. 5. Hepatic encephalopathy Goals: Improved health/wellness Instructions: Continue care per GI. 6. Ascites Goals: Improved health/wellness Instructions: Call [facility] radiology to schedule paracentesis. 7. ESRD (end stage renal disease) on dialysis Goals: Improve disease control Instructions: F/u with Dr. Powell and continue dialysis.
--- NOTE | 2016-08-23 20:57 | Provider's Discharge Care Plan ---
Problem, Goal, Plan Problem List 1. Urinary tract infection Goals: Improve disease control Instructions: Take meds as directed 2. GI bleed Goals: Improve disease control Instructions: Take meds as directed 3. Anemia Goals: Improve disease control Instructions: Transfusion done. F/U with GI as planned. 4. Pancytopenia Goals: Improved health/wellness Instructions: Transfusion done. 5 units shoaib cells and 1 six pack of platelets. 5. Hepatic encephalopathy Goals: Improved health/wellness Instructions: Continue care per GI. 6. Ascites Goals: Improved health/wellness Instructions: Call [facility] radiology to schedule paracentesis. 7. ESRD (end stage renal disease) on dialysis Goals: Improve disease control Instructions: F/u with Dr. Powell and continue dialysis.
--- NOTE | 2016-08-23 23:58 | DISCHARGE SUMMARY ---
ADMIT DATE: 08/22/2016 DISCHARGE DATE: 08/23/2016 ADMITTING DIAGNOSES: 1. Pancytopenia with severe anemia secondary to renal failure and gastrointestinal bleed 2. Chronic severe renal failure, dialysis dependent 3. Diabetes mellitus type 2, stable 4. History of coronary artery disease with angina 5. Hyperlipidemia 6. Severe hepatic insufficiency DISCHARGE DIAGNOSES: 1. Pancytopenia with severe anemia secondary to end-stage renal disease and gastrointestinal bleed 2. Severe hepatic insufficiency 3. Urinary tract infection 4. Diabetes mellitus type 2, stable 5. History of coronary artery disease with angina aggravated by anemia 6. Hyperlipidemia BRIEF HISTORY: The patient presented to [facility] after receiving a phone call from his residency coordinator, Dr. Powell, noting marked anemia and advising that he present to an emergency department for transfusion. He contacted me by phone and was direct admitted to [facility] for transfusion and evaluation. On presentation, the patient admitted to weakness, dizziness. He also admitted to dyspnea on exertion and had chest pain with walking up stairs. At rest, he was comfortable. HOSPITAL COURSE: The patient was admitted and treated with transfusion of packed red blood cells initially x3 units with 2 units of platelets due to low platelet count as pancytopenia was noted. He had improvement with this, but hematocrit was only slightly over 20, and he remained fatigued. Therefore, he was transfused with 2 more units of packed red blood cells. During the hospitalization, he complained of difficulty initiating flow of urine. Urinalysis was obtained, which was cloudy, consistent with UTI. White blood cells were noted. He was, therefore, started on ceftriaxone and noted some immediate improvement in symptomatology. Kulkarni catheter placement was attempted as the patient was having some difficulty with urination; however, because of phimosis, it could not be easily passed. The patient declined further attempts and voiding became easier on antibiotics. The patient had no active bleeding during the hospital course. He did admit to a history of melena and is under the care of GI with recent laser coagulation of AVM and planned repeat EGD in the near future. He is also on ongoing dialysis per Dr. Powell and has regular paracentesis appointments for his marked ascites. DISCHARGE INSTRUCTIONS/MEDICATIONS: Disposition: Home. Discharge medications: Omeprazole 20 mg p.o. b.i.d., cephalexin 500 mg p.o. t.i.d., vitamins 1 p.o. daily, Rifaximin 550 mg 1 p.o. b.i.d., atorvastatin 40 mg p.o. daily, Lispro insulin 4 units subcutaneous a.c., glargine insulin 14 units subcu at bedtime, levothyroxine 125 mcg p.o. daily, sucralfate 1 gram before meals and at bedtime, nitroglycerin 0.4 mg sublingual q.5 minutes p.r.n. chest pain, propranolol hydrochloride 10 mg p.o. t.i.d., lactulose 30 grams p.o. t.i.d. Special instructions: Follow up with Dr. Powell, Nephrology, for ongoing dialysis and maintain dialysis appointments. Follow up with Dr. Fox, GI, for ongoing evaluation and management of GI ulcers and AVM and repeat EGD as planned. Follow up with my office in 2 weeks. Follow up with [facility] Radiology, Dr. Rojas, for repeat paracentesis. Continue diabetic diet with nephrology diet as prior to admission.
== END 2016-08-23 21:34 | disposition home or self-care (01) ==
LOC: OB SRH 15:23 → CC SRH 08-23 09:56
PROVIDERS: ADMIT Family Medicine
PROC: 30233N1 Transfusion of Nonautologous Red Blood Cells into Peripheral Vein, Percutaneous Approach (ICD-10-PCS; principal; 2016-08-22)
PROC: 30233R1 Transfusion of Nonautologous Platelets into Peripheral Vein, Percutaneous Approach (ICD-10-PCS; 2016-08-22)
DX: I13.11 Hypertensive heart and chronic kidney disease without heart failure, with stage 5 chronic kidney disease, or end stage renal disease (principal); D63.1 Anemia in chronic kidney disease; D50.0 Iron deficiency anemia secondary to blood loss (chronic); D61.818 Other pancytopenia; E11.22 Type 2 diabetes mellitus with diabetic chronic kidney disease; N18.6 End stage renal disease; K74.69 Other cirrhosis of liver; I25.118 Atherosclerotic heart disease of native coronary artery with other forms of angina pectoris; K31.811 Angiodysplasia of stomach and duodenum with bleeding; N39.0 Urinary tract infection, site not specified; K72.90 Hepatic failure, unspecified without coma; N47.1 Phimosis; E78.5 Hyperlipidemia, unspecified; Z99.2 Dependence on renal dialysis; Z79.4 Long term (current) use of insulin; I34.0 Nonrheumatic mitral (valve) insufficiency; E03.9 Hypothyroidism, unspecified
CPT/HCPCS: 29231; 29251; 29253; 29259; 29264; 83475; 90001; 90004; 90074; 90098; 90100; 90155; 90469; 91004; 91162; 91163; 91544; 92132; 92720; 95059

== ENCOUNTER 2016-09-14 20:46 | Emergency (ER) | payer OTHER ==
[~2016-09-14 20:46] MED LIST changes: +CEPHALEXIN500 MG PO; +PRILOSEC OTC20 MG PO
--- NOTE | 2016-09-14 21:32 | ED ORDER SUMMARY ---
..... Patient: HOLLY NAM OrderSheet [facility] VisitID: [id number] [address] [place] [address] 70y, M Registration Date/Time: 09/14/2016 ORDER SHEET Weight: 90.7 kg Allergies: No Known Drug Allergy GENERAL ORDERS: Dress Wounds (baci) (kerlex) (both f-arms) (21:25 09/14/2016 Niraj Sparks) (21:53 Rodrick RichardsonN.) Irrigate Wounds (:09/14/2016 Niraj Sparks) (21:53 Rodrick Brothers.) MEDICATION ORDERS: IV FLUIDS: ORDER SHEET NOTES: [Electronically signed by Ivon Segura R.N. (21:53 09/14/2016)] [Electronically signed by Kranthi Perez Dr. (09:12 09/19/2016)] [Electronically locked/signed by Ivon Segura R.N. (21:53 09/14/2016)]
--- NOTE | 2016-09-14 21:32 | ED CLINICAL REPORT ---
Clinical Report - Physicians/Mid Levels [facility] [address] [place] [address] 09/14/2016 20:46 Patient: HOLLY NAM Time Seen: 2118. Arrived- By private vehicle. Historian- patient. HISTORY OF PRESENT ILLNESS Chief Complaint: Injury to right and left forearm. The injury happened today. Fell. Occurred at home. ( tripped on a yellow tape at home. states they had the driveway re-done and had the tape out.). Patient is experiencing mild pain. Patient denies injury to the head or neck. No other injury. ( full AROM without difficulty. reports no LOC, nausea, vomiting, or abnormal behavior.). REVIEW OF SYSTEMS The patient sustained a laceration. No swelling, tingling, numbness, weakness or suspected foreign body. All systems otherwise negative, except as recorded above. PAST HISTORY See nurses notes. Tetanus immunization status is up-to-date. Medications: Levothyroxine 112 mcg q.a.m.. Nitrostat 0.4 mg prn. Omeprazole 20 mg q.h.s.. Penatal vitamin daily. Sucralfate 1 gm daily. Torsemide 40 mg bid. Xfaxan 550 mg bid. Atorvastatin 40 mg daily . insulin lantus 14 units h.s.. Isulin humalog 4 units ac. Lactulose 45 grams tid. Allergies: No Known Drug Allergy. SOCIAL HISTORY Never smoker. No alcohol use or drug use. Is a local resident. ADDITIONAL NOTES The nursing notes have been reviewed. PHYSICAL EXAM Vital Signs: 09/14/2016 21:05 BP: 120/58. HR: 70. RR: 16. O2 saturation: 100%. Temp: 97.8 F. Blood pressure normal. Oxygen saturation normal. Appearance: Alert. Oriented X3. No acute distress. Head: Head atraumatic. Eyes: Pupils equal, round and reactive to light. Eyes normal inspection. ENT: No hemotympanum. Ears normal. Nose normal. Pharynx normal. (no marshall sign. no raccoon eyes.). Neck: Normal inspection. Neck supple. C-spine non-tender. CVS: Normal heart rate and rhythm. Heart sounds normal. Pulses normal. Respiratory: No respiratory distress. Breath sounds normal. Chest nontender. No rales, rhonchi or wheezes. Abdomen: No visible injury. Soft and nontender. Bowel sounds normal. No mass. (baseline distention). Back: Normal inspection. No tenderness. ROM normal. Skin: Skin intact. Skin warm and dry. Normal skin color. Normal skin turgor. (superficial skin tears to the right and left distal forearm. right > left. measures 1 cm by 7 cm on the right and 1 x 4 cm on the left.). Extremities: Upper extremity otherwise negative. Extremities otherwise negative. Neuro, Vascular and Tendons: Vascular status intact. Sensation intact. Motor intact. Tendon function intact. Neuro: Oriented X 3. No motor deficit. No sensory deficit. PROGRESS AND PROCEDURES Course of Care: The patient is a pleasant 70 yo male with ground level fall. no head injury or other signs of trauma. No pain with AROM of the arm. Patient only requesting wounds be irrigated. Declines further work up. States he does not want his blood drawn or any imaging. Says he will get his blood drawn tomorrow. Discussed with patient wound infection risk, work up, diagnosis, home care, follow up, and return precautions. All questions answered. Patient expressed understanding of these instructions and was agreeable to them. Disposition: Discharged. Condition: good. CLINICAL IMPRESSION 09/14/2016 21:05 BP: 120/58. HR: 70. RR: 16. O2 saturation: 100%. Temp: 97.8 F. Blood pressure normal. Oxygen saturation normal. Single superficial skin avulsion of the right forearm and left forearm. INSTRUCTIONS Warnings: INFECTION: Watch for signs of infection (increasing heat and redness, pus-like drainage, swelling, or increased pain). Return or see your doctor if these signs occur. GENERAL WARNINGS: Return or contact your physician immediately if your condition worsens or changes unexpectedly, if not improving as expected, or if other problems arise. Specifically return if pain, vomiting, bleeding, breathing difficulty or fever. Your Current Medications: CONTINUE TAKING THE FOLLOWING MEDICATIONS: Atorvastatin 40 mg daily *. insulin lantus 14 units h.s.*. Isulin humalog 4 units ac*. Lactulose 45 grams tid*. Levothyroxine 112 mcg q.a.m.*. Nitrostat 0.4 mg prn*. Omeprazole 20 mg q.h.s.*. Penatal vitamin daily*. Sucralfate 1 gm daily*. Torsemide 40 mg bid*. Xfaxan 550 mg bid*. OTC Medications: Bacitracin ointment (available over the counter): use according to label instructions. Follow-up: Return to the emergency department as needed. Follow up with your doctor in one week. Reason for referral: recheck today's concerns. Summary of care provided to patient via paper. Screening today revealed the patient's blood pressure to be in the normal range. The patient should follow up with a primary care provider for blood pressure management. Understanding of the discharge instructions verbalized by patient. (Electronically signed by Kranthi Perez Dr. 09/19/2016 9:12)
--- NOTE | 2016-09-14 21:32 | ED ORDER SUMMARY ---
..... Patient: HOLLY NAM OrderSheet [facility] VisitID: [id number] [address] [place] [address] 70y, M Registration Date/Time: 09/14/2016 ORDER SHEET Weight: 90.7 kg Allergies: No Known Drug Allergy GENERAL ORDERS: Dress Wounds (baci) (kerlex) (both f-arms) (21:25 09/14/2016 Niraj Sparks) (21:53 Rodrick RichardsonN.) Irrigate Wounds (:09/14/2016 Niraj Sparks) (21:53 Rodrick Brothers.) MEDICATION ORDERS: IV FLUIDS: ORDER SHEET NOTES: [Electronically signed by Ivon Segura R.N. (21:53 09/14/2016)] [Electronically signed by Kranthi Perez Dr. (09:12 09/19/2016)] [Electronically locked/signed by Ivon Segura R.N. (21:53 09/14/2016)]
--- NOTE | 2016-09-14 21:32 | ED NURSING NOTES ---
Clinical Report - Nurses [facility] [address] [place] [address] 09/14/2016 20:46 [id number] Triage time 2100. Acuity: LEVEL 4. Chief Complaint: FALL while walking; tripped. Alert. No acute distress. --21:15 Ary Cantu 21:05 09/14/16. BP: 120/58. HR: 70. RR: 16. O2 saturation: 100%. Temp: 97.8 F. Pain level now 4/10. --21:15 Ary Cantu. Weight: 90.7 kg. Height/Length: 71 inches. BMI: 27.9. --21:04 Ary Cantu. Medications Atorvastatin 40 mg daily . insulin lantus 14 units h.s.. Isulin humalog 4 units ac. Lactulose 45 grams tid. --21:06 Ary Cantu Levothyroxine 112 mcg q.a.m.. Nitrostat 0.4 mg prn. Omeprazole 20 mg q.h.s.. Penatal vitamin daily. Sucralfate 1 gm daily. Torsemide 40 mg bid. Xfaxan 550 mg bid. --21:06 Ary Cantu. Allergies No Known Drug Allergy. --21:06 Ary Cantu. History Arrived by private vehicle. Historian: patient. Accompanied by family. Location of injuries: right forearm, left forearm and left knee. This occurred just prior to arrival. 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 Trauma activation: Pre-hospital notification of patient arrival was not received. --21:15 Ary Cantu. PROBLEMS: Hepatic Encephalopathy. Dyspnea. Dizziness. Renal Failure. Coronary Artery Disease. Ascites. Hypovolemia. Heart Disease. Anemia. Hypoglycemia. Herpes Zoster. Diabetes Mellitus. Thyroid Disease. Liver disease. Abnormal Test. GI Bleeding. Renal Insufficiency. Cirrhosis. Abnormal EKG. Chest Pain. Near Syncope. Liver disease. --21:06 Ary Cantu. ADDITIONAL SURGERIES: Colonoscopy. Coronary Angioplasty. Coronary Artery Bypass Graft. Endoscopy. Paracentesis. --21:06 Ary Cantu. Interventions ID band on patient. To treatment room. --21:15 Ary Cantu. PHYSICAL ASSESSMENT Ambulatory to room. GENERAL / NEURO / PSYCH: Alert. Oriented X 4. Appears in no acute distress. HEENT: Pupils equal, round and reactive to light. Head non-tender. RESPIRATORY: Respirations not labored. Chest nontender. Breath sounds within normal limits. CVS: Pulses within normal limits. Capillary refill less than 2 seconds. GI / : Abdominal distention. EXTREMITIES: Right forearm: tenderness and ecchymosis (skin tear x 1). Left forearm: tenderness and ecchymosis (skin tears x 2). Left knee: tenderness, swelling and ecchymosis. SKIN: Skin is warm and dry. --21:16 Ary Cantu. NURSING PROGRESS NOTES Reassurance given. Bed placed in lowest position. Brakes of bed on. Patient ready for evaluation- chart flagged. --21:17 Ary Cantu 21:40. Wound cleansed with sterile saline. Applied dressing consisting of 4x4 gauze, following the application of antibiotic ointment (bacitracin). Secured with kerlix (to bilateral forearms.). --21:53 Ivon Segura R.N. DISPOSITION / DISCHARGE 21:50 09/14/16. BP: deferred. HR: 67. RR: 15. O2 saturation: 100% on room air. Temp: deferred. Batres-Roberson pain scale: 2/10. --21:51 Ivon Segura R.N. Condition at departure: improved and stable. No learning barriers present. Discharge instructions provided and reviewed with the patient and spouse. Patient and spouse verbalized understanding. Written instructions provided in Malay. The patient was discharged home and accompanied by spouse. He left the Emergency Department ambulatory and via private vehicle. Spouse driving. --21:52 Ivon Segura R.N. Locked/Released at 09/14/2016 21:53 by Iovn Segura R.N.
--- NOTE | 2016-09-14 21:32 | ED NURSING NOTES ---
Clinical Report - Nurses [facility] [address] [place] [address] 09/14/2016 20:46 [id number] Triage [facility] 2100. Acuity: LEVEL 4. Chief Complaint: FALL while walking; tripped. Alert. No acute distress. --21:15 Ary Cantu 21:05 09/14/16. BP: 120/58. HR: 70. RR: 16. O2 saturation: 100%. Temp: 97.8 F. Pain level now 4/10. --21:15 Ary Cantu. Weight: 90.7 kg. Height/Length: 71 inches. BMI: 27.9. --21:04 Ary Cantu. Medications Atorvastatin 40 mg daily . insulin lantus 14 units h.s.. Isulin humalog 4 units ac. Lactulose 45 grams tid. --21:06 Ary Cantu Levothyroxine 112 mcg q.a.m.. Nitrostat 0.4 mg prn. Omeprazole 20 mg q.h.s.. Penatal vitamin daily. Sucralfate 1 gm daily. Torsemide 40 mg bid. Xfaxan 550 mg bid. --21:06 Ary Cantu. Allergies No Known Drug Allergy. --21:06 Ary Cantu. History Arrived by private vehicle. Historian: patient. Accompanied by family. Location of injuries: right forearm, left forearm and left knee. This occurred just prior to arrival. 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 Trauma activation: Pre-hospital notification of patient arrival was not received. --21:15 Ary Cantu. PROBLEMS: Hepatic Encephalopathy. Dyspnea. Dizziness. Renal Failure. Coronary Artery Disease. Ascites. Hypovolemia. Heart Disease. Anemia. Hypoglycemia. Herpes Zoster. Diabetes Mellitus. Thyroid Disease. Liver disease. Abnormal Test. GI Bleeding. Renal Insufficiency. Cirrhosis. Abnormal EKG. Chest Pain. Near Syncope. Liver disease. --21:06 Ary Cantu. ADDITIONAL SURGERIES: Colonoscopy. Coronary Angioplasty. Coronary Artery Bypass Graft. Endoscopy. Paracentesis. --21:06 Ary Cantu. Interventions ID band on patient. To treatment room. --21:15 Ary Cantu. PHYSICAL ASSESSMENT Ambulatory to room. GENERAL / NEURO / PSYCH: Alert. Oriented X 4. Appears in no acute distress. HEENT: Pupils equal, round and reactive to light. Head non-tender. RESPIRATORY: Respirations not labored. Chest nontender. Breath sounds within normal limits. CVS: Pulses within normal limits. Capillary refill less than 2 seconds. GI / : Abdominal distention. EXTREMITIES: Right forearm: tenderness and ecchymosis (skin tear x 1). Left forearm: tenderness and ecchymosis (skin tears x 2). Left knee: tenderness, swelling and ecchymosis. SKIN: Skin is warm and dry. --21:16 Ary Cantu. NURSING PROGRESS NOTES Reassurance given. Bed placed in lowest position. Brakes of bed on. Patient ready for evaluation- chart flagged. --21:17 Ary Cantu 21:40. Wound cleansed with sterile saline. Applied dressing consisting of 4x4 gauze, following the application of antibiotic ointment (bacitracin). Secured with kerlix (to bilateral forearms.). --21:53 Ivon Segura R.N. DISPOSITION / DISCHARGE 21:50 09/14/16. BP: deferred. HR: 67. RR: 15. O2 saturation: 100% on room air. Temp: deferred. Batres-Roberson pain scale: 2/10. --21:51 Ivon Segura R.N. Condition at departure: improved and stable. No learning barriers present. Discharge instructions provided and reviewed with the patient and spouse. Patient and spouse verbalized understanding. Written instructions provided in Belarusian. The patient was discharged home and accompanied by spouse. He left the Emergency Department ambulatory and via private vehicle. Spouse driving. --21:52 Ivon Segura R.N. Locked/Released at 09/14/2016 21:53 by Ivon Sgeura R.N.
--- NOTE | 2016-09-19 09:12 | ED DISCHARGE INSTRUCTIONS ---
Patient: HOLLY NAM General Instructions [facility] VisitID: [id number] [address] [place] [address] 70y, M Registration Date/Time: 09/14/2016 09/14/2016 21:05 BP: 120/58. HR: 70. RR: 16. O2 saturation: 100%. Temp: 97.8 F. Blood pressure normal. Oxygen saturation normal. Single superficial skin avulsion of the right forearm and left forearm. INSTRUCTIONS Warnings: INFECTION: Watch for signs of infection (increasing heat and redness, pus-like drainage, swelling, or increased pain). Return or see your doctor if these signs occur. GENERAL WARNINGS: Return or contact your physician immediately if your condition worsens or changes unexpectedly, if not improving as expected, or if other problems arise. Specifically return if pain, vomiting, bleeding, breathing difficulty or fever. Your Current Medications: CONTINUE TAKING THE FOLLOWING MEDICATIONS: Atorvastatin 40 mg daily *. insulin lantus 14 units h.s.*. Isulin humalog 4 units ac*. Lactulose 45 grams tid*. Levothyroxine 112 mcg q.a.m.*. Nitrostat 0.4 mg prn*. Omeprazole 20 mg q.h.s.*. Penatal vitamin daily*. Sucralfate 1 gm daily*. Torsemide 40 mg bid*. Xfaxan 550 mg bid*. OTC Medications: Bacitracin ointment (available over the counter): use according to label instructions. Follow-up: Return to the emergency department as needed. Follow up with your doctor in one week. Reason for referral: recheck today's concerns. Summary of care provided to patient via paper. Screening today revealed the patient's blood pressure to be in the normal range. The patient should follow up with a primary care provider for blood pressure management. Understanding of the discharge instructions verbalized by patient. (Electronically signed by Kranthi Perez Dr. 09/19/2016 9:12)
--- NOTE | 2016-09-19 09:12 | ED DISCHARGE INSTRUCTIONS ---
Patient: HOLLY NAM General Instructions [facility] VisitID: [id number] [address] [place] [address] 70y, M Registration Date/Time: 09/14/2016 09/14/2016 21:05 BP: 120/58. HR: 70. RR: 16. O2 saturation: 100%. Temp: 97.8 F. Blood pressure normal. Oxygen saturation normal. Single superficial skin avulsion of the right forearm and left forearm. INSTRUCTIONS Warnings: INFECTION: Watch for signs of infection (increasing heat and redness, pus-like drainage, swelling, or increased pain). Return or see your doctor if these signs occur. GENERAL WARNINGS: Return or contact your physician immediately if your condition worsens or changes unexpectedly, if not improving as expected, or if other problems arise. Specifically return if pain, vomiting, bleeding, breathing difficulty or fever. Your Current Medications: CONTINUE TAKING THE FOLLOWING MEDICATIONS: Atorvastatin 40 mg daily *. insulin lantus 14 units h.s.*. Isulin humalog 4 units ac*. Lactulose 45 grams tid*. Levothyroxine 112 mcg q.a.m.*. Nitrostat 0.4 mg prn*. Omeprazole 20 mg q.h.s.*. Penatal vitamin daily*. Sucralfate 1 gm daily*. Torsemide 40 mg bid*. Xfaxan 550 mg bid*. OTC Medications: Bacitracin ointment (available over the counter): use according to label instructions. Follow-up: Return to the emergency department as needed. Follow up with your doctor in one week. Reason for referral: recheck today's concerns. Summary of care provided to patient via paper. Screening today revealed the patient's blood pressure to be in the normal range. The patient should follow up with a primary care provider for blood pressure management. Understanding of the discharge instructions verbalized by patient. (Electronically signed by Kranthi Perez Dr. 09/19/2016 9:12)
--- NOTE | 2016-09-19 09:12 | ED MED RECONCILIATION SUMMARY ---
Patient: HOLLY NAM Medication Reconciliation Report [facility] VisitID: [id number] [address] [place] [address] 70y, M Registration Date/Time: 09/14/2016 Weight: 90.7 kg Height/Length: 71 in. BMI: 27.9 ALLERGIES: No Known Drug Allergy The patient's Home Medications are listed below: CONTINUE TAKING THE FOLLOWING MEDICATIONS: Atorvastatin 40 mg daily insulin lantus 14 units h.s. Isulin humalog 4 units ac Lactulose 45 grams tid Levothyroxine 112 mcg q.a.m. Nitrostat 0.4 mg prn Omeprazole 20 mg q.h.s. Penatal vitamin daily Sucralfate 1 gm daily Torsemide 40 mg bid Xfaxan 550 mg bid The source(s) of the original Home Medication information: Not obtained. The following Medications were given to the patient in the Emergency Department: None. The following Medications were prescribed to the patient: Bacitracin ointment (available over the counter): use according to label instructions. -- Kranthi ePrez Dr.
--- NOTE | 2016-09-19 09:12 | ED MED RECONCILIATION SUMMARY ---
Patient: HOLLY NAM Medication Reconciliation Report [facility] VisitID: [id number] [address] [place] [address] 70y, M Registration Date/Time: 09/14/2016 Weight: 90.7 kg Height/Length: 71 in. BMI: 27.9 ALLERGIES: No Known Drug Allergy The patient's Home Medications are listed below: CONTINUE TAKING THE FOLLOWING MEDICATIONS: Atorvastatin 40 mg daily insulin lantus 14 units h.s. Isulin humalog 4 units ac Lactulose 45 grams tid Levothyroxine 112 mcg q.a.m. Nitrostat 0.4 mg prn Omeprazole 20 mg q.h.s. Penatal vitamin daily Sucralfate 1 gm daily Torsemide 40 mg bid Xfaxan 550 mg bid The source(s) of the original Home Medication information: Not obtained. The following Medications were given to the patient in the Emergency Department: None. The following Medications were prescribed to the patient: Bacitracin ointment (available over the counter): use according to label instructions. -- Kranthi Perez Dr.
--- NOTE | 2016-09-19 09:12 | ED MAR SUMMARY ---
..... Medication Administration Record [facility] [address] [place], [place] [id number] Patient: HOLLY NAM Visit ID: [id number] 70y, M Weight: 90.7 kg Height/Length: 71 in BMI: 27.9 ALLERGIES: No Known Drug Allergy
--- NOTE | 2016-09-19 09:12 | ED MAR SUMMARY ---
..... Medication Administration Record [facility] [address] [place], [place] [id number] Patient: HOLLY NAM Visit ID: [id number] 70y, M Weight: 90.7 kg Height/Length: 71 in BMI: 27.9 ALLERGIES: No Known Drug Allergy
== END 2016-09-14 21:49 | disposition home or self-care (01) ==
LOC: ED SRH 20:46
DX: S51.812A Laceration without foreign body of left forearm, initial encounter (principal); S51.811A Laceration without foreign body of right forearm, initial encounter; W01.0XXA Fall on same level from slipping, tripping and stumbling without subsequent striking against object, initial encounter; Y93.9 Activity, unspecified; Y92.009 Unspecified place in unspecified non-institutional (private) residence as the place of occurrence of the external cause; Y99.9 Unspecified external cause status; E11.9 Type 2 diabetes mellitus without complications; Z79.899 Other long term (current) drug therapy; Z79.4 Long term (current) use of insulin

== ENCOUNTER 2016-09-30 17:01 | Observation (INO) | payer OTHER ==
[~2016-09-30] VITALS: Ht 180.3 cm; Wt 81.4 kg
[2016-09-30 16:46] VITALS: BP 99/57
[2016-09-30] MEDS ORDERED: FUROSEMIDE20 MG PO (19:23)
[2016-09-30] MEDS ORDERED: MIDODRINE HCL5 MG PO (19:26)
[2016-09-30] MEDS ORDERED: PANTOPRAZOLE SO40 MG PO (19:27)
[2016-09-30] MEDS ORDERED: DEMADEX10 MG PO (19:30)
[2016-09-30 21:18] VITALS: BP 107/36
[2016-09-30 21:43] VITALS: BP 96/43
[2016-09-30 22:41] VITALS: BP 96/48
[2016-09-30 23:33] VITALS: BP 96/45
[2016-10-01] VITALS (10 sets, daily range): BP systolic 84–103; BP diastolic 38–57
--- NOTE | 2016-10-01 02:28 | HISTORY AND PHYSICAL ---
ADMITTED: 09/30/2016 CHIEF COMPLAINT: 1. Bleeding HISTORY OF PRESENT ILLNESS: A 71-year-old male with a history of liver failure secondary to nonalcoholic steatohepatitis and chronic renal failure on dialysis, presented to [facility] for outpatient procedure paracentesis because of recurrent ascites. He has been getting 8 liters of fluid removed once a week. He is also on dialysis 3 times weekly. Last dialysis was yesterday. Paracentesis was uneventful until about jail through the procedure when they were unable to obtain more fluid, they therefore removed the needle to another site and then had a bloody tap. This seemed to improve with less thickness of the bleeding and the fluid. Ultrasound was performed to try to find a source of bleeding, but no bleeding source was identified. Therefore, monitoring was recommended. The patient was taken to the floor where 50 grams of albumin was given as per routine with paracentesis. He had labs drawn before and after the albumin infusion which showed a decrease in hemoglobin from 7.1 to 6. The patient was therefore admitted for transfusion of blood. He has had a transfusion dependent anemia in the past and typically needs transfusions every 1-2 weeks. MEDICAL/SURGICAL HISTORY: Past medical history remarkable as noted above. 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 Surgeries: Coronary angioplasty, coronary artery bypass graft surgery, paracentesis multiple and repeated, variceal bandings, multiple EGDs, AVM treatment with argon laser, shunt placement for dialysis. MEDICATIONS: 1. Midodrine 5 mg p.o. t.i.d. 2. Lactulose 20 grams t.i.d. 3. Humalog 4-10 units with each meal. 4. Lantus 10 units subcutaneous daily. 5. vitamin 1 p.o. daily. 6. Levothyroxine 112 mcg p.o. daily. 7. Lipitor 40 mg p.o. daily. 8. Pantoprazole 40 mg p.o. daily. 9. Cipro 250 mg p.o. daily. 10. Torsemide 100 mg p.o. daily. 11. Spironolactone 100 mg p.o. daily. 12. Gabapentin 100 mg p.o. t.i.d. ALLERGIES: 1. SOCIAL HISTORY: male with 4 children, retired from [employer]. Sikh. Habits Alcohol: None. Drug use: None. Smoking: None. FAMILY HISTORY: No family history of liver failure or renal failure. Family history is noncontributory. REVIEW OF SYSTEMS: HEENT: Denies hearing or vision change. Cardiovascular: Denies chest pain, palpitations, or paroxysmal nocturnal dyspnea. Respiratory: Denies cough, shortness of breath, or wheezing. Gastrointestinal: Denies bright red blood per rectum, but has chronic dark stools. Denies nausea or vomiting, marked abdominal distention from ascites as described above. Genitourinary: Denies dysuria, hematuria, or frequency of urination. Musculoskeletal: Denies joint swelling or joint pain. Dermatologic: Denies rash, skin lesions, or dryness. PHYSICAL EXAMINATION: GENERAL: Well-developed, well-nourished male in no acute distress. VITAL SIGNS: Blood pressure 110/50, SaO2 100%, respirations 18, temperature afebrile, pulse 73. HEENT: Clear. NECK: Supple without adenopathy or thyromegaly. CHEST: Clear to auscultation and percussion. HEART: Regular rate and rhythm without murmur. ABDOMEN: Positive bowel sounds. Soft with marked distention from ascites, though it is soft at this time. Positive fluid wave is palpable. There is no tenderness. Paracentesis sites are clean and dry. BACK: Straight without CVA tenderness. EXTREMITIES: Without cyanosis, clubbing, or edema. NEUROLOGIC: Intact and symmetric. SKIN: Unremarkable except for changes consistent with hepatic failure. LAB/IMAGING: Hemoglobin 6.0, hematocrit 18.2, WBC 2.3, platelets 43. INR 1.3, PTT 30. No D-dimer was done. Sodium 137, potassium 4.8, chloride 102. IMPRESSION: 1. Anemia, severe, transfusion dependent and recurrent. 1. Bleeding complication from outpatient paracentesis contributing to anemia. 2. Nonalcoholic steatohepatitis with hepatic failure, awaiting TIPS procedure. 3. End-stage renal disease on dialysis. 4. Diabetes mellitus type 2. PLAN: Admit to [facility] for blood transfusion x3 units packed red blood cells. We will give 40 units of Lasix between unit #1 and unit #2. We will monitor for stability of hemoglobin to rule out any persistent bleeding. Diabetic diet and insulin sliding scale ordered.
[2016-10-01] MEDS ORDERED: CIPROFLOXACIN500 M1 PO (08:48)
[2016-10-01] MEDS ORDERED: LACTULOSE PO (08:49)
[2016-10-01] MEDS ORDERED: GABAPENTIN100 MG PO (08:50)
[2016-10-01] MEDS ORDERED: SPIRONOLACTONE25 MG PO (08:50)
[2016-10-01] MEDS ORDERED: LANTUS SOL100 UNITS/ SC (08:54)
--- NOTE | 2016-10-01 08:59 | Provider's Discharge Care Plan ---
Problem, Goal, Plan Problem List 1. Anemia Goals: Improve disease control Instructions: Take meds as directed, Transfusion done x 3 units. CBC tomorrow 2. Liver failure Goals: Improved health/wellness Instructions: Follow up as directed, Take meds as directed 3. Chronic renal failure Goals: Improved health/wellness Instructions: Continue dialysis 4. Diabetes mellitus type 2 in obese Goals: Improved health/wellness Instructions: Take meds as directed, Diabetic diet and monitoring. 5. GI bleed Goals: Improved health/wellness Instructions: Take meds as directed, Transfusion done. CBC tomorrow.
--- NOTE | 2016-10-01 09:38 | DISCHARGE SUMMARY ---
ADMIT DATE: 09/30/2016 DISCHARGE DATE: 10/01/2016 ADMITTING DIAGNOSES: 1. Anemia, severe transfusion dependent and recurrent. 2. Bleeding complication from outpatient paracentesis contributing to anemia. 3. Nonalcoholic steatohepatitis with hepatic failure, awaiting transjugular intrahepatic portosystemic shunt procedure. 4. End-stage renal disease on dialysis. 5. Diabetes mellitus type 2. DISCHARGE DIAGNOSES: 1. Anemia, severe transfusion dependent and recurrent. 2. Bleeding complication from outpatient paracentesis contributing to anemia. 3. Nonalcoholic steatohepatitis with hepatic failure, awaiting transjugular intrahepatic portosystemic shunt procedure. 4. End-stage renal disease on dialysis. 5. Diabetes mellitus type 2. PROCEDURE: Transfusion of packed red blood cells x3 units. HISTORY OF PRESENT ILLNESS: A 71-year-old male presented to [facility] for paracentesis. There was some bloody tap during the procedure. Therefore, a CBC was performed showing marked anemia with hemoglobin of 7.1. On repeat 2 hours later, it had decreased to 6.0. With patient's known history of gastrointestinal bleeding and transfusion dependent anemia, he was admitted and transfused x3 units packed red blood cells. HOSPITAL COURSE: Transfusion done without complication. The patient's stay was uncomplicated. He was monitored and stable on telemetry. DISPOSITION: Home. DISCHARGE INSTRUCTIONS/MEDICATIONS: DISCHARGE MEDICATIONS: 1. Ciprofloxacin 250 mg p.o. daily. 2. Spironolactone 100 mg p.o. b.i.d. 3. Lactulose 20 grams p.o. t.i.d. 4. Glargine insulin 10 units subcutaneous at bedtime. 5. vitamin 1 p.o. daily. 6. Rifaximin 550 mg p.o. b.i.d. 7. Atorvastatin 40 mg p.o. daily. 8. Humalog insulin 4 units subcutaneous AC. 9. Levothyroxine 125 mcg p.o. daily. 10. Nitroglycerin 0.4 mg sublingual p.r.n. chest pain. 11. Midodrine 5 mg p.o. t.i.d. 12. Pantoprazole 40 mg p.o. t.i.d. 13. Torsemide 100 mg p.o. daily. 14. Lantus insulin 10 units subcutaneous at bedtime. 15. SPECIAL INSTRUCTIONS: Follow up with me in 2 weeks. Repeat CBC on the morning following discharge to evaluate stability of anemia. Continue dialysis as per schedule. Continue regular GI and Nephrology followup.
[2016-10-02] MEDS ORDERED: HUMALIN R100 UNITS/ SC (05:40)
== END 2016-10-01 10:31 | disposition home or self-care (01) ==
LOC: CC SRH 17:01
PROVIDERS: ADMIT Family Medicine
PROC: 0W9G3ZX Drainage of Peritoneal Cavity, Percutaneous Approach, Diagnostic (ICD-10-PCS; principal; 2016-09-30)
PROC: 30233N1 Transfusion of Nonautologous Red Blood Cells into Peripheral Vein, Percutaneous Approach (ICD-10-PCS; 2016-09-30)
DX: R18.8 Other ascites (principal); K91.841 Postprocedural hemorrhage of a digestive system organ or structure following other procedure; D50.0 Iron deficiency anemia secondary to blood loss (chronic); I12.0 Hypertensive chronic kidney disease with stage 5 chronic kidney disease or end stage renal disease; D63.1 Anemia in chronic kidney disease; K72.90 Hepatic failure, unspecified without coma; K76.6 Portal hypertension; K55.21 Angiodysplasia of colon with hemorrhage; K75.81 Nonalcoholic steatohepatitis (NASH); E11.22 Type 2 diabetes mellitus with diabetic chronic kidney disease; N18.6 End stage renal disease; Z79.4 Long term (current) use of insulin; E03.9 Hypothyroidism, unspecified; Z99.2 Dependence on renal dialysis
CPT/HCPCS: 29231; 29251; 90001; 90074; 90098; 90100; 90155; 91004; 91544; 91672; 92132; 95059

== ENCOUNTER 2016-10-02 03:13 | Observation (INO) | payer OTHER ==
[~2016-10-02] VITALS: Ht 180.3 cm; Wt 85.5 kg
[2016-10-02] VITALS (15 sets, daily range): BP systolic 88–115; BP diastolic 34–75
[~2016-10-02 03:13] MED LIST changes: +CIPROFLOXACIN500 M1 PO; +FUROSEMIDE20 MG PO; +GABAPENTIN100 MG PO; +MIDODRINE HCL5 MG PO; +PANTOPRAZOLE SO40 MG PO
--- NOTE | 2016-10-02 04:16 | ED CLINICAL REPORT ---
Clinical Report - Physicians/Mid Levels [facility] [address] [place] [address] 10/02/2016 3:15 Patient: HOLLY NAM Time Seen: 03:37. Arrived- By private vehicle. Historian- patient. HISTORY OF PRESENT ILLNESS Chief Complaint: DIZZINESS and WEAKNESS. Severity described as moderate at its maximum. When seen in the E.D., severity described as moderate. Modifying factors- worsened by standing up. Relieved by rest and not moving. Described as feeling off balance, light-headed and weak all over. This started today and is still present. It was abrupt in onset and has been waxing/waning. No nausea, vomiting or hearing loss. (Patient states he woke up feeling "dizzy and kind of woozy" around 2am this morning. Patient's reports that he recently had dialysis and a paracentesis). Similar symptoms previously: Recent medical care: The patient was seen recently at this facility in the emergency department and a clinic. ( Discharged 10/01/16 from [facility]: DISCHARGE DIAGNOSES: 1. Anemia, severe transfusion dependent and recurrent. 2. Bleeding complication from outpatient paracentesis contributing to anemia. 3. Nonalcoholic steatohepatitis with hepatic failure, awaiting transjugular intrahepatic portosystemic shunt procedure. 4. End-stage renal disease on dialysis. 5. Diabetes mellitus type 2.). REVIEW OF SYSTEMS No headache, double vision, fainting episodes, head injury or chest pain. No palpitations, black stools, bloody stools, fever or sore throat. No cough, difficulty breathing, abdominal pain, diarrhea or difficulty with urination. No skin rash. The patient has had new onset of generalized weakness. He has had difficulty walking. All systems otherwise negative, except as recorded above. PAST HISTORY ( Primary physician (Dr Siddiqi) PROBLEMS: Hepatic Encephalopathy. Dyspnea. Dizziness. Renal Failure. Coronary Artery Disease. Ascites. Hypovolemia. Heart Disease. Anemia. Hypoglycemia. Herpes Zoster. Diabetes Mellitus. Thyroid Disease. Liver disease. GI Bleeding. Cirrhosis. Abnormal EKG. Chest Pain. Near Syncope. Liver disease. SURGERIES: Colonoscopy. Coronary Angioplasty. Coronary Artery Bypass Graft. Endoscopy. Paracentesis.). No history of heart disease. Medications: Xifaxan Oral (Tablet 550 mg) 1 tablet, 2x daily. Torsemide Oral (Tablet 100 mg) 1 tablet, daily. Oral, daily. Midodrine HCl Oral (Tablet 5 mg), 3x daily. Nitrostat 0.4 mg prn. Levothyroxine Sodium Oral (Tablet 125 mcg) 1 tablet, daily. Lactulose Oral 20 mL, 3x a day. Insulin Glargine Subcutaneous 10 units, at bedtime. Insulin Regular Human Injection 4 units, before meals. Gabapentin Oral (Capsule 100 mg) 1 capsule, 3x a day. Atorvastatin Calcium Oral (Tablet 40 mg) 1 tablet, daily. Allergies: None. SOCIAL HISTORY Is a local resident. 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 Marital status: . male with 4 children, retired from [employer]. Habits Alcohol: None. Drug use: None. Smoking: None. FAMILY HISTORY No family history of liver failure or renal failure. Family history is noncontributory. ADDITIONAL NOTES The nursing notes have been reviewed. PHYSICAL EXAM Vital Signs: 10/02/2016 03:24 BP: 97/53. HR: 74. RR: 15. O2 saturation: 98%. Temp: 98 F. Pain level now: 0/10. Appearance: Alert. Odor of alcohol is not present. Speech is not slurred. Eyes: No nystagmus. ENT: Normal ENT inspection. Moist mucous membranes. Pharynx normal. Neck: Normal inspection. Neck supple. CVS: Pulses normal. Respiratory: No respiratory distress. Breath sounds normal. Abdomen: Soft and nontender. Distention (with large fluid wave c/w ascites). Back: Normal inspection. Skin: No cyanosis. No pallor. Normal skin color. Normal skin turgor. Extremities: Extremities exhibit normal ROM. No lower extremity edema. Neuro: Alert. Oriented X 3. Mood/affect normal. Speech normal. No motor deficit. No sensory deficit. LABS, X-RAYS, AND EKG EKG: EKG time: (03:49). Normal sinus rhythm. Rate: 70. Occasional ectopic beats. Premature ventricular contractions. Non-specific ST segment / T wave abnormalities. T wave flattening in lead I. Non-specific T wave inversion in lead aVL. The study has been interpreted contemporaneously by me. The EKG appears to be a good tracing. Rhythm Strip #1: Normal sinus rhythm. Regular rhythm. Premature ventricular contractions. Chest X-ray: No acute disease. Views: AP (portable). Technique: good. The X-rays were interpreted contemporaneously by me. Laboratory Tests: CBC w Diff: (MAYA: 10/02/2016 03:30) ( [facility] 10/02/2016 03:48) Final results Test Result Flag Units (Reference) WHITE BLOOD COUNT 2.6 L K/uL (4.5-11.5) RED BLOOD COUNT 2.56 L M/uL (4.50-5.90) HEMOGLOBIN 8.0 L gm/dL (13.5-17.5) HEMATOCRIT 23.8 L % (41.0-53.0) MEAN CELL VOLUME 93 fL (80-100) MEAN CORPUSCULAR HGB 31 pg (26-34) MEAN CORPUSCULAR HGB CONC 34 g/dL (31-37) RED CELL DISTRIBUTION WIDTH 17.0 H % (11.6-14.8) PLATELET COUNT 46 L K/uL (150-400) NEUTROPHIL % 72.2 % (50-75) LYMPH % 9.0 L % (25-40) MONO % 16.8 H % (3-14) EOSINOPHIL % 1.7 % (0-4) BASOPHIL % 0.3 % (0-2) PT with INR: (MAYA: 10/02/2016 03:30) ( [facility] 10/02/2016 03:51) Final results Test Result Flag Units (Reference) INR 1.2 (0.8-1.2) Low Intensity Therapy: INR 1.5-2.0 PT range 18.5-23.1Mod.Intensity Therapy: INR 2.0-3.0 PT range 23.1-31.5High Intensity Therapy: INR 2.5-3.5 PT range 27.4-35.5High Intensity Therapy 2: INR 3.0-4.0 PT range 31.5-39.3 Ammonia Level: (AMYA: 10/02/2016 04:00) ( [facility] 10/02/2016 04:16) Final results Test Result Flag Units (Reference) AMMONIA 126 H umol/L (11-32) BNP: (MAYA: 10/02/2016 03:30) ( [facility] 10/02/2016 04:02) Final results Test Result Flag Units (Reference) B-TYPE NATRIURETIC PEPTIDE 45.5 pg/ml (5-100) Lipase: (MAYA: 10/02/2016 03:30) ( [facility] 10/02/2016 04:11) Final results Test Result Flag Units (Reference) LIPASE 324 U/L (73-393) AMYLASE 99 U/L (25-115) THYROID STIMULATING HORMONE 6.718 H uIU/mL (0.30-3.74) CHEM 13 PANEL: (MAYA: 10/02/2016 03:30) ( [facility] 10/02/2016 04:01) Final results Test Result Flag Units (Reference) GLUCOSE 144 H mg/dL (70-110) BUN 26 # H mg/dL (7-18) CREATININE 3.2 H mg/dL (0.6-1.3) Estimated GFR 20.40 mL/min Estimated GFR- 24.72 mL/min Note: Persistent reduction over 3 months in eGFR<60 mL/min/1.73 m2 defines CKD. Patients with eGFR values>=60 mL/min/1.73 m2 may also have CKD if evidence ofpersistent proteinuria. Additional information may be foundat www.kidney.org. SODIUM 140 # mmol/L (136-145) POTASSIUM 4.6 mmol/L (3.5-5.1) CHLORIDE 102 mmol/L (98-107) CARBON DIOXIDE 27 mmol/L (21-32) CALCIUM 7.9 L mg/dL (8.5-10.1) TOTAL PROTEIN 5.6 L g/dL (6.4-8.2) ALBUMIN 2.7 L g/dL (3.3-5.0) BILIRUBIN, TOTAL 1.4 H mg/dL (0.0-1.0) ALKALINE PHOSPHATASE 108 U/L (46-116) AST (SGOT) 32 U/L (15-37) ALT (SGPT) 29 U/L (12-78) MAGNESIUM 1.8 mg/dL (1.8-2.4) CPK 58 U/L (24-260) TROPONIN I 0.21 ng/mL (0.00-1.5) TROPONIN REFERENCE RANGE:<0.1 NEGATIVE0.1-1.5 INDETERMINANT>1.5 POSITIVE Type & Cross: (MAYA: 10/02/2016 03:30) ( MsgRcvd 10/02/2016 04:52) IP Test Result Flag Units (Reference) LEUKOREDUCED PACKED CELLS [id number] AP PC XM COMPATIBLE [id number] AP PC XM COMPATIBLE PATIENT BLOOD TYPE A Positive ANTIBODY SCREEN NEGATIVE . Pulse Oximetry: 10/02/2016 03:24 O2 saturation: 98%. (FIO2 - room air). Interpretation: normal. PROGRESS AND PROCEDURES Course of Care: Normal Saline 500 mL IVPB given. Maalox 30 mL PO given. Patient is stable. Physical exam findings are improved. Symptoms better. Discussed case with hospitalist, (Vitor). Reviewed test results. Agreed upon treatment plan. Health care provider will see patient in ED. Patient/family counseled. Old ED records reviewed. Transition orders written. Disposition: Observation in Acute Care. Condition: guarded. CLINICAL IMPRESSION Near syncope .12 lead EKG performed. Severe chronic renal failure- end stage disease (on hemodialysis). Hepatic encephalopathy- unknown cause for acute hepatic failure without coma (due to liver cirrhosis secondary to nonalcoholic steatohepatitis). Acquired hypothyroidism. Severe acute and chronic anemia associated with chronic renal disease. Relative hypotension. (Electronically signed by Germain Fairbanks DO 10/02/2016 5:48)
--- NOTE | 2016-10-02 04:16 | ED ORDER SUMMARY ---
..... Patient: HOLLY NAM OrderSheet [facility] VisitID: [id number] [place] [address] 71y, M Registration Date/Time: 10/02/2016 ORDER SHEET Weight: 81.6 kg (stated) Allergies: None GENERAL ORDERS: Chest 1V Urgent (03:40 10/02/2016 PHutchinson DO) (Ack 3:51 OSnell) (4:12 Kamalager) Pile Driving Nozzleman (Continuous) (03:40 10/02/2016 PHutchinson DO) (Ack 3:47 OSnell) (4:13 RMarsden R.N.) UA-Culture if indicated Urgent (03:10/02/2016 PHutchinson DO) (Ack 3:47 OSnell) Cardiac Panel Stat (03:10/02/2016 PHutchinson DO) (Ack 3:47 OSnell) (3:58 JSanders R.N.) BNP Urgent (03:10/02/2016 PHutchinson DO) (Ack 3:47 OSnell) (3:58 JSanders R.N.) Amylase Urgent (03:10/02/2016 PHutchinson DO) (Ack 3:47 OSnell) (3:58 JSanders R.N.) PT with INR Urgent (03:10/02/2016 PHutchinson DO) (Ack 3:47 OSnell) (3:58 JSanders R.N.) Ammonia Level Urgent (03:10/02/2016 PHutchinson DO) (Ack 3:47 OSnell) (Collected 4:09 RMarsden R.N.) (4:13 RMarsden R.N.) Urine Drug Screen Urgent (03:10/02/2016 PHutchinson DO) (Ack 3:50 OSnell) (Sent 3:58 JSanders R.N.) Lipase Urgent (03:10/02/2016 PHutchinson DO) (Ack 3:51 OSnell) (3:58 JSanders R.N.) TSH Urgent (03:10/02/2016 PHutchinson DO) (Ack 3:51 OSnell) (3:58 JSanders R.N.) Pulse oximeter (03:41 [facility] (Ack 3:47 OSnell) (3:56 RMarsden R.N.) EKG - ER Stat (03:41 10/02/2016 [facility] (Ack 3:47 OSnell) (3:52 CHagerty ER Strategic Communications Specialist) Vitals (03:41 10/02/2016 [facility] (Ack 3:47 OSnell) (3:56 RMarsden R.N.) POC Glucose (03:41 10/02/2016 [facility] (Ack 3:47 OSnell) (3:56 RMarsden R.N.) Call (Place call to): (Dr Adler) (04:15 10/02/2016 [facility] (4:19 OSnell) Type & Cross (anemia) (symptomatic anemia) Urgent (04:16 [facility]/02/2016 [facility] (Ack 4:20 OSnell) (4:58 OSnell) MEDICATION ORDERS: Maalox PO 30 mL (NOW) (04:42 10/02/2016 [facility] (Ack 4:45 RMarsden R.N.) (4:48 RMarsden R.N.) IV FLUIDS: IV NS : initial bolus 250 mL (1000 mL/hr), then 250 mL/hr for X3 (NOW) (03:41 10/02/2016 [facility] (Ack 3:56 RMarsden R.N.) (4:13 RMarsden R.N.) ORDER SHEET NOTES: [Electronically signed by Divina Quinn R.N. (05:33 10/02/2016)] [Electronically signed by Germain Fairbanks DO (05:48 10/02/2016)] [Electronically locked/signed by Divina Quinn R.N. (05:33 10/02/2016)]
--- NOTE | 2016-10-02 04:16 | ED ORDER SUMMARY ---
..... Patient: HOLLY NAM OrderSheet [facility] VisitID: [id number] [place] [address] 71y, M Registration Date/Time: 10/02/2016 ORDER SHEET Weight: 81.6 kg (stated) Allergies: None GENERAL ORDERS: Chest 1V Urgent (03:40 10/02/2016 PHutchinson DO) (Ack 3:51 OSnell) (4:12 Kamalager) Environmental Planning Engineer (Continuous) (03:40 10/02/2016 PHutchinson DO) (Ack 3:47 OSnell) (4:13 RMarsden R.N.) UA-Culture if indicated Urgent (03:10/02/2016 PHutchinson DO) (Ack 3:47 OSnell) Cardiac Panel Stat (03:10/02/2016 PHutchinson DO) (Ack 3:47 OSnell) (3:58 JSanders R.N.) BNP Urgent (03:10/02/2016 PHutchinson DO) (Ack 3:47 OSnell) (3:58 JSanders R.N.) Amylase Urgent (03:10/02/2016 PHutchinson DO) (Ack 3:47 OSnell) (3:58 JSanders R.N.) PT with INR Urgent (03:10/02/2016 PHutchinson DO) (Ack 3:47 OSnell) (3:58 JSanders R.N.) Ammonia Level Urgent (03:10/02/2016 PHutchinson DO) (Ack 3:47 OSnell) (Collected 4:09 RMarsden R.N.) (4:13 RMarsden R.N.) Urine Drug Screen Urgent (03:10/02/2016 PHutchinson DO) (Ack 3:50 OSnell) (Sent 3:58 JSanders R.N.) Lipase Urgent (03:10/02/2016 PHutchinson DO) (Ack 3:51 OSnell) (3:58 JSanders R.N.) TSH Urgent (03:10/02/2016 PHutchinson DO) (Ack 3:51 OSnell) (3:58 JSanders R.N.) Pulse oximeter (03:41 [facility]02[facility]2016 [facility] (Ack 3:47 OSnell) (3:56 RMarsden R.N.) EKG - ER Stat (03:41 10/02/2016 [facility] (Ack 3:47 OSnell) (3:52 CHagerty ER Blood Bank Technician) Vitals (03:41 10/02/2016 [facility] (Ack 3:47 OSnell) (3:56 RMarsden R.N.) POC Glucose (03:41 10/02/2016 [facility] (Ack 3:47 OSnell) (3:56 RMarsden R.N.) Call (Place call to): (Dr Adler) (04:15 10/02/2016 [facility] (4:19 OSnell) Type & Cross (anemia) (symptomatic anemia) Urgent (04:16 [facility]02[facility] (Ack 4:20 OSnell) (4:58 OSnell) MEDICATION ORDERS: Maalox PO 30 mL (NOW) (04:42 10/02/2016 [facility] (Ack 4:45 RMarsden R.N.) (4:48 RMarsden R.N.) IV FLUIDS: IV NS : initial bolus 250 mL (1000 mL/hr), then 250 mL/hr for X3 (NOW) (03:41 10/02/2016 [facility] (Ack 3:56 RMarsden R.N.) (4:13 RMarsden R.N.) ORDER SHEET NOTES: [Electronically signed by Divina Quinn R.N. (05:33 10/02/2016)] [Electronically signed by Germain Fairbanks DO (05:48 10/02/2016)] [Electronically locked/signed by Divina Quinn R.N. (05:33 10/02/2016)]
--- NOTE | 2016-10-02 04:16 | ED CLINICAL REPORT ---
Clinical Report - Physicians/Mid Levels [facility] [address] [place] [address] 10/02/2016 3:15 Patient: HOLLY NAM Time Seen: 03:37. Arrived- By private vehicle. Historian- patient. HISTORY OF PRESENT ILLNESS Chief Complaint: DIZZINESS and WEAKNESS. Severity described as moderate at its maximum. When seen in the E.D., severity described as moderate. Modifying factors- worsened by standing up. Relieved by rest and not moving. Described as feeling off balance, light-headed and weak all over. This started today and is still present. It was abrupt in onset and has been waxing/waning. No nausea, vomiting or hearing loss. (Patient states he woke up feeling "dizzy and kind of woozy" around 2am this morning. Patient's reports that he recently had dialysis and a paracentesis). Similar symptoms previously: Recent medical care: The patient was seen recently at this facility in the emergency department and a clinic. ( Discharged 10/01/16 from [facility]: DISCHARGE DIAGNOSES: 1. Anemia, severe transfusion dependent and recurrent. 2. Bleeding complication from outpatient paracentesis contributing to anemia. 3. Nonalcoholic steatohepatitis with hepatic failure, awaiting transjugular intrahepatic portosystemic shunt procedure. 4. End-stage renal disease on dialysis. 5. Diabetes mellitus type 2.). REVIEW OF SYSTEMS No headache, double vision, fainting episodes, head injury or chest pain. No palpitations, black stools, bloody stools, fever or sore throat. No cough, difficulty breathing, abdominal pain, diarrhea or difficulty with urination. No skin rash. The patient has had new onset of generalized weakness. He has had difficulty walking. All systems otherwise negative, except as recorded above. PAST HISTORY ( Primary physician (Dr Siddiqi) PROBLEMS: Hepatic Encephalopathy. Dyspnea. Dizziness. Renal Failure. Coronary Artery Disease. Ascites. Hypovolemia. Heart Disease. Anemia. Hypoglycemia. Herpes Zoster. Diabetes Mellitus. Thyroid Disease. Liver disease. GI Bleeding. Cirrhosis. Abnormal EKG. Chest Pain. Near Syncope. Liver disease. SURGERIES: Colonoscopy. Coronary Angioplasty. Coronary Artery Bypass Graft. Endoscopy. Paracentesis.). No history of heart disease. Medications: Xifaxan Oral (Tablet 550 mg) 1 tablet, 2x daily. Torsemide Oral (Tablet 100 mg) 1 tablet, daily. Oral, daily. Midodrine HCl Oral (Tablet 5 mg), 3x daily. Nitrostat 0.4 mg prn. Levothyroxine Sodium Oral (Tablet 125 mcg) 1 tablet, daily. Lactulose Oral 20 mL, 3x a day. Insulin Glargine Subcutaneous 10 units, at bedtime. Insulin Regular Human Injection 4 units, before meals. Gabapentin Oral (Capsule 100 mg) 1 capsule, 3x a day. Atorvastatin Calcium Oral (Tablet 40 mg) 1 tablet, daily. Allergies: None. SOCIAL HISTORY Is a local resident. 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 Marital status: . male with 4 children, retired from [employer]. [employer]. Habits Alcohol: None. Drug use: None. Smoking: None. FAMILY HISTORY No family history of liver failure or renal failure. Family history is noncontributory. ADDITIONAL NOTES The nursing notes have been reviewed. PHYSICAL EXAM Vital Signs: 10/02/2016 03:24 BP: 97/53. HR: 74. RR: 15. O2 saturation: 98%. Temp: 98 F. Pain level now: 0/10. Appearance: Alert. Odor of alcohol is not present. Speech is not slurred. Eyes: No nystagmus. ENT: Normal ENT inspection. Moist mucous membranes. Pharynx normal. Neck: Normal inspection. Neck supple. CVS: Pulses normal. Respiratory: No respiratory distress. Breath sounds normal. Abdomen: Soft and nontender. Distention (with large fluid wave c/w ascites). Back: Normal inspection. Skin: No cyanosis. No pallor. Normal skin color. Normal skin turgor. Extremities: Extremities exhibit normal ROM. No lower extremity edema. Neuro: Alert. Oriented X 3. Mood/affect normal. Speech normal. No motor deficit. No sensory deficit. LABS, X-RAYS, AND EKG EKG: EKG time: (03:49). Normal sinus rhythm. Rate: 70. Occasional ectopic beats. Premature ventricular contractions. Non-specific ST segment / T wave abnormalities. T wave flattening in lead I. Non-specific T wave inversion in lead aVL. The study has been interpreted contemporaneously by me. The EKG appears to be a good tracing. Rhythm Strip #1: Normal sinus rhythm. Regular rhythm. Premature ventricular contractions. Chest X-ray: No acute disease. Views: AP (portable). Technique: good. The X-rays were interpreted contemporaneously by me. Laboratory Tests: CBC w Diff: (MAYA: 10/02/2016 03:30) ( [facility] 10/02/2016 03:48) Final results Test Result Flag Units (Reference) WHITE BLOOD COUNT 2.6 L K/uL (4.5-11.5) RED BLOOD COUNT 2.56 L M/uL (4.50-5.90) HEMOGLOBIN 8.0 L gm/dL (13.5-17.5) HEMATOCRIT 23.8 L % (41.0-53.0) MEAN CELL VOLUME 93 fL (80-100) MEAN CORPUSCULAR HGB 31 pg (26-34) MEAN CORPUSCULAR HGB CONC 34 g/dL (31-37) RED CELL DISTRIBUTION WIDTH 17.0 H % (11.6-14.8) PLATELET COUNT 46 L K/uL (150-400) NEUTROPHIL % 72.2 % (50-75) LYMPH % 9.0 L % (25-40) MONO % 16.8 H % (3-14) EOSINOPHIL % 1.7 % (0-4) BASOPHIL % 0.3 % (0-2) PT with INR: (MAYA: 10/02/2016 03:30) ( [facility] 10/02/2016 03:51) Final results Test Result Flag Units (Reference) INR 1.2 (0.8-1.2) Low Intensity Therapy: INR 1.5-2.0 PT range 18.5-23.1Mod.Intensity Therapy: INR 2.0-3.0 PT range 23.1-31.5High Intensity Therapy: INR 2.5-3.5 PT range 27.4-35.5High Intensity Therapy 2: INR 3.0-4.0 PT range 31.5-39.3 Ammonia Level: (MAYA: 10/02/2016 04:00) ( [facility] 10/02/2016 04:16) Final results Test Result Flag Units (Reference) AMMONIA 126 H umol/L (11-32) BNP: (MAYA: 10/02/2016 03:30) ( [facility] 10/02/2016 04:02) Final results Test Result Flag Units (Reference) B-TYPE NATRIURETIC PEPTIDE 45.5 pg/ml (5-100) Lipase: (MAYA: 10/02/2016 03:30) ( [facility] 10/02/2016 04:11) Final results Test Result Flag Units (Reference) LIPASE 324 U/L (73-393) AMYLASE 99 U/L (25-115) THYROID STIMULATING HORMONE 6.718 H uIU/mL (0.30-3.74) CHEM 13 PANEL: (MAYA: 10/02/2016 03:30) ( [facility] 10/02/2016 04:01) Final results Test Result Flag Units (Reference) GLUCOSE 144 H mg/dL (70-110) BUN 26 # H mg/dL (7-18) CREATININE 3.2 H mg/dL (0.6-1.3) Estimated GFR 20.40 mL/min Estimated GFR- 24.72 mL/min Note: Persistent reduction over 3 months in eGFR<60 mL/min/1.73 m2 defines CKD. Patients with eGFR values>=60 mL/min/1.73 m2 may also have CKD if evidence ofpersistent proteinuria. Additional information may be foundat www.kidney.org. SODIUM 140 # mmol/L (136-145) POTASSIUM 4.6 mmol/L (3.5-5.1) CHLORIDE 102 mmol/L (98-107) CARBON DIOXIDE 27 mmol/L (21-32) CALCIUM 7.9 L mg/dL (8.5-10.1) TOTAL PROTEIN 5.6 L g/dL (6.4-8.2) ALBUMIN 2.7 L g/dL (3.3-5.0) BILIRUBIN, TOTAL 1.4 H mg/dL (0.0-1.0) ALKALINE PHOSPHATASE 108 U/L (46-116) AST (SGOT) 32 U/L (15-37) ALT (SGPT) 29 U/L (12-78) MAGNESIUM 1.8 mg/dL (1.8-2.4) CPK 58 U/L (24-260) TROPONIN I 0.21 ng/mL (0.00-1.5) TROPONIN REFERENCE RANGE:<0.1 NEGATIVE0.1-1.5 INDETERMINANT>1.5 POSITIVE Type & Cross: (MAYA: 10/02/2016 03:30) ( MsgRcvd 10/02/2016 04:52) IP Test Result Flag Units (Reference) LEUKOREDUCED PACKED CELLS [id number] AP PC XM COMPATIBLE [id number] AP PC XM COMPATIBLE PATIENT BLOOD TYPE A Positive ANTIBODY SCREEN NEGATIVE . Pulse Oximetry: 10/02/2016 03:24 O2 saturation: 98%. (FIO2 - room air). Interpretation: normal. PROGRESS AND PROCEDURES Course of Care: Normal Saline 500 mL IVPB given. Maalox 30 mL PO given. Patient is stable. Physical exam findings are improved. Symptoms better. Discussed case with hospitalist, (Vitor). Reviewed test results. Agreed upon treatment plan. Health care provider will see patient in ED. Patient/family counseled. Old ED records reviewed. Transition orders written. Disposition: Observation in Acute Care. Condition: guarded. CLINICAL IMPRESSION Near syncope .12 lead EKG performed. Severe chronic renal failure- end stage disease (on hemodialysis). Hepatic encephalopathy- unknown cause for acute hepatic failure without coma (due to liver cirrhosis secondary to nonalcoholic steatohepatitis). Acquired hypothyroidism. Severe acute and chronic anemia associated with chronic renal disease. Relative hypotension. (Electronically signed by Germain Fairbanks DO 10/02/2016 5:48)
--- NOTE | 2016-10-02 04:16 | ED NURSING NOTES ---
Clinical Report - Nurses [facility] [address] [place] [address] 10/02/2016 3:15 [id number] Triage time 03:15. Acuity: LEVEL 3. Chief Complaint: DIZZINESS and WEAKNESS. 03:48 10/02/16. Alert. No acute distress. SEPSIS SCREEN: Sepsis Screen. Negative (no infection suspected/documented). HARITHA COMA SCORE: [place] Coma Scale: 15- eyes open spontaneously (4); best verbal response- oriented x 4 (5); best motor response- obeys commands (6). --03:49 Divina Quinn R.N. 03:24 10/02/16. BP: 97/53 taken on the left arm, while lying. HR: 74. RR: 15. O2 saturation: 98% on room air. Temp: 98 F. Pain level now: 0/10. --03:49 Divina Quinn R.N. Weight: 81.6 kg stated. Height/Length: 71 inches Per Patient. BMI: 25.1. --03:47 Divina Quinn R.N. Medications Atorvastatin Calcium Oral (Tablet 40 mg) 1 tablet, daily. --03:33 Divina Quinn R.N. Gabapentin Oral (Capsule 100 mg) 1 capsule, 3x a day. --03:34 Divina Quinn R.N. Insulin Regular Human Injection 4 units, before meals. --03:34 Divina Quinn R.N. Insulin Glargine Subcutaneous 10 units, at bedtime. --03:36 Divina Quinn R.N. Lactulose Oral 20 mL, 3x a day. --03:37 Divina Quinn R.N. Levothyroxine Sodium Oral (Tablet 125 mcg) 1 tablet, daily. --03:37 Divina Quinn R.N. Nitrostat 0.4 mg prn. --03:39 Divina Quinn R.N. Midodrine HCl Oral (Tablet 5 mg), 3x daily. --03:39 iDvina Quinn R.N. Oral, daily. --03:40 Divina Quinn R.N. Torsemide Oral (Tablet 100 mg) 1 tablet, daily. --03:40 Divina Quinn R.N. Xifaxan Oral (Tablet 550 mg) 1 tablet, 2x daily. --03:41 Divina Quinn R.N. Allergies None. --03:29 Divina Quinn R.N. History Arrived by private vehicle. Historian: patient and family. Accompanied by family. Primary physician (Dr Siddiqi). This started today. ( Patient states he woke up feeling "dizzy and kind of woozy" around 2am this morning. Patient's reports that he had dialysis and a paracentesis yesterday.). No difficulty breathing. PAST MEDICAL HX: Diabetes mellitus. Immunizations: up-to-date. SOCIAL HX: Former smoker. No alcohol use or drug use. NUTRITIONAL RISK ASSESSMENT: The nutritional risk assessment revealed no deficiencies. FUNCTIONAL ASSESSMENT: Functional assessment: no impairments noted. LEARNING NEEDS ASSESSMENT: The learning needs assessment revealed no barriers. FALL RISK ASSESSMENT: Fall risk assessment completed. Risk factors identified include dizziness and patient age greater than 65 years. Fall interventions initiated. Side rails up. Brakes on Bed in low position. Patient visible from nurses' station and identified as a fall risk. Family at bedside. Call light in reach of patient. Instructed not to get up without assistance. SKIN INTEGRITY ASSESSMENT: Skin integrity risk assessment completed. No skin integrity risk identified. --03:49 Divina Quinn R.N. PROBLEMS: Skin Avulsion. Hepatic Encephalopathy. Dyspnea. Dizziness. Renal Failure. Coronary Artery Disease. Ascites. Hypovolemia. Heart Disease. Anemia. Hypoglycemia. Herpes Zoster. Diabetes Mellitus. Thyroid Disease. Liver disease. Abnormal Test. GI Bleeding. Renal Insufficiency. Cirrhosis. Abnormal EKG. Chest Pain. Near Syncope. Liver disease. --03:42 Divina Quinn R.N. ADDITIONAL SURGERIES: Colonoscopy. Coronary Angioplasty. Coronary Artery Bypass Graft. Endoscopy. Paracentesis. Paracentesis. --03:42 Divina Quinn R.N. Interventions ID band on patient. To treatment room. --03:49 Divina Quinn R.N. PHYSICAL ASSESSMENT 03:51 10/02/16. GENERAL / NEURO / PSYCH: Alert. Oriented X 4. Appears in no acute distress. He has had new onset of generalized weakness. HEENT: Pupils equal, round and reactive to light. No facial asymmetry noted. Mucous membranes are pink. RESPIRATORY: Respirations not labored. Chest nontender. Breath sounds within normal limits. CVS: Capillary refill less than 2 seconds. Pulses within normal limits. GI / : Abdominal distention noted as firm ((d/t ascites)). Abdomen soft and nontender and normal bowel sounds. SKIN: Skin intact. Skin is warm and dry. --03:52 Divina Quinn R.N. NURSING PROGRESS NOTES 03:39 10/02/2016 Site #1 started via IV in the right antecubital space with an 20g angiocath; two attempts. Blood drawn: rainbow set. Labeled in the presence of the patient and sent to the lab. Saline lock flushed with 5 mL saline. --03:54 Divina Quinn R.N. 03:54 10/02/16. Patient ID band checked for patient name and birthdate: patient confirmed. Blood samples drawn from the right antecubital space by nurse ; labeled in presence of the patient and sent to lab: rainbow set. (by YOUSIF Lopes). Finger stick glucose: 178; performed by nurse. Two patient identifiers checked. Call light placed in reach. Side rails up x 2. Bed placed in lowest position. Brakes of bed on. --03:54 Divina Quinn R.N. ( xray at bedside.). --03:55 Divina Quinn R.N. 03:54. Patient gowned. Head of bed elevated. --03:55 Divina Quinn R.N. 04:13 10/02/2016 Started bag #1 1000 mL IV Fluids IV NS (Saline); bolus of 250 mL over 15 minute(s) then at 250 mL/hr over 3 hour(s) via site #1 via IV pump. Allergies verified and confirmed 5 rights. IV patency established. IV site checked: no pain, redness, or swelling. IV flushed thoroughly pre- and post-medication administration. Completed per protocol. --04:13 Divina Quinn R.N. Patient identifiers checked. Call light placed in reach. Side rails up x 2. Bed placed in lowest position. Brakes of bed on. ( lights dimmed for comfort). --04:16 Divina Quinn R.N. 04:30 10/02/16. BP: 104/53 (small adult cuff) taken on the left arm, while lying. HR: 73. RR: 16. O2 saturation: 99%. Pain level now: 0/10. --04:31 Divina Quinn R.N. EKG time: (348). EKG was ordered, performed by a tech and shown to the ED physician. --04:33 Aneesh Manrique, ER Fondant Cooker ( Patient reports stomach discomfort and states he would like an anti-acid if possible. ED physician notified. No orders given at this time.). --04:34 Divina Quinn R.N. 04:48 10/02/2016 Maalox (Magnesium-Aluminum) PO Oral Suspension 30 mL given. Allergies verified and confirmed 5 rights. --04:48 Divina Quinn R.N. DISPOSITION / DISCHARGE 04:56 10/02/16. BP: 107/48 (small adult cuff) taken on the left arm, while lying. HR: 72. RR: 13. O2 saturation: 98% on room air. Pain level now: 0/10. --04:57 Divina Quinn R.N. 04:30 10/02/2016 IV Fluids IV NS Response: no adverse reaction. 10/02/2016 04:30 BP: 104/53. HR: 73. RR: 16. O2 saturation: 99%. Pain level now: 0/10. --05:32 Divina Quinn R.N. 04:55 10/02/16. Admitted to Acute Care. Transported via stretcher by nurse. Report was given to a nurse via a phone call. Report included patient's care, treatment, medications, reviewed medication reconcilliation, and condition (including any recent changes or anticipated changes). No questions were asked. Report was acknowledged and care was transferred. --04:56 Divina Quinn R.N. 05:00 10/02/2016 IV Fluids IV NS Discontinued: bag #1 STOPPED upon admission. Total amount infused: 500 mL. IV patency established. IV site checked: no pain, redness, or swelling. IV flushed thoroughly. --05:31 Divina Quinn R.N. 05:00 10/02/2016 Maalox PO Response: no adverse reaction. 10/02/2016 04:56 BP: 107/48. HR: 72. RR: 13. O2 saturation: 98%. Pain level now: 0/10. --05:32 Divina Quinn R.N. Departure time: 05:07. --05:32 Divina Quinn R.N. 05:32 10/02/16. Temp: deferred. --05:33 Divina Quinn R.N. Locked/Released at 10/02/2016 5:33 by Divina Quinn R.N.
--- NOTE | 2016-10-02 05:22 | DIAGNOSTIC IMAGING REPORT ---
PROCEDURE: XR CHEST 1 VIEW INDICATION: SHORTNESS OF BREATH TECHNIQUE: Portable AP view (0400 hours). COMPARISON: Compared to chest x-ray on 06/26/2016. FINDINGS: Lungs are clear. Post coronary bypass graft. Heart and mediastinum are normal size. Right supraclavicular dialysis catheter. Thorax is normal. IMPRESSION: 1. Status post coronary artery bypass graft. 2. Otherwise negative chest.
[2016-10-02] MEDS ORDERED: HUMALIN R100 UNITS/ SC (05:40)
--- NOTE | 2016-10-02 05:49 | ED MED RECONCILIATION SUMMARY ---
Patient: HOLLY NAM Medication Reconciliation Report [facility] VisitID: [id number] [address] [place] [address] 71y, M Registration Date/Time: 10/02/2016 Weight: 81.6 kg Height/Length: 71 in. BMI: 25.1 ALLERGIES: None The patient's Home Medications are listed below: THE FOLLOWING MEDICATIONS NEED TO BE RECONCILED: Atorvastatin Calcium Oral (40 mg) 1 tablet, daily Gabapentin Oral (100 mg) 1 capsule, 3x a day Insulin Glargine Subcutaneous 10 units, at bedtime Insulin Regular Human Injection 4 units, before meals Lactulose Oral 20 mL, 3x a day Levothyroxine Sodium Oral (125 mcg) 1 tablet, daily Midodrine HCl Oral (5 mg), 3x daily Nitrostat 0.4 mg prn Oral, daily Torsemide Oral (100 mg) 1 tablet, daily Xifaxan Oral (550 mg) 1 tablet, 2x daily The source(s) of the original Home Medication information: Not obtained. The following Medications were given to the patient in the Emergency Department: IV NS IV Fluids bolus 250 mL over 15 minute(s), then 250 mL/hr, administered: 10/02/2016 4:13:00 AM Maalox [PO] PO 30 mL, administered: 10/02/2016 4:48:00 AM The following Medications were prescribed to the patient: None.
--- NOTE | 2016-10-02 05:49 | ED DISCHARGE INSTRUCTIONS ---
Patient: HOLLY NAM General Instructions [facility] VisitID: [id number] [address] [place] [address] 71y, M Registration Date/Time: 10/02/2016 Near syncope .12 lead EKG performed. Severe chronic renal failure- end stage disease (on hemodialysis). Hepatic encephalopathy- unknown cause for acute hepatic failure without coma (due to liver cirrhosis secondary to nonalcoholic steatohepatitis). Acquired hypothyroidism. Severe acute and chronic anemia associated with chronic renal disease. Relative hypotension. (Electronically signed by Germain Fairbanks DO 10/02/2016 5:48)
--- NOTE | 2016-10-02 05:49 | ED DISCHARGE INSTRUCTIONS ---
Patient: HOLLY NAM General Instructions [facility] VisitID: [id number] [address] [place] [address] 71y, M Registration Date/Time: 10/02/2016 Near syncope .12 lead EKG performed. Severe chronic renal failure- end stage disease (on hemodialysis). Hepatic encephalopathy- unknown cause for acute hepatic failure without coma (due to liver cirrhosis secondary to nonalcoholic steatohepatitis). Acquired hypothyroidism. Severe acute and chronic anemia associated with chronic renal disease. Relative hypotension. (Electronically signed by Germain Fairbanks DO 10/02/2016 5:48)
--- NOTE | 2016-10-02 05:49 | ED MED RECONCILIATION SUMMARY ---
Patient: HOLLY NAM Medication Reconciliation Report [facility] VisitID: [id number] [address] [place] [address] 71y, M Registration Date/Time: 10/02/2016 Weight: 81.6 kg Height/Length: 71 in. BMI: 25.1 ALLERGIES: None The patient's Home Medications are listed below: THE FOLLOWING MEDICATIONS NEED TO BE RECONCILED: Atorvastatin Calcium Oral (40 mg) 1 tablet, daily Gabapentin Oral (100 mg) 1 capsule, 3x a day Insulin Glargine Subcutaneous 10 units, at bedtime Insulin Regular Human Injection 4 units, before meals Lactulose Oral 20 mL, 3x a day Levothyroxine Sodium Oral (125 mcg) 1 tablet, daily Midodrine HCl Oral (5 mg), 3x daily Nitrostat 0.4 mg prn Oral, daily Torsemide Oral (100 mg) 1 tablet, daily Xifaxan Oral (550 mg) 1 tablet, 2x daily The source(s) of the original Home Medication information: Not obtained. The following Medications were given to the patient in the Emergency Department: IV NS IV Fluids bolus 250 mL over 15 minute(s), then 250 mL/hr, administered: 10/02/2016 4:13:00 AM Maalox [PO] PO 30 mL, administered: 10/02/2016 4:48:00 AM The following Medications were prescribed to the patient: None.
--- NOTE | 2016-10-02 05:49 | ED MAR SUMMARY ---
..... Medication Administration Record [facility] [address] [place] [address] Patient: HOLLY NAM Visit ID: [id number] 71y, M Weight: 81.6 kg Height/Length: 71 in BMI: 25.1 ALLERGIES: None Start 04:13 10/02/2016 Divina Quinn R.N., Stop 05:00 10/02/2016 Divina Quinn R.N. Medication Administered: IV NS (SALINE), Dose: IV Fluids over 3 hour(s), Rate: 250 mL/hr, Bolus: 250 mL over 15 minute(s), Dispensed: 1000 mL bag, Site: #1 right AC. Medication Ordered: IV NS : initial bolus 250 mL (1000 mL/hr), then 250 mL/hr for X3 (NOW). Given 04:48 10/02/2016 Divina Quinn R.N. Medication Administered: MAALOX [PO] (MAGNESIUM-ALUMINUM), Dose: 30 mL Oral Suspension PO. Medication Ordered: Maalox PO 30 mL (NOW).
--- NOTE | 2016-10-02 05:49 | ED MAR SUMMARY ---
..... Medication Administration Record [facility] [address] [place] [address] Patient: HOLLY NAM Visit ID: [id number] 71y, M Weight: 81.6 kg Height/Length: 71 in BMI: 25.1 ALLERGIES: None Start 04:13 10/02/2016 Divina Quinn R.N., Stop 05:00 10/02/2016 Divina Quinn R.N. Medication Administered: IV NS (SALINE), Dose: IV Fluids over 3 hour(s), Rate: 250 mL/hr, Bolus: 250 mL over 15 minute(s), Dispensed: 1000 mL bag, Site: #1 right AC. Medication Ordered: IV NS : initial bolus 250 mL (1000 mL/hr), then 250 mL/hr for X3 (NOW). Given 04:48 10/02/2016 Divina Quinn R.N. Medication Administered: MAALOX [PO] (MAGNESIUM-ALUMINUM), Dose: 30 mL Oral Suspension PO. Medication Ordered: Maalox PO 30 mL (NOW).
--- NOTE | 2016-10-02 06:14 | Progress Note ---
Subjective General Admission History and Physical Examination Patient Name: Francisco J Martínez Admission Date: 10/02/2016 Primary Care Provider: Dr. Castillo Siddiqi Attending Physician: Dr. Castillo Siddiqi M.D. Admitting Physician: Reji Adler MD Code Status; DO NOT INTUBATE, no chest compressions; electrical current "shock" within resuscitation guidelines Room: 208 SUBJECTIVE Historian: Mr. Martínez and Donna Martínez Reliability: good Chief Complaint: Dizziness, woozy Weakness History of Present Illness: The patient is a 71-year-old white male [employer] with a medical history of Nonalcoholic steatohepatitis with hepatic failure (awaiting transjugular intrahepatic--portal hypertension), end-stage kidney disease (dialysis T, T, S), GI AV malformation history of GI bleeding, chronic anemia, chronic hypotension, diabetes mellitus hyperlipidemia, GERD, coronary artery disease ([place] 1990) tricuspid valve disease, GERD who presented today with feeling of uneasiness woozy dizziness. Patient states that he has had this sensation in the past especially following dialysis. Patient has just recently had a paracentesis performed noted a bloody tap during the procedure patient was admitted for observation with a hemoglobin of 6.0 with recommendations for his transfusion of PRBCs. He was discharged to an uncomplicated hospital stay, on 10/01/2016 from [facility] with a hematocrit of 23.8; after transfusion 3 units PRBCs. Patient was found to be symptomatic in the ED; dizziness was said to be moderate with standing; decrease with rest. Patient was examined labs where drawn. In addition patient was complaining of epigastric pain. The hematocrit was at 23.8 ; discharged at 22.6 on 10/02/15; which is less than expected 15%/unit increase. In addition the troponin was indeterminant (likely secondary to renal failure ) . Patient is admitted under observation with symptoms of dizziness, indeterminant troponin (in the setting of CAD - CABG 1990), anemia and transfusion PRBCs, serial hematocrits, and serial troponins. Patient will be followed by Dr. Siddiqi during this hospitalization. Emergency department prepared 2 units PRBC to be given after cross and typing. Patient will be started back on his home regimen. PAST MEDICAL HISTORY Illnesses: 1. CAD, CABG 1990 2. Tricuspid valve disease, 3. Mitral valve regurg 4. Gastrointestinal bleeding AV malformation 5. History of decubitus ulceration 6. History of hypertension 7. Chronic hypotension 8. Nonalcoholic Steatohepatitis 9. Diabetes mellitus type 2 10. Hypothyroid Allergies: NKDA Medications: 1. Midodrine 5 mg p.o. t.i.d. 2. Lactulose 20 grams t.i.d. 3. Humalog 4-10 units with each meal. 4. Lantus 10 units subcutaneous daily. 5. vitamin 1 p.o. daily. 6. Levothyroxine 112 mcg p.o. daily. 7. Lipitor 40 mg p.o. daily. 8. Pantoprazole 40 mg p.o. daily. 9. Cipro 250 mg p.o. daily. 10. Torsemide 100 mg p.o. daily. 11. Spironolactone 100 mg p.o. daily. 12. Gabapentin 100 mg p.o. t.i.d. Surgery: 1. CABG 1990 2. GI AVM laser treated 3. History coronary angioplasty 4. Multiple paracentesis 5. Multiple varicose banding 6. Multiple EGDs 7. Shunt placement for dialysis Injuries: Undisclosed Hospitalizations: Multiple hospitalizations [facility]; GI bleeding, multiple transfusions Followed by Dr. Ravi nephrology Followed by [facility] medical FAMILY HISTORY Parents: 1. Father, healthy up until the day at 85 years old 2. Mother, history of heart disease diabetes; at the age 82 No family history of liver disease Children: 4 healthy children SOCIAL HISTORY 1. Marital Status: Long marriage Donna 2. Pentecostal: Unknown 3. Education: Unknown 4. Employment History: Retired 5. Occupational health exposures: unknown HABITS 1. Tobacco: remote smoking; quit smoking in 1990 2. Drugs: None 3. Alcohol: none HEALTH SUPERVISION Item/Test Followed by Dr. Siddiqi IMMUNIZATIONS: 1. Pneumococcal: [facility] medical records 2. Influenza: [facility] medical records 3. Tetanus: [facility] medical records ADVANCED DIRECTIVES: 1. Living well: Available on file 2. POLST: Available on file 3. Code Status: DNI, resuscitation with limitations. No chest compressions only electrical shock when following resuscitation guidelines 4. Durable Power Color Artist Health care: Donna WALDRON 5. Donor card: Unknown REVIEW OF SYSTEMS Remarkable for those things stated in the history of present illness and past medical history Constitutional Weakness (dizziness). Denies: Fever, Chills. Respiratory Denies: SOB w/exertion, Wheezing. Cardiovascular Denies: Chest Pain, Palpitations. Gastrointestinal Other (epigastric pain). Neurological Other (dizziness). Physical Exam Vital Signs / I&Os Vital Signs Date Time Temp Pulse Resp B/P Pulse O2 O2 Flow FiO2 Ox Delivery Rate 10/02 0555 Room Air 10/02 0534 98.1 75 22 104/56 99 Room Air General Appearance Oriented X3, Cooperative, No acute distress Lungs Clear to auscultation Cardiovascular Regular rate and rhythm, Normal S1 and S2, systolic murmur grade 3 Abdomen distended abdomen, fluid wave indeterminant Nontender Extremities No cyanosis, No clubbing Skin No Significant Lesions Neurological Normal speech, Cranial nerves intact Psych/Mental Status Mood normal LAB Results Laboratory Tests 10/02 10/02 10/02 10/02 0330 0330 0330 0400 Chemistry Plasma Sodium (136 - 145 mmol/L) 140 Plasma Potassium (3.5 - 5.1 mmol/L) 4.6 Plasma Chloride (98 - 107 mmol/L) 102 CO2 (Enzymatic) (21 - 32 mmol/L) 27 BUN (7 - 18 mg/dL) 26 Creatinine (0.6 - 1.3 mg/dL) 3.2 Est GFR ( Amer) (mL/min) 24.72 Est GFR (Non-Af Amer) (mL/min) 20.40 Glucose (70 - 110 mg/dL) 144 Plasma Calcium (8.5 - 10.1 mg/dL) 7.9 Plasma Magnesium (1.8 - 2.4 mg/dL) 1.8 Total Bilirubin (0.0 - 1.0 mg/dL) 1.4 AST (15 - 37 U/L) 32 ALT (12 - 78 U/L) 29 Alkaline Phosphatase (46 - 116 U/L) 108 Ammonia (11 - 32 umol/L) 126 Creatine Kinase (24 - 260 U/L) 58 Troponin (0.00 - 1.5 ng/mL) 0.21 B-Natriuretic Peptide (5 - 100 pg/ml) 45.5 Total Protein (6.4 - 8.2 g/dL) 5.6 Albumin (3.3 - 5.0 g/dL) 2.7 Amylase (25 - 115 U/L) 99 Lipase (73 - 393 U/L) 324 TSH 3rd Generation (0.30 - 3.74 uIU/mL) 6.718 Coagulation INR (0.8 - 1.2) 1.2 Hematology WBC (4.5 - 11.5 K/uL) 2.6 RBC (4.50 - 5.90 M/uL) 2.56 Hgb (13.5 - 17.5 gm/dL) 8.0 Hct (41.0 - 53.0 %) 23.8 MCV (80 - 100 fL) 93 MCH (26 - 34 pg) 31 RDW (11.6 - 14.8 %) 17.0 Neut % (Auto) (50 - 75 %) 72.2 Lymph % (Auto) (25 - 40 %) 9.0 Linn % (Auto) (3 - 14 %) 16.8 Eos % (Auto) (0 - 4 %) 1.7 Baso % (Auto) (0 - 2 %) 0.3 Plt Count, EDTA (150 - 400 K/uL) 46 PUBS MCHC (31 - 37 g/dL) 34 Assessment and Plan Problem List 1. Anemia Plan Patient with history of anemia; transfusion dependent with recurrence. Patient with poor hepatic synthetic aptitude; chronically low albumin. Patient will be typed and crossed and given PRBCs according to emergency department guidelines. The hematocrit did not rise beyond the 15% per unit as expected and the transfusion of 3 PRBCs on admission date 10/01/2016. Monitor and follow serial hematocrit, Assessment for GI bleed; stool Hemoccult Will give IV Lasix while inpatient; hold the torsemide 2. Chronic renal failure Plan Chronic renal failure with expected dialysis on Wednesday next dialysis on Wednesday10/03/2016. Recently found to have an elevated troponin which is indeterminate. Likely related to renal failure but will need to follow over the course of the next 16 hours. Patient at risk for hepatorenal failure and at risk for hepato-cardiac syndrome 3. INDETERMINATE TROPONIN Plan Serial values of the troponins over the next 16 hours. Likely related to renal failure At risk for hepatic cardiac syndrome 4. Cirrhosis Plan Long-standing non-alcoholic steatohepatitis followed by gastroenterology. Suggested TIPS procedure. Monitor symptoms. Seen with the elevated ammonia on admission Patient will continue with the lactulose Monitor labs. Continue with the diuretic protocol. 5. Hepatic encephalopathy Plan Elevated ammonia Continue with the lactulose 20 mg 3 times a day Monitor stools. Repeat ammonia level in 24 hours 6. Hypothyroidism Status Chronic Onset Date Unknown 7. Diabetes mellitus type 2 in obese Plan Return return to home regimen of 10 units Lantus daily Low-dose sliding scale adjusted before meals at bedtime Carbohydrate consistent diet Current status: Fair to guarded Anticipated discharge date: 24-48 hours Anticipated discharge placement: Home Patient care time: Time spent in chart review, patient interview, physical exam, CPOE, and care documentation: 70 minutes Visit to patient today: 2 Complexity of care: Moderate
--- NOTE | 2016-10-02 14:31 | NUR ---
NUTRITION ASSESSMENT: S: Pt admitted with dx/o anemia and r/o GIB, pt with PMH of diabetes and chronic renal failure with dialysis tx, acites, non ETOH cirrhosis, mitral valve regurgitation, hypothyroidism, HTN, elevated amonia level decub ulcer, see H&P for complete list/detail. Spoke with pt this afternoon, states appetite is good, no issues with eating. Pt follows a consistent carb type diet at home. O: Diet Rx: 84 kg Ht: 71" IBW: 72-83 kg BMI: 25.9 wt 06/19/16: 89.9 kg; 6.6% wt loss Est Kcals: 6139-5347 kcals per day Est Pro: 85-100 g per day Est Fluids: ~per MD Labs Incl: (10/02) glucose 144, BUN 26, Creat 3.2, Na+ 140, K+ 4.6, mag 1.8, Ca+ 7.9, total pro 5.6, albumin 2.7, HCT 23.8, HGB 8.0, MCV 93, MCH 31, ammonia 126 Meds Incl: lipitor, lasix, cipro, insulin, lactulose, PNV, spirolactone, PNV, levothyroxine, lactulose, lipitor, see eMar for complete list. Skin: waffle overlay in place A: Pt appears to have a good appetite ~75-80% consistent carb diet which appears appropriate given hx/o diabetes. Pt does not follow a renal diet at home and states that he has never been instructed to follow one, Rev'd meds and labs, lytes appears wnl, pt states that his renal labs are monitored at dialysis clinic. Wt fluctuations expected 2/2 dialysis and noted diuretic tx above. Rec contniue CCD diet and add low sodium 2/2 renal hx and on diuretic tx RD to follow up prn/protocol. P: 1. Add low sodium to current diet order if MD ok.
--- NOTE | 2016-10-02 16:49 | NUR ---
1000: CALLED DR STACK TO CLARIFY BLOOD ORDERS THAT THE ED DOC ORDERED. H & H 23.8/8.[address] STACK AWARE AND WANTS THE 2 UNITS PRBC'S GIVEN. PT DENIES DIZZINESS OR FEELING FAINT AT THIS TIME. HE HAS BEEN OOB TO THE BR SEVERAL TIMES WITH SBA. 1230: PT ASKING WHY HE WAS GETTING BLOOD. HE STATED, "I HAD 3 UNITS YESTERDAY 10/01 AND I USUALLY DON'T GET BLOOD UNTIL MY HEMOGLOBIN IS BELOW 7." I CALLED DR STACK TO CLARIFY THAT HE WANTS THE BLOOD TO BE GIVEN AND IF HE HAD ANY FURTHER ORDERS. NEW ORDERS RECEIVED. 1400: FIRST UNIT PRBC'S HUNG. VSS. ORDERED TO GIVE 10 MG IV LASIX AFTER EACH UNIT AND 2 WILL BE GIVEN. 1500: TOLERATING #1 UNIT OF PRBC'S. VSS.
--- NOTE | 2016-10-02 17:24 | Progress Note ---
Subjective General Patient is getting blood, hx of bleeding post paracentesis . Will transfuse 2 units and then check hct around 1/2 hr later then re check hct in am for bleeding rate, likely d/c in am.
--- NOTE | 2016-10-02 19:53 | NUR ---
PT IS A&OX3, LS CTA AND DIMNISHED IN THE BASES, HR IS IRREGULAR W/ A MUMUR AND BT HYPERACTIVE. NO PAIN, NAUSEA OR SOB. 2ND UNIT OF BLOOD RUNNING CURRETNLY, PT TOLERATING WELL. VSS. RESTING W/ CALL LIGHT IN REACH.
[2016-10-03 02:44] VITALS: BP 95/50
--- NOTE | 2016-10-03 06:29 | NUR ---
PT SLEPT WELL BETWEEN CARE. VSS ON ROOM AIR. LOW URINE OUTPUT. FLOMAX GIVEN ORDERED AND BLADDER SCANNED 2 HOURS LATER, STILL 1000+ ML, THEREFORE [facility] INSERTED. FIRST ATTEMPT AT [facility] UNSUCCESSFUL, COUDE 16 FR THEN INSERTED WITH SUCCESS. 700+ ML OUTPUT IN 2 HOURS. PT UP TO BATHROOM INDEPENDENTLY, NO COMPLAINTS OF DIZZINESS. PT HAD LOOSE BM DURING SHIFT.
[2016-10-03 06:51] VITALS: BP 126/60
[2016-10-03 10:43] VITALS: BP 107/49
[2016-10-03] MEDS ORDERED: CEFUROXIME AXE250 MG PO (11:44)
--- NOTE | 2016-10-03 11:58 | Provider's Discharge Care Plan ---
Problem, Goal, Plan Problem List 1. Anemia Goals: Improve disease control, Improve function, Improved health/wellness Instructions: Follow up as directed, Increase activity level, Take meds as directed, tAKE VIT WITH IRON. fu WITH Dr. Devang Jha or Brock. 2. GI bleeding Goals: Improve disease control, Improve function, Improved health/wellness Instructions: Follow up as directed, Increase activity level, Take meds as directed, continue pantoprazole 3. Liver failure Goals: Diagnostic testing, Improve disease control, Improve function, Improved health/wellness Instructions: Follow up as directed, Increase activity level, Take meds as directed, Keep appt. with GI specialist. 4. Chronic renal failure Goals: Improve disease control, Improve function, Improved health/wellness, Increase independence Instructions: Follow up as directed, Increase activity level, Take meds as directed, Keep up with dialysis schedule. Follow recomended diet. 5. Hepatic encephalopathy Goals: Improve disease control, Improve function, Improved health/wellness Instructions: Follow up as directed, Increase activity level, Take meds as directed, Continue lactulose and Xifaxan 6. Urinary tract infection Goals: Improve disease control, Improve function, Improved health/wellness, Increase independence Instructions: Follow up as directed, Increase activity level, Take meds as directed, Stop Cipro for now and begin cefuroxime 250 mg every 12h. 7. Diabetes mellitus type 2 in obese Goals: Improve disease control, Improve function, Improved health/wellness Instructions: Follow up as directed, Increase activity level, Take meds as directed, Continue usual insulin doses.
--- NOTE | 2016-10-03 12:30 | NUR ---
0830- assessment completed. pt is oriented to self only. he is unable to state loction, time, date, and unable to explain situation. reoriented easily. calm and cooperative, appears frustrated by inability to answer orientation questions correctly. this is a significant change since last charted assessment was that patient s oriented. Md Apple notified. VSS, otherwise assessment unremarkable. urine appears very cloudy. notified and UA sent.
--- NOTE | 2016-10-03 13:05 | NUR ---
discharge education completed. pt dc'd to [facility] with today, reminded to attend dialysis today. pt and state understnading. discussed my concerns re: urination, confusion and recent need for transfusions with dr. dubois. discharge orders were writtena dn pt and state they feel he can DC to home. iv site removed intact. pt tolerated well without incident.
== END 2016-10-03 12:47 | disposition home or self-care (01) ==
LOC: ED SRH 03:13 → TRANS SRH 04:28 → ACUTE2 SRH 05:21
PROVIDERS: ADMIT Pediatrics
PROC: 30233N1 Transfusion of Nonautologous Red Blood Cells into Peripheral Vein, Percutaneous Approach (ICD-10-PCS; principal; 2016-10-02)
DX: E11.22 Type 2 diabetes mellitus with diabetic chronic kidney disease (principal); N18.6 End stage renal disease; D63.1 Anemia in chronic kidney disease; R79.89 Other specified abnormal findings of blood chemistry; R33.9 Retention of urine, unspecified; K72.10 Chronic hepatic failure without coma; K76.6 Portal hypertension; K21.9 Gastro-esophageal reflux disease without esophagitis; R82.99 Other abnormal findings in urine; I95.9 Hypotension, unspecified; E03.9 Hypothyroidism, unspecified; Z99.2 Dependence on renal dialysis; Z79.4 Long term (current) use of insulin; Z95.1 Presence of aortocoronary bypass graft
CPT/HCPCS: 29230; 29249; 29251; 80264; 85241; 90001; 90004; 90047; 90074; 90098; 90100; 90155; 90469; 90616; 91004; 91162; 91163; 91295; 91320; 91544; 91588; 92235; 92530; 92610; 92720; 92755; 92760; 92761; 92762; 92763; 92764; 92765; 92766; 92767; 93140; 94001; 94060; 95059

== ENCOUNTER 2016-10-13 21:49 | Observation (INO) | payer OTHER ==
[~2016-10-13] VITALS: Ht 180.3 cm; Wt 87.3 kg
[~2016-10-13 21:49] MED LIST changes: +CEFUROXIME AXE250 MG PO; +HUMALIN R100 UNITS/ SC
[2016-10-14] VITALS (21 sets, daily range): BP systolic 85–116; BP diastolic 39–63
--- NOTE | 2016-10-14 00:38 | ED NURSING NOTES ---
Clinical Report - Nurses [facility] [address] [place] [address] 10/13/2016 21:49 Patient: HOLLY NAM TRIAGE Triage time 22:05. Acuity: LEVEL 3. Chief Complaint: (Sore bottom). 22:11. Alert. SEPSIS SCREEN: Sepsis Screen. Negative (no infection suspected/documented). MARTITA COMA SCORE: Martita Coma Scale: 15- eyes open spontaneously (4); best verbal response- oriented x 4 (5); best motor response- obeys commands (6). --22:11 Clifford Arrieta R.N. 22:05 10/13/16. BP: 91/47. HR: 85. RR: 16. O2 saturation: 100%. Temp: 98.4 F. Pain level now: 11/26. --22:11 Clifford Arrieta R.N. Weight: 87 kg stated. Height/Length: 71 inches Per Patient. BMI: 26.8. --22:11 Clifford Arrieta R.N. Medications Atorvastatin Calcium Oral (Tablet 40 mg) 1 tablet, daily. Gabapentin Oral (Capsule 100 mg) 1 capsule, 3x a day. Insulin Glargine Subcutaneous 10 units, at bedtime. Insulin Regular Human Injection 4 units, before meals. Lactulose Oral 20 mL, 3x a day. Levothyroxine Sodium Oral (Tablet 125 mcg) 1 tablet, daily. Midodrine HCl Oral (Tablet 5 mg), 3x daily. Nitrostat 0.4 mg prn. Oral, daily. Torsemide Oral (Tablet 100 mg) 1 tablet, daily. Xifaxan Oral (Tablet 550 mg) 1 tablet, 2x daily. --22:08 Clifford Arrieta R.N. Pantoprazole Sodium Oral 40 mg, 2x a day. --22:10 Clifford Arrieta R.N. Medication/allergy information source: the patient. --22:11 Clifford Arrieta R.N. Allergies None. --22:08 Clifford Arrieta R.N. History Arrived by private vehicle. Historian: patient. Accompanied by family. Primary physician (Devang). Onset. (3 - 4 days ago). 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 PAST MEDICAL HX: Immunizations: up-to-date. SOCIAL HX: Former smoker, end date 1991. No alcohol use or drug use. No infectious disease exposure. ABUSE ASSESSMENT: No report of abuse. FALL RISK ASSESSMENT: Fall risk assessment completed. No fall risk identified. NUTRITIONAL RISK ASSESSMENT: The nutritional risk assessment revealed no deficiencies. FUNCTIONAL ASSESSMENT: Functional assessment: no impairments noted. LEARNING NEEDS ASSESSMENT: The learning needs assessment revealed no barriers. SKIN INTEGRITY ASSESSMENT: Skin integrity risk assessment completed. No skin integrity risk identified. --22:11 Clifford Arrieta R.N. ( Patient is here to have a blood draw and decided that since he was here for that he would check in - is to be admitted 10-14 for blood transfusion). --22:12 Clifford Arrieta R.N. PROBLEMS: Hypothyroidism. Skin Avulsion. Hepatic Encephalopathy. Dyspnea. Dizziness. Renal Failure. Coronary Artery Disease. Ascites. Hypovolemia. Heart Disease. Anemia. Hypoglycemia. Herpes Zoster. Diabetes Mellitus. Thyroid Disease. Liver disease. Abnormal Test. GI Bleeding. Renal Insufficiency. Cirrhosis. Abnormal EKG. Chest Pain. Near Syncope. Liver disease. --22:09 Clifford Arrieta R.N. ADDITIONAL SURGERIES: Colonoscopy. Coronary Angioplasty. Coronary Artery Bypass Graft. Endoscopy. Paracentesis. Paracentesis. --22:09 Clifford Arrieta R.N. Interventions ID band on patient. To treatment room. --22:11 Clifford Arrieta R.N. PHYSICAL ASSESSMENT 22:13. Ambulatory to room. Patient gowned. GENERAL / NEURO / PSYCH: Alert. Oriented X 4. HEENT: No facial asymmetry noted. Mucous membranes are pink. RESPIRATORY: Respirations not labored. GI / : Abdominal distention. SKIN: Skin intact. Skin is warm and dry. Normal skin turgor. --22:13 Clifford Arrieta R.N. NURSING PROGRESS NOTES 22:13. Head of bed elevated. Two patient identifiers checked. Call light placed in reach. Bed placed in lowest position. Brakes of bed on. Patient ready for evaluation- chart flagged. --22:13 Clifford Arrieta R.N. 22:15 10/13/16. ( Warm blankets placed on patient.). --23:42 Joellen Frye 23:01 10/13/16. ( Patient brief changed. Barrier cream applied.). --23:20 Joellen Frye 23:20 10/13/16. BP: 92/48. HR: 80. RR: 18. O2 saturation: 98%. --23:20 Joellen Frye 23:41 10/13/16. BP: 117/59. HR: 90. RR: 17. O2 saturation: 99% on room air. Pain level now: 11/26. --23:42 Joellen Frye ( Patient's brief changed by RN.). --23:42 Joellen Frye 00:07 10/14/2016 Site #1 started via IV in the right forearm with an 20g angiocath, with aseptic technique and good blood return; two attempts. Blood drawn: rainbow set. Labeled in the presence of the patient and sent to the lab. Saline lock flushed with 10 mL saline. --00:22 Joellen Frye 00:31 10/14/2016 IV Saline Lock Drip IV Continued: upon admission at the rate of 0 mL/hr. 0 mL remaining. --00:41 Joellen Frye 00:37 10/14/2016 Site #[address] upon admission; patent, no pain and no signs of infection or infiltration; flushes easily. --00:42 Joellen Frye. DISPOSITION / DISCHARGE 00:36 10/14/16. Departure time: 00:Oct 14 2016. Condition at departure: improved. The goals identified in the patient's plan of care were met. Fall risk assessment completed. Risk factors identified include patient age greater than 65 years. Disposition: observation in Acute Care. Transported via stretcher by [employer]. Report was given to a nurse via a phone call. Report included patient's care, treatment, medications, reviewed medication reconcilliation, and condition (including any recent changes or anticipated changes). All questions were answered. Report was acknowledged and care was transferred. Patient's personal items include, All patient belongings placed in belongings bag and sent with patient. --00:36 Joellen Frye 00:36 10/14/16. BP: 101/55. HR: 88. RR: 18. O2 saturation: 98%. Temp: 98.2 F. Pain level now 11/26. --00:36 Joellen Frye. Locked/Released at 10/14/2016 0:42 by Joellen Frye,
--- NOTE | 2016-10-14 00:38 | ED ORDER SUMMARY ---
..... Patient: HOLLY NAM OrderSheet [facility] VisitID: [id number] [address] [place] [address] 71y, M Registration Date/Time: 10/13/2016 ORDER SHEET Weight: 87.0 kg (stated) Allergies: None GENERAL ORDERS: Type & Cross (symptomatic anemia) (symptomatic anemia) Urgent (23:41 10/13/2016 Segun MOMIN) (Ack 23:47 [facility]) (0:22 ASchmuck) MEDICATION ORDERS: IV FLUIDS: IV Saline Lock (23:48 10/13/2016 Addy Reyna verbal order read back to Segun MOMIN) (0:22 ASchmuck) ORDER SHEET NOTES: [Electronically signed by Joellen Frye (00:42 10/14/2016)] [Electronically signed by Clint Eugene MD (15:47 10/14/2016)] [Electronically locked/signed by Joellen Frye (00:42 10/14/2016)]
--- NOTE | 2016-10-14 00:38 | ED ORDER SUMMARY ---
..... Patient: HOLLY NAM OrderSheet [facility] VisitID: [id number] [address] [place] [address] 71y, M Registration Date/Time: 10/13/2016 ORDER SHEET Weight: 87.0 kg (stated) Allergies: None GENERAL ORDERS: Type & Cross (symptomatic anemia) (symptomatic anemia) Urgent (23:41 10/13/2016 Segun MOMIN) (Ack 23:47 [facility] (0:22 ASchmuck) MEDICATION ORDERS: IV FLUIDS: IV Saline Lock (23:48 10/13/2016 Addy Reyna verbal order read back to Segun MOMIN) (0:22 ASchmuck) ORDER SHEET NOTES: [Electronically signed by Joellen Frye (00:42 10/14/2016)] [Electronically signed by Clint Eugene MD (15:47 10/14/2016)] [Electronically locked/signed by Joellen Frye (00:42 10/14/2016)]
--- NOTE | 2016-10-14 00:38 | ED NURSING NOTES ---
Clinical Report - Nurses [facility] [address] [place] [address] 10/13/2016 21:49 Patient: HOLLY NAM TRIAGE Triage time 22:05. Acuity: LEVEL 3. Chief Complaint: (Sore bottom). 22:11. Alert. SEPSIS SCREEN: Sepsis Screen. Negative (no infection suspected/documented). MARTITA COMA SCORE: Martita Coma Scale: 15- eyes open spontaneously (4); best verbal response- oriented x 4 (5); best motor response- obeys commands (6). --22:11 Clifford Arrieta R.N. 22:05 10/13/16. BP: 91/47. HR: 85. RR: 16. O2 saturation: 100%. Temp: 98.4 F. Pain level now: 11/26. --22:11 Clifford Arrieta R.N. Weight: 87 kg stated. Height/Length: 71 inches Per Patient. BMI: 26.8. --22:11 Clifford Arrieta R.N. Medications Atorvastatin Calcium Oral (Tablet 40 mg) 1 tablet, daily. Gabapentin Oral (Capsule 100 mg) 1 capsule, 3x a day. Insulin Glargine Subcutaneous 10 units, at bedtime. Insulin Regular Human Injection 4 units, before meals. Lactulose Oral 20 mL, 3x a day. Levothyroxine Sodium Oral (Tablet 125 mcg) 1 tablet, daily. Midodrine HCl Oral (Tablet 5 mg), 3x daily. Nitrostat 0.4 mg prn. Oral, daily. Torsemide Oral (Tablet 100 mg) 1 tablet, daily. Xifaxan Oral (Tablet 550 mg) 1 tablet, 2x daily. --22:08 Clifford Arrieta R.N. Pantoprazole Sodium Oral 40 mg, 2x a day. --22:10 Clifford Arrieta R.N. Medication/allergy information source: the patient. --22:11 Clifford Arrieta R.N. Allergies None. --22:08 Clifford Arrieta R.N. History Arrived by private vehicle. Historian: patient. Accompanied by family. Primary physician (Devang). Onset. (3 - 4 days ago). 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 PAST MEDICAL HX: Immunizations: up-to-date. SOCIAL HX: Former smoker, end date 1991. No alcohol use or drug use. No infectious disease exposure. ABUSE ASSESSMENT: No report of abuse. FALL RISK ASSESSMENT: Fall risk assessment completed. No fall risk identified. NUTRITIONAL RISK ASSESSMENT: The nutritional risk assessment revealed no deficiencies. FUNCTIONAL ASSESSMENT: Functional assessment: no impairments noted. LEARNING NEEDS ASSESSMENT: The learning needs assessment revealed no barriers. SKIN INTEGRITY ASSESSMENT: Skin integrity risk assessment completed. No skin integrity risk identified. --22:11 Clifford Arrieta R.N. ( Patient is here to have a blood draw and decided that since he was here for that he would check in - is to be admitted 10-14 for blood transfusion). --22:12 Clifford Arrieta R.N. PROBLEMS: Hypothyroidism. Skin Avulsion. Hepatic Encephalopathy. Dyspnea. Dizziness. Renal Failure. Coronary Artery Disease. Ascites. Hypovolemia. Heart Disease. Anemia. Hypoglycemia. Herpes Zoster. Diabetes Mellitus. Thyroid Disease. Liver disease. Abnormal Test. GI Bleeding. Renal Insufficiency. Cirrhosis. Abnormal EKG. Chest Pain. Near Syncope. Liver disease. --22:09 Clifford Arrieta R.N. ADDITIONAL SURGERIES: Colonoscopy. Coronary Angioplasty. Coronary Artery Bypass Graft. Endoscopy. Paracentesis. Paracentesis. --22:09 Clifford Arrieta R.N. Interventions ID band on patient. To treatment room. --22:11 Clifford Arrieta R.N. PHYSICAL ASSESSMENT 22:13. Ambulatory to room. Patient gowned. GENERAL / NEURO / PSYCH: Alert. Oriented X 4. HEENT: No facial asymmetry noted. Mucous membranes are pink. RESPIRATORY: Respirations not labored. GI / : Abdominal distention. SKIN: Skin intact. Skin is warm and dry. Normal skin turgor. --22:13 Clifford Arrieta R.N. NURSING PROGRESS NOTES 22:13. Head of bed elevated. Two patient identifiers checked. Call light placed in reach. Bed placed in lowest position. Brakes of bed on. Patient ready for evaluation- chart flagged. --22:13 Clifford Arrieta R.N. 22:15 10/13/16. ( Warm blankets placed on patient.). --23:42 Joellen Frye 23:01 10/13/16. ( Patient brief changed. Barrier cream applied.). --23:20 Joellen Frye 23:20 10/13/16. BP: 92/48. HR: 80. RR: 18. O2 saturation: 98%. --23:20 Joellen Frye 23:41 10/13/16. BP: 117/59. HR: 90. RR: 17. O2 saturation: 99% on room air. Pain level now: 11/26. --23:42 Joellen Frye ( Patient's brief changed by RN.). --23:42 Joellen Frye 00:07 10/14/2016 Site #1 started via IV in the right forearm with an 20g angiocath, with aseptic technique and good blood return; two attempts. Blood drawn: rainbow set. Labeled in the presence of the patient and sent to the lab. Saline lock flushed with 10 mL saline. --00:22 Joellen Frye 00:31 10/14/2016 IV Saline Lock Drip IV Continued: upon admission at the rate of 0 mL/hr. 0 mL remaining. --00:41 Joellen Frye 00:37 10/14/2016 Site #[address] upon admission; patent, no pain and no signs of infection or infiltration; flushes easily. --00:42 Joellen Frye. DISPOSITION / DISCHARGE 00:36 10/14/16. Departure time: 00:Oct 14 2016. Condition at departure: improved. The goals identified in the patient's plan of care were met. Fall risk assessment completed. Risk factors identified include patient age greater than 65 years. Disposition: observation in Acute Care. Transported via stretcher by [employer]. Report was given to a nurse via a phone call. Report included patient's care, treatment, medications, reviewed medication reconcilliation, and condition (including any recent changes or anticipated changes). All questions were answered. Report was acknowledged and care was transferred. Patient's personal items include, All patient belongings placed in belongings bag and sent with patient. --00:36 Joellen Frye 00:36 10/14/16. BP: 101/55. HR: 88. RR: 18. O2 saturation: 98%. Temp: 98.2 F. Pain level now 11/26. --00:36 Joellen Frye. Locked/Released at 10/14/2016 0:42 by Joellen Frye,
--- NOTE | 2016-10-14 00:38 | ED CLINICAL REPORT ---
Clinical Report - Physicians/Mid Levels [facility] [address] [place] [address] 10/13/2016 21:49 Patient: FRANCISCO J MARTÍNEZ Time Seen: 22:50. Arrived- By private vehicle. Historian- patient. HISTORY OF PRESENT ILLNESS Chief Complaint: DIARRHEA. Due for transfusion and paracentesis. This started months ago; Mr. Francisco J Martínez has a history of renal failure and liver failure with ascites and symptomatic anemia. He was scheduled to be admitted to observation status tomorrow for transfusion and abdominal paracentesis. Tonight he presented to the hospital for a type and cross for tomorrow's transfusion. He felt terribly weak he was having profound diarrhea which she attributes to lactulose. He decided to check into the emergency department. His primary care physician is Dr. Siddiqi. and is still present. The patient has had nausea, diarrhea and mild abdominal pain. No vomiting, black stools, bloody stools, constipation or history of possible bad food exposure. The illness is described as moderate. Similar symptoms previously: REVIEW OF SYSTEMS No fever, cough or chest pain. He has had difficulty with urination (Renal failure with dialysis), and a mild headache. He has had difficulty breathing (due to abdominal fullness). PAST HISTORY Dr Siddiqi Dialysis - today 8 pm. Kidney and liver failure. Medications: Pantoprazole Sodium Oral 40 mg, 2x a day. Atorvastatin Calcium Oral (Tablet 40 mg) 1 tablet, daily. Gabapentin Oral (Capsule 100 mg) 1 capsule, 3x a day. Insulin Glargine Subcutaneous 10 units, at bedtime. Insulin Regular Human Injection 4 units, before meals. Lactulose Oral 20 mL, 3x a day. Levothyroxine Sodium Oral (Tablet 125 mcg) 1 tablet, daily. Midodrine HCl Oral (Tablet 5 mg), 3x daily. Nitrostat 0.4 mg prn. Oral, daily. Torsemide Oral (Tablet 100 mg) 1 tablet, daily. Xifaxan Oral (Tablet 550 mg) 1 tablet, 2x daily. Allergies: None. ADDITIONAL NOTES The nursing notes have been reviewed. PHYSICAL EXAM Vital Signs: 10/14/2016 00:36 BP: 101/55. HR: 88. RR: 18. O2 saturation: 98%. Temp: 98.2 F. 10/13/2016 23:41 BP: 117/59. HR: 90. RR: 17. O2 saturation: 99%. Pain level now: 11/26. 10/13/2016 23:20 BP: 92/48. HR: 80. RR: 18. O2 saturation: 98%. 10/13/2016 22:05 BP: 91/47. HR: 85. RR: 16. O2 saturation: 100%. Temp: 98.4 F. Pain level now: 11/26. Appearance: Alert. No acute distress. (Chronically ill-appearing male). ENT: Pharynx normal. CVS: Heart sounds normal. Respiratory: No respiratory distress. Breath sounds normal. Abdomen: Mild tenderness diffusely. Bowel sounds normal. No rebound tenderness or guarding. (marked ascites). Skin: Pallor. Extremities: Extremities exhibit normal ROM. No lower extremity edema. Neuro: No alteration in mental status. No cranial nerve deficit. PROGRESS AND PROCEDURES Course of Care: I discussed the patient with Dr. Siddiqi who is involved in his day-to-day care. It was decided to admit the patient for transfusion and paracentesis tomorrow rather than have the patient return home and come back to the hospital the following day. Dr. Siddiqi has already Provided handwritten transfusion orders. The emergency physician at the rest of the basic transition orders. 00:48 10/14/16. T orders done. Disposition orders written. CLINICAL IMPRESSION SYMPTOMATIC ANEMIA SYMPTOMATIC ASCITES RENAL FAILURE WITH DIALYSIS LIVER FAILURE WITH ASCITES. (Electronically signed by Clint Eugene MD 10/14/2016 15:47)
--- NOTE | 2016-10-14 15:47 | ED MED RECONCILIATION SUMMARY ---
Patient: HOLLY NAM Medication Reconciliation Report [facility] VisitID: [id number] [address] [place] [address] 71y, M Registration Date/Time: 10/13/2016 Weight: 87.0 kg Height/Length: 71 in. BMI: 26.8 ALLERGIES: None The patient's Home Medications are listed below: THE FOLLOWING MEDICATIONS NEED TO BE RECONCILED: Atorvastatin Calcium Oral (40 mg) 1 tablet, daily Gabapentin Oral (100 mg) 1 capsule, 3x a day Insulin Glargine Subcutaneous 10 units, at bedtime Insulin Regular Human Injection 4 units, before meals Lactulose Oral 20 mL, 3x a day Levothyroxine Sodium Oral (125 mcg) 1 tablet, daily Midodrine HCl Oral (5 mg), 3x daily Nitrostat 0.4 mg prn Pantoprazole Sodium Oral 40 mg, 2x a day Oral, daily Torsemide Oral (100 mg) 1 tablet, daily Xifaxan Oral (550 mg) 1 tablet, 2x daily The source(s) of the original Home Medication information: patient The following Medications were given to the patient in the Emergency Department: None. The following Medications were prescribed to the patient: None.
--- NOTE | 2016-10-14 15:47 | ED MED RECONCILIATION SUMMARY ---
Patient: HOLLY NAM Medication Reconciliation Report [facility] VisitID: [id number] [address] [place] [address] 71y, M Registration Date/Time: 10/13/2016 Weight: 87.0 kg Height/Length: 71 in. BMI: 26.8 ALLERGIES: None The patient's Home Medications are listed below: THE FOLLOWING MEDICATIONS NEED TO BE RECONCILED: Atorvastatin Calcium Oral (40 mg) 1 tablet, daily Gabapentin Oral (100 mg) 1 capsule, 3x a day Insulin Glargine Subcutaneous 10 units, at bedtime Insulin Regular Human Injection 4 units, before meals Lactulose Oral 20 mL, 3x a day Levothyroxine Sodium Oral (125 mcg) 1 tablet, daily Midodrine HCl Oral (5 mg), 3x daily Nitrostat 0.4 mg prn Pantoprazole Sodium Oral 40 mg, 2x a day Oral, daily Torsemide Oral (100 mg) 1 tablet, daily Xifaxan Oral (550 mg) 1 tablet, 2x daily The source(s) of the original Home Medication information: patient The following Medications were given to the patient in the Emergency Department: None. The following Medications were prescribed to the patient: None.
--- NOTE | 2016-10-14 15:47 | ED DISCHARGE INSTRUCTIONS ---
Patient: HOLLY NAM General Instructions [facility] VisitID: [id number] [address] [place] [address] 71y, M Registration Date/Time: 10/13/2016 SYMPTOMATIC ANEMIA SYMPTOMATIC ASCITES RENAL FAILURE WITH DIALYSIS LIVER FAILURE WITH ASCITES. (Electronically signed by Clint Eugene MD 10/14/2016 15:47)
--- NOTE | 2016-10-14 15:47 | ED MAR SUMMARY ---
..... Medication Administration Record [facility] [address] [place], [place] [id number] Patient: HOLLY NAM Visit ID: [id number] 71y, M Weight: 87.0 kg Height/Length: 71 in BMI: 26.8 ALLERGIES: None
--- NOTE | 2016-10-14 15:47 | ED MAR SUMMARY ---
..... Medication Administration Record [facility] [address] [place], [place] [id number] Patient: HOLLY NAM Visit ID: [id number] 71y, M Weight: 87.0 kg Height/Length: 71 in BMI: 26.8 ALLERGIES: None
--- NOTE | 2016-10-14 15:47 | ED DISCHARGE INSTRUCTIONS ---
Patient: HOLLY NAM General Instructions [facility] VisitID: [id number] [address] [place] [address] 71y, M Registration Date/Time: 10/13/2016 SYMPTOMATIC ANEMIA SYMPTOMATIC ASCITES RENAL FAILURE WITH DIALYSIS LIVER FAILURE WITH ASCITES. (Electronically signed by Clint Eugene MD 10/14/2016 15:47)
--- NOTE | 2016-10-14 17:37 | Provider's Discharge Care Plan ---
Problem, Goal, Plan Problem List 1. Anemia Goals: Improve disease control Instructions: Transfusion done 2. Liver failure Goals: Improved health/wellness Instructions: See GI as panned. 3. Chronic renal failure Goals: Improve disease control Instructions: Follow up as directed, Continue dialysis 4. Diabetes mellitus type 2 in obese Goals: Improve disease control Instructions: Take meds as directed
--- NOTE | 2016-10-19 22:49 | History & Physical Report ---
Admission Admit Date 10/13/16 Information Source Information Source: Self Reliability: Good History Chief Complaint Weakness, bleeding(GI) History of Present Illness 71 yo male with ESRD on dialysis and hepatic failure (not a transplant candidate ) and hx transfusion dependent anemia and GI bleeding from ulcers and varices, presents for admission. He had come to hospital due to order for type and cross with transfusion the next day planned for Hgb 7.0. On arriving at lab he reported marked diarrhea and blood in stool and so was transported to the ER for evaluation. Patient History 1. Anemia 2. GI bleeding 3. Liver failure 4. Chronic renal failure 5. Pancytopenia 6. Cirrhosis 7. Hypothyroid 8. Gastritis and duodenitis 9. Ascites 10. Hepatic encephalopathy 11. ESRD (end stage renal disease) on dialysis 12. Diabetes mellitus type 2 in obese Social History retired male. ETOH none, Tobacco none, Drug use none. Family History MOTHER, ; Cause: CVA (cerebrovascular accident). Relation not specified for: Heart Disease Advance Directive None (No CPR.) Health Maintenance Up to date Medications and Allergies Allergies Coded Allergies: No Known Drug Allergy (05/06/16) Reconcile Medications Scheduled Medications Atorvastatin Calcium (Atorvastatin Calcium 40 MG) 40 MG TAB 40 MG PO DAILY ( Reported) Gabapentin 100 MG CAP 100 MG PO TID Insulin Glargine (Lantus Solostar Pen 100 Units/Ml) 100 UNITS/ML INJ 10 UNITS SC HS Insulin Lispro (Humalog) 100 MG/ML INJ 4 UNIT SC AC DIABETES MELLITUS ( Reported) Lactulose (Lactulose 10 Gm/15 Ml) ROYER 20 GM PO TID Levothyroxine Sodium (Synthroid 75 Mcg) 75 MCG TAB 125 MCG PO 0600 Midodrine HCl 5 MG TAB 5 MG PO TID (Reported) Nitroglycerin (Nitrostat 0.4 MG) 0.4 MG SUB 0.4 MG SL Q5MIN X 3 (Reported) Pantoprazole Sodium (Pantoprazole Sodium 40 MG) 40 MG TAB 40 MG PO BID ( Reported) Vit W/ Ferrous Fumara () 1 TAB TAB 1 TAB PO DAILY SUPPLEMENT (Reported) Rifaximin (Xifaxan) 550 MG TAB 550 MG PO BID (Reported) Spironolactone 25 MG TAB 100 MG PO BID Torsemide (Demadex) 10 MG TAB 100 MG PO DAILY (Reported) Discontinued Medications Cefuroxime Axetil (Cefuroxime Axetil 250 MG) 250 MG TAB 250 MG PO BID Discontinued reason: No Longer Taking Insulin Reg (Human) (HumaLIN R 100 UNITS/ML) 100 UNITS/ML INJ 4 UNITS SC AC ( Reported) Discontinued reason: No Longer Taking Review of Systems Constitutional Weakness. Denies: Fever, Chills. Respiratory Denies: Cough, SOB w/exertion, Wheezing. Cardiovascular Edema, Light-headedness. Denies: Chest Pain, Palpitations. Gastrointestinal Diarrhea, Melena. Denies: Nausea, Vomiting, Abdominal Pain, Constipation. Genitourinary Denies: Dysuria, Frequency, Hematuria. Skin Denies: Rash, Jaundice. Neurological Weakness. Denies: Numbness, Confusion, Seizures. Physical Exam Vital Signs / I&Os VSS afebrile on admit. General Appearance Alert, Oriented X3, Cooperative, Mild distress HEENT Normal exam Lungs Clear to auscultation, Normal air movement Cardiovascular Regular rate and rhythm, Normal S1 and S2 Abdomen Normal bowel sounds, Soft, No tenderness, Marked ascites Extremities No cyanosis, No clubbing, No tenderness, 1+ edema Skin No Rashes LAB Results Hgb 7.0 as outpatient Assessment and Plan Problem List 1. Anemia Plan Transfusion x 3 units. 2. GI bleeding Plan Monitor. GI f/u with Dr. Fox post discharge. 3. ESRD (end stage renal disease) on dialysis Plan Continue dialysis per schedule. 4. Diabetes mellitus type 2 in obese Plan Continue current care plan.
== END 2016-10-14 18:30 | disposition home or self-care (01) ==
LOC: ED SRH 21:49 → TRANS SRH 23:48 → ACUTE2 SRH 23:48
PROVIDERS: ADMIT Family Medicine
PROC: 30233N1 Transfusion of Nonautologous Red Blood Cells into Peripheral Vein, Percutaneous Approach (ICD-10-PCS; principal; 2016-10-14)
PROC: 30233J1 Transfusion of Nonautologous Serum Albumin into Peripheral Vein, Percutaneous Approach (ICD-10-PCS; 2016-10-14)
DX: D50.0 Iron deficiency anemia secondary to blood loss (chronic) (principal); K72.10 Chronic hepatic failure without coma; E11.22 Type 2 diabetes mellitus with diabetic chronic kidney disease; N18.6 End stage renal disease; D63.1 Anemia in chronic kidney disease; Z99.2 Dependence on renal dialysis; Z79.4 Long term (current) use of insulin; R18.8 Other ascites; K29.60 Other gastritis without bleeding; K29.80 Duodenitis without bleeding; K92.1 Melena; R19.7 Diarrhea, unspecified; E03.9 Hypothyroidism, unspecified
CPT/HCPCS: 29230; 29251; 90001; 90074; 90098; 90100; 90155; 91004; 91162; 91163; 91544; 95059

== ENCOUNTER 2016-10-23 09:36 | Outpatient (CLI) | payer OTHER ==
[2016-10-23] MEDS ORDERED: HUMALOG KWI100 MG/ML SC (18:50)
[2016-10-23] MEDS ORDERED: LANTUS SOL100 UNITS/ SC (18:50)
== END 2016-10-23 23:00 | disposition home or self-care (01) ==
LOC: LAB SRH 09:36
DX: R15.9 Full incontinence of feces (principal); K75.81 Nonalcoholic steatohepatitis (NASH); D64.9 Anemia, unspecified; E11.9 Type 2 diabetes mellitus without complications
CPT/HCPCS: 90074; 95059

== ENCOUNTER 2016-10-23 14:21 | Observation (INO) | payer OTHER ==
[2016-10-23] VITALS (8 sets, daily range): BP systolic 76–95; BP diastolic 30–47
[~2016-10-23] VITALS: Ht 180.3 cm; Wt 82.5 kg
[2016-10-23] MEDS ORDERED: LANTUS SOL100 UNITS/ SC ×2 (18:50)
[2016-10-23] MEDS ORDERED: HUMALOG KWI100 MG/ML SC ×2 (18:50)
[2016-10-24 00:10] VITALS: BP 88/36
[2016-10-24 00:22] VITALS: BP 97/49
[2016-10-24 00:50] VITALS: BP 93/46
[2016-10-24 01:46] VITALS: BP 100/50
[2016-10-24 07:01] VITALS: BP 85/44
--- NOTE | 2016-10-24 09:33 | Progress Note ---
Subjective General Patient states that he is feeling better. No longer so weak. Is post 3 units blood. Nocp,sob, other concerns. Has lots of fluid in abdomen with liver dz chronic. Physical Exam Vital Signs / I&Os Vital Signs Date Time Temp Pulse Resp B/P Pulse O2 O2 Flow FiO2 Ox Delivery Rate 10/24 0845 Room Air 0.0 10/24 0701 98.2 65 18 85/44 98 07/08 0146 99.0 72 17 100/50 100 Room Air 07/08 0050 99.0 67 18 93/46 99 Room Air 07/08 0022 99.3 60 20 97/49 100 Room Air 07/08 0010 99.1 69 16 88/36 100 Room Air 07/07 2250 99.3 69 15 94/39 100 Room Air 07/07 2228 99.7 71 13 76/30 100 Room Air 07/07 2145 99.1 70 13 76/30 97 Room Air 07/07 2100 Room Air 07/07 1944 99.1 71 16 79/34 100 Room Air 07/07 1844 98.6 74 16 95/39 99 Room Air 07/07 1830 99.7 75 16 95/30 100 Room Air 07/07 1808 99.1 78 16 90/41 100 Room Air 07/07 1510 97.3 78 16 92/47 100 Room Air I&O 10/24 0000 / 1600 10/23 0800 Intake Total 820 Output Total Balance 820 General Appearance Alert, Cooperative HEENT Normal exam Lungs Clear to auscultation, Normal air movement Abdomen Soft, large ascites. Extremities some edema. LAB Results Laboratory Tests 10/24 0330 Hematology Hgb (13.5 - 17.5 gm/dL) 7.4 Hct (41.0 - 53.0 %) 22.1 Assessment and Plan Problem List 1. Anemia Plan Is with hct 23 post 3 untis blood. Will d/c home as feeling otherwise well. 2. Liver failure Plan Stable has tips procedure coming up. 3. Ascites Plan stable aspiration weekly
--- NOTE | 2016-10-24 09:35 | Provider's Discharge Care Plan ---
Problem, Goal, Plan Problem List 1. Anemia Instructions: resume home meds and keep f/u with PMD
--- NOTE | 2016-10-24 09:35 | Provider's Discharge Care Plan ---
Problem, Goal, Plan Problem List 1. Anemia Instructions: resume home meds and keep f/u with PMD
== END 2016-10-24 10:30 | disposition home or self-care (01) ==
LOC: ACUTE2 SRH 14:21
PROVIDERS: ADMIT Family Medicine
PROC: 30233N1 Transfusion of Nonautologous Red Blood Cells into Peripheral Vein, Percutaneous Approach (ICD-10-PCS; principal; 2016-10-23)
DX: D64.89 Other specified anemias (principal); K72.10 Chronic hepatic failure without coma; R18.8 Other ascites; R16.1 Splenomegaly, not elsewhere classified; E11.9 Type 2 diabetes mellitus without complications; Z79.4 Long term (current) use of insulin
CPT/HCPCS: 29230; 29231; 90001; 90074; 90098; 90155; 91004; 91162; 91163; 91544

== ENCOUNTER 2016-10-30 09:18 | Emergency (ER) | payer OTHER ==
[~2016-10-30 09:18] MED LIST changes: +HUMALOG KWI100 MG/ML SC
--- NOTE | 2016-10-30 10:17 | ED NURSING NOTES ---
Clinical Report - Nurses [facility] [address] [place] [address] 10/30/2016 9:18 Patient: HOLLY NAM TRIAGE <<STRICKEN ENTRY-- Triage time 09:32. Acuity: LEVEL 3. Chief Complaint: (Pt had a thoracentesis 3 or 4 days ago at [facility] and the puncture site is still leaking, denies pain.). SEPSIS SCREEN: Sepsis Screen. Negative (no infection suspected/documented). HARITHA COMA SCORE: [place] Coma Scale: 15- eyes open spontaneously (4); best verbal response- oriented x 4 (5); best motor response- obeys commands (6). --09:38 Nick Villalobos R.N. --END STRIKE>> Correction --09:44 Nick Villalobos R.N. 09:32 10/30/16. BP: 95/35 (regular adult cuff) taken on the left arm, while lying. HR: 64. RR: 20. Temp: 97.7 F (oral). Pain level now: 0/10. --09:38 Nick Villalobos R.N. Chief Complaint: (Pt had a paracentesis 3 or 4 days ago at [facility] and still has fluid leaking from the puncture site, denies pain.). --09:45 Nick Villalobos R.N. late entry -09:32. --10:32 Nick Villalobos R.N. 10:32 10/30/16. O2 saturation: 100% on room air. --10:32 Nick Villalobos R.N. Weight: 83.9 kg stated. Height/Length: 71 inches Per Patient. BMI: 25.8. --09:33 Nick Villalobos R.N. Medications Atorvastatin Calcium Oral (Tablet 40 mg) 1 tablet, daily. Gabapentin Oral (Capsule 100 mg) 1 capsule, 3x a day. Insulin Glargine Subcutaneous 10 units, at bedtime. Insulin Regular Human Injection 4 units, before meals. Lactulose Oral 20 mL, 3x a day. Levothyroxine Sodium Oral (Tablet 125 mcg) 1 tablet, daily. Midodrine HCl Oral (Tablet 5 mg), 3x daily. Nitrostat 0.4 mg prn. Pantoprazole Sodium Oral 40 mg, 2x a day. Oral, daily. Torsemide Oral (Tablet 100 mg) 1 tablet, daily. Xifaxan Oral (Tablet 550 mg) 1 tablet, 2x daily. --09:34 Nick Villalobos R.N. Allergies None. --09:34 Nick Villalobos R.N. History Arrived by private vehicle. Historian: patient. 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 PAST MEDICAL HX: ( [id number]). SOCIAL HX: Former smoker, end date 1990 (cigarette). No alcohol use or drug use. ABUSE ASSESSMENT: No report of abuse. --09:38 Nick Villalobos R.N. PROBLEMS: Dialysis. Hypothyroidism. Skin Avulsion. Hepatic Encephalopathy. Dyspnea. Dizziness. Renal Failure. Coronary Artery Disease. Ascites. Hypovolemia. Heart Disease. Anemia. Hypoglycemia. Herpes Zoster. Diabetes Mellitus. Thyroid Disease. Liver disease. Abnormal Test. GI Bleeding. Renal Insufficiency. Cirrhosis. Abnormal EKG. Chest Pain. Near Syncope. Liver disease. --09:36 Nick Villalobos R.N. ADDITIONAL SURGERIES: Colonoscopy. Coronary Angioplasty. Coronary Artery Bypass Graft. Endoscopy. Paracentesis. Paracentesis. --09:36 Nick Villalobos R.N. Interventions ID band on patient. To treatment room. --09:38 Nick Villalobos R.N. PHYSICAL ASSESSMENT Ambulatory to room. GENERAL / NEURO / PSYCH: Alert. Oriented X 4. Appears in no acute distress. HEENT: Pupils equal, round and reactive to light. No facial asymmetry noted. Mucous membranes are pink. RESPIRATORY: Respirations not labored. Chest nontender. Breath sounds within normal limits. CVS: Capillary refill less than 2 seconds. Pulses within normal limits. GI / : ( left side abd paracentesis site is covered with a bandage.). Abdominal distention (ascities). No tenderness. Abdomen soft and nontender and normal bowel sounds. SKIN: Skin is pale. Skin is warm and dry. Poor skin turgor. --09:46 Nick Villalobos R.N. NURSING PROGRESS NOTES Patient gowned. Head of bed elevated. Reassurance given. Two patient identifiers checked. Call light placed in reach. Side rails up x 1. Bed placed in lowest position. Brakes of bed on. Patient ready for evaluation- chart flagged. --09:46 Nick Villalobos R.N. ( Abd wound was dressed with 4x4 gauze and Tegaderm dressing.). --10:25 Nick Villalobos R.N. DISPOSITION / DISCHARGE Departure time: 1027. Condition at departure: unchanged and stable. No learning barriers present. Discharge instructions provided and reviewed with the patient. Reviewed warnings. Reviewed wound care instructions. Patient verbalized understanding. Written instructions provided in Azeri. The patient was discharged by the physician. He was discharged home. He left the Emergency Department ambulatory, via private vehicle and (cane). --10:31 Nick Villalobos R.N. 10:20 10/30/16. BP: 100/44. HR: 68. RR: 20. O2 saturation: 100% on room air. Temp: 97.7 F (oral). Pain level now: 0/10. --10:31 Nick Villalobos R.N. Locked/Released at 10/30/2016 15:14 by Nick Villalobos R.N.
--- NOTE | 2016-10-30 10:17 | ED CLINICAL REPORT ---
Clinical Report - Physicians/Mid Levels [facility] [address] [place] [address] 10/30/2016 9:18 Patient: HOLLY NAM Time Seen: 09:50. Arrived- By private vehicle. Historian- patient. HISTORY OF PRESENT ILLNESS Chief Complaint: draining wound. This started several days ago and is still present. It was abrupt in onset and has been constant and waxing/waning. (The patient has a history of chronic hepatic failure with ascites. He had a paracentesis at [facility] several days ago and has had persistent drainage of fluid form the site since.). REVIEW OF SYSTEMS No chills, fever, sweats, calf pain or chest pain. No cough, difficulty breathing, pedal edema, palpitations or abdominal pain. No constipation, diarrhea, nausea, vomiting or urinary problems. All systems otherwise negative, except as recorded above. PAST HISTORY PCP - MATTHEW SIDDIQI Problems: Dialysis. Hypothyroidism. Skin Avulsion. Hepatic Encephalopathy. Dyspnea. Dizziness. Renal Failure. Coronary Artery Disease. Ascites. Hypovolemia. Heart Disease. Anemia. Hypoglycemia. Herpes Zoster. Diabetes Mellitus. Thyroid Disease. Liver disease. GI Bleeding. Renal Insufficiency. Cirrhosis. Abnormal EKG. Chest Pain. Near Syncope. Liver disease. Additional Surgeries: Colonoscopy. Coronary Angioplasty. Coronary Artery Bypass Graft. Endoscopy. Paracentesis. Medications: Atorvastatin Calcium Oral (Tablet 40 mg) 1 tablet, daily. Gabapentin Oral (Capsule 100 mg) 1 capsule, 3x a day. Insulin Glargine Subcutaneous 10 units, at bedtime. Insulin Regular Human Injection 4 units, before meals. Lactulose Oral 20 mL, 3x a day. Levothyroxine Sodium Oral (Tablet 125 mcg) 1 tablet, daily. Midodrine HCl Oral (Tablet 5 mg), 3x daily. Nitrostat 0.4 mg prn. Pantoprazole Sodium Oral 40 mg, 2x a day. Oral, daily. Torsemide Oral (Tablet 100 mg) 1 tablet, daily. Xifaxan Oral (Tablet 550 mg) 1 tablet, 2x daily. Allergies: None. SOCIAL HISTORY Former smoker. No alcohol use or drug use. FAMILY HISTORY No significant family medical history. ADDITIONAL NOTES The nursing notes have been reviewed. PHYSICAL EXAM Vital Signs: 10/30/2016 09:32 BP: 95/35. HR: 64. RR: 20. Temp: 97.7 F. Pain level now: 0/10. Have been reviewed. Appearance: Alert. No acute distress. Eyes: Pupils equal, round and reactive to light. ENT: Pharynx normal. Neck: Normal inspection. Neck supple. CVS: Normal heart rate and rhythm. Heart sounds normal. Respiratory: No respiratory distress. Breath sounds normal. Abdomen: Soft and nontender. Bowel sounds normal. No organomegaly. No mass. Distention (mild with a fluid fluid wave). (LLQ puncture wound draining clear ascitic fluid). Back: Normal inspection. Skin: Skin warm and dry. Extremities: Extremities exhibit normal ROM. No calf tenderness. No lower extremity edema. PROGRESS AND PROCEDURES Course of Care: Patient is stable. Patient/family counseled. Old medical records reviewed. Disposition: Discharged. Condition: stable. CLINICAL IMPRESSION Ascites. Puncture wound to the left lower quadrant of the abdomen. INSTRUCTIONS Protect wound and keep wound area clean. Change dressing twice daily. Warnings: GENERAL WARNINGS: Return or contact your physician immediately if your condition worsens or changes unexpectedly, if not improving as expected, or if other problems arise. Your Current Medications: CONTINUE TAKING THE FOLLOWING MEDICATIONS: Atorvastatin Calcium Oral : Tablet 40 mg, 1 tablet daily. Gabapentin Oral : Capsule 100 mg, 1 capsule 3x a day. Insulin Glargine Subcutaneous : 10 units at bedtime. Insulin Regular Human Injection : 4 units before meals. Lactulose Oral : 20 mL 3x a day. Levothyroxine Sodium Oral : Tablet 125 mcg, 1 tablet daily. Midodrine HCl Oral : Tablet 5 mg, 3x daily. Nitrostat 0.4 mg prn*. Pantoprazole Sodium Oral : 40 mg 2x a day. Oral : daily. Torsemide Oral : Tablet 100 mg, 1 tablet daily. Xifaxan Oral : Tablet 550 mg, 1 tablet 2x daily. Understanding of the discharge instructions verbalized by patient. Follow-up with: Matthew Siddiqi MD, [facility], , [facility], [address] [place] [address] Follow up in seven days. Call for an appointment. (Electronically signed by Jonh Kolb MD 10/31/2016 9:03)
--- NOTE | 2016-10-30 10:17 | ED NURSING NOTES ---
Clinical Report - Nurses [facility] [address] [place] [address] 10/30/2016 9:18 Patient: HOLLY NAM TRIAGE <<STRICKEN ENTRY-- Triage time 09:32. Acuity: LEVEL 3. Chief Complaint: (Pt had a thoracentesis 3 or 4 days ago at [facility] and the puncture site is still leaking, denies pain.). SEPSIS SCREEN: Sepsis Screen. Negative (no infection suspected/documented). HARITHA COMA SCORE: [place] Coma Scale: 15- eyes open spontaneously (4); best verbal response- oriented x 4 (5); best motor response- obeys commands (6). --09:38 Nick Villalobos R.N. --END STRIKE>> Correction --09:44 Nick Villalobos R.N. 09:32 10/30/16. BP: 95/35 (regular adult cuff) taken on the left arm, while lying. HR: 64. RR: 20. Temp: 97.7 F (oral). Pain level now: 0/10. --09:38 Nick Villalobos R.N. Chief Complaint: (Pt had a paracentesis 3 or 4 days ago at [facility] and still has fluid leaking from the puncture site, denies pain.). --09:45 Nick Villalobos R.N. late entry -09:32. --10:32 Nick Villalobos R.N. 10:32 10/30/16. O2 saturation: 100% on room air. --10:32 Nick Villalobos R.N. Weight: 83.9 kg stated. Height/Length: 71 inches Per Patient. BMI: 25.8. --09:33 Nick Villalobos R.N. Medications Atorvastatin Calcium Oral (Tablet 40 mg) 1 tablet, daily. Gabapentin Oral (Capsule 100 mg) 1 capsule, 3x a day. Insulin Glargine Subcutaneous 10 units, at bedtime. Insulin Regular Human Injection 4 units, before meals. Lactulose Oral 20 mL, 3x a day. Levothyroxine Sodium Oral (Tablet 125 mcg) 1 tablet, daily. Midodrine HCl Oral (Tablet 5 mg), 3x daily. Nitrostat 0.4 mg prn. Pantoprazole Sodium Oral 40 mg, 2x a day. Oral, daily. Torsemide Oral (Tablet 100 mg) 1 tablet, daily. Xifaxan Oral (Tablet 550 mg) 1 tablet, 2x daily. --09:34 Nick Villalobos R.N. Allergies None. --09:34 Nick Villalobos R.N. History Arrived by private vehicle. Historian: patient. 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 PAST MEDICAL HX: ( MINTO). SOCIAL HX: Former smoker, end date 1990 (cigarette). No alcohol use or drug use. ABUSE ASSESSMENT: No report of abuse. --09:38 Nick Villalobos R.N. PROBLEMS: Dialysis. Hypothyroidism. Skin Avulsion. Hepatic Encephalopathy. Dyspnea. Dizziness. Renal Failure. Coronary Artery Disease. Ascites. Hypovolemia. Heart Disease. Anemia. Hypoglycemia. Herpes Zoster. Diabetes Mellitus. Thyroid Disease. Liver disease. Abnormal Test. GI Bleeding. Renal Insufficiency. Cirrhosis. Abnormal EKG. Chest Pain. Near Syncope. Liver disease. --09:36 Nick Villalobos R.N. ADDITIONAL SURGERIES: Colonoscopy. Coronary Angioplasty. Coronary Artery Bypass Graft. Endoscopy. Paracentesis. Paracentesis. --09:36 Nick Villalobos R.N. Interventions ID band on patient. To treatment room. --09:38 Nick Villalobos R.N. PHYSICAL ASSESSMENT Ambulatory to room. GENERAL / NEURO / PSYCH: Alert. Oriented X 4. Appears in no acute distress. HEENT: Pupils equal, round and reactive to light. No facial asymmetry noted. Mucous membranes are pink. RESPIRATORY: Respirations not labored. Chest nontender. Breath sounds within normal limits. CVS: Capillary refill less than 2 seconds. Pulses within normal limits. GI / : ( left side abd paracentesis site is covered with a bandage.). Abdominal distention (ascities). No tenderness. Abdomen soft and nontender and normal bowel sounds. SKIN: Skin is pale. Skin is warm and dry. Poor skin turgor. --09:46 Nick Villalobos R.N. NURSING PROGRESS NOTES Patient gowned. Head of bed elevated. Reassurance given. Two patient identifiers checked. Call light placed in reach. Side rails up x 1. Bed placed in lowest position. Brakes of bed on. Patient ready for evaluation- chart flagged. --09:46 Nick Villalobos R.N. ( Abd wound was dressed with 4x4 gauze and Tegaderm dressing.). --10:25 Nick Villalobos R.N. DISPOSITION / DISCHARGE Departure time: 1027. Condition at departure: unchanged and stable. No learning barriers present. Discharge instructions provided and reviewed with the patient. Reviewed warnings. Reviewed wound care instructions. Patient verbalized understanding. Written instructions provided in Tajik. The patient was discharged by the physician. He was discharged home. He left the Emergency Department ambulatory, via private vehicle and (cane). --10:31 Nick Villalobos R.N. 10:20 10/30/16. BP: 100/44. HR: 68. RR: 20. O2 saturation: 100% on room air. Temp: 97.7 F (oral). Pain level now: 0/10. --10:31 Nick Villalobos R.N. Locked/Released at 10/30/2016 15:14 by Nick Villalobos R.N.
--- NOTE | 2016-10-30 10:17 | ED CLINICAL REPORT ---
Clinical Report - Physicians/Mid Levels [facility] [address] [place] [address] 10/30/2016 9:18 Patient: HOLLY NAM Time Seen: 09:50. Arrived- By private vehicle. Historian- patient. HISTORY OF PRESENT ILLNESS Chief Complaint: draining wound. This started several days ago and is still present. It was abrupt in onset and has been constant and waxing/waning. (The patient has a history of chronic hepatic failure with ascites. He had a paracentesis at [place] several days ago and has had persistent drainage of fluid form the site since.). REVIEW OF SYSTEMS No chills, fever, sweats, calf pain or chest pain. No cough, difficulty breathing, pedal edema, palpitations or abdominal pain. No constipation, diarrhea, nausea, vomiting or urinary problems. All systems otherwise negative, except as recorded above. PAST HISTORY PCP - MATTHEW SIDDIQI Problems: Dialysis. Hypothyroidism. Skin Avulsion. Hepatic Encephalopathy. Dyspnea. Dizziness. Renal Failure. Coronary Artery Disease. Ascites. Hypovolemia. Heart Disease. Anemia. Hypoglycemia. Herpes Zoster. Diabetes Mellitus. Thyroid Disease. Liver disease. GI Bleeding. Renal Insufficiency. Cirrhosis. Abnormal EKG. Chest Pain. Near Syncope. Liver disease. Additional Surgeries: Colonoscopy. Coronary Angioplasty. Coronary Artery Bypass Graft. Endoscopy. Paracentesis. Medications: Atorvastatin Calcium Oral (Tablet 40 mg) 1 tablet, daily. Gabapentin Oral (Capsule 100 mg) 1 capsule, 3x a day. Insulin Glargine Subcutaneous 10 units, at bedtime. Insulin Regular Human Injection 4 units, before meals. Lactulose Oral 20 mL, 3x a day. Levothyroxine Sodium Oral (Tablet 125 mcg) 1 tablet, daily. Midodrine HCl Oral (Tablet 5 mg), 3x daily. Nitrostat 0.4 mg prn. Pantoprazole Sodium Oral 40 mg, 2x a day. Oral, daily. Torsemide Oral (Tablet 100 mg) 1 tablet, daily. Xifaxan Oral (Tablet 550 mg) 1 tablet, 2x daily. Allergies: None. SOCIAL HISTORY Former smoker. No alcohol use or drug use. FAMILY HISTORY No significant family medical history. ADDITIONAL NOTES The nursing notes have been reviewed. PHYSICAL EXAM Vital Signs: 10/30/2016 09:32 BP: 95/35. HR: 64. RR: 20. Temp: 97.7 F. Pain level now: 0/10. Have been reviewed. Appearance: Alert. No acute distress. Eyes: Pupils equal, round and reactive to light. ENT: Pharynx normal. Neck: Normal inspection. Neck supple. CVS: Normal heart rate and rhythm. Heart sounds normal. Respiratory: No respiratory distress. Breath sounds normal. Abdomen: Soft and nontender. Bowel sounds normal. No organomegaly. No mass. Distention (mild with a fluid fluid wave). (LLQ puncture wound draining clear ascitic fluid). Back: Normal inspection. Skin: Skin warm and dry. Extremities: Extremities exhibit normal ROM. No calf tenderness. No lower extremity edema. PROGRESS AND PROCEDURES Course of Care: Patient is stable. Patient/family counseled. Old medical records reviewed. Disposition: Discharged. Condition: stable. CLINICAL IMPRESSION Ascites. Puncture wound to the left lower quadrant of the abdomen. INSTRUCTIONS Protect wound and keep wound area clean. Change dressing twice daily. Warnings: GENERAL WARNINGS: Return or contact your physician immediately if your condition worsens or changes unexpectedly, if not improving as expected, or if other problems arise. Your Current Medications: CONTINUE TAKING THE FOLLOWING MEDICATIONS: Atorvastatin Calcium Oral : Tablet 40 mg, 1 tablet daily. Gabapentin Oral : Capsule 100 mg, 1 capsule 3x a day. Insulin Glargine Subcutaneous : 10 units at bedtime. Insulin Regular Human Injection : 4 units before meals. Lactulose Oral : 20 mL 3x a day. Levothyroxine Sodium Oral : Tablet 125 mcg, 1 tablet daily. Midodrine HCl Oral : Tablet 5 mg, 3x daily. Nitrostat 0.4 mg prn*. Pantoprazole Sodium Oral : 40 mg 2x a day. Oral : daily. Torsemide Oral : Tablet 100 mg, 1 tablet daily. Xifaxan Oral : Tablet 550 mg, 1 tablet 2x daily. Understanding of the discharge instructions verbalized by patient. Follow-up with: Matthew Siddiqi MD, [facility], , [facility], [address] [place] [address] Follow up in seven days. Call for an appointment. (Electronically signed by Jonh Kolb MD 10/31/2016 9:03)
--- NOTE | 2016-10-30 10:17 | ED ORDER SUMMARY ---
..... Patient: HOLLY NAM OrderSheet [facility] VisitID: [id number] [address] [place] [place] [address] 71y, M Registration Date/Time: 10/30/2016 ORDER SHEET Weight: 83.9 kg (stated) Allergies: None GENERAL ORDERS: Dress Wounds (10:14 10/30/2016 Pb MOMIN) (10:19 Mateusz Reyna) MEDICATION ORDERS: IV FLUIDS: ORDER SHEET NOTES: [Electronically signed by Nick Villalobos R.N. (15:14 10/30/2016)] [Electronically signed by Jonh Kolb MD (09:03 10/31/2016)] [Electronically locked/signed by Nick Villalobos R.N. (15:10/30/2016)]
--- NOTE | 2016-10-30 10:17 | ED ORDER SUMMARY ---
..... Patient: HOLLY NAM OrderSheet [facility] VisitID: [id number] [address] [place] [address] 71y, M Registration Date/Time: 10/30/2016 ORDER SHEET Weight: 83.9 kg (stated) Allergies: None GENERAL ORDERS: Dress Wounds (10:14 10/30/2016 Pb MOMIN) (10:19 Mateusz Reyna) MEDICATION ORDERS: IV FLUIDS: ORDER SHEET NOTES: [Electronically signed by Nick Villalobos R.N. (15:14 10/30/2016)] [Electronically signed by Jonh Kolb MD (09:03 10/31/2016)] [Electronically locked/signed by Nick Villalobos R.N. (15:10/30/2016)]
--- NOTE | 2016-10-31 09:04 | ED MED RECONCILIATION SUMMARY ---
Patient: HOLLY NAM Medication Reconciliation Report [facility] VisitID: [id number] [address] [place] [address] 71y, M Registration Date/Time: 10/30/2016 Weight: 83.9 kg Height/Length: 71 in. BMI: 25.8 ALLERGIES: None The patient's Home Medications are listed below: CONTINUE TAKING THE FOLLOWING MEDICATIONS: Atorvastatin Calcium Oral (40 mg) 1 tablet, daily Gabapentin Oral (100 mg) 1 capsule, 3x a day Insulin Glargine Subcutaneous 10 units, at bedtime Insulin Regular Human Injection 4 units, before meals Lactulose Oral 20 mL, 3x a day Levothyroxine Sodium Oral (125 mcg) 1 tablet, daily Midodrine HCl Oral (5 mg), 3x daily Nitrostat 0.4 mg prn Pantoprazole Sodium Oral 40 mg, 2x a day Oral, daily Torsemide Oral (100 mg) 1 tablet, daily Xifaxan Oral (550 mg) 1 tablet, 2x daily The source(s) of the original Home Medication information: Not obtained. The following Medications were given to the patient in the Emergency Department: None. The following Medications were prescribed to the patient: None.
--- NOTE | 2016-10-31 09:04 | ED MED RECONCILIATION SUMMARY ---
Patient: HOLLY NAM Medication Reconciliation Report [facility] VisitID: [id number] [address] [place] [address] 71y, M Registration Date/Time: 10/30/2016 Weight: 83.9 kg Height/Length: 71 in. BMI: 25.8 ALLERGIES: None The patient's Home Medications are listed below: CONTINUE TAKING THE FOLLOWING MEDICATIONS: Atorvastatin Calcium Oral (40 mg) 1 tablet, daily Gabapentin Oral (100 mg) 1 capsule, 3x a day Insulin Glargine Subcutaneous 10 units, at bedtime Insulin Regular Human Injection 4 units, before meals Lactulose Oral 20 mL, 3x a day Levothyroxine Sodium Oral (125 mcg) 1 tablet, daily Midodrine HCl Oral (5 mg), 3x daily Nitrostat 0.4 mg prn Pantoprazole Sodium Oral 40 mg, 2x a day Oral, daily Torsemide Oral (100 mg) 1 tablet, daily Xifaxan Oral (550 mg) 1 tablet, 2x daily The source(s) of the original Home Medication information: Not obtained. The following Medications were given to the patient in the Emergency Department: None. The following Medications were prescribed to the patient: None.
--- NOTE | 2016-10-31 09:04 | ED DISCHARGE INSTRUCTIONS ---
Patient: HOLLY NAM General Instructions [facility] VisitID: [id number] [address] [place] [id number] 71y, M Registration Date/Time: 10/30/2016 Ascites. Puncture wound to the left lower quadrant of the abdomen. INSTRUCTIONS Protect wound and keep wound area clean. Change dressing twice daily. Warnings: GENERAL WARNINGS: Return or contact your physician immediately if your condition worsens or changes unexpectedly, if not improving as expected, or if other problems arise. Your Current Medications: CONTINUE TAKING THE FOLLOWING MEDICATIONS: Atorvastatin Calcium Oral : Tablet 40 mg, 1 tablet daily. Gabapentin Oral : Capsule 100 mg, 1 capsule 3x a day. Insulin Glargine Subcutaneous : 10 units at bedtime. Insulin Regular Human Injection : 4 units before meals. Lactulose Oral : 20 mL 3x a day. Levothyroxine Sodium Oral : Tablet 125 mcg, 1 tablet daily. Midodrine HCl Oral : Tablet 5 mg, 3x daily. Nitrostat 0.4 mg prn*. Pantoprazole Sodium Oral : 40 mg 2x a day. Oral : daily. Torsemide Oral : Tablet 100 mg, 1 tablet daily. Xifaxan Oral : Tablet 550 mg, 1 tablet 2x daily. Understanding of the discharge instructions verbalized by patient. Follow-up with: Castillo Siddiqi MD, [facility], , [facility], [address] [place] [address] Follow up in seven days. Call for an appointment. ADDITIONAL INFORMATION Ascites Ascites is a collection of fluid in the abdominal cavity. The fluid leaks from the blood vessels that go to the intestines and liver. The most common cause for ascites is cirrhosis (scarring) of the liver. This is most often caused by alcoholism but other conditions such as chronic hepatitis (type B or C) can also cause this. Conditions not related to the liver can cause ascites such as congestive heart failure, kidney failure, pancreatitis, and cancer involving the abdominal organs. As the amount of fluid increases, it causes abdominal swelling and discomfort. There may also be loss of appetite and shortness of breath. In severe cases, the feet, ankles and legs also swell. Initial treatment is to restrict your salt intake and use medicines that promote urination (diuretics, also called water pills). In severe cases the fluid may need to be drained from the abdomen with a needle (called symptoms can be better controlled with medicines. If your liver damage is from alcohol, quitting will slow the progress of the disease and may prevent further complications. If your liver damage is from Hepatitis B or C, treatments may be given to fight the virus. If cirrhosis progresses and becomes life-threatening, a liver transplant may be considered. Home Care: If liver disease is the cause of your ascites, avoid medicines that can worsen liver damage such as acetaminophen (Tylenol). Your doctor will explain if any of the medicines you now take need to be changed. Talk to your doctor before taking mineral and vitamin supplements. Vitamin A, iron and copper can worsen liver damage. Stop all alcohol use. If you are alcoholic, seek professional help. Consider joining Alcoholics Anonymous for ongoing support. If you use IV drugs, seek help to stop. The viruses that cause this kind of hepatitis are passed by blood or sexual contact with an infected person. Never share needles or other equipment. Follow Up with your doctor or as advised by our staff. Learn more about your disease and the availability of support groups for others with the same condition. [place] [phone] www.liverfoundation.org Hepatitis [employer] International. 700.115.2594 www.hepfi.org Alcoholics Anonymous offers support through a self-help fellowship. There are no dues or fees. See the Yellow Pages and call for time and place of meetings. www.aa.org [employer] offers support to families of alcohol users. 692.887.7199 www.al-anon.org National [place] on Alcoholism and Drug Dependence 830-696-7171 www.ncadd.org Get Prompt Medical Attention if any of the following occur: Sudden weight gain with increased size of your abdomen or leg swelling Increasing jaundice (yellow color of skin or eyes) Excess bleeding from cuts or injuries Blood in your vomit or stool (black or red color) Difficulty breathing Increasing abdominal pain Fever of 100.4F (38C) or higher, or as directed by your healthcare provider Bandage Change If the bandage becomes wet or dirty, replace it. Otherwise, leave it in place for the first 24 hours. Then once a day: After removing the bandage, wash the area with soap and water. Use a wet cotton swab to loosen and remove any blood or crust that forms on the wound. After cleaning, apply a thin layer of antibiotic ointment or cream. Reapply the bandage. You may shower as usual after the first 24 hours. If the bandage is on an arm or leg, cover it with a plastic bag rubber banded at both ends before showering. No tub baths or swimming until the bandage is removed and the wound healed (at least 7 days). You have been given the following additional information: Ascites Dressing Change (Electronically signed by Jonh Kolb MD 10/31/2016 9:03)
--- NOTE | 2016-10-31 09:04 | ED MAR SUMMARY ---
..... Medication Administration Record [facility] [address] [place], [place] [id number] Patient: HOLLY NAM Visit ID: [id number] 71y, M Weight: 83.9 kg Height/Length: 71 in BMI: 25.8 ALLERGIES: None
--- NOTE | 2016-10-31 09:04 | ED MAR SUMMARY ---
..... Medication Administration Record [facility] [address] [place], [place] [id number] Patient: HOLLY NAM Visit ID: [id number] 71y, M Weight: 83.9 kg Height/Length: 71 in BMI: 25.8 ALLERGIES: None
--- NOTE | 2016-10-31 09:04 | ED DISCHARGE INSTRUCTIONS ---
Patient: HOLLY NAM General Instructions [facility] VisitID: [id number] [address] [place] [id number] 71y, M Registration Date/Time: 10/30/2016 Ascites. Puncture wound to the left lower quadrant of the abdomen. INSTRUCTIONS Protect wound and keep wound area clean. Change dressing twice daily. Warnings: GENERAL WARNINGS: Return or contact your physician immediately if your condition worsens or changes unexpectedly, if not improving as expected, or if other problems arise. Your Current Medications: CONTINUE TAKING THE FOLLOWING MEDICATIONS: Atorvastatin Calcium Oral : Tablet 40 mg, 1 tablet daily. Gabapentin Oral : Capsule 100 mg, 1 capsule 3x a day. Insulin Glargine Subcutaneous : 10 units at bedtime. Insulin Regular Human Injection : 4 units before meals. Lactulose Oral : 20 mL 3x a day. Levothyroxine Sodium Oral : Tablet 125 mcg, 1 tablet daily. Midodrine HCl Oral : Tablet 5 mg, 3x daily. Nitrostat 0.4 mg prn*. Pantoprazole Sodium Oral : 40 mg 2x a day. Oral : daily. Torsemide Oral : Tablet 100 mg, 1 tablet daily. Xifaxan Oral : Tablet 550 mg, 1 tablet 2x daily. Understanding of the discharge instructions verbalized by patient. Follow-up with: Castillo Siddiqi MD, [facility], , [facility], [address] [place] [address] Follow up in seven days. Call for an appointment. ADDITIONAL INFORMATION Ascites Ascites is a collection of fluid in the abdominal cavity. The fluid leaks from the blood vessels that go to the intestines and liver. The most common cause for ascites is cirrhosis (scarring) of the liver. This is most often caused by alcoholism but other conditions such as chronic hepatitis (type B or C) can also cause this. Conditions not related to the liver can cause ascites such as congestive heart failure, kidney failure, pancreatitis, and cancer involving the abdominal organs. As the amount of fluid increases, it causes abdominal swelling and discomfort. There may also be loss of appetite and shortness of breath. In severe cases, the feet, ankles and legs also swell. Initial treatment is to restrict your salt intake and use medicines that promote urination (diuretics, also called water pills). In severe cases the fluid may need to be drained from the abdomen with a needle (called symptoms can be better controlled with medicines. If your liver damage is from alcohol, quitting will slow the progress of the disease and may prevent further complications. If your liver damage is from Hepatitis B or C, treatments may be given to fight the virus. If cirrhosis progresses and becomes life-threatening, a liver transplant may be considered. Home Care: If liver disease is the cause of your ascites, avoid medicines that can worsen liver damage such as acetaminophen (Tylenol). Your doctor will explain if any of the medicines you now take need to be changed. Talk to your doctor before taking mineral and vitamin supplements. Vitamin A, iron and copper can worsen liver damage. Stop all alcohol use. If you are alcoholic, seek professional help. Consider joining Alcoholics Anonymous for ongoing support. If you use IV drugs, seek help to stop. The viruses that cause this kind of hepatitis are passed by blood or sexual contact with an infected person. Never share needles or other equipment. Follow Up with your doctor or as advised by our staff. Learn more about your disease and the availability of support groups for others with the same condition. [place] [phone] www.liverfoundation.org Hepatitis Foundation International. 168.641.1392 www.hepfi.org Alcoholics Anonymous offers support through a self-help fellowship. There are no dues or fees. See the Yellow Pages and call for time and place of meetings. www.aa.org [employer] offers support to families of alcohol users. 161.282.1839 www.al-anon.org National [place] on Alcoholism and Drug Dependence 140-400-6261 www.ncadd.org Get Prompt Medical Attention if any of the following occur: Sudden weight gain with increased size of your abdomen or leg swelling Increasing jaundice (yellow color of skin or eyes) Excess bleeding from cuts or injuries Blood in your vomit or stool (black or red color) Difficulty breathing Increasing abdominal pain Fever of 100.4F (38C) or higher, or as directed by your healthcare provider Bandage Change If the bandage becomes wet or dirty, replace it. Otherwise, leave it in place for the first 24 hours. Then once a day: After removing the bandage, wash the area with soap and water. Use a wet cotton swab to loosen and remove any blood or crust that forms on the wound. After cleaning, apply a thin layer of antibiotic ointment or cream. Reapply the bandage. You may shower as usual after the first 24 hours. If the bandage is on an arm or leg, cover it with a plastic bag rubber banded at both ends before showering. No tub baths or swimming until the bandage is removed and the wound healed (at least 7 days). You have been given the following additional information: Ascites Dressing Change (Electronically signed by Jonh Kolb MD 10/31/2016 9:03)
== END 2016-10-30 10:27 | disposition home or self-care (01) ==
LOC: ED SRH 09:18
DX: R18.8 Other ascites (principal); K72.10 Chronic hepatic failure without coma; Z99.2 Dependence on renal dialysis; E11.9 Type 2 diabetes mellitus without complications; Z79.4 Long term (current) use of insulin; E03.9 Hypothyroidism, unspecified; I25.10 Atherosclerotic heart disease of native coronary artery without angina pectoris; E07.9 Disorder of thyroid, unspecified; Z79.899 Other long term (current) drug therapy; Z87.891 Personal history of nicotine dependence